=== PATIENT | female | born 1940 | race Caucasian/White ===

== ENCOUNTER 2022-02-23 19:02 | Emergency (ER) | payer OTHER ==
--- OUTSIDE RECORDS SUMMARY | 2022-02-23 19:44 | XMS REPORT | Continuity of Care Document ---
:1940 Author Organization [facility] t Address [address] [place] [address] Care Team Providers Name Role Phone BONNIE LANGFORD Primary Care Physician Unavailable ESTRELLITA CERVANTES Attending Clinician Unavailable ESTRELLITA CERVANTES Attending Clinician Unavailable 2, [facility] Attending Clinician Unavailable Payers Payer Name Policy Type Policy Number Effective Date Expiration Date Mal currie MEDICARE PART A [id number] 2004 \\T\\ B 00:00:00 Problems Condition Condition Condition Status Onset Resolution Last Treating Co mments Source Name Details Category Date Date Treatment Clinician Date Flu Flu Disease Active Univers vaccine vaccine 1-04 ity of need need 00:00: [place] 00 Medical Branch Recurrent Recurrent Disease Active Uni vers falls falls 1-04 ity of 00:00: [place] 00 Medical Branch Vitamin B Vitamin B Disease Active Uni vers 12 12 2-20 [place] Altered Altered Disease Active Univers mental mental 1-30 ity of status, status, 00:00: [place] unspecifie unspecifie 00 Me dical d altered d altered Bran ch mental mental status status type type Chronic Chronic Disease Active Univers nonintract nonintract 1-30 it y of able able 00:00: [place] headache, headache, 00 Medi lon unspecifie unspecifie Br anch d headache d headache type type Nutritiona Nutritiona Disease Active U nivers l l 1-30 ity of deficiency deficiency 00:[place] [facility] Dehydratio Dehydratio Disease Active U nivers n n 1-30 ity of 00:00: [place] 00 Medical Branch History of History of Disease Active U nivers TIA TIA 1-30 ity of (transient (transient 00:00: [facility] ischemic ischemic 00 Medica l attack) attack) Branch Chronic Chronic Disease Active Univers fatigue fatigue 1-30 ity of 00:00: [place] [facility] Encounter Encounter Disease Active Uni vers for for 1-30 ity of Medicare Medicare 00:00: [place] annual annual Medical wellness wellness Branch exam exam Syncope, Syncope, Disease Active Unive rs unspecifie unspecifie 1-30 it y of d syncope d syncope 00:00: [facility] s type type Medical Branch HTN HTN Disease Active 2014-07 Univers (hypertens (hypertens 2-10 it y of ion) ion) 00:00: [place] [facility] Hyperlipid Hyperlipid Disease Active 2014-07 U nivers emia emia 2-10 ity of 00:00: [place] [facility] Branch Allergies, Adverse Reactions, Alerts Allergy Allergy Status Severity Reaction(s) Onset Inactive Treating Comm ents Source Name Type Date Date Clinician NO KNOWN Drug Active Univers ALLERGIE Class ity of S [facility] Social History Social Habit Start Date Stop Date Quantity Comments Source Exposure to Not sure [facility] SARS-CoV-2 [place] [facility] (event) Andrew History of Cigarette Smoker Universi ty of tobacco use [facility] Alcohol intake 2021-07-08 2021-07-08 0 /d University of 00:00:00 00:00:00 [facility] Tobacco use and 2015-06-07 2015-06-07 Never used Universit y of exposure 00:00:00 00:00:00 [facility] Sex [birth year] Universit y of 00:00:00 00:00:00 [facility] Smoking Status Start Date Stop Date Source Never smoker [facility] Medications Ordered Filled Start Stop Current Ordering Indication Dosage Frequency Signature Comments Components Source Medication Medication Date Date Medication? Clinician (SIG) Name Name ergocalcife Yes [id number] 66061W Take 1 Univers rol, 1-05 capsule by ity of vitamin d2, 00:00: mouth [place] (VITAMIN 00 weekly. Medical D2) 1,250 Branch mcg (50,000 unit) capsule calcium 2021- No [id number] 500mg Take 1 Un edgardo carbonate 07-09-06 capsule by ity of 500 mg 00:00: 04:59 mouth 2 [place] calcium 00 :00 (two) Medical (1,250 mg) times Branch capsule daily with meals for 120 days. RAMIPRIL 10 Yes [id number] TAKE 1 Univers mg capsule 3-31 CAPSULE BY ity of 00:00: MOUTH [place] 00 EVERY DAY Medical Branch Immunizations Ordered Filled Immunization Date Status Comments [facility] e Immunization Name Name Influenza Virus 2021-07-08 Completed [facility] of Vaccine,quad 00:00:00 [place] Medica l Im,preserve Free Branch 65+ Procedures Procedure Date / Time Performing Clinician Source Performed VITAMIN B12, LEVEL 2021-07-08 16:17:00 Estrellita Cervantes [facility] FREE T4 2021-07-08 16:17:00 Estrellita Cervantes [facility] THYROID STIMULATING 2021-07-08 16:17:[address] [facility] HORMONE [facility] COMP. METABOLIC PANEL 2021-07-08 16:17:00 Estrellita Cervantes [facility] ([id number]) [facility] LIPID PANEL 2021-07-08 16:17:00 Estrellita Cervantes [facility] ([id number])(TOTAL Medical Branch CHOLESTEROL, TRIGLYCERIDES, HDL) CBC WITH DIFF 2021-07-08 16:17:00 Estrellita Cervantes [facility] GLYCOSYLATED HEMOGLOBIN 2021-07-08 16:17:00 Estrellita Cervantes [facility] (A1C) [facility] VITAMIN D, 25-OH 2021-07-08 16:17:00 Estrellita Cervantes [facility] FREE T3 2021-07-08 16:17:00 Estrellita Cervantes [facility] Encounters Start End Encounter Admission Attending Care Care Encounter Source Date/Time Date/Time Type Type Clinicians Facility Department ID 2021-08-05 2021-08-05 Outpatient R ESTRELLITA CERVANTES [facility] [id number] Univers 08:00:00 08:00:00 ESTRELLITA CERVANTES ity [facility] 2021-07-08 2021-07-08 Business Sales Consultant 2, [facility] [id number] [facility] 11:00:00 11:00:00 Visit Estrellita Cervantes OCILLA [id number] itleonel [facility] [id number] Bang BECKERSHANNAN [id number] Co dical [address] Results Test Description Test Time Test Comments Results Result Comments Source VITAMIN D, 25-OH 2021-07-08 23:55:05 Test Item Value Reference Range Interpretation Comme nts VIT D 25OH (test code = 58095-6) <13 25-80 L KIERAN (test code = KIERAN) Deficiency: <20 ng/mLInsufficiency: 20-24 ng/mLOptimal: 25-80 ng/mL Lab Interpretation (test code = 64624-5) Abnormal [facility] [id number] 23:19:09 Test Item Value Reference Range Interpretation Comments VIT B12 (test code = 265 pg/mL 240-930 4105475021) KIERAN (test code = KIERAN) Biotin has been reported to cause a positive bias, interpret results relative to patient's use of biotin. Lab Interpretation (test Normal code = 74992-5) [facility] [id number] 18:34:36 Test Item Value Reference Range Interpretation Comments TSH (test code = See_Comment [Automated message] [id number]) The system [employer] generated this result transmitted ref erence range: 0.45 - 4 .70 mIU/L. The refe rence range was not u sed to interpret this result as normal/abnor mal. Lab Interpretation (test Normal code = 56661-8) [facility] [id number] 18:22:43 Test Item Value Reference Range Interpretation Comments FREE T3 (test code = 8406108225) 2.51 pg/mL 2.77-5.27 L Lab Interpretation (test code = Abnormal 14372-2) [facility] [id number] 18:20:56 Test Item Value Reference Range Interpretation Comments FREE T4 (test code = See_Comment [Autom ated message] [id number]) The system [employer] generated this result transmitted ref erence range: 0.78 - 2 .20 ng/dL:. The ref erence range was not u sed to interpret this result as normal/abnor mal. Lab Interpretation (test Normal code = 97347-2) [facility] ([id number])(TOTAL CHOLESTEROL, TRIGLYCERIDES, HDL)2021-07-08 18:05:53 Test Item Value Reference Range Interpretation Comments CHOL (test code = 264 mg/dL 120-200 H 3489414125) HDL (test code = 63 mg/dL >50 0876101045) HDLC RATIO (test code = See_Comment [Au tomated message] [id number]) The system [employer] generated this result transmit susanne reference range : <=4.5. The refe rence range was not u sed to interpret th is result as normal/abnormal . TRIG (test code = 177 mg/dL 30-170 H 4741719048) LDL CHOL (test code = 166 mg/dL See_Comment H [Auto mated message] 05167-4) The system [employer] generated this result transmit susanne reference range : <=160. The refe rence range was not u sed to interpret th is result as normal/abnormal . VLDL (test code = 35 mg/dL 5-60 8278314350) Lab Interpretation (test Abnormal code = 17274-4) [facility] ([id number])2021-07-08 18:05:32 Test Item Value Reference Range Interpretation Comments NA (test code = 135 mmol/L 135-145 8488685993) K (test code = 4.9 mmol/L 3.5-5.0 5526076265) CL (test code = 99 mmol/L 98-108 6703269232) CO2 TOTAL (test code = 28 mmol/L 23-31 2516663516) AGAP (test code = 2-16 7558694317) BUN (test code = 17 mg/dL 7-23 6404971884) GLUCOSE (test code = 104 mg/dL 70-110 8443444981) CREATININE (test code = 1.37 mg/dL 0.50-1.04 H 0390885727) TOTAL BILI (test code = 0.6 mg/dL 0.1-1.6 9683616652) CALCIUM (test code = 9.1 mg/dL 8.6-10.6 6640025616) T PROTEIN (test code = 7.2 g/dL 6.3-8.2 5657101765) ALBUMIN (test code = 4.0 g/dL 3.5-5.0 0126585847) ALK PHOS (test code = 100 U/L 34-122 1603338263) ALTv (test code = 16 U/L 5-35 1742-6) AST(SGOT) (test code = 31 U/L 13-40 6362671100) eGFR (test code = mL/min/1.73m2 0425716084) KIERAN (test code = KIERAN) Association of Glomerular Filtration Rate (GFR) and Staging of Kidney Disease* + --+ --+ ------+| GFR (mL/min/1.73 m2) ?| With Kidney Damage ?| ?Without Kidney Damage+ --------+ --------+ +| ?>90 ?| ?Stage one ?| ? Normal ?+ ---+ ---+ -------+| ?60-89 ?| ?Stage two ?| ? Decreased GFR ? + --+ --+ ------+| ?30-59 ?| ?Stage three ?| ? Stage three ? + --+ --+ ------+| ?15-29 ?| ?Stage four ? | ? Stage four ?+ ---+ ---+ -------+| ?<15 (or dialysis) ? ?| ?Stage five ? | ? Stage five ?+ ---+ ---+ -------+ *Each stage assumes the associated GFR level has been in effect for at least three months. ?Stages 1 to 5, with or without kidney disease, indicate chronic kidney disease. Notes: Determination of stages one and two (with eGFR >59mL/min/1.73 m2) requires estimation of kidney damage for at least three months as defined by structural or functional abnormalities of the kidney, manifested by either:Pathological abnormalities or Markers of kidney damage (including abnormalities in the composition of the blood or urine or abnormalities in imaging tests). Lab Interpretation Abnormal (test code = 07174-2) [facility] (A1C)2021-07-08 17:38:17 Test Item Value Reference Range Interpretation Comments HGB A1C (test code = 5.1 % 4.0-5.7 4548-4) KIERAN (test code = KIERAN) Reference RangesNormal: <5.7%Prediabetes: 5.7 - 6.4%Diabetes: > 6.5% Lab Interpretation (test Normal code = 80390-4) [facility] WITH [id number] 17:08:41 Test Item Value Reference Range Interpretation Comments WBC (test code = See_Comment H [Automated 6690-2) message] The sy stem which generated this result transmitted reference range : 4.30 - 11.10 10*3/?L. The reference range was not used to interpret this result as normal/abnormal . RBC (test code = See_Comment [Automated 789-8) message] The sy stem which generated this result transmitted reference range : 3.93 - 5.25 10*6/?L. The reference range was not used to interpret this result as normal/abnormal . HGB (test code = 13.0 g/dL 11.6-15.0 718-7) HCT (test code = 40.2 % 35.7-45.2 4544-3) MCV (test code = 92.4 fL 80.6-95.5 787-2) MCH (test code = 29.9 pg 25.9-32.8 785-6) MCHC (test code = 32.3 g/dL 31.6-35.1 786-4) RDW-SD (test code = 45.9 fL 39.0-49.9 41883-1) RDW-CV (test code = 13.3 % 12.0-15.5 788-0) PLT (test code = See_Comment H [Automated 777-3) message] The sy stem which generated this result transmitted reference range : 166 - 358 10*3/ ?L. The reference r raúl was not used to interpret this result as normal/abnormal . MPV (test code = 10.0 fL 9.5-12.9 19799-6) NRBC/100 WBC (test See_Comment [Automat ed code = 7958731310) message] The system which generated this result transmitted reference range : 0.0 - 10.0 /100 WBCs. The refer ence range was not u sed to interpret th is result as normal/abnormal . NRBC x10^3 (test code <0.01 See_Comment [Auto mated = 4125298090) message] The s ystem which generated this result transmitted reference range : 10*3/?L. The reference range was not used to interpret this result as normal/abnormal . GRAN MAT (NEUT) % 79.7 % (test code = 770-8) IMM GRAN % (test code 0.50 % = 5575416822) LYMPH % (test code = 13.9 % 736-9) MONO % (test code = 4.9 % 5905-5) EOS % (test code = 0.3 % 713-8) BASO % (test code = 0.7 % 706-2) GRAN MAT x10^3(ANC) 9.50 10*3/uL 1.88-7.09 H (test code = 2612768254) IMM GRAN x10^3 (test 0.06 10*3/uL 0.00-0.06 code = 2768656726) LYMPH x10^3 (test code 1.66 10*3/uL 1.32-3.29 = 731-0) MONO x10^3 (test code 0.58 10*3/uL 0.33-0.92 = 742-7) EOS x10^3 (test code = 0.04 10*3/uL 0.03-0.39 711-2) BASO x10^3 (test code 0.08 10*3/uL 0.01-0.07 H = 704-7) Lab Interpretation Abnormal (test code = 73675-9) [facility]"
[2022-02-23 20:16] LABS: Absolute Lymphocytes (CBC) 2.6 K/uL (0.7-4.9); Hematocrit 35.6 % (36.0-45.0); Lymphocytes % 27.6 % (15.3-44.8); MCV 88.5 fL (80-100); MPV 7.6 fL (7.6-11.3); RBC Red Blood Cell Count 4.02 M/uL (3.86-4.86)
[2022-02-23 20:17] LABS: Urine Blood Trace-intact (Negative); Urine Glucose Negative (Negative); Urine Protein Negative (Negative); Urine Specific Gravity <=1.005 (1.005-1.030); Urine pH 5.5 (5.0-7.0)
[2022-02-23 20:19] LABS: Protime INR 0.95
[2022-02-23] MEDS ORDERED: NA CHLORIDE 0.9% 1,000 ML ONE (20:23)
[2022-02-23] MEDS ORDERED: CEFTRIAXONE 1000 MG/VIAL ONE (20:23)
[2022-02-23] MEDS ORDERED: NA CHLORIDE 0.9% 500 ML ONE (20:23)
[2022-02-23] MEDS ORDERED: HYDRALAZINE HCL 10 MG TABLET ONE (20:24)
[2022-02-23] MEDS ORDERED: AMLODIPINE 10 MG TAB ONE (20:24)
[2022-02-23] MEDS ORDERED: HYDRALAZINE HCL 20 MG/ML VIAL ONE (20:24)
[2022-02-23 20:29] LABS: SARS-CoV-2 Antigen Rapid Res Negative (Negative)
[2022-02-23 20:41] LABS: ALT/SGPT 12 U/L (12-78); AST/SGOT 21 U/L (15-37); Albumin 3.4 g/dL (3.4-5.0); Alkaline Phosphatase 73 U/L (45-117); BUN Blood Urea Nitrogen 15 mg/dL (7-18); Bicarbonate 30 mmol/L (21-32); Bilirubin Total 0.3 mg/dL (0.2-1.0); Glomerular Filtration Rate 39 ml/min (=/>90); Glucose Level 101 mg/dL (74-106); Lipase 196 U/L (73-393); Magnesium 2.1 mg/dL (1.8-2.4); NT PRO-BNP 602 pg/mL (<450); Potassium 3.3 mmol/L (3.5-5.1); Protein, Total 6.9 g/dL (6.4-8.2); Sodium Level 141 mmol/L (136-145); Troponin High Sensitivity 14.6 pg/mL (<58.9)
[2022-02-23 20:45] LABS: Bilirubin Direct < 0.1 mg/dL (0-0.2)
--- NOTE | 2022-02-23 21:09 | RAD REPORT ---
EXAM DESCRIPTION: Alisha Single View02/23/2022 8:21 pm CLINICAL HISTORY: cough COMPARISON: 2011 FINDINGS: The lungs appear clear of acute infiltrate. The heart is normal size IMPRESSION: No acute abnormalities displayed
--- NOTE | 2022-02-23 21:12 | RAD REPORT ---
EXAM DESCRIPTION: CT - Head Brain Wo Cont - 02/23/2022 9:05 pm CLINICAL HISTORY: Headache COMPARISON: 2013 TECHNIQUE: Computed axial tomography of the head was obtained. IV contrast was not requested. All CT scans are performed using dose optimization technique as appropriate and may include automated exposure control or mA/KV adjustment according to patient size. FINDINGS: An intracranial bleed is not seen . The ventricles are normal in caliber. No extra-axial fluid collection is noted. Cystic encephalomalacia right cerebrum unchanged. Fluid within the sinuses/ mastoids is not seen. IMPRESSION: No acute intracranial abnormality is seen. If patient's symptoms persist MRI of the bra in would be recommended.
--- NOTE | 2022-02-23 21:20 | RAD REPORT ---
EXAM DESCRIPTION: CT - Stone Protocol - 02/23/2022 9:08 pm CLINICAL HISTORY: Abdominal pain. Dysuria COMPARISON: 2013 TECHNIQUE: Computed axial tomography of the abdomen pelvis was obtained without oral or IV contrast. Lack of IV and oral contrast limits evaluation of solid organs, appendix, bowel, and vessels. Man l reformatted images were obtained and reviewed. All CT scans are performed using dose optimization technique as appropriate and may include automated exposure control or mA/KV adjustment according to patient size. FINDINGS: A renal calculus is not seen. An ureteral calculus is not noted. A bladder calculus is not present. Bilateral extrarenal pelves. The liver, spleen, pancreas and adrenals appear grossly normal Cholecystectomy There is no evidence of diverticulitis. Right posterior diaphragmatic hernia containing fat Calcified uterine fibroids. No adnexal mass IMPRESSION: Negative for a genitourinary calculus
[2022-02-23] MEDS ORDERED: POTASSIUM 25 MEQ EFFERV TAB ONE (22:12)
--- NOTE | 2022-02-23 22:21 | ER ---
Nurse's Notes [facility] Name: Ileana Goldman Age: 81 yrs Sex: Female : 1940 Arrival Date: 02/23/2022 Time: 19:15 Bed 28 Private MD: Diagnosis: Essential (primary) hypertension;Hypokalemia;Anemia, unspecified;UTI/ Urinary tract infection, site not specified Presentation: 02/23 19:23 Chief complaint: EMS states: daughter toned out to [facility] due to pt incontinence eh3 and loss of appetite. Coronavirus screen: Vaccine status: Patient reports being unvaccinated. Ebola Screen: No symptoms or risks identified at this time. Initial Sepsis Screen: Does the patient meet any 2 criteria? No. Patient's initial sepsis screen is negative. Does the patient have a suspected source of infection? No. Patient's initial sepsis screen is negative. Risk Assessment: Do you want to hurt yourself or someone else? Patient reports no desire to harm self or others. Onset of symptoms is unknown. 19:23 Method Of Arrival: EMS: [facility] 3 19:23 Acuity: OPAL 3 eh3 Triage Assessment: 19:26 General: Appears in no apparent distress. comfortable, slender, well groomed, Behavior eh3 is calm, cooperative, appropriate for age. Pain: Denies pain. Neuro: Level of Consciousness is awake, alert, obeys commands. Cardiovascular: Capillary refill < 3 seconds Patient's skin is warm and dry. Respiratory: Airway is patent Respiratory effort is even, unlabored. GI: Parent/caregiver reports the patient having loss of appetite. : Parent/caregiver report the patient having incontinence. Derm: No signs and/or symptoms reported regarding the dermatologic system. Musculoskeletal: No signs and/or symptoms reported regarding the musculoskeletal system. Historical: - Allergies: 19:26 No Known Allergies; eh3 - Home Meds: 19:26 None [Active]; eh3 - PMHx: 19:26 CVA; eh3 - PSHx: 19:26 None; eh3 - Immunization history:: Adult Immunizations up to date. - Social history:: Smoking status: Patient denies any tobacco usage or history of. Patient/guardian denies using alcohol. - Family history:: not pertinent. Screenin:33 Abuse screen: Denies threats or abuse. Denies injuries from another. Nutritional eh3 screening: No deficits noted. Tuberculosis screening: No symptoms or risk factors identified. Fall Risk None identified. Vital Signs: 20:33 BP 199 / 73; Pulse 71; Resp 15; Temp 97.9(O); Pulse Ox 96% on R/A; Weight 58.97 kg; eh3 Height 5 ft. 5 in. (165.10 cm); Pain 0/10; 21:30 BP 160 / 57; Pulse 74; Resp 18; Pulse Ox 95% on R/A; eh3 22:24 BP 174 / 83; Pulse 92; Resp 18; Pulse Ox 96% on R/A; eh3 20:33 Body Mass Index 21.63 (58.97 kg, 165.10 cm) eh3 ED Course: 19:15 Patient arrived in ED. ja2 19:23 Bertha Eddy, RN is Primary Nurse. eh3 19:26 Triage completed. eh3 19:26 Arm band placed on left wrist. eh3 19:32 Kirk Kwon MD is Attending Physician. mackenzie 20:18 Urine Culture Sent. ld1 20:19 Urine Culture Sent. ld1 20:23 XRAY Chest (1 view) In Process Unspecified. EDMS 20:32 Warm blanket given. Pillow given. Cleaned of incontinence. Linen changed. eh3 20:32 Inserted saline lock: 20 gauge in left antecubital area, using aseptic technique. Blood eh3 collected. 20:33 Patient has correct armband on for positive identification. Placed in gown. Bed in low eh3 position. Call light in reach. Side rails up X2. 21:07 CT Head Brain wo Cont In Process Unspecified. EDMS 21:10 CT Stone Protocol In Process Unspecified. EDMS 22:20 Fredi Dawkins DO is Referral Physician. mackenzie 22:26 No provider procedures requiring assistance completed. eh3 22:26 IV discontinued, intact, bleeding controlled, No redness/swelling at site. Pressure eh3 dressing applied. Administered Medications: 10:10 Drug: Potassium Effervescent Tablet 50 mEq Route: PO; eh3 22:28 Follow up: Response: No adverse reaction eh3 10:10 Drug: Cipro (ciprofloxacin) 500 mg Route: PO; eh3 22:28 Follow up: Response: No adverse reaction eh3 10:10 Drug: Lisinopril 20 mg Route: PO; eh3 22:27 Follow up: Response: No adverse reaction eh3 20:24 Drug: NS 0.9% 1000 ml Route: IV; Rate: 125 ml/hr; Site: left antecubital; ld1 22:29 Follow up: Response: No adverse reaction; IV Intake: 500ml eh3 22:32 Follow up: Response: No adverse reaction; IV Intake: 1000ml eh3 20:25 Drug: NS 0.9% 500 ml Route: IV; Rate: bolus; Site: left antecubital; ld1 22:32 Follow up: Response: No adverse reaction; IV Intake: 500ml eh3 20:33 Drug: Rocephin (cefTRIAXone) 1 grams Route: IV; Rate: per protocol; Site: left [facility] antecubital; 22:28 Follow up: Response: No adverse reaction eh3 20:33 Drug: Norvasc (amlodipine) 10 mg Route: PO; eh3 22:28 Follow up: Response: No adverse reaction eh3 20:33 Drug: hydrALAZINE 10 mg Route: PO; eh3 22:28 Follow up: Response: No adverse reaction eh3 20:33 Drug: hydrALAZINE 5 mg Route: IVP; Site: left antecubital; eh3 22:28 Follow up: Response: No adverse reaction eh3 Medication: 20:33 VIS not applicable for this client. eh3 Intake: 22:29 IV: 500ml; Total: 500ml. eh3 22:32 IV: 1000ml; Total: 1500ml. eh3 22:32 IV: 500ml; Total: 2000ml. eh3 Outcome: 22:21 Discharge ordered by MD. mann 22:26 Discharged to home ambulatory, with family. eh3 22:26 Condition: stable 22:26 Discharge instructions given to patient, family, Instructed on discharge instructions, follow up and referral plans. medication usage, Demonstrated understanding of instructions, follow-up care, medications, Prescriptions given X 3. 22:33 Patient left the ED. eh3 Signatures: Dispatcher [employer] EDKirk Loyola MD MD cha Dibbern, Lauren RN RN ld1 Lizette Richardson Erin RN RN eh3
--- NOTE | 2022-02-23 22:22 | EDPHYS ---
Physician Documentation [facility] Name: Ileana Goldman Age: 81 yrs Sex: Female : 1940 Arrival Date: 02/23/2022 Time: 19:15 Bed 28 Private MD: RODRIGUE Physician Kirk Kwon HPI: 02/23 20:13 This 81 yrs old Female presents to ER via EMS with complaints of Urinary mackenzie Incontinence. 20:13 The patient presents with urinary symptoms, dysuria, frequency. Onset: The mackenzie symptoms/episode began/occurred 3 day(s) ago. Modifying factors: The symptoms are alleviated by nothing, the symptoms are aggravated by nothing. Associated signs and symptoms: The patient has no apparent associated signs or symptoms. Severity of symptoms: At their worst the symptoms were mild, in the emergency department the symptoms are unchanged. frequency. The patient is not sexually active. Onset: The symptoms/episode began/occurred 2 day(s) ago. Severity of symptoms: At their worst the symptoms were mild in the emergency department the symptoms are unchanged. Historical: - Allergies: 19:26 No Known Allergies; eh3 - Home Meds: 19:26 None [Active]; eh3 - PMHx: 19:26 CVA; eh3 - PSHx: 19:26 None; eh3 - Immunization history:: Adult Immunizations up to date. - Social history:: Smoking status: Patient denies any tobacco usage or history of. Patient/guardian denies using alcohol. - Family history:: not pertinent. ROS: 20:13 Constitutional: Negative for fever, chills, and weight loss, Eyes: Negative for injury, mackenzie pain, redness, and discharge, ENT: Negative for injury, pain, and discharge, Neck: Negative for injury, pain, and swelling, Cardiovascular: Negative for chest pain, palpitations, and edema, Respiratory: Negative for shortness of breath, cough, wheezing, and pleuritic chest pain, Abdomen/GI: Negative for abdominal pain, nausea, vomiting, diarrhea, and constipation, Back: Negative for injury and pain, : Negative for injury, bleeding, discharge, and swelling, MS/Extremity: Negative for injury and deformity, Skin: Negative for injury, rash, and discoloration, Neuro: Negative for headache, weakness, numbness, tingling, and seizure, Psych: Negative for depression, anxiety, suicide ideation, homicidal ideation, and hallucinations, Allergy/Immunology: Negative for hives, rash, and allergies, Endocrine: Negative for neck swelling, polydipsia, polyuria, polyphagia, and marked weight changes, Hematologic/Lymphatic: Negative for swollen nodes, abnormal bleeding, and unusual bruising. Exam: 20:14 Constitutional: This is a well developed, well nourished patient who is awake, alert, mackenzie and in no acute distress. Head/Face: Normocephalic, atraumatic. Eyes: Pupils equal round and reactive to light, extra-ocular motions intact. Lids and lashes normal. Conjunctiva and sclera are non-icteric and not injected. Cornea within normal limits. Periorbital areas with no swelling, redness, or edema. ENT: Nares patent. No nasal discharge, no septal abnormalities noted. Tympanic membranes are normal and external auditory canals are clear. Oropharynx with no redness, swelling, or masses, exudates, or evidence of obstruction, uvula midline. Mucous membranes moist. Neck: Trachea midline, no thyromegaly or masses palpated, and no cervical lymphadenopathy. Supple, full range of motion without nuchal rigidity, or vertebral point tenderness. No Meningismus. Chest/axilla: Normal chest wall appearance and motion. Nontender with no deformity. No lesions are appreciated. Cardiovascular: Regular rate and rhythm with a normal S1 and S2. No gallops, murmurs, or rubs. Normal PMI, no JVD. No pulse deficits. Respiratory: Lungs have equal breath sounds bilaterally, clear to auscultation and percussion. No rales, rhonchi or wheezes noted. No increased work of breathing, no retractions or nasal flaring. Abdomen/GI: Soft, non-tender, with normal bowel sounds. No distension or tympany. No guarding or rebound. No evidence of tenderness throughout. Back: No spinal tenderness. No costovertebral tenderness. Full range of motion. Skin: Warm, dry with normal turgor. Normal color with no rashes, no lesions, and no evidence of cellulitis. MS/ Extremity: Pulses equal, no cyanosis. Neurovascular intact. Full, normal range of motion. Neuro: Awake and alert, GCS 15, oriented to person, place, time, and situation. Cranial nerves II-XII grossly intact. Motor strength 5/5 in all extremities. Sensory grossly intact. Cerebellar exam normal. Normal gait. Psych: Awake, alert, with orientation to person, place and time. Behavior, mood, and affect are within normal limits. 20:14 Musculoskeletal/extremity: DVT Exam: No signs of deep vein thrombosis. no pain, no swelling, no tenderness, negative Homans' sign noted on exam, no appreciated bluish discoloration, no erythema, no increased warmth. 20:24 ECG was reviewed by the Attending Physician. mackenzie Vital Signs: 20:33 BP 199 / 73; Pulse 71; Resp 15; Temp 97.9(O); Pulse Ox 96% on R/A; Weight 58.97 kg; 3 Height 5 ft. 5 in. (165.10 cm); Pain 0/10; 21:30 BP 160 / 57; Pulse 74; Resp 18; Pulse Ox 95% on R/A; eh3 22:24 BP 174 / 83; Pulse 92; Resp 18; Pulse Ox 96% on R/A; eh3 20:33 Body Mass Index 21.63 (58.97 kg, 165.10 cm) [facility] MDM: 19:32 Patient medically screened. mackenzie 20:14 Differential diagnosis: kidney stone, urinary tract infection. Data reviewed: vital mackenzie signs, nurses notes, lab test result(s), EKG, radiologic studies, CT scan, plain films. Data interpreted: monitor tech: rate is 85 beats/min, rhythm is regular, Pulse oximetry: on room air is 100 %. Test interpretation: by ED physician or midlevel provider: ECG, plain radiologic studies. Counseling: I had a detailed discussion with the patient and/or guardian regarding: the historical points, exam findings, and any diagnostic results supporting the discharge/admit diagnosis, lab results, radiology results. 02/23 19:37 Order name: Basic Metabolic Panel; Complete Time: 21:53 [facility] 02/23 19:37 Order name: CBC with Diff; Complete Time: :53 [facility] 02/23 19:37 Order name: LFT's; Complete Time: 21:53 [facility] 02/23 19:37 Order name: Magnesium; Complete Time: 21:53 [facility] 02/23 19:37 Order name: NT PRO-BNP; Complete Time: 21:53 [facility] 02/23 19:37 Order name: PT-INR; Complete Time: 21:53 [facility] 02/23 19:37 Order name: Troponin HS; Complete Time: 21:53 [facility] 02/23 19:37 Order name: XRAY Chest (1 view); Complete Time: 21:53 [facility] 02/23 19:37 Order name: Urine Culture; Complete Time: 21:53 [facility] 02/23 19:37 Order name: Lipase; Complete Time: 21:53 [facility] 02/23 19:37 Order name: CT Head Brain wo Cont; Complete Time: 21:53 [facility] 02/23 19:39 Order name: Urine Culture [facility] 02/23 20:17 Order name: Urine Dipstick-Ancillary; Complete Time: 21:53 [facility] 02/23 19:37 Order name: EKG; Complete Time: 19:37 [facility] 02/23 19:37 Order name: Cardiac monitoring; Complete Time: 19:52 [facility] 02/23 19:37 Order name: EKG - Nurse/Tech; Complete Time: 20:09 [facility] 02/23 19:37 Order name: IV Saline Lock; Complete Time: 20:32 [facility] 02/23 19:37 Order name: Labs collected and sent; Complete Time: 20:32 [facility] 02/23 19:37 Order name: O2 Per Protocol; Complete Time: 19:52 [facility] 02/23 19:37 Order name: CT Stone Protocol; Complete Time: :53 [facility] 02/23 19:37 Order name: O2 Sat Monitoring; Complete Time: 19:52 [facility] 02/23 19:37 Order name: Urine Dipstick-Ancillary (obtain specimen); Complete Time: 20:19 mackenzie EC:24 Rate is 66 beats/min. Rhythm is regular. QRS [place] is Normal. [place] interval is normal. QRS mackenzie interval is normal. QT interval is normal. No Q waves. T waves are Normal. No ST changes noted. Clinical impression: NSR w/ Non-specific ST/T Changes and No evidence of ischemia. Interpreted by me. Reviewed by me. Administered Medications: 10:10 Drug: Potassium Effervescent Tablet 50 mEq Route: PO; 3 22:28 Follow up: Response: No adverse reaction eh3 10:10 Drug: Cipro (ciprofloxacin) 500 mg Route: PO; eh3 22:28 Follow up: Response: No adverse reaction eh3 10:10 Drug: Lisinopril 20 mg Route: PO; eh3 22:27 Follow up: Response: No adverse reaction eh3 20:24 Drug: NS 0.9% 1000 ml Route: IV; Rate: 125 ml/hr; Site: left antecubital; ld1 22:29 Follow up: Response: No adverse reaction; IV Intake: 500ml eh3 22:32 Follow up: Response: No adverse reaction; IV Intake: 1000ml eh3 20:25 Drug: NS 0.9% 500 ml Route: IV; Rate: bolus; Site: left antecubital; ld1 22:32 Follow up: Response: No adverse reaction; IV Intake: 500ml eh3 20:33 Drug: Rocephin (cefTRIAXone) 1 grams Route: IV; Rate: per protocol; Site: left eh3 antecubital; 22:28 Follow up: Response: No adverse reaction eh3 20:33 Drug: Norvasc (amlodipine) 10 mg Route: PO; eh3 22:28 Follow up: Response: No adverse reaction eh3 20:33 Drug: hydrALAZINE 10 mg Route: PO; eh3 22:28 Follow up: Response: No adverse reaction eh3 20:33 Drug: hydrALAZINE 5 mg Route: IVP; Site: left antecubital; eh3 22:28 Follow up: Response: No adverse reaction eh3 Disposition Summary: 02/23/22 22:21 Discharge Ordered Location: Home mackenzie Problem: new mackenzie Symptoms: have improved mackenzie Condition: Stable mackenzie Diagnosis - Essential (primary) hypertension mackenzie - Hypokalemia mackenzie - Anemia, unspecified mackenzie - UTI/ Urinary tract infection, site not specified mackenzie Followup: mackenzie - With: Private Physician - When: 2 - 3 days - Reason: Recheck today's complaints, Continuance of care, Re-evaluation by your physician Followup: mackenzie - With: Fredi Dawkins DO - When: 2 - 3 days - Reason: Recheck today's complaints, Continuance of care, Re-evaluation by your physician Discharge Instructions: - Discharge Summary Sheet mackenzie - Anemia mackenzie - Potassium Content of Foods mackenzie - Dysuria mackenzie - Hypertension, Adult mackenzie - Urinary Tract Infection, Adult mackenzie - Urinary Tract Infection, Adult, [id number]-[id number] mackenzie - Hypertension, Adult, Cycm-jq-[id number] mackenzie - How to Take Your Blood Pressure, Uiei-ev-Iqrp mackenzie - Aspirin and Your Heart mackenzie - Hypokalemia mackenzie - Managing Your Hypertension mackenzie Forms: - Medication Reconciliation Form mackenzie - Thank You Letter mackenzie - Antibiotic Education mackenzie - Prescription Opioid Use [facility] Prescriptions: - Cipro 250 mg Oral Tablet - take 1 tablet by ORAL route every 12 hours; 14 tablet; Refills: 0, Product [facility] Selection Permitted - Norvasc 5 mg Oral Tablet - take 1 tablet by ORAL route once daily; 20 tablet; Refills: 0, Product [facility] Selection Permitted - Lisinopril 10 mg Oral Tablet - take 1 tablet by ORAL route once daily; 20 tablet; Refills: 0, Product [facility] Selection Permitted Signatures: Dispatcher [employer] Kirk Lovell MD MD cha Dibbern, Lauren, RN RN ld1 Bertha Eddy RN RN eh3
[2022-02-23 23:31] VITALS: TEMP 97.9
[2022-02-23 23:35] VITALS: BP 174/83; O2SAT 96
--- NOTE | 2022-02-24 13:50 | EKG ---
Test Date: 2022-02-23 Test Time: 20:08:06 Ethnology Teacher: PAUL MEASUREMENT RESULTS: Intervals: Rate: 66 HI: 158 QRSD: 84 QT: 376 QTc: 394 Justice: P: 52 HI: 158 QRS: -7 T: 103 INTERPRETIVE STATEMENTS: Sinus rhythm with premature atrial complexes Left ventricular hypertrophy with repolarization abnormality Abnormal ECG Compared to ECG 08/05/2013 17:17:08 Atrial premature complex(es) now present Electronically Signed On 02-24-22 13:48:36 CDT by Bridger Wang
== END 2022-02-23 22:33 | disposition home or self-care (01) ==
LOC: ER 19:02
DX: N39.0 Urinary tract infection, site not specified (principal); E87.6 Hypokalemia; I10 Essential (primary) hypertension; Z86.73 Personal history of transient ischemic attack (TIA), and cerebral infarction without residual deficits; Z20.822 Contact with and (suspected) exposure to COVID-19
CPT/HCPCS: 93005; 87088; 85025; 87086; 80048; 36415; 83735; 85610; 80076; 81003; 84484; 83690; 83880; 70450; 76377; 74176; 71045; 96375; 96374; 99284; 87811; J0360; J7040; J7030

== ENCOUNTER 2022-03-30 13:16 | Emergency (ER) | payer OTHER ==
[2012-02-09 15:33] VITALS: BP 143/48
--- OUTSIDE RECORDS SUMMARY | 2022-03-30 13:19 | XMS REPORT | Continuity of Care Document ---
:1940 Author Organization [facility] t Address [address] [place] [address] Care Team Providers Name Role Phone Jacob Madison MD Primary Care Physician Billy CHASE, Estrellita Attending Clinician ESTRELLITA CERVANTES Attending Clinician Unavailable Jacob Madison MD Attending Clinician Payers Payer Name Policy Type Policy Number Effective Date Expiration Date S ource Problems Condition Condition Condition Status Onset Resolution Last Treating Co mments Source Name Details Category Date Date Treatment Clinician Date Flu Flu Disease Active Univers vaccine vaccine 1-04 ity of need need 00:00: [place] 00 Medical Branch Recurrent Recurrent Disease Active Uni vers falls falls 1-04 ity of 00:00: [place] 00 Medical Branch Vitamin B Vitamin B [...] deficiency 00:00[place] Dehydratio Dehydratio Disease Active U nivers n n 1-30 ity of 00:00: [place] [facility] History of History of Disease Active U nivers TIA TIA 1-30 ity of (transient (transient [place] ischemic ischemic 00 Medica l attack) attack) Branch Chronic Chronic Disease Active Univers fatigue fatigue 1-30 ity of 00:: [place] [facility] Encounter Encounter Disease Active Uni vers for for 1-30 ity of Medicare Medicare 00:00: [place] annual annual Medical wellness wellness Branch exam exam Syncope, Syncope, Disease Active Unive rs unspecifie unspecifie 1-30 it y of d syncope d [place] HTN HTN Disease Active 2014-07 Univers (hypertens (hypertens 2-10 it y of ion) ion) 00:00: [place] [facility] Branch Hyperlipid Hyperlipid Disease Active 2014-07 U suze emia emia 2-10 ity of 00:00: [address] Allergies, Adverse Reactions, Alerts Allergy Allergy Status Severity Reaction(s) Onset Inactive Treating Comm ents Source Name Type Date Date Clinician NO KNOWN Drug Active Univers ALLERGIE Class ity of S [facility] Social History Social Habit Start Date Stop Date Quantity Comments Source History of Cigarette Smoker Universi ty of tobacco use [facility] Exposure to 2022-02-17 2022-02-27 Not sure [facility] SARS-CoV-2 00:00:00 13:45:00 [facility] (event) [place] Alcohol intake 2021-07-08 2021-07-08 0 /d [facility] 00:00:00 00:00:00 [facility] Tobacco use and 2015-06-07 2015-06-07 Smokeless tobacco Un iversity of exposure 00:00:00 00:00:00 non-user [facility] Sex Ass[birth year] At [birth year] Universit y of 00:00:00 00:00:00 [facility] Smoking Status Start Date Stop Date Source Never smoked tobacco [facility] Medications Ordered Filled Start Stop Current Ordering Indication Dosage Frequency Signature Comments Components Source Medication Medication Date Date Medication? Clinician (SIG) Name Name ondansetron Yes [id number] 4mg Take 1 Univers 4 mg 9-19 tablet by ity of disintegrat 00:00: mouth [place] ing tablet 00 every 8 Medica l (eight) Branch hours as needed for Nausea and Vomiting (N/V). May take 1-2 tablets. lisinopriL 2021-0 Yes [id number] 20mg Take 1 Univers 20 mg 8-29 tablet by ity of tablet 00:00: mouth in [place] 00 the Medical morning. Branch lisinopriL 2021-0 Yes [id number] 20mg Take 1 Univers 20 mg 8-29 tablet by ity of tablet 00:00: mouth in [place] 00 the Medical morning. Branch lisinopriL 2021-0 2021- No 10mg Take 10 mg Univers 10 mg 8-26 - by mouth ity of tablet 15:32: 00:00 in the [place] 25 :00 morning. Medical Branch amLODIPine 2021-0 Yes 5mg Take 5 mg Un edgardo 5 mg tablet 8-26 by mouth ity of 14:59: in the [place] [address] morning. Medical Branch ciprofloxac 2021-0 Yes 250mg Take 250 U nivers in HCl 250 8-26 mg by ity of mg tablet 14:59: mouth [place] 45 every 12 Medical (twelve) Branch hours. amLODIPine 2021-0 Yes 5mg Take 5 mg Un edgardo 5 mg tablet 8-26 by mouth ity of 14:59: in the [place] [address] morning. Medical Branch ciprofloxac 2021-0 Yes 250mg Take 250 U nivers in HCl 250 8-26 mg by ity of mg tablet 14:59: mouth [place] 45 every 12 Medical (twelve) Branch hours. amLODIPine 2021-0 Yes 5mg Take 5 mg Un edgardo 5 mg tablet 8-26 by mouth ity of 14:59: in the [place] 45 morning. Medical Branch furosemide 2021-0 Yes [id number] 40mg Take 1 Univers 40 mg 8-26 tablet by ity of tablet 00:00: mouth in [place] 00 the Medical morning. Branch potassium 2021-0 Yes [id number] 10meq Take 1 Univers chloride 10 8-26 tablet by ity of mEq CR 00:00: mouth in [place] tablet 00 the Medical morning. Branch lisinopriL 2021-0 Yes [id number] 20mg Take 1 Univers 20 mg 8-26 tablet by ity of tablet 00:00: mouth in [place] 00 the Medical morning. Branch furosemide 2021-0 Yes [id number] 40mg Take 1 Univers 40 mg 8-26 tablet by ity of tablet 00:00: mouth in [place] 00 the Medical morning. Branch potassium 2021-0 Yes [id number] 10meq Take 1 Univers chloride 10 8-26 tablet by ity of mEq CR 00:00: mouth in [place] tablet 00 the Medical morning. Branch furosemide 2021-0 Yes [id number] 40mg Take 1 Univers 40 mg 8-26 tablet by ity of tablet 00:00: mouth in [place] 00 the Medical morning. Branch potassium 2021-0 Yes [id number] 10meq Take 1 Univers chloride 10 8-26 tablet by ity of mEq CR 00:00: mouth in [place] tablet 00 the Medical morning. Branch lisinopriL 0 2021- No [id number] 20mg Take 1 Univers 20 mg 8-26 08-29 tablet by ity of tablet 00:00: 00:00 mouth in [place] 00 :00 the Medical morning. Branch ergocalcife Yes [id number] 94727X Take 1 Univers rol, 1-05 capsule by ity of vitamin d2, 00:00: mouth [place] (VITAMIN 00 weekly. Medical D2) 1,250 Branch mcg (50,000 unit) capsule ergocalcife 0 Yes [id number] 16503B Take 1 Univers rol, 1-05 capsule by ity of vitamin d2, 00:00: mouth [place] (VITAMIN 00 weekly. Medical D2) 1,250 Branch mcg (50,000 unit) capsule ergocalcife 0 Yes [id number] 14637H Take 1 Univers rol, 1-05 capsule by ity of vitamin d2, 00:00: mouth [place] (VITAMIN 00 weekly. Medical D2) 1,250 Branch mcg (50,000 unit) capsule levocetiriz 2021-0 Yes [id number] 5mg Take 1 Univers ine 5 mg 1-04 tablet by ity of tablet 00:00: mouth [place] 00 every Medical evening. Branch pyridoxine, 0 Yes [id number] 50mg Take 1 Univers vitamin B6, 1-04 tablet by ity of 50 mg 00:00: mouth [place] tablet 00 daily. Medical Branch donepeziL 5 2021-0 Yes [id number] 5mg Take 1 Univers mg tablet 1-04 tablet by ity o f 00:00: mouth at [place] 00 bedtime. Medical Branch atorvastati Yes [id number] TAKE 1 Univers n 10 mg 1-04 TABLET BY ity of tablet 00:00: MOUTH AT [place] 00 BEDTIME Medical Branch vitamin 2021-0 Yes [id number] 1000ug Take 1 U nivers B-12 1,000 1-04 tablet by ity of mcg tablet 00:00: mouth [place] 00 daily. Medical Branch levocetiriz Yes [id number] 5mg Take 1 Univers ine 5 mg 1-04 tablet by ity of tablet 00:00: mouth [place] 00 every Medical evening. Branch pyridoxine, Yes [id number] 50mg Take 1 Univers vitamin B6, 1-04 tablet by ity of 50 mg 00:00: mouth [place] tablet 00 daily. Medical Branch donepeziL 5 Yes [id number] 5mg Take 1 Univers mg tablet 1-04 tablet by ity o f 00:00: mouth at [place] 00 bedtime. Medical Branch atorvastati Yes [id number] TAKE 1 Univers n 10 mg 1-04 TABLET BY ity of tablet 00:00: MOUTH AT [place] 00 BEDTIME Medical Branch vitamin 2021-0 Yes [id number] 1000ug Take 1 U nivers B-12 1,000 1-04 tablet by ity of mcg tablet 00:00: mouth [place] 00 daily. Medical Branch levocetiriz Yes [id number] 5mg Take 1 Univers ine 5 mg 1-04 tablet by ity of tablet 00:00: mouth [place] 00 every Medical evening. Branch pyridoxine, Yes [id number] 50mg Take 1 Univers vitamin B6, 1-04 tablet by ity of 50 mg 00:00: mouth [place] tablet 00 daily. Medical Branch donepeziL 5 2021- Yes [id number] 5mg Take 1 Univers mg tablet 1-04 tablet by ity o f 00:00: mouth at [place] 00 bedtime. Medical Branch atorvastati Yes [id number] TAKE 1 Univers n 10 mg 1-04 TABLET BY ity of tablet 00:00: MOUTH AT [place] 00 BEDTIME Medical Branch vitamin Yes [id number] 1000ug Take 1 U nivers B-12 1,000 1-04 tablet by ity of mcg tablet 00:00: mouth [place] 00 daily. Medical Branch RAMIPRIL 10 2021- No [id number] TAKE 1 Univers mg capsule 10-02 CAPSULE BY it y of 00:00: 00:00 MOUTH [place] 00 :00 EVERY DAY Medical Branch Immunizations Ordered Filled Immunization Date Status Comments Sour e Immunization Name Name Influenza Virus 2021-07-08 Completed Universit y of Vaccine,quad 00:00:00 [place] Medica l Im,preserve Free Branch 65+ Influenza Virus 2021-07-08 Completed Universit y of Vaccine,quad 00:00:00 [place] Medica l Im,preserve Free Branch 65+ Influenza Virus 2021-07-08 Completed Universit y of Vaccine,quad 00:00:00 [place] Medica l Im,preserve Free Branch 65+ Vital Signs Vital Name Observation Time Observation Value Comments Source Systolic blood 2022-02-27 19:54:00 174 mm[Hg] Univer sity of pressure [facility] Diastolic blood 2022-02-27 19:54:00 84 mm[Hg] Unive rsity of pressure [facility] Heart rate 2022-02-27 19:54:00 63 /min [facility] Body temperature 2022-02-27 19:54:00 36.67 Ashley [facility] Respiratory rate 2022-02-27 19:54:00 18 /min [facility] Body height 2022-02-27 19:54:00 164.6 cm [facility] Body weight 2022-02-27 19:54:00 53.661 kg [facility] BMI 2022-02-27 19:54:00 19.81 kg/m2 [facility] Oxygen saturation in 2022-02-27 19:54:00 98 /min [facility] Arterial blood by [facility] Pulse oximetry Branch Procedures This patient has no known procedures. Encounters Start End Encounter Admission Attending Care Care Encounter Source Date/Time Date/Time Type Type Clinicians Facility Department ID 2022-03-26 2022-03-26 Telephone ANA Cervantes [id number] [facility] 00:00:00 00:00:00 Estrellita WILSON [id number] ity [facility] [id number] [id number] Sc dicjono WILKES [address] [facility] 2022-03-23 2022-03-23 Outpatient R BILLYESTRELLITA [facility] [id number] Univers 08:30:00 08:30:00 [facility]ANTES [id number] 2022-03-23 Outpatient R ESTRELLITA CERVANTES [facility] [id number] Univers 08:30:00 08:30:00 ESTRELLITA CERVANTES [facility] 2022-03-13 2022-03-13 Outpatient R ESTRELLITA CERVANTES [facility] [id number] Univers 16:30:00 16:30:00 ESTRELLITA CERVANTES [facility] 2022-03-02 2022-03-02 [facility] [id number] Univers 00:00:00 00:00:00 Jacob WILSON [id number] i ty [facility] [id number] [id number] [address] 2022-02-27 2022-02-27 [facility] [id number] Univers 14:30:00 15:44:13 Visit Estrellita WILSON [id number] ity [facility] [id number] [id number] Sc dical NAL 044 [facility] 2022-02-27 2022-02-27 Outpatient R ESTRELLITA CERVANTES [facility] [id number] Univers 14:30:00 15:44:13 ESTRELLITA CERVANTES [facility] Results This patient has no known results.
[2022-03-30] MEDS ORDERED: NA CHLORIDE 0.9% 1,000 ML ONE (14:15)
[2022-03-30] MEDS ORDERED: ONDANSETRON 4 MG/2 ML VIAL ONE (14:15)
[2022-03-30 14:43] LABS: Absolute Lymphocytes (CBC) 0.8 K/uL (0.7-4.9); Hematocrit 37.4 % (36.0-45.0); Lymphocytes % 9.4 % (15.3-44.8); MCV 87.8 fL (80-100); MPV 7.8 fL (7.6-11.3); RBC Red Blood Cell Count 4.26 M/uL (3.86-4.86)
[2022-03-30 15:01] LABS: Albumin 3.4 g/dL (3.4-5.0); Bilirubin Total 0.5 mg/dL (0.2-1.0); Potassium 3.5 mmol/L (3.5-5.1); Protein, Total 7.3 g/dL (6.4-8.2)
--- NOTE | 2022-03-30 15:34 | RAD REPORT ---
EXAM DESCRIPTION: CT - Abdomen Pelvis W Contrast - 03/30/2022 3:20 pm CLINICAL HISTORY: Vomiting COMPARISON: CT ABD PELVIS W CONTRAST dated 08/05/2013 TECHNIQUE: Biphasic, helical CT imaging of the abdomen and pelvis was performed following 100 ml non -ionic IV contrast. No oral contrast administered. All CT scans are performed using dose optimization technique as appropriate and may include automated exposure control or mA/KV adjustment according to patient size. FINDINGS: No suspicious findings in the lung bases. Liver and spleen show no suspicious findings. A few punctate 5 mm or less hepatic cysts are present. No portal vein abnormality. No pancreatic or peripancreatic abnormality. Biliary tree within normal l imits. Cholecystectomy clips are present. Prompt, symmetric renal function is seen. No pyelonephritis or focal renal parenchymal process seen. No perinephric stranding. There is symmetric mild hydronephrosis down to each UVJ. No obstructing or nonobstructing calculi. No mass suspected. Urinary bladder is unremarkable. The mild hydronephrosis w as not seen in 2014. This may be a function volume rather than obstructive pathology. No adrenal abno rmalities. Enlarged uterus again noted. In the fundal portion a large 6.3 centimeter mixed attenuatio n partially calcified mass is present. This is not clearly different from 2014. Ovaries are atrophic. No primary ovarian process seen. No dilated bowel loops or bowel wall thickening. Sigmoid diverticulosis is mild. No diverticulitis. A ppendicitis findings. No free air, free fluid or inflammatory stranding. No hernia, mass or bulky ly mphadenopathy. No suspicious bony findings. IMPRESSION: Mild sigmoid diverticulosis without diverticulitis. No appendicitis findings. No acute G I process identifiable. Mild, symmetric bilateral hydronephrosis without later a symmetric renal function. No obstructing or nonobstructing calculi mass. This is possibly volume related. No cystitis or pyelonephritis findings. Cholecystectomy clips are present. No abnormal biliary tree dilatation. Large partially calcified uterine mass stable back to 2013. Incidental uterine fibroid is the most li rajwinder etiology.
[2022-03-30 15:51] LABS: Urine Blood Negative (Negative); Urine Glucose Negative (Negative); Urine Protein Negative (Negative); Urine Specific Gravity 1.015 (1.005-1.030)
[2022-03-30 16:34] LABS: Urine RBC <5 /HPF (None Seen)
--- NOTE | 2022-03-30 17:25 | EDPHYS ---
Physician Documentation [facility] Name: Ileana Goldman Age: 81 yrs Sex: Female : 1940 Arrival Date: 03/30/2022 Time: 13:33 Bed 13 Private MD: ED Physician Johann Oscar HPI: 03/30 17:24 This 81 yrs old Female presents to ER via EMS with complaints of Nausea/Vomiting. ms3 17:24 Female with past medical history of cerebrovascular accident accident, hypertension ms3 presents with her [id number] for vomiting and not eating for 4 days. Patient tested positive for COVID on Wednesday. Patient denies pain, chest pain, shortness of breath. Patient denies alleviating or inciting factors.. Historical: - Allergies: 13:39 No Known Allergies; db - PMHx: 13:39 CVA; Hypertensive disorder; db - PSHx: 13:39 None; db - Immunization history:: Client reports having NOT received the Covid vaccine. - Social history:: Smoking status: Patient denies any tobacco usage or history of. Patient/guardian denies using alcohol, street drugs, IV drugs. ROS: 17:24 Constitutional: Negative for fever, and chills. Neck: Negative for injury, pain, and ms3 swelling, Cardiovascular: Negative for chest pain, and palpitations. Respiratory: Negative for shortness of breath, cough, wheezing, and pleuritic chest pain. 17:24 MS/Extremity: Negative for injury and deformity, Skin: Negative for injury, rash, and discoloration, Psych: Negative for depression, anxiety, suicide ideation, homicidal ideation, and hallucinations. 17:24 Abdomen/GI: Positive for diarrhea, Anorexia. 17:24 All other systems are negative. Exam: 17:24 Constitutional: This is a well developed, well nourished patient who is awake, alert, ms3 and in no acute distress. Head/Face: Normocephalic, atraumatic. Neck: Trachea midline, no cervical lymphadenopathy. Supple, full range of motion without nuchal rigidity, or vertebral point tenderness. No Meningismus. Chest/axilla: Normal chest wall appearance and motion. Nontender with no deformity. Cardiovascular: Regular rate and rhythm with a normal S1 and S2. No gallops, murmurs, or rubs. Normal PMI, no JVD. No pulse deficits. Respiratory: Lungs have equal breath sounds bilaterally, clear to auscultation and percussion. No rales, rhonchi or wheezes noted. No increased work of breathing, no retractions or nasal flaring. Abdomen/GI: Soft, non-tender, with normal bowel sounds. No distension or tympany. No guarding or rebound. No evidence of tenderness throughout. Back: No spinal tenderness. No costovertebral tenderness. Full range of motion. Skin: Warm, dry with normal turgor. Normal color with no rashes, no lesions, and no evidence of cellulitis. MS/ Extremity: Pulses equal, no cyanosis. Neurovascular intact. Full, normal range of motion. Neuro: Awake and alert, GCS 15, oriented to person, place, time, and situation. Cranial nerves II-XII grossly intact. Motor strength 5/5 in all extremities. Sensory grossly intact. Cerebellar exam normal. Normal gait. Vital Signs: 13:34 BP 192 / 72; Pulse 64; Resp 18; Temp 98.4; Pulse Ox 100% ; Weight 53.52 kg; Height 5 db ft. 4 in. (162.56 cm); 14:00 BP 172 / 63; Pulse 65; Resp 16; Pulse Ox 100% ; db 15:00 BP 151 / 68; Pulse 67; Resp 16; Pulse Ox 100% ; db 16:03 BP 151 / 68; Pulse 66; Resp 18; Pulse Ox 100% on R/A; ph 17:30 BP 141 / 62; Pulse 66; Resp 18; Temp 98.0; Pulse Ox 100% on R/A; ph 13:34 Body Mass Index 20.25 (53.52 kg, 162.56 cm) db MDM: 14:04 Patient medically screened. ms3 17:24 Differential diagnosis: Nonspecific abd pain, gastritis, viral gastroenteritis, COVID. ms3 Data reviewed: vital signs, nurses notes, lab test result(s), radiologic studies, and as a result, I will discharge patient. Counseling: I had a detailed discussion with the patient and/or guardian regarding: the historical points, exam findings, and any diagnostic results supporting the discharge/admit diagnosis, lab results, radiology results, to return to the emergency department if symptoms worsen or persist or if there are any questions or concerns that arise at home. ED course: Discussed labs and imaging with patient and her son. Patient to follow-up with her primary care physician as discussed. All questions were answered. Return precautions discussed include worsening symptoms, or any other concerns. On reevaluation patient is improved, alert, in no apparent distress, nontoxic-appearing.. 03/30 14:05 Order name: CBC with Diff; Complete Time: 16:18 ms3 03/30 14:05 Order name: CMP; Complete Time: 16:18 ms3 03/30 14:05 Order name: Lipase; Complete Time: 16:18 ms3 03/30 14:05 Order name: Urine Microscopic Only; Complete Time: 17:10 ms3 03/30 14:05 Order name: CT Abd/Pelvis - IV Contrast Only; Complete Time: 16:18 ms3 03/30 15:51 Order name: Urine Dipstick-Ancillary; Complete Time: 16:18 EDMS 03/30 14:05 Order name: IV Saline Lock; Complete Time: 14:31 ms3 03/30 14:05 Order name: Labs collected and sent; Complete Time: 14:31 ms3 03/30 14:05 Order name: Urine Dipstick-Ancillary (obtain specimen); Complete Time: 15:59 ms3 Administered Medications: 14:20 Drug: NS 0.9% 1000 ml Route: IV; Rate: 1 bolus; Site: right antecubital; db 15:59 Follow up: Response: No adverse reaction; IV Status: Completed infusion; IV Intake: ph 1000ml 14:20 Drug: Zofran (Ondansetron) 4 mg Route: IVP; Site: right antecubital; db 15:59 Follow up: Response: No adverse reaction ph Disposition Summary: 03/30/22 17:24 Discharge Ordered Location: Home ms3 Condition: Stable ms3 Diagnosis - Diarrhea, unspecified ms3 - SARS-associated coronavirus as the cause of diseases classified elsewhere ms3 - Essential (primary) hypertension ms3 Followup: ms3 - With: Private Physician - When: 2 - 3 days - Reason: Re-evaluation by your physician Discharge Instructions: - Discharge Summary Sheet ms3 - Diarrhea, Adult ms3 - Hypertension, Adult ms3 - COVID-19 ms3 - Things to Know about the COVID-19 Pandemic - [facility] ms3 - 10 Things You Can Do to Manage Your COVID-19 Symptoms at Home - [facility] ms3 Forms: - Medication Reconciliation Form ms3 - Thank You Letter ms3 - Antibiotic Education ms3 - Prescription Opioid Use ms3 Signatures: Dispatcher [employer] EDJohann Dejesus, DO [place] ms3 Faiza Powell, RN RN db Leydi Eddy RN
--- NOTE | 2022-03-30 17:25 | ER ---
Nurse's Notes [facility] Name: Ileana Goldman Age: 81 yrs Sex: Female : 1940 Arrival Date: 03/30/2022 Time: 13:33 Bed 13 Private MD: Diagnosis: Diarrhea, unspecified;SARS-associated coronavirus as the cause of diseases classified elsewhere;Essential (primary) hypertension Presentation: 03/30 13:34 Chief complaint: EMS states: nausea and vomiting since Wednesday. Positive home COVID db test Wednesday. Denies pain. Unable to keep anything down. Coronavirus screen: Vaccine status: Patient reports being unvaccinated. Client denies travel out of the [place] in the last 14 days. Client presents with at least one sign or symptom that may indicate coronavirus-19. Client reports previous positive COVID test result. Date of collection: March 28, 2022 home test. Ebola Screen: Patient negative for fever greater than or equal to 101.5 degrees Fahrenheit, and additional compatible Ebola Virus Disease symptoms Patient denies exposure to infectious person. Patient denies travel to an Ebola-affected area in the 21 days before illness onset. Initial Sepsis Screen: Does the patient meet any 2 criteria? No. Patient's initial sepsis screen is negative. Does the patient have a suspected source of infection? No. Patient's initial sepsis screen is negative. Risk Assessment: Do you want to hurt yourself or someone else? Patient reports no desire to harm self or others. Onset of symptoms was March 28, 2022. Activity prior to arrival: vomiting. 13:34 Method Of Arrival: EMS: [facility] db 13:34 Acuity: OPAL 3 db Triage Assessment: 13:39 General: Appears in no apparent distress. comfortable, Behavior is calm, cooperative, db quiet. Neuro: No deficits noted. Cardiovascular: No deficits noted. Respiratory: No deficits noted. GI: Reports nausea, vomiting. : No deficits noted. Derm: No deficits noted. Musculoskeletal: No deficits noted. Historical: - Allergies: 13:39 No Known Allergies; db - PMHx: 13:39 CVA; Hypertensive disorder; db - PSHx: 13:39 None; db - Immunization history:: Client reports having NOT received the Covid vaccine. - Social history:: Smoking status: Patient denies any tobacco usage or history of. Patient/guardian denies using alcohol, street drugs, IV drugs. Screenin:00 Abuse screen: Denies threats or abuse. Denies injuries from another. Nutritional db screening: No deficits noted. Tuberculosis screening: No symptoms or risk factors identified. Fall Risk None identified. No fall in past 12 months (0 pts). No secondary diagnosis (0 pts). IV access (20 points). Ambulatory Aid- None/Bed Rest/Nurse Assist (0 pts). Gait- Normal/Bed Rest/Wheelchair (0 pts) Mental Status- Oriented to own ability (0 pts). Total Murphy Fall Scale indicates No Risk (0-24 pts). Assessment: 14:31 Reassessment: Patient appears in no apparent distress at this time. No changes from db previously documented assessment. Patient and/or family updated on plan of care and expected duration. Pain level reassessed. Patient is alert, oriented x 3, equal unlabored respirations, skin warm/dry/pink. Patient denies pain at this time. Patient states symptoms have improved. General: Appears in no apparent distress. comfortable, Behavior is calm, cooperative, quiet. Pain: Denies pain. Neuro: No deficits noted. Cardiovascular: No deficits noted. Respiratory: No deficits noted. GI: Abdomen is flat, non-distended, no longer vomiting. : No deficits noted. EENT: No deficits noted. Derm: No deficits noted. Musculoskeletal: No deficits noted. 14:34 Reassessment: Patient covered in vomit after vomiting upon arrival. Changed out of db dirty clothes and into gown. Given warm blankets. 18:00 Reassessment: Patient appears in no apparent distress at this time. Patient and/or ph family updated on plan of care and expected duration. Pain level reassessed. Pt awake and alert, cleaned of urinary incontinence and placed in a dry brief, provided w/ paper scrubs to be d/c home in, d/c w/ son. Vital Signs: 13:34 BP 192 / 72; Pulse 64; Resp 18; Temp 98.4; Pulse Ox 100% ; Weight 53.52 kg; Height 5 db ft. 4 in. (162.56 cm); 14:00 BP 172 / 63; Pulse 65; Resp 16; Pulse Ox 100% ; db 15:00 BP 151 / 68; Pulse 67; Resp 16; Pulse Ox 100% ; db 16:03 BP 151 / 68; Pulse 66; Resp 18; Pulse Ox 100% on R/A; ph 17:30 BP 141 / 62; Pulse 66; Resp 18; Temp 98.0; Pulse Ox 100% on R/A; ph 13:34 Body Mass Index 20.25 (53.52 kg, 162.56 cm) db ED Course: 13:33 Patient arrived in ED. db 13:34 Johann Oscar DO is Attending Physician. ms3 13:39 Triage completed. db 13:41 Faiza Powell, RN is Primary Nurse. db 13:41 Arm band placed on left wrist. Patient placed in an exam room, Emesis basin given. db 14:00 Patient has correct armband on for positive identification. Fall risk band placed. db Placed in gown. Bed in low position. Side rails up X 1. 14:15 Inserted saline lock: 20 gauge in right antecubital area, using aseptic technique. db Blood collected. 15:22 CT Abd/Pelvis - IV Contrast Only In Process Unspecified. EDMS 15:59 Straight cath inserted, using sterile technique, 16 Fr. Specimen obtained. Returned ph clear yellow urine. Patient tolerated well. 18:11 No provider procedures requiring assistance completed. IV discontinued, intact, iw bleeding controlled, No redness/swelling at site. Pressure dressing applied. Administered Medications: 14:20 Drug: NS 0.9% 1000 ml Route: IV; Rate: 1 bolus; Site: right antecubital; db 15:59 Follow up: Response: No adverse reaction; IV Status: Completed infusion; IV Intake: ph 1000ml 14:20 Drug: Zofran (Ondansetron) 4 mg Route: IVP; Site: right antecubital; db 15:59 Follow up: Response: No adverse reaction ph Medication: 14:00 VIS not applicable for this client. db Intake: 15:59 IV: 1000ml; Total: 1000ml. ph Outcome: 17:24 Discharge ordered by . ms3 18:11 Discharged to home via wheelchair, with family. iw 18:11 Condition: good 18:11 Discharge instructions given to family, Instructed on discharge instructions, follow up and referral plans. Demonstrated understanding of instructions, follow-up care. 18:11 Patient left the ED. iw Signatures: Dispatcher [employer] EDAnayeli Purcell, RN RN iw Leydi Eddy RN RN ph Johann Oscar, DO [place] ms3 Faiza Powell, RN RN db Corrections: (The following items were deleted from the chart) 16:04 15:59 Straight cath inserted, using sterile technique, ph ph
== END 2022-03-30 18:11 | disposition home or self-care (01) ==
LOC: ER 13:16
DX: U07.1 COVID-19 (principal); I10 Essential (primary) hypertension; R11.10 Vomiting, unspecified; Z86.73 Personal history of transient ischemic attack (TIA), and cerebral infarction without residual deficits
CPT/HCPCS: 85025; 36415; 83690; 80053; 74177; Q9967; J7030; J2405; 51702; 81003; 81015; 96361; 96374; 99284

== ENCOUNTER 2022-12-03 08:41 | Emergency (ER) | payer OTHER ==
--- OUTSIDE RECORDS SUMMARY | 2022-12-03 08:45 | XMS REPORT | Continuity of Care Document ---
:[address] [facility] t Address [address] [place] [address] [place] [id number] Care Team Providers Name Role Phone Bonnie Madison MD Primary Care Physician Estrellita Cervantes NP Attending Clinician ESTRELLITA CERVANTES Attending Clinician Unavailable Bonnie Madison MD Attending Clinician 2, [facility] Attending Clinician Unavailable CASSIDY BOWIE Attending Clinician Unavailable BONNIE MADISON Attending Clinician Unavailable Toby Schumacher DO Attending Clinician ISAI ZIMMERMAN Attending Clinician Unavailable Isai Sparrow MD Attending Clinician Isai Zimmerman MD Attending Clinician Doctor Unassigned, [place] Attending Clinician Unavailable Pob, [facility] Main Attending Clinician Unavailable Payers Payer Name Policy Type Policy Number Effective Date Expiration Date S ource Problems Condition Condition Condition Status Onset Resolution Last Treating Co mments Source Name Details Category Date Date Treatment Clinician Date Flu Flu Disease Active Univers vaccine vaccine -04 ity of need need 00:00: [address] Recurrent Recurrent Disease Active Uni vers falls falls 1-04 ity of 00:00: [address] Vitamin B Vitamin B Disease Active Uni vers 12 12 2-20 [place] [address] [place] [address] Altered Altered Disease Active Univers mental mental 1-30 ity of status, status, 00:00: [place] unspecifie unspecifie 00 Me dical d altered d altered Bran ch mental mental status status type type Chronic Chronic Disease Active 2020- Univers nonintract nonintract 1-30 it y of able able 00:00: [place] headache, headache, 00 Medi lon unspecifie unspecifie Br anch d headache d headache type type Nutritiona Nutritiona Disease Active 2020- U nivers l l 1-30 [place] of deficiency deficiency [place] [facility] [place] Dehydratio Dehydratio Disease Active 2019- U nivers n n 1-30 ity of 00:00: [place] [facility] History of History of Disease Active 2019- U nivers TIA TIA 1-30 ity of (transient (transient [place] ischemic ischemic 00 Medica l attack) attack) Branch Chronic Chronic Disease Active 2019- Univers fatigue fatigue 1-30 ity of 00:00: [place] [facility] Encounter Encounter Disease Active Uni vers for for 1-30 ity of Medicare Medicare 00:00: [place] annual annual 00 Medical wellness wellness Branch exam exam Syncope, Syncope, Disease Active Unive rs unspecifie unspecifie 1-30 it y of d syncope d syncope [place] type type [place] HTN HTN Disease Active 2014-07 Univers (hypertens (hypertens 2-10 it y of ion) ion) 00:00: [place] [facility] Hyperlipid Hyperlipid Disease Active 2014-07 U nivers emia emia 2-10 ity of 00:00: [place] [facility] Allergies, Adverse Reactions, Alerts Allergy Allergy Status Severity Reaction(s) Onset Inactive Treating Comm ents Source Name Type Date Date Clinician NO KNOWN Drug Active Univers ALLERGIE Class ity of S [facility] Social History Social Habit Start Date Stop Date Quantity Comments Source History of Cigarette Smoker Universi ty of tobacco use [facility] Exposure to 2022-02-17 2022-02-27 Not sure [facility] SARS-CoV-2 00:00:00 13:45:00 [facility] (event) Branch Alcohol intake 2021-07-08 2021-07-08 0 /d University of 00:00:00 00:00:00 [facility] Tobacco use and 2015-06-07 2015-06-07 Smokeless tobacco Un iversity of exposure 00:00:00 00:00:00 non-user [facility] Sex Ass[birth year] Universit y of 00:00:00 00:00:00 [facility] Smoking Status Start Date Stop Date Source Never smoked tobacco [facility] Medications Ordered Filled Start Stop Current Ordering Indication Dosage Frequency Signature Comments Components Source Medication Medication Date Date Medication? Clinician (SIG) Name Name FUROSEMIDE Yes [id number] TAKE 1 Univers 40 mg 9-30 TABLET BY ity of tablet 00:00: MOUTH [place] 00 EVERY DAY Medical IN THE [place] MORNING FUROSEMIDE Yes [id number] TAKE 1 Univers 40 mg 9-30 TABLET BY ity of tablet 00:00: MOUTH [place] 00 EVERY DAY Medical IN THE [place] MORNING KLOR-CON 10 Yes [id number] TAKE 1 Univers 10 mEq CR 9-30 TABLET BY ity o f tablet 00:00: MOUTH [place] 00 EVERY DAY Medical IN THE [place] MORNING ciprofloxac 2021- No 250mg Take 250 Univers in HCl 250 9-19 09-19 mg by ity of mg tablet 08:55: 00:00 mouth [place] 56 :00 every 12 Medical (twelve) Branch hours. ondansetron Yes [id number] 4mg Take 1 Univers 4 mg 9-19 tablet by ity of disintegrat 00:00: mouth [place] ing tablet 00 every 8 Medica l (eight) Branch hours as needed for Nausea and Vomiting (N/V). May take 1-2 tablets. ondansetron Yes [id number] 4mg Take 1 Univers 4 mg 9-19 tablet by ity of disintegrat 00:00: mouth [place] ing tablet 00 every 8 Medica l (eight) Branch hours as needed for Nausea and Vomiting (N/V). May take 1-2 tablets. ondansetron Yes [id number] 4mg Take 1 Univers 4 mg 9-19 tablet by ity of disintegrat 00:00: mouth [place] ing tablet 00 every 8 Medica l (eight) Branch hours as needed for Nausea and Vomiting (N/V). May take 1-2 tablets. ondansetron Yes [id number] 4mg Take 1 Univers 4 mg 9-19 tablet by ity of disintegrat 00:00: mouth [place] ing tablet 00 every 8 Medica l (eight) Branch hours as needed for Nausea and Vomiting (N/V). May take 1-2 tablets. metroNIDAZO 2021-0 2021- No [id number] 500mg Take 1 Univers LE (FLAGYL) 9-19 - tablet by it y of 500 mg 00:00: 04:59 mouth [place] tablet 00 :00 every 12 Medical (twelve) Branch hours for 3 days. lisinopriL 2021-0 Yes [id number] 20mg Take 1 Univers 20 mg 8-29 tablet by ity of tablet 00:00: mouth in [place] 00 the Medical morning. Branch lisinopriL 2021-0 Yes [id number] 20mg Take 1 Univers 20 mg 8-29 tablet by ity of tablet 00:00: mouth in [place] 00 the Medical morning. Branch lisinopriL 2021-0 Yes [id number] 20mg Take 1 Univers 20 mg 8-29 tablet by ity of tablet 00:00: mouth in [place] 00 the Medical morning. Branch lisinopriL 2021-0 Yes [id number] 20mg Take 1 Univers 20 mg 8-29 tablet by ity of tablet 00:00: mouth in [place] 00 the Medical morning. Branch lisinopriL 2021-0 Yes [id number] 20mg Take 1 Univers 20 mg 8-29 tablet by ity of tablet 00:00: mouth in [place] 00 the Medical morning. Branch lisinopriL 2021-0 2021- No 10mg Take 10 mg Univers 10 mg 8-26 - by mouth ity of tablet 15:32: 00:00 in the [place] 25 :00 morning. Medical Branch amLODIPine 2021-0 Yes 5mg Take 5 mg Un edgardo 5 mg tablet 8-26 by mouth ity of 14:59: in the [place] 45 morning. Medical Branch ciprofloxac 2021-0 Yes 250mg Take 250 U nivers in HCl 250 8-26 mg by ity of mg tablet 14:59: mouth [place] 45 every 12 Medical (twelve) Branch hours. amLODIPine 2021-0 Yes 5mg Take 5 mg Un edgardo 5 mg tablet 8-26 by mouth ity of 14:59: in the [place] 45 morning. Medical Branch ciprofloxac 2021-0 Yes 250mg Take 250 U nivers in HCl 250 8-26 mg by ity of mg tablet 14:59: mouth [place] 45 every 12 Medical (twelve) Branch hours. amLODIPine 2021-0 Yes 5mg Take 5 mg Un edgardo 5 mg tablet 8-26 by mouth ity of 14:59: in the [place] 45 morning. Medical Branch amLODIPine 2021-0 Yes 5mg Take 5 mg Un edgardo 5 mg tablet 8-26 by mouth ity of 14:59: in the [place] 45 morning. Medical Branch amLODIPine 2021-0 Yes 5mg Take 5 mg Un edgardo 5 mg tablet 8-26 by mouth ity of 14:59: in the [place] 45 morning. Medical Branch amLODIPine 2021-0 Yes 5mg Take 5 mg Un edgardo 5 mg tablet 8-26 by mouth ity of 14:59: in the [place] 45 morning. Medical Branch furosemide 2021-0 Yes [id number] 40mg Take 1 Univers 40 mg 8-26 tablet by ity of tablet 00:00: mouth in [place] 00 the Medical morning. Branch potassium 2021-0 Yes [id number] 10meq Take 1 Univers chloride 10 8-26 tablet by ity of mEq CR 00:00: mouth in [place] tablet 00 the Medical morning. Branch lisinopriL 2021-0 Yes [id number] 20mg Take 1 Univers 20 mg 8-26 tablet by ity of tablet 00:00: mouth in [place] 00 the Medical morning. Branch furosemide 2021-0 Yes [id number] 40mg Take 1 Univers 40 mg 8-26 tablet by ity of tablet 00:00: mouth in [place] 00 the Medical morning. Branch potassium 2021-0 Yes [id number] 10meq Take 1 Univers chloride 10 8-26 tablet by ity of mEq CR 00:00: mouth in [place] tablet 00 the Medical morning. Branch furosemide 2021-0 Yes [id number] 40mg Take 1 Univers 40 mg 8-26 tablet by ity of tablet 00:00: mouth in [place] 00 the Medical morning. Branch potassium 2021-0 Yes [id number] 10meq Take 1 Univers chloride 10 8-26 tablet by ity of mEq CR 00:00: mouth in [place] tablet 00 the Medical morning. Branch potassium 2021-0 Yes [id number] 10meq Take 1 Univers chloride 10 8-26 tablet by ity of mEq CR 00:00: mouth in [place] tablet 00 the Medical morning. Branch furosemide 2021- No [id number] 40mg Take 1 Univers 40 mg -30 03-30 tablet by ity of tablet 00:00: 00:00 mouth in [place] 00 :00 the Medical morning. Branch potassium 2021-2021- No [id number] 10meq Take 1 Univers chloride 10 02-2730 tablet by it y of mEq CR 00:00: 00:00 mouth in [place] tablet 00 :00 the Medical morning. Branch furosemide 2021- No [id number] 40mg Take 1 Univers 40 mg -30 tablet by ity of tablet 00:00: 00:00 mouth in [place] 00 :00 the Medical morning. Branch potassium 2021-2021- No [id number] 10meq Take 1 Univers chloride 10 02-2730 tablet by it y of mEq CR 00:00: 00:00 mouth in [place] tablet 00 :00 the Medical morning. Branch lisinopriL 2021- No [id number] 20mg Take 1 Univers 20 mg 02-27-29 tablet by ity of tablet 00:00: 00:00 mouth in [place] 00 :00 the Medical morning. Branch ergocalcife 2-0 Yes [id number] 16340T Take 1 Univers rol, 1-05 capsule by ity of vitamin d2, 00:00: mouth [place] (VITAMIN 00 weekly. Medical D2) 1,250 Branch mcg (50,000 unit) capsule ergocalcife 2022-0 Yes [id number] 82504X Take 1 Univers rol, 1-05 capsule by ity of vitamin d2, 00:00: mouth [place] (VITAMIN 00 weekly. Medical D2) 1,250 Branch mcg (50,000 unit) capsule ergocalcife 2022-0 Yes [id number] 06470G Take 1 Univers rol, 1-05 capsule by ity of vitamin d2, 00:00: mouth [place] (VITAMIN 00 weekly. Medical D2) 1,250 Branch mcg (50,000 unit) capsule ergocalcife 2022-0 Yes [id number] 29699L Take 1 Univers rol, 1-05 capsule by ity of vitamin d2, 00:00: mouth [place] (VITAMIN 00 weekly. Medical D2) 1,250 Branch mcg (50,000 unit) capsule ergocalcife 0 Yes [id number] 04842W Take 1 Univers rol, 1-05 capsule by ity of vitamin d2, 00:00: mouth [place] (VITAMIN 00 weekly. Medical D2) 1,250 Branch mcg (50,000 unit) capsule ergocalcife 0 Yes [id number] 15036W Take 1 Univers rol, 1-05 capsule by ity of vitamin d2, 00:00: mouth [place] (VITAMIN 00 weekly. Medical D2) 1,250 Branch mcg (50,000 unit) capsule levocetiriz Yes [id number] 5mg Take 1 Univers ine 5 mg 1-04 tablet by ity of tablet 00:00: mouth [place] 00 every Medical evening. Branch pyridoxine, Yes [id number] 50mg Take 1 Univers vitamin B6, 1-04 tablet by ity of 50 mg 00:00: mouth [place] tablet 00 daily. Medical Branch donepeziL 5 Yes [id number] 5mg Take 1 Univers mg tablet 1-04 tablet by ity o f 00:00: mouth at [place] 00 bedtime. Medical Branch atorvastati Yes [id number] TAKE 1 Univers n 10 mg 1-04 TABLET BY ity of tablet 00:00: MOUTH AT [place] 00 BEDTIME Medical Branch vitamin 2021-0 Yes [id number] 1000ug Take 1 U nivers B-12 1,000 1-04 tablet by ity of mcg tablet 00:00: mouth [place] 00 daily. Medical Branch levocetiriz Yes [id number] 5mg Take 1 Univers ine 5 mg 1-04 tablet by ity of tablet 00:00: mouth [place] 00 every Medical evening. Branch pyridoxine, Yes [id number] 50mg Take 1 Univers vitamin B6, 1-04 tablet by ity of 50 mg 00:00: mouth [place] tablet 00 daily. Medical Branch donepeziL 5 0 Yes [id number] 5mg Take 1 Univers mg tablet 1-04 tablet by ity o f 00:00: mouth at [place] 00 bedtime. Medical Branch atorvastati Yes [id number] TAKE 1 Univers n 10 mg 1-04 TABLET BY ity of tablet 00:00: MOUTH AT [place] 00 BEDTIME Medical Branch vitamin 2021-0 Yes [id number] 1000ug Take 1 U nivers B-12 1,000 1-04 tablet by ity of mcg tablet 00:00: mouth [place] 00 daily. Medical Branch levocetiriz 0 Yes [id number] 5mg Take 1 Univers ine 5 mg 1-04 tablet by ity of tablet 00:00: mouth [place] 00 every Medical evening. Branch pyridoxine, Yes [id number] 50mg Take 1 Univers vitamin B6, 1-04 tablet by ity of 50 mg 00:00: mouth [place] tablet 00 daily. Medical Branch donepeziL 5 Yes [id number] 5mg Take 1 Univers mg tablet 1-04 tablet by ity o f 00:00: mouth at [place] 00 bedtime. Medical Branch atorvastati Yes [id number] TAKE 1 Univers n 10 mg 1-04 TABLET BY ity of tablet 00:00: MOUTH AT [place] 00 BEDTIME Medical Branch vitamin 0 Yes [id number] 1000ug Take 1 U nivers B-12 1,000 1-04 tablet by ity of mcg tablet 00:00: mouth [place] 00 daily. Medical Branch levocetiriz Yes [id number] 5mg Take 1 Univers ine 5 mg 1-04 tablet by ity of tablet 00:00: mouth [place] 00 every Medical evening. Branch pyridoxine, Yes [id number] 50mg Take 1 Univers vitamin B6, 1-04 tablet by ity of 50 mg 00:00: mouth [place] tablet 00 daily. Medical Branch donepeziL 5 0 Yes [id number] 5mg Take 1 Univers mg tablet 1-04 tablet by ity o f 00:00: mouth at [place] 00 bedtime. Medical Branch atorvastati 0 Yes [id number] TAKE 1 Univers n 10 mg 1-04 TABLET BY ity of tablet 00:00: MOUTH AT [place] 00 BEDTIME Medical Branch vitamin 2021-0 Yes [id number] 1000ug Take 1 U nivers B-12 1,000 1-04 tablet by ity of mcg tablet 00:00: mouth [place] 00 daily. Medical Branch levocetiriz Yes [id number] 5mg Take 1 Univers ine 5 mg 1-04 tablet by ity of tablet 00:00: mouth [place] 00 every Medical evening. Branch pyridoxine, 0 Yes [id number] 50mg Take 1 Univers vitamin B6, 1-04 tablet by ity of 50 mg 00:00: mouth [place] tablet 00 daily. Medical Branch donepeziL 5 2021- Yes [id number] 5mg Take 1 Univers mg tablet 1-04 tablet by ity o f 00:00: mouth at [place] 00 bedtime. Medical Branch atorvastati 0 Yes [id number] TAKE 1 Univers n 10 mg 1-04 TABLET BY ity of tablet 00:00: MOUTH AT [place] 00 BEDTIME Medical Branch vitamin 2021-0 Yes [id number] 1000ug Take 1 U nivers B-12 1,000 1-04 tablet by ity of mcg tablet 00:00: mouth [place] 00 daily. Medical Branch levocetiriz Yes [id number] 5mg Take 1 Univers ine 5 mg 1-04 tablet by ity of tablet 00:00: mouth [place] 00 every Medical evening. Branch pyridoxine, Yes [id number] 50mg Take 1 Univers vitamin B6, 1-04 tablet by ity of 50 mg 00:00: mouth [place] tablet 00 daily. Medical Branch donepeziL 5 Yes [id number] 5mg Take 1 Univers mg tablet 1-04 tablet by ity o f 00:00: mouth at [place] 00 bedtime. Medical Branch atorvastati Yes [id number] TAKE 1 Univers n 10 mg 1-04 TABLET BY ity of tablet 00:00: MOUTH AT [place] 00 BEDTIME Medical Branch vitamin 2021-0 Yes [id number] 1000ug Take 1 U nivers B-12 1,000 1-04 tablet by ity of mcg tablet 00:00: mouth [place] 00 daily. Medical Branch RAMIPRIL 10 0 2021- No [id number] TAKE 1 Univers mg capsule 10-02 CAPSULE BY it y of 00:00: 00:00 MOUTH [place] 00 :00 EVERY DAY Medical Branch Immunizations Ordered Filled Immunization Date Status Comments [facility] e Immunization Name Name Influenza Virus 2021-07-08 Completed Universit y of Vaccine,quad 00:00:00 [place] Medica l Im,preserve Free [place] 65+ Influenza Virus 2021-07-08 Completed Universit y of Vaccine,quad 00:00:00 [place] Medica l Im,preserve Free Branch 65+ Influenza [...] 19:54:00 174 mm[Hg] Univer sity of pressure [facility] Diastolic blood 2022-02-27 19:54:00 84 mm[Hg] [facility]ive [facility] Heart rate 2022-02-27 19:54:00 63 /min [facility] Body temperature 2022-02-27 19:54:00 36.67 [facility] Respiratory rate 2022-02-27 19:54:00 18 /min [facility] Body height 2022-02-27 19:54:00 164.6 cm [facility] Body weight 2022-02-27 19:54:00 53.661 kg [facility] BMI 2022-02-27 19:54:00 19.81 kg/m2 [facility] Oxygen saturation in 2022-02-27 19:54:00 98 /min [facility] blood by [facility] Pulse oximetry Branch Procedures This patient has no known procedures. Encounters Start End Encounter Admission Attending Care Care Encounter Source Date/Time Date/Time Type Type Clinicians Facility Department ID 2022-03-26 2022-03-26 Telephone ANA Cervantes 1.2.840.114 [id number] [facility] [place] 00:00:00 00:00:00 Estrellita WILSON [id number] [facility] [id number] Bang son PROFFREIDA [phone] Fl dical [address] BUILDING 2022-03-23 2022-03-23 Outpatient R ESTRELLITA CERVANTES [facility] [id number] Univers 08:30:00 13:15:33 ESTRELLITA CERVANTES itleonel [facility] 2022-03-23 2022-03-23 Telemedici Ricky [facility] 1.2.840.114 [id number] Univers 08:30:00 13:15:33 ne Visit Titusdipeshshannon WILSON [id number] ity [facility] [id number] [id number] [address] 2022-03-23 2022-03-23 Refill Ricky [facility] 1.2.840.114 [id number] Univers 00:00:00 00:00:00 Titusdipeshshannon STEVE [id number] ity [facility] [id number] [id number] [address] 2022-03-23 2022-03-23 [facility] 1.2.840.114 [id number] Univers 00:00:00 00:00:00 Titusdipeshshannon FLOWERSARCHANA [id number] ity [facility] [id number] [id number] [address] 2022-03-13 2022-03-13 Outpatient R TITUS CERVANTESMARIAN [facility] [id number] Univers 16:30:00 16:30:00 TITUS CERVANTESMARIAN itleonel [facility] 2022-03-13 2022-03-13 Outpatient R TITUS CERVANTESMARIAN [facility] [id number] Univers 16:30:00 16:30:00 TITUS CERVANTESMARIAN ity [facility] 2022-03-02 2022-03-02 [facility] 1.2.840.114 [id number] Univers 00:00:00 00:00:00 Bonnie WILSON [id number] i ty [facility] [id number] [phone] Fl dical NAL [address] [place] [address] 2022-02-27 2022-02-27 Office Ricky [facility] 1.2.840.114 [id number] Univers 14:30:00 15:44:13 Visit Estrellita WILSON [id number] ity [place] [id number] [place] [id number] [address] 2022-02-27 2022-02-27 Outpatient R ESTRELLITA CERVANTES [facility] [id number] Univers 14:30:00 15:44:13 [address]RELLITA CERVANTES ity [facility] 2022-02-27 2022-02-27 Outpatient R ESTRELLITA CERVANTES [facility] [id number] Univers 14:30:00 14:30:00 [address]RELLITA CERVANTES ity [facility] 2021-08-05 2021-08-05 Outpatient R ESTRELLITA CERVANTES [facility] [id number] Univers 08:00:00 08:00:00 [address]RELLITA CERVANTES ity [facility] 2021-07-08 2021-07-08 Gardening Instructor 2, [facility] 1.2.840.114 [id number] Univers 11:00:00 11:00:00 Visit Estrellita Cervantes 350.1.13.1 0 ity of [place] [id number] [id number] [address] 2021-07-08 2021-07-08 Gardening Instructor 2, [facility] 1.2.840.114 [id number] Univers 11:00:00 11:00:00 Visit Estrellita Cervantes 350.1.13.1 0 [place]y of [place] [id number] [id number] Fl dical [address] 2021-07-08 2021-07-08 Outpatient R TITUS CERVANTESDipeshShannon [facility] [id number] Univers 08:30:00 10:06:45 [facility] 2021-07-08 2021-07-08 Office [facility] 1.2.840.114 [id number] Univers 08:30:00 10:06:45 Visit Estrellita WILSON [id number] ity [facility] [id number] [id number] Fl dical NAL [address] [place] [address] 2021-07-08 2021-07-08 Outpatient R ESTRELLITA CERVANTES [facility] [id number] [facility] [place] 08:00:00 10:06:29 [facility] 2021-07-08 2021-07-08 Office [facility] 1.2.840.114 [id number] Univers 08:00:00 10:06:29 Visit Estrellita WILSON [id number] ity of [facility] [id number] [id number] Fl dical NAL [address] [place] [address] 2021-07-08 2021-07-08 Office [facility] 1.2.840.114 [id number] Univers 08:00:00 10:06:29 Visit Estrellita WILSON [id number] ity of [place] [id number] [place] [phone] Fl dical NAL [address] [place] [address] 2020-09-28 2020-09-28 [facility] 1.2.840.114 [id number] Univers 00:00:00 00:00:00 Bonnie [place] [id number] i ty [place] [id number] [id number] Fl dical nal [address] [place] [address] 2020-08-19 2020-08-19 Outpatient R AZEB [facility] [id number] Univers 14:00:00 14:00:00 CASSIDY curry [facility] 2020-08-16 2020-08-16 [id number] Univers 16:00:00 16:00:[address] [facility] 2020-07-27 2020-07-27 Patient Endy [facility] 1.2.840.114 [id number] Univers 00:00:00 00:00:00 Outreach Toby PRIMARY [id number] i ty of Jacoby [facility] [id number] [id number] [address] 2020-07-07 2020-07-07 [facility] 1.2.840.114 [id number] Univers 00:00:00 00:00:00 Bonnie [place] 350.1.13.10 i [place] [id number] [phone] Fl dicsd nal 044 [facility] 2020-02-23 2020-02-23 Outpatient R ELSIE [facility] [id number] Univers 13:15:00 13:15:[address] [facility] 2020-01-19 2020-01-19 [facility] [id number] Univers 13:00:00 13:00:[address] [facility] 2020-01-04 2020-01-04 RefIsai Cox [facility] 1.2.840.114 [id number] Univers 00:00:00 00:00:00 Brock [place] [id number] i [id number] [id number] [facility] nal 044 [facility] 2019-11-22 2019-11-22 Outpatient R ELSIE [facility] [id number] Univers 14:00:00 14:00:[address] [facility] 2019-11-22 2019-11-22 Telemedici Isai Zimmerman [facility] 1 .2.840.114 [id number] Univers 08:10:20 08:40:20 ne Visit Bonnie [place] [id number] [place] [id number] [id number] Me dical nal 044 [facility] 2019-08-29 2019-08-29 Refill [facility] 1.2.840.114 [id number] Univers 00:00:00 00:00:00 Bonnie [place] [id number] i [place] [id number] [phone] Fl dical nal 044 [facility] 2019-08-24 2019-08-24 Office [facility] 1.2.840.114 [id number] Univers 14:00:49 14:40:49 Visit Bonnie [place] [id number] i [place] [id number] [phone] Fl dical nal 044 [facility] 2019-08-18 2019-08-18 Telephone [facility] 1.2.840.114 [id number] Univers 00:00:00 00:00:00 Bonnie [place] [id number] i [place] [id number] [phone] Fl dical nal 044 [facility] 2019-08-11 2019-08-11 Patient Doctor [facility] 1.2.840.114 [id number] Univers 00:00:00 00:00:00 Secure Msg Unassigned, PRIMARY 350.1.13.10 ity of [place] [id number] [id number] Fl dical 044 [place] 2019-08-08 2019-08-08 Gardening Instructor Mao [facility] Main [facility] 1.2.8 [id number] Univers 12:16:42 12:31:42 Visit Bonnie [place] [id number] [place] of [place] [id number] [phone] Fl dical nal 353 [facility] 2019-08-04 2019-08-04 [facility] 1.2.840.114 [id number] Univers 00:00:00 00:00:00 Outreach Bonnie Wilson [id number] ity of [place] [id number] [place] Professio [phone] Fl dical nal 231 [facility] 2019-08-03 2019-08-03 Office JuantiffanieANA [id number] Univers 15:12:51 17:08:08 Visit Bonnie Wilson [id number] i ty of [place] [id number] [place] [phone] Fl dical nal 044 [facility] 2019-08-03 2019-08-03 Orders Doctor TAD [id number] Univers 00:00:00 00:00:00 Only Unassigned, SHILO [id number] ity of [place] [facility] [id number] Stalin as [phone] [facility] 009 Branch Results This patient has no known results.
--- NOTE | 2022-12-03 09:14 | RAD REPORT ---
EXAM DESCRIPTION: CT - Head C Spine Cap Wo Con - 12/03/2022 8:58 am CLINICAL HISTORY: Trauma, head and neck injury. Chest, abdomen and pelvis pain. fall x 2, back and pelvic pain COMPARISON: CT HEAD CSPINE MPR WO CONTRAST dated 08/05/2013; Abdomen Pelvis W Contrast dated 03/30/20 TECHNIQUE: CT head without contrast. CT cervical spine without contrast with coronal and sagittal reformatted images. CT chest, abdomen and pelvis without contrast with coronal and sagittal reformatted images of the spi ne. All CT scans are performed using dose optimization technique as appropriate and may include automated exposure control or mA/KV adjustment according to patient size. FINDINGS: CT HEAD WITHOUT CONTRAST: No intracranial hemorrhage, hydrocephalus or extra-axial fluid collection. No areas of brain edema o r midline shift. Remote right MCA territory infarct. Small remote left basal ganglia lacunar infarct. Chronic small vessel ischemic changes. Cerebral atrophy. The paranasal sinuses and mastoids are clear. The calvarium is intact. CT CERVICAL SPINE WITHOUT CONTRAST: No fracture or subluxation. The prevertebral soft tissues are normal in thickness.Mild multilevel ce rvical spondylosis with varying degrees of neural foraminal narrowing. This is predominantly at C4-5, C5-6, and C6-7. No high-grade central spinal stenosis. 1.9 cm intermediate attenuation left thyroid nodule which was present on the CT from 08/05/2013 demonstrate over 9 years of stability. Follow-up n ot required. CT CHEST, ABDOMEN, PELVIS WITHOUT CONTRAST: NOTE: Lack of contrast is a significant limitation in the assessment of trauma related findings. Spec ifically, solid organ, vascular and bowel evaluation is significantly limited. The lungs are clear.No pneumothorax or pericardial/pleural fluid. No evidence of intra-abdominal visceral injury, free fluid or free air is seen within the above detai led limitations. Cholecystectomy. Moderate rectal stool. Calcified uterine fibroids. No concerning pelvic findings. L1 compression fracture with slight bony retropulsion at approximately 20% loss of height anteriorly. IMPRESSION: 1. Acute versus subacute L1 compression fracture with approximately 20% loss of height a nteriorly and minimal bony retropulsion. 2. No other evidence of significant trauma is identified. 3. No acute intracranial abnormality. 4. No fracture or traumatic malalignment of the cervical spine.
[2022-12-03 09:21] LABS: Absolute Lymphocytes (CBC) 1.1 K/uL (0.7-4.9); Hematocrit 34.8 % (36.0-45.0); Lymphocytes % 11.8 % (15.3-44.8); MCV 90.7 fL (80-100); MPV 7.2 fL (7.6-11.3); RBC Red Blood Cell Count 3.83 M/uL (3.86-4.86)
[2022-12-03 09:25] LABS: Protime INR 0.9
[2022-12-03 09:34] LABS: Potassium 4.2 mEq/L (3.5-5.1)
[2022-12-03 11:46] LABS: Specific Gravity 1.012 (1.005-1.030); Urine Bacteria None Seen /HPF (<20); Urine Bilirubin NEGATIVE (Negative); Urine Blood Negative (Negative); Urine Clarity Clear (Clear); Urine Color Light-Yellow (Yellow); Urine Glucose NEGATIVE (Negative); Urine Mucus Slight /HPF (None Seen); Urine Protein TRACE (Negative); Urine Urobilinogen Normal (Normal)
[2022-12-03] MEDS ORDERED: NA CHLORIDE 0.9% 500 ML ONE (12:20)
--- NOTE | 2022-12-03 12:44 | EDPHYS ---
Physician Documentation [facility] Name: Ileana Goldman Age: 82 yrs Sex: Female : 1940 Arrival Date: 12/03/2022 Time: 08:41 Bed 3 Private MD: ED Physician Doc Perez HPI: 12/03 12:40 This 82 yrs old Female presents to ER via EMS with complaints of Back Pain. rn 12:40 The patient presents with pain that is acute. The symptoms are located in the low back. rn Onset: The symptoms/episode began/occurred 3 day(s) ago. The pain does not radiate. Associated signs and symptoms: Pertinent negatives: abdominal pain, chest pain, dysuria, fever, hematuria, incontinence, nausea, numbness, tingling, urinary retention. Modifying factors: The patient symptoms are alleviated by remaining still, the patient symptoms are aggravated by walking. Severity of symptoms: At their worst the symptoms were moderate, in the emergency department the symptoms are unchanged. The patient has not experienced similar symptoms in the past. Pt s/p fall and back injury 3 days ago, another fall today. Reports only back pain. . Historical: - Allergies: 08:45 No Known Allergies; bp - PMHx: 08:45 Hypertensive disorder; CVA; bp - Immunization history:: Adult Immunizations up to date. - Social history:: Smoking status: Patient denies any tobacco usage or history of. - Family history:: not pertinent. - Hospitalizations: : No recent hospitalization is reported. ROS: 12:40 Constitutional: Negative for fever, chills, and weight loss, Neck: Negative for injury, rn pain, and swelling, Cardiovascular: Negative for chest pain, palpitations, and edema, Respiratory: Negative for shortness of breath, cough, wheezing, and pleuritic chest pain, Abdomen/GI: Negative for abdominal pain, nausea, vomiting, diarrhea, and constipation, Back: + low back pain : Negative for injury, bleeding, discharge, and swelling, MS/Extremity: Negative for injury and deformity, Skin: Negative for injury, rash, and discoloration, Neuro: Negative for headache, weakness, numbness, tingling, and seizure. Exam: 12:40 Constitutional: This is a well developed, well nourished patient who is awake, alert, rn groans when transferred to bed from EMS stretcher. Head/Face: Normocephalic, atraumatic. Eyes: Periorbital areas with no swelling, redness, or edema. Neck: NO midline cervical tenderness Chest/axilla: Normal chest wall appearance and motion. Nontender with no deformity. No lesions are appreciated. Cardiovascular: Regular rate and rhythm. No pulse deficits. Respiratory: No increased work of breathing, no retractions or nasal flaring. Abdomen/GI: Soft, non-tender Back: + upper lumbar tenderness, no stepoff MS/ Extremity: Pulses equal, no cyanosis. Neurovascular intact. Full, normal range of motion. Equal circumference. Neuro: Awake and alert, GCS 15 Vital Signs: 08:44 BP 193 / 80; Pulse 76; Resp 18; Temp 98.9; Pulse Ox 98% ; bp 09:00 BP 189 / 80; Pulse 73; Resp 16; Pulse Ox 100% ; bp 10:00 BP 164 / 84; Pulse 77; Resp 18; Pulse Ox 99% ; ko1 11:00 BP 184 / 77; Pulse 70; Resp 18; Pulse Ox 95% ; ko1 12:00 BP 165 / 82; Pulse 80; Resp 18; Pulse Ox 97% ; ko1 MDM: 08:44 Patient medically screened. rn 12:40 Differential diagnosis: arthritis, Fracture sprain, vertebral fracture, weakness, rn dehydration, UTI. Data reviewed: vital signs, nurses notes, lab test result(s), radiologic studies, CT scan, and as a result, I will discharge patient. Counseling: I had a detailed discussion with the patient and/or guardian regarding: the historical points, exam findings, and any diagnostic results supporting the discharge/admit diagnosis, lab results, radiology results, the need for outpatient follow up, to return to the emergency department if symptoms worsen or persist or if there are any questions or concerns that arise at home. Special discussion: I discussed with the patient/guardian in detail that at this point there is no indication for admission to the hospital. It is understood, however, that if the symptoms persist or worsen the patient needs to return immediately for re-evaluation. Based on the history and exam findings, there is no indication for further emergent testing or inpatient evaluation. I discussed with the patient/guardian the need to see the back specialist for further evaluation of the symptoms. I discussed with the patient/guardian the need to see the primary care provider for further evaluation of the symptoms. 12/03 08:45 Order name: CBC with Diff; Complete Time: 11:12 rn 12/03 08:45 Order name: Basic Metabolic Panel; Complete Time: 11:12 rn 12/03 08:45 Order name: Protime (+inr); Complete Time: 11:12 rn 12/03 08:45 Order name: Ptt, Activated; Complete Time: 11:12 rn 12/03 08:45 Order name: Urinalysis w/ reflexes; Complete Time: 12:02 rn 12/03 08:45 Order name: CT Traumagram (Head C Spine CAP wo con); Complete Time: 09:15 rn 12/03 08:45 Order name: IV Start; Complete Time: 09:10 rn Administered Medications: 12:16 Drug: NS 0.9% IV 500 ml Route: IV; Rate: bolus; Site: right forearm; bp 13:10 Follow up: IV Status: Completed infusion; IV Intake: 500ml bp Disposition Summary: 12/03/22 12:44 Discharge Ordered Location: Home rn Problem: new rn Symptoms: have improved rn Condition: Stable rn Diagnosis - Wedge compression fracture of first lumbar vertebra rn Followup: rn - With: Private Physician - When: As needed - Reason: Recheck today's complaints, Re-evaluation by your physician Discharge Instructions: - Discharge Summary Sheet rn - Spinal Compression Fracture rn - Dehydration, Adult rn Forms: - Medication Reconciliation Form rn - Thank You Letter rn - 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
--- NOTE | 2022-12-03 12:44 | ER ---
Nurse's Notes [facility] Name: Ileana Goldman Age: 82 yrs Sex: Female : 1940 Arrival Date: 12/03/2022 Time: 08:41 Bed 3 Private MD: Diagnosis: Wedge compression fracture of first lumbar vertebra Presentation: 12/03 08:44 Chief complaint: EMS states: LUMBAR PAIN SINCE FALL 3 DAYS AGO. Coronavirus screen: At bp this time, the client does not indicate any symptoms associated with coronavirus-19. Ebola Screen: No symptoms or risks identified at this time. Initial Sepsis Screen: Does the patient meet any 2 criteria? No. Patient's initial sepsis screen is negative. Does the patient have a suspected source of infection? No. Patient's initial sepsis screen is negative. Risk Assessment: Do you want to hurt yourself or someone else? Patient reports no desire to harm self or others. Onset of symptoms is unknown. Care prior to arrival: Glucose check: 89. 08:44 Method Of Arrival: EMS: [facility] bp 08:44 Acuity: OPAL 3 bp Triage Assessment: 08:45 General: Appears in no apparent distress. uncomfortable, Behavior is appropriate for bp age. Pain: Complains of pain in back. EENT: No deficits noted. Neuro: No deficits noted. Cardiovascular: No deficits noted. Respiratory: No deficits noted. GI: No signs and/or symptoms were reported involving the gastrointestinal system. : No signs and/or symptoms were reported regarding the genitourinary system. Derm: No deficits noted. Musculoskeletal: Circulation, motion, and sensation intact. Historical: - Allergies: 08:45 No Known Allergies; bp - PMHx: 08:45 Hypertensive disorder; CVA; bp - Immunization history:: Adult Immunizations up to date. - Social history:: Smoking status: Patient denies any tobacco usage or history of. - Family history:: not pertinent. - Hospitalizations: : No recent hospitalization is reported. Screenin:29 [facility] ED Fall Risk Assessment (Adult) History of falling in the last 3 months, bp including since admission Yes- single mechanical fall (1 pt). Abuse screen: Denies threats or abuse. Denies injuries from another. Nutritional screening: No deficits noted. Tuberculosis screening: No symptoms or risk factors identified. Assessment: 08:46 General: SEE TRIAGE NOTE. bp 11:00 Reassessment: No changes from previously documented assessment. Patient is alert, bp oriented x 3, equal unlabored respirations, skin warm/dry/pink. 13:10 Reassessment: PT DC HOME WITH FAMILY. bp Vital Signs: 08:44 BP 193 / 80; Pulse 76; Resp 18; Temp 98.9; Pulse Ox 98% ; bp 09:00 BP 189 / 80; Pulse 73; Resp 16; Pulse Ox 100% ; bp 10:00 BP 164 / 84; Pulse 77; Resp 18; Pulse Ox 99% ; ko1 11:00 BP 184 / 77; Pulse 70; Resp 18; Pulse Ox 95% ; ko1 12:00 BP 165 / 82; Pulse 80; Resp 18; Pulse Ox 97% ; ko1 ED Course: 08:44 Patient arrived in ED. bp 08:44 Doc Perez MD is Attending Physician. rn 08:45 Triage completed. bp 08:45 Arm band placed on. bp 08:47 Jj Benton, RN is Primary Nurse. bp 09:00 CT Traumagram (Head C Spine CAP wo con) In Process Unspecified. EDMS 09:10 Protime (+inr) Sent. ko1 09:10 Ptt, Activated Sent. ko1 09:10 Basic Metabolic Panel Sent. ko1 09:10 CBC with Diff Sent. ko1 09:11 Inserted saline lock: 20 gauge in right antecubital area, using aseptic technique. ko1 Blood collected. 09:29 Patient has correct armband on for positive identification. Bed in low position. Call bp light in reach. Side rails up X2. 11:30 Urinalysis w/ reflexes Sent. ko1 13:10 No provider procedures requiring assistance completed. IV discontinued, intact, bp bleeding controlled, No redness/swelling at site. Pressure dressing applied. Administered Medications: 12:16 Drug: NS 0.9% IV 500 ml Route: IV; Rate: bolus; Site: right forearm; bp 13:10 Follow up: IV Status: Completed infusion; IV Intake: 500ml bp Medication: 08:46 VIS not applicable for this client. bp Intake: 13:10 IV: 500ml; Total: 500ml. bp Outcome: 12:44 Discharge ordered by . rn 13:10 Discharged to home via wheelchair. bp 13:10 Condition: stable 13:10 Discharge instructions given to patient, family, Instructed on discharge instructions, follow up and referral plans. medication usage, Demonstrated understanding of instructions, follow-up care, medications, Prescriptions given X 1. 13:11 Patient left the ED. bp Signatures: Dispatcher [employer] EDMS Doc Perez MD MD rn Peltier, Brian RN RN bp Lavonne Call RN RN ko1
[2022-12-03 13:34] VITALS: TEMP 98.9
[2022-12-03 13:42] VITALS: BP 165/82; O2SAT 97
== END 2022-12-03 13:11 | disposition home or self-care (01) ==
LOC: ER 08:41
DX: S32.010A Wedge compression fracture of first lumbar vertebra, initial encounter for closed fracture (principal); I10 Essential (primary) hypertension; Z86.73 Personal history of transient ischemic attack (TIA), and cerebral infarction without residual deficits
CPT/HCPCS: 85025; 81001; 80048; 36415; 85610; 85730; 70450; 71250; 72125; 96360; 99284; J7040

== ENCOUNTER 2023-12-18 01:28 | Emergency (ER) | payer OTHER ==
--- OUTSIDE RECORDS SUMMARY | 2023-12-18 01:32 | XMS REPORT | Continuity of Care Document ---
Author Name Unknown Address [address] [facility] [place] [address] [facility] thconnect Address [address] [facility] [address] [place] [address] Care Team Providers Care Tile Layer Helper Name Role Phone BONNIE MADISON Primary Care Physician BONNIE Queen Attending Clinician Unavailable Chloe Castillo MD Attending Clinician [phone] CHLOE CASTILLO Attending Clinician Bonnie Scales MD Attending Clinician [phone] , [facility] Attending Clinician Unavailable Ramila Csatillo MA Attending Clinician Unavaila ble GC_GCBZW_Kadiyala_S Attending Clinician Unavaila ble Doctor Unassigned, [place] Attending Clinician U Estrellita Syed NP Attending Clinician [phone] ESTRELLITA CERVANTES Attending Clinician UnavailCASSIDY Astudillo Attending Clinician Toby Schmidt DO Attending Clinician [phone] ISAI ZIMMERMAN Attending Clinician Isai Poe MD Attending Clinician [phone] Isai Zimmerman MD Attending Clinician + [phone] Po, [facility] Main Attending Clinician CHLOE Diaz Admitting Clinician Flora morgan [email or web address]_Kadiyala_S Admitting Clinician Unavaila mckay Payers Payer Name Policy Type Policy Number Effective Date Expirati on Date Source MEDICARE PART A \\T\\ B [id number] 2004 00:00:00 Problems Condition Name Condition Details Condition Category Status Onset Date Resolution Date Last Treatment Date Treating Clinician Comments Source At risk for falls At risk for falls Disease Active 11-09 00:00: 00 [facility] Unspecifie d abnormalit ies of gait and mobility Unspecifie d abnormalit ies of gait and mobility Disease Active 11-09 00:00: 00 [facility] Senile osteoporos is Senile osteoporos is Disease Active 11-09 00:00: 00 [facility] Vitamin D deficiency Vitamin D deficiency Disease Active 11-09 00:00: 00 [facility] Pedal edema Pedal edema Disease Active 11-09 00:00: 00 [facility] Compressio n fracture of L1 vertebra, initial encounter Compressio n fracture of L1 vertebra, initial encounter Disease Active 12-10 00:00: 00 [facility] Weight loss Weight loss Disease Active 12-10 00:00: 00 [facility] Memory changes Memory changes Disease Active 12-10 00:00: 00 [facility] Flu vaccine need Flu vaccine need Disease Active 1-04 00:00: 00 [facility] Recurrent falls Recurrent falls Disease Active 1-04 00:00: 00 [facility] Vitamin B 12 deficiency Vitamin B 12 deficiency Disease Active 2-20 00:00: 00 [facility] Altered mental status, unspecifie d altered mental status type Altered mental status, unspecifie d altered mental status type Disease Active 08-03 00:00: 00 [facility] Chronic nonintract able headache, unspecifie d headache type Chronic nonintract able headache, unspecifie d headache type Disease Active 08-03 00:00: 00 [facility] Nutritiona l deficiency Nutritiona l deficiency Disease Active 08-03 00:00: 00 [facility] Dehydratio n Dehydratio n Disease Active 08-03 00:00: 00 [facility] History of TIA (transient ischemic attack) History of TIA (transient ischemic attack) Disease Active 08-03 00:00: 00 [facility] Chronic fatigue Chronic fatigue Disease Active 08-03 00:00: 00 [facility] Encounter for Medicare annual wellness exam Encounter for Medicare annual wellness exam Disease Active 08-03 00:00: 00 [facility] Syncope, unspecifie d syncope type Syncope, unspecifie d syncope type Disease Active 08-03 00:00: 00 [facility] HTN (hypertens ion) HTN (hypertens ion) Disease Active 2014-07 00:00: 00 [facility] Essential hypertensi on Essential hypertensi on Disease Active 2014-07 00:00: 00 [facility] Hyperlipid emia Hyperlipid emia Disease Active 2014-07 00:00: 00 [facility] Allergies, Adverse Reactions, Alerts Allergy Name Allergy Type Status Severity Reaction(s) Onset Date Inactive Date Treating Clinician Comments Source NO KNOWN ALLERGIE S Drug Class Active [facility] Social History Social Habit Start Date Stop Date Quantity Comments Source History of tobacco use Cigarette Smoker [facility] Gender identity [facility] Sexual orientation U [facility] History of Social function 2023-11-10 00:00:00 2023-11-10 00:00:00 [facility] Alcoholic beverage intake 2023-11-10 00:00:00 2023-11-10 00:00:00 0 /d [facility] Tobacco use and exposure 2022-12-10 00:00:00 2022-12-10 00:00:00 Smokeless tobacco non-user [facility] Alcohol intake 2022-12-10 00:00:00 2022-12-10 00:00:00 0 /d [facility] Exposure to SARS-CoV-2 (event) 2022-02-17 00:00:00 2022-02-27 13:45:00 Not sure [facility] Sex assigned at 1940 00:00:00 1940 00:00:00 [facility] Smoking Status Start Date Stop Date Source Never smoked tobacco [facility] Medications Ordered Medication Name Filled Medication Name Start Date Stop Date Current Medication? Ordering Clinician Indication Dosage Frequency Signature (SIG) Comments Components Source lisinopriL 20 mg tablet 11-09 00:00: 00 Yes [id number] 20mg Take 1 tablet by mouth in the morning. [facility] amLODIPine 5 mg tablet 11-09 00:00: 00 Yes [id number] 5mg Take 1 tablet by mouth in the morning. [facility] donepeziL 5 mg tablet 11-09 00:00: 00 Yes [id number] 5mg Take 1 tablet by mouth at bedtime. [facility] atorvastati n 10 mg tablet 11-09 00:00: 00 Yes [id number] TAKE 1 TABLET BY MOUTH AT BEDTIME [facility] ergocalcife rol, vitamin d2, (VITAMIN D2) 1,250 mcg (50,000 unit) capsule 11-09 00:00: 00 Yes [id number] Take 1 capsule by mouth weekly. [facility] mirtazapine 15 mg tablet 11-09 00:00: 00 Yes [id number] 15mg Take 1 tablet by mouth at bedtime. [facility] calcium carbonate 500 mg calcium (1,250 mg) tablet 11-09 00:00: 00 Yes [id number] 500mg Take 1 tablet by mouth in the morning. [facility] pyridoxine, vitamin B6, 50 mg tablet 11-09 00:00: 00 Yes [id number] 50mg Take 1 tablet by mouth in the morning. [facility] vitamin B-12 1,000 mcg tablet 11-09 00:00: 00 Yes [id number] 1000ug Take 1 tablet by mouth in the morning. [facility] donepeziL 5 mg tablet 03-11 00:00: 00 11-09 00:00 :00 No [id number] 5mg Take 1 tablet by mouth at bedtime. [facility] mirtazapine 15 mg tablet 03-11 00:00: 00 11-09 00:00 :00 No [id number] 15mg Take 1 tablet by mouth at bedtime. [facility] mirtazapine 15 mg tablet 12-10 00:00: 00 03-11 00:00 :00 No [id number] 15mg Take 1 tablet by mouth at bedtime. [facility] donepeziL 5 mg tablet 12-10 00:00: 00 03-11 00:00 :00 No [id number] 5mg Take 1 tablet by mouth at bedtime. [facility] KLOR-CON 10 10 mEq CR tablet 04-03 00:00: 00 11-09 00:00 :00 No [id number] TAKE 1 TABLET BY MOUTH EVERY DAY IN THE MORNING [facility] FUROSEMIDE 40 mg tablet 04-03 00:00: 00 11-09 00:00 :00 No [id number] TAKE 1 TABLET BY MOUTH EVERY DAY IN THE MORNING [facility] ciprofloxac in HCl 250 mg tablet 03-23 08:55: 56 03-23 00:00 :00 No 250mg Take 250 mg by mouth every 12 (twelve) hours. [facility] ondansetron 4 mg disintegrat ing tablet 03-23 00:00: 00 12-10 00:00 :00 No [id number] 4mg Take 1 tablet by mouth every 8 (eight) hours as needed for Nausea and Vomiting (N/V). May take 1-2 tablets. [facility] metroNIDAZO LE (FLAGYL) 500 mg tablet 03-23 00:00: 00 03-27 04:59 :00 No [id number] 500mg Take 1 tablet by mouth every 12 (twelve) hours for 3 days. [facility] lisinopriL 20 mg tablet 8 00:00: 00 11-09 00:00 :00 No [id number] 20mg Take 1 tablet by mouth in the morning. [facility] lisinopriL 10 mg tablet 02-27 15:32: 25 02-27 00:00 :00 No 10mg Take 10 mg by mouth in the morning. [facility] ciprofloxac in HCl 250 mg tablet 02-27 14:59: 45 Yes 250mg Take 250 mg by mouth every 12 (twelve) hours. [facility] amLODIPine 5 mg tablet 02-27 14:59: 45 11-09 00:00 :00 No 5mg Take 1 tablet by mouth in the morning. [facility] lisinopriL 20 mg tablet 02-27 00:00: 00 Yes [id number] 20mg Take 1 tablet by mouth in the morning. [facility] furosemide 40 mg tablet 02-27 00:00: 00 04-03 00:00 :00 No [id number] 40mg Take 1 tablet by mouth in the morning. [facility] potassium chloride 10 mEq CR tablet 02-27 00:00: 00 04-03 00:00 :00 No [id number] 10meq Take 1 tablet by mouth in the morning. [facility] ergocalcife rol, vitamin d2, (VITAMIN D2) 1,250 mcg (50,000 unit) capsule 07-09 00:00: 00 11-09 00:00 :00 No [id number] 38314C Take 1 capsule by mouth weekly. [facility] levocetiriz ine 5 mg tablet 07-08 00:00: 00 11-09 00:00 :00 No [id number] 5mg Take 1 tablet by mouth every evening. [facility] pyridoxine, vitamin B6, 50 mg tablet 07-08 00:00: 00 11-09 00:00 :00 No [id number] 50mg Take 1 tablet by mouth daily. [facility] atorvastati n 10 mg tablet 07-08 00:00: 00 11-09 00:00 :00 No [id number] TAKE 1 TABLET BY MOUTH AT BEDTIME [facility] vitamin B-12 1,000 mcg tablet 07-08 00:00: 00 11-09 00:00 :00 No [id number] 1000ug Take 1 tablet by mouth daily. [facility] donepeziL 5 mg tablet 07-08 00:00: 00 12-10 00:00 :00 No [id number] 5mg Take 1 tablet by mouth at bedtime. [facility] RAMIPRIL 10 mg capsule 3- 00:00: 00 02-27 00:00 :00 No [id number] TAKE 1 CAPSULE BY MOUTH EVERY DAY [facility] Immunizations Ordered Immunization Name Filled Immunization Name Date Status Comments Source Influenza Virus Vaccine,quad Im,preserve Free 652021-07-08 00:00:00 Completed [facility] Influenza Virus Vaccine,quad Im,preserve Free 652021-07-08 00:00:00 Completed [facility] Influenza Virus Vaccine,quad Im,preserve Free 65+ 2021-07-08 00:00:00 Completed [facility] Influenza Virus Vaccine,quad Im,preserve Free 65+ 2021-07-08 00:00:00 Completed [facility] Influenza Virus Vaccine,quad Im,preserve Free 65+ 2021-07-08 00:00:00 Completed [facility] Influenza Virus Vaccine,quad Im,preserve Free 652021-07-08 00:00:00 Completed [facility] Influenza Virus Vaccine,quad Im,preserve Free 65+ 2021-07-08 00:00:00 Completed [facility] Influenza Virus Vaccine,quad Im,preserve Free 65+ 2021-07-08 00:00:00 Completed [facility] Influenza Virus Vaccine,quad Im,preserve Free 65+ 2021-07-08 00:00:00 Completed [facility] Influenza Virus Vaccine,quad Im,preserve Free 65+ (FLUAD) 2021-07-08 00:00:00 Completed [facility] Influenza Virus Vaccine,quad Im,preserve Free 65+ (FLUAD) Unknown Completed [facility] Influenza Virus Vaccine,quad Im,preserve Free 65+ (FLUAD) Unknown Completed [facility] Influenza Virus Vaccine,quad Im,preserve Free 65+ (FLUAD) Unknown Completed [facility] Influenza Virus Vaccine,quad Im,preserve Free 65+ (FLUAD) Unknown Completed [facility] Influenza Virus Vaccine,quad Im,preserve Free 65+ (FLUAD) Unknown Completed [facility] Influenza Virus Vaccine,quad Im,preserve Free 65+ (FLUAD) Unknown Completed [facility] Influenza Virus Vaccine,quad Im,preserve Free 65+ (FLUAD) Unknown Completed [facility] Influenza Virus Vaccine,quad Im,preserve Free 65+ (FLUAD) Unknown Completed [facility] Influenza Virus Vaccine,quad Im,preserve Free 65+ (FLUAD) Unknown Completed [facility] Influenza Virus Vaccine,quad Im,preserve Free 65+ (FLUAD) Unknown Completed [facility] Influenza Virus Vaccine,quad Im,preserve Free 65+ (FLUAD) Unknown Completed [facility] Influenza Virus Vaccine,quad Im,preserve Free 65+ (FLUAD) Unknown Completed [facility] Vital Signs Vital Name Observation Time Observation Value Comments S ource Systolic blood pressure 2023-11-10 19:10:00 179 mm[Hg] [facility] Diastolic blood pressure 2023-11-10 19:10:00 20 mm[Hg] [facility] Heart rate 2023-11-10 19:10:00 67 /min [facility] Body height 2023-11-10 19:10:00 165.1 cm [facility] Body weight 2023-11-10 19:10:00 46.267 kg [facility] BMI 2023-11-10 19:10:00 16.97 kg/m2 [facility] Oxygen saturation in Arterial blood by Pulse oximetry 2023-11-10 19:10:00 99 /min [facility] Systolic blood pressure 2023-11-10 18:34:00 179 mm[Hg] [facility] Diastolic blood pressure 2023-11-10 18:34:00 92 mm[Hg] [facility] Heart rate 2023-11-10 18:34:00 67 /min [facility] Body height 2023-11-10 18:34:00 165.1 cm [facility] Body weight 2023-11-10 18:34:00 46.267 kg [facility] BMI 2023-11-10 18:34:00 16.97 kg/m2 [facility] Oxygen saturation in Arterial blood by Pulse oximetry 2023-11-10 18:34:00 99 /min [facility] Systolic blood pressure 2022-12-10 18:04:00 131 mm[Hg] [facility] Diastolic blood pressure 2022-12-10 18:04:00 79 mm[Hg] [facility] Heart rate 2022-12-10 18:03:00 64 /min [facility] Body temperature 2022-12-10 18:03:00 36.39 Ashley [facility] Respiratory rate 2022-12-10 18:03:00 18 /min [facility] Body height 2022-12-10 18:03:00 164.6 cm [facility] Body weight 2022-12-10 18:03:00 48.444 kg [facility] BMI 2022-12-10 18:03:00 17.88 kg/m2 [facility] Oxygen saturation in Arterial blood by Pulse oximetry 2022-12-10 18:03:00 99 /min [facility] Systolic blood pressure 2022-02-27 19:54:00 174 mm[Hg] [facility] Diastolic blood pressure 2022-02-27 19:54:00 84 mm[Hg] [facility] Heart rate 2022-02-27 19:54:00 63 /min [facility] Body temperature 2022-02-27 19:54:00 36.67 Ashley [facility] Respiratory rate 2022-02-27 19:54:00 18 /min [facility] Body height 2022-02-27 19:54:00 164.6 cm [facility] Body weight 2022-02-27 19:54:00 53.661 kg [facility] BMI 2022-02-27 19:54:00 19.81 kg/m2 [facility] Oxygen saturation in Arterial blood by Pulse oximetry 2022-02-27 19:54:00 98 /min [facility] Procedures Procedure Date / Time Performed Performing Clinicia n Source CBC WITH DIFF 2023-11-10 20:21:00 Bonnie Madison [facility] PATIENT FINANCIAL POLICY 2022-12-10 17:40:23 Doctor Unassigned, [place] [facility] Encounters Start Date/Time End Date/Time Encounter Type Admission Type Attending Clinicians Care Facility Care Department Encounter ID Source 2024-05-12 14:00:00 2024-05-12 14:00:00 Outpatient R BONNIE MADISON [facility] [id number] [facility] 2023-11-11 12:17:00 2023-11-11 23:59:00 Hospital Encounter Chloe Castillo [facility] 1.2.840.114 350.1.13.10 4.2.7.2.686 [id number] [facility] 2023-11-11 00:00:00 2023-11-11 23:59:00 Outpatient CHLOE BLANCA [facility] ACO [id number] [facility] 2023-11-10 14:40:00 2023-11-10 15:53:24 Office Visit Bonnie Madison [facility] 1.2.840.114 350.1.13.10 4.2.7.2.686 [id number] [facility] 2023-11-10 14:00:00 2023-11-10 15:53:09 Office Visit Bonnie Madison [facility] 1.2.840.114 350.1.13.10 4.2.7.2.686 [id number] [facility] 2023-11-10 15:30:00 2023-11-10 15:36:21 Outpatient R BONNIE MADISON [facility] [id number] [facility] 2023-11-10 15:30:00 2023-11-10 15:36:21 President And Chief Operating Officer Visit 2, [facility] Gricelda Bonnie [facility] 1..840.114 350.1.13.10 4.2.7.2.686 [id number] [facility] 2023-11-09 00:00:00 2023-11-09 14:19:35 Patient Outreach Ramila Castillo [facility] 1..840.114 350.1.13.10 4.2.7.2.686 [id number] [facility] 2023-06-14 00:00:00 2023-06-14 00:00:00 Refill ChrisbrockBonnie [facility] 1..840.114 350.1.13.10 4.2.7.2.686 [id number] [facility] 2023-05-01 00:00:00 2023-05-01 00:00:00 Outpatient GC_GCBZW_Ka diyala_S PRIV PRIV [id number] [facility] 2023-04-30 00:00:00 2023-04-30 00:00:00 Outpatient GC_GCBZW_Ka diyala_S PRIV PRIV [id number] [facility] 2023-03-23 15:40:00 2023-03-23 15:40:00 Outpatient R RODRIGUEBRENDANBONNIE PRINCE [facility] [id number] [facility] 2023-03-11 00:00:00 2023-03-11 00:00:00 Refill RodriguebrendanBonnie prince [facility] 1..840.114 350.1.13.10 4.2.7.2.686 [id number] [facility] 2022-12-17 00:00:00 2022-12-17 00:00:00 Outpatient R BONNIE MADISON [facility] RAD [id number] [facility] 2022-12-10 16:00:00 2022-12-10 16:00:00 Office Visit Bonnie Madison [facility] 1.2.840.114 350.1.13.10 4.2.7.2.686 [id number] [facility] 2022-12-10 16:00:00 2022-12-10 14:26:24 Outpatient R BONNIE MADISON [facility] [id number] [facility] 2022-12-10 00:00:00 2022-12-10 00:00:00 Orders Only Doctor Unassigned, [place] [facility] 1..840.114 350.1.13.10 4.2.7.2.686 [id number] [facility] 2022-03-26 00:00:00 2022-03-26 00:00:00 Telephone Ricky Estrellita [facility] 1.2.840.114 350.1.13.10 4.2.7.2.686 [id number] [facility] 2022-03-23 08:30:00 2022-03-23 13:15:33 Outpatient R ESTRELLITA CERVANTES OGECHUKWU [facility] [id number] [facility] 2022-03-23 08:30:00 2022-03-23 13:15:33 Telemedici ne Visit Estrellita Cervantes [facility] 1.2.840.114 350.1.13.10 4.2.7.2.686 [id number] [facility] 2022-03-23 00:00:00 2022-03-23 00:00:00 Refill Estrellita Cervantes [facility] 1.2.840.114 350.1.13.10 4.2.7.2.686 [id number] [facility] 2022-03-23 00:00:00 2022-03-23 00:00:00 Refill Estrellita Cervantes [facility] 1.2840.114 350.1.13.10 4.2.7.2.686 [id number] [facility] 2022-03-13 16:30:00 2022-03-13 16:30:00 Outpatient R ESTRELLITA CERVANTES [facility] [id number] [facility] 2022-03-13 16:30:00 2022-03-13 16:30:00 Outpatient R ESTRELLITA CERVANTES [facility]WU [facility] [id number] [facility] 2022-03-02 00:00:00 2022-03-02 00:00:00 Refill Bonnie Madison [facility] 1.284.114 350.1.13.10 4.2.7.2.686 [id number] [facility] 2022-02-28 00:00:00 2022-02-28 00:00:00 Patient Secure Msg Doctor Unassigned, [place] [facility] 1.2840.114 350.1.13.10 4.2.7.2.686 [id number] [facility] 2022-02-27 14:30:00 2022-02-27 15:44:13 Office Visit Estrellita Cervantes [facility] 1.2.840.114 350.1.13.10 4.2.7.2.686 [id number] [facility] 2022-02-27 14:30:00 2022-02-27 15:44:13 Outpatient R ESTRELLITA CERVANTES [facility]WU [facility] [id number] [facility] 2022-02-27 14:30:00 2022-02-27 14:30:00 Outpatient R ESTRELLITA CERVANTES [facility] [id number] [facility] 2021-08-05 08:00:00 2021-08-05 08:00:00 Outpatient R ESTRELLITA CERVANTES [facility] [id number] [facility] 2021-07-08 11:00:00 2021-07-08 11:00:00 President And Chief Operating Officer Visit 2, [facility] Estrellita Cervantes [facility] 1.2.840.114 350.1.13.10 4.2.7.2.686 [id number] [facility] 2021-07-08 11:00:00 2021-07-08 11:00:00 President And Chief Operating Officer Visit 2, [facility] Estrellita Cervantes [facility] 1.2.840.114 350.1.13.10 4.2.7.2.686 [id number] [facility] 2021-07-08 08:30:00 2021-07-08 10:06:45 Outpatient R ESTRELLITA CERVANTES [facility] [id number] [facility] 2021-07-08 08:30:00 2021-07-08 10:06:45 Office Visit Estrellita Cervantes [facility] 1.2.840.114 350.1.13.10 4.2.7.2.686 [id number] [facility] 2021-07-08 08:00:00 2021-07-08 10:06:29 Outpatient R ESTRELLITA CERVANTES [facility] [id number] [facility] 2021-07-08 08:00:00 2021-07-08 10:06:29 Office Visit Estrellita Cervantes [facility] 1.2.840.114 350.1.13.10 4.2.7.2.686 [id number] [facility] 2021-07-08 08:00:00 2021-07-08 10:06:29 Office Visit Estrellita Cervantes [facility] 1.2.840.114 350.1.13.10 4.2.7.2.686 [id number] [facility] 2020-09-28 00:00:00 2020-09-28 00:00:00 Refill Bonnie Madison [facility] 1.2.840.114 350.1.13.10 4.2.7.2.686 [id number] [facility] 2020-08-19 14:00:00 2020-08-19 14:00:00 Outpatient R CASSIDY BOWIE [facility] [id number] [facility] 2020-08-16 16:00:00 2020-08-16 16:00:00 Outpatient R BONNIE MADISON [facility] [id number] [facility] 2020-07-27 00:00:00 2020-07-27 00:00:00 Patient Outreach Toby Schumacher [facility] 1.2.840.114 350.1.13.10 4.2.7.2.686 [id number] [facility] 2020-07-07 00:00:00 2020-07-07 00:00:00 Refill [place], [facility] 1.840.114 350.1.13.10 4.2.7.2.686 [id number] [facility] 2020-02-23 13:15:00 2020-02-23 13:15:00 Outpatient Juanita BOBYCINDAISAI [facility] [id number] [facility] 2020-01-19 13:00:00 2020-01-19 13:00:00 Outpatient R BONNIE MADISON [facility] [id number] [facility] 2020-01-04 00:00:00 2020-01-04 00:00:00 Refill AndrewsIsai [facility] Building 1.284.114 350.1.13.10 4.2.7.2.686 [id number] [facility] 2019-11-22 14:00:00 2019-11-22 14:00:00 Outpatient Juanita ZIMMERMANISAI [facility] [id number] [facility] 2019-11-22 08:10:20 2019-11-22 08:40:20 Telemedici ne Visit MaríaemilioIsai [facility] Building 1.284.114 350.1.13.10 4.2.7.2.686 [id number] [id number] [facility] 2019-08-29 00:00:00 2019-08-29 00:00:00 [facility] 1.284.114 350.1.13.10 4.2.7.2.686 [id number] [facility] 2019-08-24 14:00:49 2019-08-24 14:40:49 Office Visit Bonnie Madison [facility] Building 1.2840.114 350.1.13.10 4.2.7.2.686 [id number] 044 [id number] [facility] 2019-08-18 00:00:00 2019-08-18 00:00:00 Telephone Bonnie Madison [facility] 1.2.840.114 350.1.13.10 4.2.7.2.686 [id number] 044 [id number] [facility] 2019-08-11 00:00:00 2019-08-11 00:00:00 Patient Secure Msg Doctor Unassigned, [place] [facility] 1.2.840.114 350.1.13.10 4.2.7.2.686 [id number] 044 [id number] [facility] 2019-08-08 12:16:42 2019-08-08 12:31:42 President And Chief Operating Officer Visit Pob, Adc Lab Main Bonnie Madison [facility] 1.2.840.114 350.1.13.10 4.2.7.2.686 [id number] [facility] 2019-08-04 00:00:00 2019-08-04 00:00:00 Pre Visit Outreach Bonnie Madison [facility] 1.2.840.114 350.1.13.10 4.2.7.2.686 [id number] [facility] 2019-08-03 15:12:51 2019-08-03 17:08:08 Office Visit Bonnie Madison [facility] 1.2.840.114 350.1.13.10 4.2.7.2.686 [id number] [id number] [facility] 2019-08-03 00:00:00 2019-08-03 00:00:00 Orders Only Doctor Unassigned, [place] [facility] 1.2.840.114 350.1.13.10 4.2.7.2.686 [id number] [facility] Results Test Description Test Time Test Comments Results Result Co mments Source [facility] WITH [id number] 21:55:26* Test Item Value Reference Range Interpretation Comme nts WBC (test code = 6690-2) 10.05 4.30-11.10 RBC (test code = 789-8) 4.06 3.93-5.25 HGB (test code = 718-7) 12.6 g/dL 11.6-15.0 HCT (test code = 4544-3) 40.0 % 35.7-45.2 MCV (test code = 787-2) 98.5 fL 80.6-95.5 H MCH (test code = 785-6) 31.0 pg 25.9-32.8 MCHC (test code = 786-4) 31.5 g/dL 31.6-35.1 L RDW-SD (test code = 85501-1) 45.6 fL 39.0-49.9 RDW-CV (test code = 788-0) 12.7 % 12.0-15.5 PLT (test code = 777-3) 352 166-358 MPV (test code = 31567-9) 10.7 fL 9.5-12.9 NRBC/100 WBC (test code = 7040875015) 0.0 0.0-10.0 NRBC x10^3 (test code = 9355275465) See_Comment [Automated messa ge] The system which generated this result transmitted reference range: 10*3/?L. The reference range was not used to interpret this result as normal/abnormal. GRAN MAT (NEUT) % (test code = 770-8) 70.4 % IMM GRAN % (test code = 0256931308) 0.40 % LYMPH % (test code = 736-9) 22.6 % MONO % (test code = 5905-5) 4.8 % EOS % (test code = 713-8) 0.9 % BASO % (test code = 706-2) 0.9 % GRAN MAT x10^3(ANC) (test code = 1179056921) 7.08 10*3/uL 1.88-7.09 IMM GRAN x10^3 (test code = 6884603084) 0.04 10*3/uL 0.00-0.06 LYMPH x10^3 (test code = 731-0) 2.27 10*3/uL 1.32-3.29 MONO x10^3 (test code = 742-7) 0.48 10*3/uL 0.33-0.92 EOS x10^3 (test code = 711-2) 0.09 10*3/uL 0.03-0.39 BASO x10^3 (test code = 704-7) 0.09 10*3/uL 0.01-0.07 H Lab Interpretation (test code = 05863-7) Abnormal [facility] Notes Date/Time Note Provider Source 2023-11-10 15:30:00 4943-55-04Z23:30:00F ormatting of this note is different from the original.Images from the original note were not included.Patient unable to void, sent home with kit. Will bring back urine tomorrow morning.Venipuncture collection performed by clean technique on the left anticubitus. Total of 1 attempts were made. Slight pressure and a bandage/dressing were applied to the site(s). The patient experienced no complications. The following specimens were processed according to instructions and sent to [facility] laboratories per lab order on today:LT BLUESST 2REDLAV 2PPTDK GREEN (LiHep)DK GREEN (SodH)GRAYDK BLUE (K2)DK BLUE (S)ACDBlood CultureNIPT/NTD] 14361-4Abwqf QnvcWB9709-33-72B06:22:26Nurse NoteTXT1.2.840.818302.1.13.104.2.7.2.41174 9|[id number] for patient reiz41376-7Xccpv NoteLNNARRATIVEFormatted C-CDA narrative textUTMBUT - [address] Px[id number] STSHSIRXGJYOBULG6418-78-31T40:22:261.2.840 .495613.1.72.3.15|1.2.840.375093.1.13.104. 2.7.2.727879_[id number] [facility] 2023-11-10 15:30:00 6362-54-43U77:30:00F ormatting of this note is different from the original.Images from the original note were not included.Patient has been identified by and name and was provided with cup, antiseptic towelette, and clean catch instructions. 2 urine specimen(s) sent.Unpreserved 1Urine Culture 1Aptima tubeOther urine 57462-6Wuyzr PkdfBA1568-94-86G10:54:53Nurse NoteTXT1.2.840.162063.1.13.104.2.7.2.79352 9|[id number] for patient thme23564-9Xloee NoteLNNARRATIVEFormatted C-CDA narrative text[id number] TJJFMQHACXTZGLNX7731-54-86X85:54:531.2.840 .588237.1.72.3.15|1.2.840.370684.1.13.104. 2.7.2.727879_[id number] [facility] 2023-11-10 14:40:00 8612-69-90J92:40:00F ormatting of this note might be different from the original.Labs is relatively normal, continue with plan of care as discussed 27327-4Urefzzwc sihmOR2597-66-28V13:58:16Progress noteTXT1.2.840.336487.1.13.104.2.7.2.74923 9|[id number] for patient ujgu47546-4KkqfXXTNERDHNILVzqrdeomf C-CDA narrative SharewireMB[id number] SHSPIFIDPECTPCCD3228-09-91X29:58:161.2.840 .301097.1.72.3.15|1.2.840.103880.1.13.104. 2.7.2.727879_[id number] [facility] 2023-03-11 10:19:15 3421-42-17Y99:19:15F ormatting of this note might be different from the original.Last OV:12/10/[address] Aguilar Refill:12/[address] Aguilar Labs Pertaining to Med:N/AFuture Appt:03/23/[address] MadisonRefill request for mirtazapine and donepezil refilled per ambulatory refill guidelines. 21701-2Cyovgtjnm encounter CydmLU9296-35-63Z70:22:36Telephone encounter NoteTXT1.2.840.732384.1.13.104.2.7.2.52415 9|[id number] for patient sihy24855-8VwzsCVYVWZMLHZ[id number] GGNCHXQGGQIRVEYE1581-01-80I86:22:361.2.840 .308583.1.72.3.15|1.2.840.139614.1.13.104. 2.7.2.727879_[id number] [facility]"
[2023-12-18] MEDS ORDERED: HYDROCODONE/APAP 5/325 MG TAB ONE (01:45)
[2023-12-18] MEDS ORDERED: ONDANSETRON 4 MG/2 ML VIAL ONE (03:05)
--- NOTE | 2023-12-18 04:16 | EDPHYS ---
Physician Documentation [facility] Name: Ileana Goldman Age: 83 yrs Sex: Female : 1940 Arrival Date: 12/18/2023 Time: 01:28 Bed 19 Private MD: ED Physician Ian Wise HPI: 12/17 02:28 This 83 yrs old Female presents to ER via EMS with complaints of Hip Pain. rt 02:28 History limited due to patient with advanced measures. Patient presents to the ED with rt right hip pain. Patient reports that the patient fell about 2 days ago, but then was ambulatory. Family later stated the patient did have a fall, reports that she slipped when trying to change herself. No other concerns for injury other than the right hip. Denies other acute complaints, symptoms are moderate in severity, no other aggravating alleviating factors. Historical: - Allergies: 01:38 No Known Allergies; cp4 - PMHx: 01:38 CVA; Hypertensive disorder; Alzheimer's disease; cp4 - Immunization history:: Adult Immunizations up to date. - Infectious Disease History:: Denies. CDIFF, C. Auris, ESBL, MRSA (w/in 1 year), VRE (w/in 1 year), TB, . - Social history:: Smoking status: Patient denies any tobacco usage or history of. - Family history:: not pertinent. ROS: 02:28 MS/extremity: Positive for pain, Negative for deformity, rt 02:28 Unable to obtain ROS due to baseline dementia, Exam: 02:28 Constitutional: This is a well developed, well nourished patient who is awake, alert, rt and in no acute distress. Head/Face: Normocephalic, atraumatic. Chest/axilla: Normal chest wall appearance and motion. Nontender with no deformity. No lesions are appreciated. Cardiovascular: Regular rate and rhythm with a normal S1 and S2. No gallops, murmurs, or rubs. Normal PMI, no JVD. No pulse deficits. Respiratory: Lungs have equal breath sounds bilaterally, clear to auscultation and percussion. No rales, rhonchi or wheezes noted. No increased work of breathing, no retractions or nasal flaring. Abdomen/GI: Soft, non-tender, with normal bowel sounds. No distension or tympany. No guarding or rebound. No evidence of tenderness throughout. Skin: Warm, dry with normal turgor. Normal color with no rashes, no lesions, and no evidence of cellulitis. 02:28 Musculoskeletal/extremity: Tenderness to the right hip, no deformity noted, pulses, motor, sensation intact. Vital Signs: 01:37 BP 204 / 101; Pulse 84; Resp 18; Temp 97.9; Pulse Ox 97% ; Pain 8/10; cp4 01:42 BP 196 / 85; Pulse 88; Resp 16; Pulse Ox 98% on R/A; kd3 02:59 BP 197 / 83; Pulse 77; Resp 19; Pulse Ox 99% on R/A; kd3 04:00 BP 197 / 83; Pulse 68; Resp 18; Pulse Ox 99% ; cp4 05:00 BP 142 / 65; Pulse 78; Resp 18; Pulse Ox 94% ; cp4 01:37 Pain Scale: Adult cp4 MDM: 01:41 Patient medically screened. rt 04:21 Differential diagnosis: hip fracture, intertrochanteric fracture. Data reviewed: vital rt signs, nurses notes, radiologic studies. Consideration of Admission/Observation Escalation of care including admission/observation considered. Patient requires transfer due to lack of orthopedic services available at this time, family request [facility] I considered the following discharge prescriptions or medication management in the emergency department Medications were administered in the Emergency Department. See MAR. Independent interpretation of the following test(s) in the Emergency Department X-Ray: My interpretation is Hip fracture seen on interpretation of x-ray images. Care significantly affected by the following chronic conditions: Hypertension. Counseling: I had a detailed discussion with the patient and/or guardian regarding the historical points, exam findings, and any diagnostic results supporting the discharge/admit diagnosis, radiology results, the need to transfer to another facility. Response to treatment: the patient's symptoms have mildly improved after treatment. 12/17 01:44 Order name: Hip Right 2 View XRAY rt Administered Medications: 01:49 Drug: [place] PO 5 mg-325 mg 1 tabs PO once Route: PO; kd3 04:19 Follow up: Response: No adverse reaction; Pain is decreased cp4 03:20 Drug: Ondansetron IVP 4 mg IVP once; over 2 minutes Route: IVP; Site: right antecubital;kd3 04:19 Follow up: Response: No adverse reaction cp4 04:52 Drug: hydrALAZINE IVP 10 mg IVP once Route: IVP; Site: right antecubital; cp4 05:41 Follow up: Response: No adverse reaction cp4 Disposition Summary: 12/18/23 04:15 Transfer Ordered Notes: Transfer Location: [facility] rt Reason: Specialty rt Condition: Stable rt Problem: new rt Symptoms: are unchanged rt Accepting Physician: (12/18/23 05:41) cp4 Diagnosis - Right femoral neck fracture rt Forms: - Medication Reconciliation Form rt - SBAR form rt Signatures: Dispatcher [employer] EDEstella King RN RN kd3 Ian Wise MD MD rt Parul Ennis cp4 Corrections: (The following items were deleted from the chart) 01:45 01:45 Hip Right 2 View+RAD.RAD.BRZ ordered. EDMS EDMS 05:41 04:15 rt cp4
--- NOTE | 2023-12-18 04:16 | ER ---
Nurse's Notes [facility] Name: Ileana Goldman Age: 83 yrs Sex: Female : 1940 Arrival Date: 12/18/2023 Time: 01:28 Bed 19 Private MD: Diagnosis: Right femoral neck fracture Presentation: 12/17 01:37 Chief complaint: EMS states: right hip pain from a fall two days ago. Has been cp4 ambulatory until pain got worse tonight. Coronavirus screen: Client denies travel out of the [place] in the last 14 days. At this time, the client does not indicate any symptoms associated with coronavirus-19. Ebola Screen: Patient negative for fever greater than or equal to 101.5 degrees Fahrenheit, and additional compatible Ebola Virus Disease symptoms Patient denies exposure to infectious person. Patient denies travel to an Ebola-affected area in the 21 days before illness onset. No symptoms or risks identified at this time. Initial Sepsis Screen: Does the patient meet any 2 criteria? No. Patient's initial sepsis screen is negative. Does the patient have a suspected source of infection? No. Patient's initial sepsis screen is negative. Risk Assessment: Do you want to hurt yourself or someone else? Patient reports no desire to harm self or others. Onset of symptoms was December 15, 2023. 01:37 Method Of Arrival: EMS: [facility] cp4 01:37 Acuity: OPAL 3 cp4 Triage Assessment: 01:38 General: Appears uncomfortable, Behavior is agitated, anxious. Pain: Complains of pain cp4 in right hip. Musculoskeletal: Reports pain in right hip. Historical: - Allergies: 01:38 No Known Allergies; cp4 - PMHx: 01:38 CVA; Hypertensive disorder; Alzheimer's disease; cp4 - Immunization history:: Adult Immunizations up to date. - Infectious Disease History:: Denies. CDIFF, C. Auris, ESBL, MRSA (w/in 1 year), VRE (w/in 1 year), TB, . - Social history:: Smoking status: Patient denies any tobacco usage or history of. - Family history:: not pertinent. Screenin:[facility] ED Fall Risk Assessment (Adult) History of falling in the last 3 months, cp4 including since admission Yes- single mechanical fall (1 pt) Confusion or Disorientation No (0 pts) Intoxicated or Sedated No (0 pts) Impaired Gait No (0 pts) Mobility Assist Device Used No (0 pt) Altered Elimination No (0 pt) Score/Fall Risk Level 0 - 2 = Low Risk Oriented to surroundings, Maintained a safe environment, Assessed \T\ reinforced patient's understanding of fall precautions, Hourly rounding (assess needs \T\ fall precautionary measures) done. Abuse screen: Denies threats or abuse. Nutritional screening: No deficits noted. Tuberculosis screening: No symptoms or risk factors identified. Assessment: 01:43 Reassessment: No changes from previously documented assessment. cp4 01:49 General: Pt pointing to the right hip and reporting pain. Pt medicated with [place]. On kd3 continuous monitoring. . Pain: Complains of pain in right hip. Respiratory: Airway is patent Trachea midline Respiratory effort is even, unlabored, Respiratory pattern is regular, symmetrical. 02:02 General: Pt's daughter arrived and states that the patient had fallen this morning kd3 around 12:30 AM and thinks she may have been trying to change herself. Provider notified. . 03:00 Reassessment: Patient and/or family updated on plan of care and expected duration. Pain kd3 level reassessed. Patient is alert, oriented x 3, equal unlabored respirations, skin warm/dry/pink. 03:21 General: Pt had sudden nausea. IV access obtained in the right A/C, Nausea medications kd3 administered. Provider at the bedside to discuss plan of care with the patient and her daughter. . Vital Signs: 01:37 BP 204 / 101; Pulse 84; Resp 18; Temp 97.9; Pulse Ox 97% ; Pain 8/10; cp4 01:42 BP 196 / 85; Pulse 88; Resp 16; Pulse Ox 98% on R/A; kd3 02:59 BP 197 / 83; Pulse 77; Resp 19; Pulse Ox 99% on R/A; kd3 04:00 BP 197 / 83; Pulse 68; Resp 18; Pulse Ox 99% ; cp4 05:00 BP 142 / 65; Pulse 78; Resp 18; Pulse Ox 94% ; cp4 01:37 Pain Scale: Adult cp4 ED Course: 01:29 Patient arrived in ED. jj6 01:36 Ian Wise MD is Attending Physician. rt 01:36 Parul Ennis is Primary Nurse. cp4 01:38 Triage completed. cp4 01:38 Arm band placed on right wrist. Patient placed in an exam room, on a stretcher. cp4 01:43 Bed in low position. Call light in reach. Side rails up X2. Provided Education on: hip cp4 pain. 01:43 No provider procedures requiring assistance completed. cp4 02:08 Hip Right 2 View XRAY In Process Unspecified. EDMS 03:17 Inserted saline lock: 22 gauge in right antecubital area, using aseptic technique. kd3 04:09 initiated transfer with Rigo Kincaid\ [facility]. Pt was accepted to [facility] as [facility] a ER pt. admin approval given by rigo corrales, \T\ 0422. Accepting Zuleyma Billingsley \Cathy\0422. Number for nurse to nurse report is [phone]. 05:40 Patient transferred, IV remains in place. cp4 Administered Medications: 01:49 Drug: [place] PO 5 mg-325 mg 1 tabs PO once Route: PO; kd3 04:19 Follow up: Response: No adverse reaction; Pain is decreased cp4 03:20 Drug: Ondansetron IVP 4 mg IVP once; over 2 minutes Route: IVP; Site: right antecubital;kd3 04:19 Follow up: Response: No adverse reaction cp4 04:52 Drug: hydrALAZINE IVP 10 mg IVP once Route: IVP; Site: right antecubital; cp4 05:41 Follow up: Response: No adverse reaction cp4 Medication: 01:43 VIS not applicable for this client. cp4 Outcome: 04:15 ER care complete, transfer ordered by . rt 05:40 Transferred by ground EMS to [facility], Transfer form cp4 completed. X-rays sent w/ patient. 05:40 Condition: stable 05:40 Instructed on the need for transfer, 05:41 Patient left the ED. cp4 Signatures: Dispatcher [employer] EDOlga Guerrero [email or web address] Estella Lopez, RN RN kd3 Ian Wise MD MD rt Parul Ennis cp4 [facility] Corrections: (The following items were deleted from the chart) 02:11 01:43 [facility] ED Fall Risk Assessment (Adult) History of falling in the last 3 months, kd3 including since admission Yes- single mechanical fall (1 pt) Confusion or Disorientation No (0 pts) Intoxicated or Sedated No (0 pts) Impaired Gait No (0 pts) Mobility Assist Device Used No (0 pt) Altered Elimination No (0 pt) Score/Fall Risk Level 0 - 2 = Low Risk Oriented to surroundings, Maintained a safe environment, Assessed \T\ reinforced patient's understanding of fall precautions, Hourly rounding (assess needs \T\ fall precautionary measures) done, cp4
[2023-12-18] MEDS ORDERED: HYDRALAZINE HCL 20 MG/ML VIAL ONE (04:49)
[2023-12-18 05:56] VITALS: TEMP 97.9
[2023-12-18 06:15] VITALS: BP 142/65; O2SAT 94
--- NOTE | 2023-12-18 19:32 | RAD REPORT ---
EXAM DESCRIPTION: RAD - Hip Right 2 View - 12/18/2023 2:06 am CLINICAL HISTORY: PAIN COMPARISON: None. FINDINGS: 2 views of the right hip. Acute mildly displaced subcapital fracture of the right fe moral neck. Osteopenia. Right hip joint space narrowing. IMPRESSION: Acute mildly displaced subcapital fracture of the right femoral neck. Electronically signed by: Lyle Staton DO 12/18/2023 04:04 AM CDT RP 4ZDM Due to temporary technical issues with the PACS/Fluency reporting system, reports are being signed by the in house radiologists without review as a courtesy to insure prompt reporting. The interpreting radiologist is fully responsible for the content of the report.
== END 2023-12-18 05:41 | disposition short-term general hospital (02) ==
LOC: ER 01:28
DX: S72.011A Unspecified intracapsular fracture of right femur, initial encounter for closed fracture (principal)
CPT/HCPCS: 73502; 96375; 96374; 99285; J0360; J2405

== ENCOUNTER 2024-11-06 12:46 | Emergency (ER) | payer OTHER ==
--- OUTSIDE RECORDS SUMMARY | 2024-11-06 12:52 | XMS REPORT | Continuity of Care Document ---
Author Name Unknown Address [address] [facility] [address]. [address] [place] [address] [facility] Address [address] [facility] [address]. [address] [place] [address] Care Team Providers [place] [employer] Name Role Phone Bonnie Langford MD Primary Care Physician + [phone] BONNIE LANGFORD Attending Clinician Unavailable Anayeli Puga Attending Clinician [phone] Elli Christianson MA Attending Clinician [phone] Bonnie Langford MD Attending Clinician [phone] DIGGSKYLE MARCUS A Attending Clinician Unavailable DIGGSKYLE A Attending Clinician Unavailable Doctor Unassigned, [place] Attending Clinician U Coco Villatoro Attending Clinician [phone] Heike Barnett RN Attending Clinician [phone] ÁNGEL HERRERA Attending Clinician Alex Fournier MD, Vianney Morgan Attending Clinician [phone] Ángel Herrera MD Attending Clinician + [phone] Sathya Simpson MD Attending Clinician [phone] Cruz STEELE, Mal Briceno Attending Clinician [phone] Chloe Dial MD Attending Clinician [phone] CHLOE DIAL Attending Clinician Unavailyessenia Langford MD, Bonnie Attending Clinician [phone], [facility] Attending Clinician Unavailable Ramila Castillo MA Attending Clinician Unavaila ble [email or web address]_S Attending Clinician Unavaila mckay Cervantes NP, Estrellita Attending Clinician [phone] ESTRELLITA CERVANTES Attending Clinician UnavailCASSIDY Astudillo Attending Clinician Unavailyessenia Schumacher DO Toby Dozier Attending Clinician [phone] ISAI ZIMMERMAN Attending Clinician Isai Poe MD Attending Clinician [phone] Isai Zimmerman MD Attending Clinician + [phone] Pob, [facility] Main Attending Clinician UnavailKYLE Davis Admitting Clinician Kyle Guzman MD Admitting Clinician [phone] CHLOE DIAL Admitting Clinician Unavailabl e [email or web address]_S Admitting Clinician Unavaila mckay Payers Payer Name Policy Type Policy Number Effective Date Expirati on Date Source MEDICARE PART A \\T\\ B [id number] 2004 00:00:00 Problems Condition Name Condition Details Condition Category Status Onset Date Resolution Date Last Treatment Date Treating Clinician Comments Source Hypocalcem ia Hypocalcem ia Disease Active 2023-07 00:00: 00 [facility] 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 Disease Active 12-19 00:00: 00 [facility] Closed fracture dislocatio n of right hip joint with routine healing, subsequent encounter Closed fracture dislocatio n of right hip joint with routine healing, subsequent encounter Disease Active 12-17 00:00: 00 [facility] Closed fracture of right hip, initial encounter Closed fracture of right hip, initial encounter Disease Active 12-17 00:00: 00 [facility] At risk for falls At risk for falls Disease Active 11-09 00:00: 00 [facility] Unspecifie d abnormalit ies of gait and mobility Unspecifie d abnormalit ies of gait and mobility Disease Active 2024-0 5-08 00:00: 00 [facility] Senile osteoporos is Senile osteoporos is Disease Active 0 5-08 00:00: 00 [facility] Vitamin D deficiency Vitamin D deficiency Disease Active 0 08 00:00: 00 [facility] Pedal edema Pedal edema Disease Active 0 -08 00:00: 00 [facility] Weight loss Weight loss Disease Active 0 08 00:00: 00 [facility] Compressio n fracture of L1 vertebra, initial encounter Compressio n fracture of L1 vertebra, initial encounter Disease Active 0 12-10 00:00: 00 [facility] Weight loss Weight loss Disease Active 12-10 00:00: 00 [facility] Memory changes Memory changes Disease Active 12-10 00:00: 00 [facility] Need for Tdap vaccinatio n Need for Tdap vaccinatio n Disease Active 1- 00:00: 00 [facility] Flu vaccine need Flu vaccine need Disease Active 1-04 00:00: 00 [facility] Recurrent falls Recurrent falls Disease Active 1-04 00:00: 00 [facility] Vitamin B 12 deficiency Vitamin B 12 deficiency Disease Active 0 2-20 00:00: 00 [facility] Altered mental status, unspecifie d altered mental status type Altered mental status, unspecifie d altered mental status type Disease Active 30 00:00: 00 [facility] Chronic nonintract able headache, unspecifie d headache type Chronic nonintract able headache, unspecifie d headache type Disease Active 0 -30 00:00: 00 [facility] Nutritiona l deficiency Nutritiona l deficiency Disease Active -30 00:00: 00 [facility] Dehydratio n Dehydratio n Disease Active 30 00:00: 00 [facility] History of TIA (transient ischemic attack) History of TIA (transient ischemic attack) Disease Active 08-03 00:00: 00 [facility] Chronic fatigue Chronic fatigue Disease Active 08-03 00:00: 00 [facility] Encounter for Medicare annual wellness exam Encounter for Medicare annual wellness exam Disease Active 08-03 00:00: 00 [facility] Syncope, unspecifie d syncope type Syncope, unspecifie d syncope type Disease Active 08-03 00:00: 00 [facility] HTN (hypertens ion) HTN (hypertens ion) Disease Active 2014-07 00:00: 00 [facility] Dyslipidem ia Dyslipidem ia Disease Active 2014-07 00:00: 00 [facility] Essential hypertensi on Essential hypertensi on Disease Active 2014-07 00:00: 00 [facility] Hyperlipid emia Hyperlipid emia Disease Active 2014-07 00:00: 00 [facility] Urinary tract infection with hematuria, site unspecifie d Urinary tract infection with hematuria, site unspecifie d Disease Resolve d 08-24 00:00: 00 2021-07-08 00:00:00 2021-07-08 12:06:43 [facility] Allergies, Adverse Reactions, Alerts Allergy Name Allergy Type Status Severity Reaction(s) Onset Date Inactive Date Treating Clinician Comments Source NO KNOWN ALLERGIE S Drug Class Active [facility] Social History Social Habit Start Date Stop Date Quantity Comments Source ASSERTION Not [facility] History of tobacco use Cigarette Smoker [facility] Gender identity [facility] Alcoholic beverage intake 2024-05-12 00:00:00 2024-05-12 00:00:00 0 /d [facility] History of Social function 2023-11-10 00:00:00 2023-11-10 00:00:00 [facility] Tobacco use and exposure 2022-12-10 00:00:00 2022-12-10 00:00:00 Smokeless tobacco non-user [facility] Alcohol intake 2022-12-10 00:00:00 2022-12-10 00:00:00 0 /d [facility] Exposure to SARS-CoV-2 (event) 2022-02-17 00:00:00 2022-02-27 13:45:00 Not sure [facility] Sex assigned at 1940 00:00:00 1940 00:00:00 [facility] Smoking Status Start Date Stop Date Source Never smoked tobacco [facility] Medications Ordered Medication Name Filled Medication Name Start Date Stop Date Current Medication? Ordering Clinician Indication Dosage Frequency Signature (SIG) Comments Components Source vitamin B-12 1,000 mcg tablet 2023-07 00:00: 00 Yes [id number] 1000ug Take 1 tablet by mouth in the morning. [facility] pyridoxine, vitamin B6, 50 mg tablet 2023-07 00:00: 00 Yes [id number] 50mg Take 1 tablet by mouth in the morning. [facility] mirtazapine 15 mg tablet 2023-07 00:00: 00 Yes [id number] 15mg Take 1 tablet by mouth at bedtime. [facility] lisinopriL 20 mg tablet 2023-07 00:00: 00 Yes [id number] 20mg Take 1 tablet by mouth in the morning. [facility] donepeziL 5 mg tablet 2023-07 00:00: 00 Yes [id number] 5mg Take 1 tablet by mouth at bedtime. [facility] amLODIPine 5 mg tablet 2023-07 00:00: 00 Yes [id number] 5mg Take 1 tablet by mouth in the morning. [facility] calcium carbonate 500 mg calcium (1,250 mg) tablet 2023-07 00:00: 00 Yes [id number] 500mg Take 1 tablet by mouth in the morning. [facility] enoxaparin 30 mg/0.3 mL injection 12-23 00:00: 00 01-17 04:59 :00 No [id number] 30mg inject 0.3 mL under the skin every 24 (twenty-fo ur) hours for 24 days. [facility] lisinopriL (PRINIVIL,Z ESTRIL) tablet 20 mg 12-22 14:00: 00 Yes 20mg 20 mg, Oral, DAILY, First dose on Wed12/23/23 at 0900, Until Discontinu ed, [facility] 2 gram/50 mL (4 %) infusion 2 g 12-22 13:15: 00 12-22 14:11 :00 No 2g 2 g, IV Piggyback, Administer over 60 Minutes, ONCE, 1 dose, On Wed12/23/23 at 0815, Routine [facility] bisacodyL (DULCOLAX) suppository 10 mg 12-22 12:20: 26 Yes 10mg 10 mg, Rectal, QHSPRN, Starting on Wed12/23/23 at 0720, Until Discontinu ed, Routine, Constipati on [facility] NaCl 0.9% (NS) bolus infusion 500 mL 12-21 22:30: 00 12-21 22:58 :00 No 500mL at 999 mL/hr, 500 mL, IV Piggyback, ONCE, 1 dose, On Wed12/22/23 at 1730, STAT [facility] polyethylen e glycol 3350 powder 17 g 12-21 13:00: 00 Yes 17g 17 g, Oral, BID, First dose (after last modificati on) on Wed12/22/23 at 0800, Until Discontinu ed, Routine [facility] sennosides (SENOKOT) tablet 8.6 mg 12-20 16:15: 00 Yes 8.6mg 8.6 mg, Oral, BID, First dose on Wed12/21/23 at 1115, Until Discontinu ed, Routine [facility] polyethylen e glycol 3350 powder 17 g 12-20 16:15: 00 12-21 11:30 :21 No 17g 17 g, Oral, DAILY, First dose on Wed12/21/23 at 1115, Until Discontinu ed, Routine [facility] enoxaparin (LOVENOX) injection 30 mg 12-19 13:00: 00 Yes 30mg 30 mg, Subcutaneo us, Q24H, First dose (after last modificati on) on Wed12/20/23 at 0800, Until Discontinu ed, Routine [facility] ceFAZolin (ANCEF) 2,000 mg in NaCl 0.9% (NS) 100 mL VIAL-MATE 12-19 09:00: 00 12-19 08:36 :00 No 2000mg 2,000 mg, IV Piggyback, Q8H ABX, 1 dose, First dose (after last modificati on) on Wed12/20/23 at 0400, Administer over 30 Minutes, 100 mL, Reason for Anti-Infec tive: Surgical Prophylaxi s, Surgical Prophylaxi s: Orthopaedi c, Duration of therapy: within 24 hours of surgery [facility] albumin (ALBUTEIN 5 %) 5 % injection 12.5 g 12-19 07:00: 00 12-19 08:08 :00 No 12.5g 12.5 g, IV Infusion, ONCE, 1 dose, On Wed12/20/23 at 0200, 250 mL, Indication : POST-OPERA TIVE VOLUME RESUSCITAT ION-CARDIA C SURGERY, Comments: May only be used if 3L or more of crystalloi d has been administer ed within a given 24 hour period without an adequate hemodynami c response. [facility] magnesium sulfate in water 4 gram/50 mL (8 %) IV Piggyback 4 g 12-18 20:00: 00 12-18 21:55 :00 No 4g 4 g, IV Piggyback, at 25 mL/hr Administer over 120 Minutes, ONCE, 1 dose, On Wed12/19/23 at 1500, Routine [facility] acetaminoph en (TYLENOL) tablet 500 mg 12-18 17:00: 00 Yes 500mg 500 mg, Oral, Q6H, First dose on Wed12/19/23 at 1200, Until Discontinu ed, Routine [facility] ondansetron (ZOFRAN (PF)) injection 4 mg 12-18 16:03: 10 Yes 4mg 4 mg, Slow IV Push, Q6HPRN, Nausea and Vomiting (N/V), Starting on 12/19/23 at 1103, Doses of ondansetro n 16 mg and above need to be administer ed via IV piggyback. For Dose >=24mg ECG monitoring is advisable. [facility] BUPivacaine liposome (PF) (EXPAREL (PF)) 1.3 % (13.3 mg/mL) injection 12-18 15:43: 00 12-18 16:06 :15 No PRN, Starting on 12/19/23 at 1043, Until 12/19/23 at 1106, Routine, Intra-op [facility] lidocaine 1% (PF) (XYLOCAINE) injection 12-18 15:41: 00 12-18 16:06 :15 No PRN, Starting on 12/19/23 at 1041, Until 12/19/23 at 1106, Routine, Intra-op [facility] sugammadex (BRIDION) injection 12-18 15:35: 00 12-18 15:57 :39 No Intravenou s, ONCE INTRA PROCEDURE, Starting on 12/19/23 at 1035, Until 12/19/23 at 1057, Routine, Intra-op [facility] ondansetron (ZOFRAN (PF)) injection 12-18 14:57: 00 12-18 15:57 :39 No Slow IV Push, ONCE INTRA PROCEDURE, Starting on 12/19/23 at 0957, Until 12/19/23 at 1057, Routine, Intra-op [facility] acetaminoph en (OFIRMEV) IV piggyback 12-18 14:32: 00 12-18 15:57 :39 No IV Infusion, Administer over 15 Minutes, ONCE INTRA PROCEDURE, Starting on 12/19/23 at 0932, Until 12/19/23 at 1057, Routine, Intra-op [facility] dexamethaso ne (DECADRON PHOSPHATE) injection 12-18 14:02: 00 12-18 15:57 :39 No IV Push, ONCE INTRA PROCEDURE, Starting on 12/19/23 at 0902, Until 12/19/23 at 1057, Routine, Intra-op [facility] dexmedeTOMI Dine (PRECEDEX) injection 12-18 13:54: 00 12-18 15:57 :39 No Intravenou s, ONCE INTRA PROCEDURE, Starting on 12/19/23 at 0854, Until 12/19/23 at 1057, Routine, Intra-op [facility] HYDROmorphO ne (DILAUDID) injection 12-18 13:41: 00 12-18 15:57 :39 No Intravenou s, ONCE INTRA PROCEDURE, Starting on 12/19/23 at 0841, Until 12/19/23 at 1057, Routine, Intra-op [facility] ePHEDrine 25 mg/5 mL (5 mg/mL) syringe 12-18 13:21: 00 12-18 15:57 :39 No Intravenou s, ONCE INTRA PROCEDURE, Starting on 12/19/23 at 0821, Until 12/19/23 at 1057, Routine, Intra-op [facility] tranexamic acid (CYKLOKAPRO N) 1,000 mg in NaCl 0.9% (NS) 100 mL piggyback 12-18 13:12: 00 12-18 15:57 :39 No IV Piggyback, CONTINUOUS PRN, Starting on 12/19/23 at 0812, Until 12/19/23 at 1057, Administer over 60 Minutes, 100 mL, Intra-op [facility] ceFAZolin (ANCEF) injection 12-18 13:06: 00 12-18 15:57 :39 No Slow IV Push, ONCE INTRA PROCEDURE, Starting on 12/19/23 at 0806, Until 12/19/23 at 1057, MATILDE, Intra-op [facility] FENTanyl PF (SUBLIMAZE (PF)) injection 12-18 12:57: 00 12-18 15:57 :39 No Intravenou s, ONCE INTRA PROCEDURE, Starting on 12/19/23 at 0757, Until 12/19/23 at 1057, Routine, Intra-op [facility] electrolyte -A (PLASMALYTE -A) IV infusion 12-18 12:55: 00 12-18 15:57 :39 No IV Infusion, CONTINUOUS PRN, Starting on 12/19/23 at 0755, Until 12/19/23 at 1057, Routine, Intra-op [facility] phenylephri ne (VAZCULEP) injection 12-18 12:52: 00 12-18 15:57 :39 No Slow IV Push, ONCE INTRA PROCEDURE, Starting on 12/19/23 at 0752, Until 12/19/23 at 1057, Routine, Intra-op [facility] rocuronium (ZEMURON) injection 12-18 12:44: 00 12-18 15:57 :39 No IV Push, ONCE INTRA PROCEDURE, Starting on 12/19/23 at 0744, Until 12/19/23 at 1057, Routine, Intra-op [facility] lidocaine 1% (XYLOCAINE) 100 mg/10 mL (1 %) injection 12-18 12:44: 00 12-18 15:57 :39 No Intravenou s, ONCE INTRA PROCEDURE, Starting on 12/19/23 at 0744, Until Wed12/19/23 at 1057, Routine, [facility] propofoL [facility] 12-18 12:44: 00 12-18 15:57 :39 No Intravenou s, ONCE INTRA PROCEDURE, Starting on 12/19/23 at 0744, Until 12/19/23 at 1057, Routine, Intra-op [facility] lactated ringers IV infusion 12-18 12:40: 00 12-18 15:57 :39 No IV Infusion, CONTINUOUS PRN, Starting on 12/19/23 at 0740, Until 12/19/23 at 1057, Routine, Intra-op [facility] melatonin (MELATIN) tablet 3 mg 12-18 02:00: 00 Yes 3mg 3 mg, Oral, QHS, First dose on 12/18/23 at 2100, Until Discontinu ed, Routine [facility] mirtazapine (REMERON) tablet 15 mg 12-18 02:00: 00 Yes 15mg 15 mg, Oral, QHS, First dose on 12/18/23 at 2100, Until Discontinu ed, Routine [facility] atorvastati n (LIPITOR) tablet 10 mg 12-18 02:00: 00 Yes 10mg 10 mg, Oral, QHS, First dose on 12/18/23 at 2100, Until Discontinu ed, Routine [facility] donepeziL (ARICEPT) tablet 5 mg 12-18 02:00: 00 Yes 5mg 5 mg, Oral, QHS, First dose on 12/18/23 at 2100, Until Discontinu ed, Routine [facility] lactated ringers IV infusion 1,000 mL 12-17 23:45: 00 12-19 22:44 :53 No 1000mL at 80 mL/hr, 1,000 mL, IV Infusion, CONTINUOUS , Starting on 12/18/23 at 1845, Until 12/20/23 at 1744, Routine [facility] FENTanyl PF (SUBLIMAZE (PF)) injection 25 mcg 12-17 18:59: 55 12-19 22:44 :53 No 25ug 25 mcg, Slow IV Push, Q2HPRN, Starting on 12/18/23 at 1359, Until 12/20/23 at 1744, Routine, Pain (scale 4-6) [facility] FENTanyl PF (SUBLIMAZE (PF)) injection 25 mcg 12-17 16:39: 11 12-17 19:00 :59 No 25ug 25 mcg, Slow IV Push, Q2HPRN, Starting on 12/18/23 at 1139, Until 12/18/23 at 1400, Routine, Pain (scale 4-6) [facility] hydralAZINE (APRESOLINE ) injection 10 mg 12-17 16:34: 46 12-18 16:11 :00 No 10mg 10 mg, Slow IV Push, PRN, 2 doses, Starting on 12/18/23 at 1134, Until 12/19/23 at 1111, Routine, Goal SBP <140 [facility] amLODIPine (NORVASC) tablet 5 mg 12-17 14:00: 00 Yes 5mg 5 mg, Oral, DAILY, First dose on 12/18/23 at 0900, Until Discontinu ed, Routine [facility] traMADoL (ULTRAM) tablet 50 mg 12-17 13:06: 38 Yes 50mg 50 mg, Oral, Q4HPRN, Starting on 12/18/23 at 0806, Until Discontinu ed, Routine, Pain (scale 7-10) [facility] atorvastati n 10 mg tablet 11-09 00:00: 00 Yes [id number] TAKE 1 TABLET BY MOUTH AT BEDTIME [facility] ergocalcife rol, vitamin d2, (VITAMIN D2) 1,250 mcg (50,000 unit) capsule 11-09 00:00: 00 Yes [id number] Take 1 capsule by mouth weekly. [facility] lisinopriL 20 mg tablet 11-09 00:00: 00 05-12 00:00 :00 No [id number] 20mg Take 1 tablet by mouth in the morning. [facility] amLODIPine 5 mg tablet 11-09 00:00: 00 05-12 00:00 :00 No [id number] 5mg Take 1 tablet by mouth in the morning. [facility] donepeziL 5 mg tablet 11-09 00:00: 00 05-12 00:00 :00 No [id number] 5mg Take 1 tablet by mouth at bedtime. [facility] mirtazapine 15 mg tablet 11-09 00:00: 00 05-12 00:00 :00 No [id number] 15mg Take 1 tablet by mouth at bedtime. [facility] calcium carbonate 500 mg calcium (1,250 mg) tablet 11-09 00:00: 00 05-12 00:00 :00 No [id number] 500mg Take 1 tablet by mouth in the morning. [facility] pyridoxine, vitamin B6, 50 mg tablet 11-09 00:00: 00 05-12 00:00 :00 No [id number] 50mg Take 1 tablet by mouth in the morning. [facility] vitamin B-12 1,000 mcg tablet 11-09 00:00: 00 05-12 00:00 :00 No [id number] 1000ug Take 1 tablet by mouth in the morning. [facility] donepeziL 5 mg tablet 03-11 00:00: 00 11-09 00:00 :00 No [id number] 5mg Take 1 tablet by mouth at bedtime. [facility] mirtazapine 15 mg tablet 03-11 00:00: 00 11-09 00:00 :00 No [id number] 15mg Take 1 tablet by mouth at bedtime. [facility] mirtazapine 15 mg tablet 12-10 00:00: 00 03-11 00:00 :00 No [id number] 15mg Take 1 tablet by mouth at bedtime. [facility] donepeziL 5 mg tablet 12-10 00:00: 00 03-11 00:00 :00 No [id number] 5mg Take 1 tablet by mouth at bedtime. [facility] KLOR-CON 10 10 mEq CR tablet 04-03 00:00: 00 11-09 00:00 :00 No [id number] TAKE 1 TABLET BY MOUTH EVERY DAY IN THE MORNING [facility] FUROSEMIDE 40 mg tablet 04-03 00:00: 00 11-09 00:00 :00 No [id number] TAKE 1 TABLET BY MOUTH EVERY DAY IN THE MORNING [facility] ciprofloxac in HCl 250 mg tablet 03-23 08:55: 56 03-23 00:00 :00 No 250mg Take 250 mg by mouth every 12 (twelve) hours. [facility] ondansetron 4 mg disintegrat ing tablet 03-23 00:00: 00 12-10 00:00 :00 No [id number] 4mg Take 1 tablet by mouth every 8 (eight) hours as needed for Nausea and Vomiting (N/V). May take 1-2 tablets. [facility] metroNIDAZO LE (FLAGYL) 500 mg tablet 03-23 00:00: 00 03-27 04:59 :00 No [id number] 500mg Take 1 tablet by mouth every 12 (twelve) hours for 3 days. [facility] lisinopriL 20 mg tablet 03-02 00:00: 00 11-09 00:00 :00 No [id number] 20mg Take 1 tablet by mouth in the morning. [facility] lisinopriL 10 mg tablet 02-27 15:32: 25 02-27 00:00 :00 No 10mg Take 10 mg by mouth in the morning. [facility] ciprofloxac in HCl 250 mg tablet 02-27 14:59: 45 Yes 250mg Take 250 mg by mouth every 12 (twelve) hours. [facility] amLODIPine 5 mg tablet 02-27 14:59: 45 11-09 00:00 :00 No 5mg Take 1 tablet by mouth in the morning. [facility] lisinopriL 20 mg tablet 02-27 00:00: 00 Yes [id number] 20mg Take 1 tablet by mouth in the morning. [facility] furosemide 40 mg tablet 02-27 00:00: 00 04-03 00:00 :00 No [id number] 40mg Take 1 tablet by mouth in the morning. [facility] potassium chloride 10 mEq CR tablet 02-27 00:00: 00 04-03 00:00 :00 No [id number] 10meq Take 1 tablet by mouth in the morning. [facility] ergocalcife rol, vitamin d2, (VITAMIN D2) 1,250 mcg (50,000 unit) capsule 07-09 00:00: 00 11-09 00:00 :00 No [id number] 19485X Take 1 capsule by mouth weekly. [facility] levocetiriz ine 5 mg tablet 07-08 00:00: 00 11-09 00:00 :00 No [id number] 5mg Take 1 tablet by mouth every evening. [facility] pyridoxine, vitamin B6, 50 mg tablet 07-08 00:00: 00 11-09 00:00 :00 No [id number] 50mg Take 1 tablet by mouth daily. [facility] atorvastati n 10 mg tablet 07-08 00:00: 00 11-09 00:00 :00 No [id number] TAKE 1 TABLET BY MOUTH AT BEDTIME [facility] vitamin B-12 1,000 mcg tablet 07-08 00:00: 00 11-09 00:00 :00 No [id number] 1000ug Take 1 tablet by mouth daily. [facility] donepeziL 5 mg tablet 07-08 00:00: 00 12-10 00:00 :00 No [id number] 5mg Take 1 tablet by mouth at bedtime. [facility] RAMIPRIL 10 mg capsule 3-31 00:00: 00 02-27 00:00 :00 No [id number] TAKE 1 CAPSULE BY MOUTH EVERY DAY [facility] Immunizations Ordered Immunization Name Filled Immunization Name Date Status Comments Source Influenza, adjuvanted, trivalent, PF (FLUAD) 2024-05-12 00:00:00 Completed [facility] TDAP 2024-05-12 00:00:00 Completed Influenza Virus Vaccine,quad Im,preserve Free 65+ (FLUAD) 2021-07-08 00:00:00 Completed [facility] Influenza Virus Vaccine,quad Im,preserve Free 65+ 2021-07-08 00:00:00 Completed [facility] Influenza Virus Vaccine,quad Im,preserve Free 65+ 2021-07-08 00:00:00 Completed [facility] Influenza Virus Vaccine,quad Im,preserve Free 65+ 2021-07-08 00:00:00 Completed [facility] Influenza Virus Vaccine,quad Im,preserve Free 65+ 2021-07-08 00:00:00 Completed [facility] Influenza Virus Vaccine,quad Im,preserve Free 65+ 2021-07-08 00:00:00 Completed [facility] Influenza Virus Vaccine,quad Im,preserve Free 65+ 2021-07-08 00:00:00 Completed [facility] Influenza Virus Vaccine,quad Im,preserve Free 65+ 2021-07-08 00:00:00 Completed [facility] Influenza Virus Vaccine,quad Im,preserve Free 65+ 2021-07-08 00:00:00 Completed [facility] Influenza Virus Vaccine,quad Im,preserve Free 65+ (FLUAD) 2021-07-08 00:00:00 Completed [facility] Influenza Virus Vaccine,quad Im,preserve Free 65+ (FLUAD) Unknown Completed [facility] Influenza Virus Vaccine,quad Im,preserve Free 65+ (FLUAD) Unknown Completed [facility] Influenza Virus Vaccine,quad Im,preserve Free 65+ (FLUAD) Unknown Completed [facility] Influenza Virus Vaccine,quad Im,preserve Free 65+ (FLUAD) Unknown Completed [facility] Influenza Virus Vaccine,quad Im,preserve Free 65+ (FLUAD) Unknown Completed [facility] Influenza Virus Vaccine,quad Im,preserve Free 65+ (FLUAD) Unknown Completed [facility] Influenza Virus Vaccine,quad Im,preserve Free 65+ (FLUAD) Unknown Completed [facility] Influenza Virus Vaccine,quad Im,preserve Free 65+ (FLUAD) Unknown Completed [facility] Influenza Virus Vaccine,quad Im,preserve Free 65+ (FLUAD) Unknown Completed [facility] Influenza Virus Vaccine,quad Im,preserve Free 65+ (FLUAD) Unknown Completed [facility] Influenza Virus Vaccine,quad Im,preserve Free 65+ (FLUAD) Unknown Completed [facility] Influenza Virus Vaccine,quad Im,preserve Free 65+ (FLUAD) Unknown Completed [facility] Influenza Virus Vaccine,quad Im,preserve Free 65+ (FLUAD) Unknown Completed [facility] Influenza Virus Vaccine,quad Im,preserve Free 65+ (FLUAD) Unknown Completed [facility] Influenza Virus Vaccine,quad Im,preserve Free 65+ (FLUAD) Unknown Completed [facility] Influenza Virus Vaccine,quad Im,preserve Free 65+ (FLUAD) Unknown Completed [facility] Vital Signs Vital Name Observation Time Observation Value Comments S ource Systolic blood pressure 2024-05-12 19:45:00 145 mm[Hg] [facility] Diastolic blood pressure 2024-05-12 19:45:00 78 mm[Hg] [facility] Heart rate 2024-05-12 19:45:00 122 /min [facility] Body temperature 2024-05-12 19:45:00 36.5 Ashley [facility] Respiratory rate 2024-05-12 19:45:00 18 /min [facility] Body height 2024-05-12 19:45:00 162.6 cm [facility] Body weight 2024-05-12 19:45:00 44.316 kg [facility] BMI 2024-05-12 19:45:00 16.77 kg/m2 [facility] Oxygen saturation in Arterial blood by Pulse oximetry 2024-05-12 19:45:00 98 /min [facility] Systolic blood pressure 2023-12-23 20:06:00 153 mm[Hg] [facility] Diastolic blood pressure 2023-12-23 20:06:00 69 mm[Hg] [facility] Heart rate 2023-12-23 20:06:00 79 /min [facility] Body temperature 2023-12-23 20:06:00 36.56 Ashley [facility] Respiratory rate 2023-12-23 20:06:00 18 /min [facility] Oxygen saturation in Arterial blood by Pulse oximetry 2023-12-23 20:06:00 97 /min [facility] Body height 2023-12-19 19:00:00 165.1 cm [facility] Body weight 2023-12-18 11:38:00 46.267 kg [facility] BMI 2023-12-18 11:38:00 16.97 kg/m2 [facility] Respiratory rate 2023-12-19 12:41:00 20 /min [facility] Systolic blood pressure 2023-12-19 11:00:00 152 mm[Hg] [facility] Diastolic blood pressure 2023-12-19 11:00:00 60 mm[Hg] [facility] Heart rate 2023-12-19 11:00:00 77 /min [facility] Respiratory rate 2023-12-19 11:00:00 18 /min [facility] Oxygen saturation in Arterial blood by Pulse oximetry 2023-12-19 11:00:00 98 /min [facility] Body temperature 2023-12-19 09:00:00 36.78 Ashley [facility] Body weight 2023-12-18 11:38:00 46.267 kg [facility] BMI 2023-12-18 11:38:00 16.97 kg/m2 [facility] Systolic blood pressure 2023-11-10 19:10:00 179 mm[Hg] [facility] Diastolic blood pressure 2023-11-10 19:10:00 20 mm[Hg] [facility] Heart rate 2023-11-10 19:10:00 67 /min [facility] Body height 2023-11-10 19:10:00 165.1 cm [facility] Body weight 2023-11-10 19:10:00 46.267 kg [facility] BMI 2023-11-10 19:10:00 16.97 kg/m2 [facility] Oxygen saturation in Arterial blood by Pulse oximetry 2023-11-10 19:10:00 99 /min [facility] Systolic blood pressure 2023-11-10 18:34:00 179 mm[Hg] [facility] Diastolic blood pressure 2023-11-10 18:34:00 92 mm[Hg] [facility] Heart rate 2023-11-10 18:34:00 67 /min [facility] Body height 2023-11-10 18:34:00 165.1 cm [facility] Body weight 2023-11-10 18:34:00 46.267 kg [facility] BMI 2023-11-10 18:34:00 16.97 kg/m2 [facility] Oxygen saturation in Arterial blood by Pulse oximetry 2023-11-10 18:34:00 99 /min [facility] Systolic blood pressure 2022-12-10 18:04:00 131 mm[Hg] [facility] Diastolic blood pressure 2022-12-10 18:04:00 79 mm[Hg] [facility] Heart rate 2022-12-10 18:03:00 64 /min [facility] Body temperature 2022-12-10 18:03:00 36.39 Ashley [facility] Respiratory rate 2022-12-10 18:03:00 18 /min [facility] Body height 2022-12-10 18:03:00 164.6 cm [facility] Body weight 2022-12-10 18:03:00 48.444 kg [facility] BMI 2022-12-10 18:03:00 17.88 kg/m2 [facility] Oxygen saturation in Arterial blood by Pulse oximetry 2022-12-10 18:03:00 99 /min [facility] Systolic blood pressure 2022-02-27 19:54:00 174 mm[Hg] [facility] Diastolic blood pressure 2022-02-27 19:54:00 84 mm[Hg] [facility] Heart rate 2022-02-27 19:54:00 63 /min [facility] Body temperature 2022-02-27 19:54:00 36.67 Ashley [facility] Respiratory rate 2022-02-27 19:54:00 18 /min [facility] Body height 2022-02-27 19:54:00 164.6 cm [facility] Body weight 2022-02-27 19:54:00 53.661 kg [facility] BMI 2022-02-27 19:54:00 19.81 kg/m2 [facility] Oxygen saturation in Arterial blood by Pulse oximetry 2022-02-27 19:54:00 98 /min [facility] Procedures Procedure Date / Time Performed Performing Clinician Source TDAP VACCINE, >11 YRS, IM 2024-05-12 20:12:29 Bonnie Kumar [facility] FLU VACC(),65+YR,0.5 ML,IM,ADJUVANTED,TIV(FLUAD ) 2024-05-12 19:47:58 Bonnie Langford [facility] MAGNESIUM 2023-12-23 10:12:00 Elia, Isabelle [facility] BASIC METABOLIC PANEL (NA, K, CL, CO2, GLUCOSE, BUN, CREATININE, CA) 2023-12-23 10:12:00 Elia, Isabelle [facility] CBC WITH DIFF 2023-12-23 10:12:00 Elia, [facility] XR CHEST 1 VW 2023-12-22 22:38:00 Lizette Feliciano [facility] URINALYSIS 2023-12-22 18:05:00 Elia, Isabelle [facility] MAGNESIUM 2023-12-22 09:30:00 Elia, [facility] BASIC METABOLIC PANEL (NA, K, CL, CO2, GLUCOSE, BUN, CREATININE, CA) 2023-12-22 09:30:00 Elia, Isabelle [facility] CBC WITH DIFF 2023-12-22 09:30:00 Elia, [facility] CBC WITHOUT DIFF 2023-12-21 11:19:00 Kelly Huntley [facility] MAGNESIUM 2023-12-21 09:26:00 Kelly Huntley [facility] BASIC METABOLIC PANEL (NA, K, CL, CO2, GLUCOSE, BUN, CREATININE, CA) 2023-12-21 09:26:00 Kelly Huntley [facility] PHOSPHORUS 2023-12-20 08:13:00 [facility]23-12-20 08:13:00 [facility] BASIC MET[facility]OLIC PANEL (NA, K, CL, CO2, GLUCOSE, BUN, CREATININE, CA) 2023-12-20 08:13:00 Fortich, Gavi [facility] CBC WITHOUT DIFF 2023-12-20 08:13:00 Fortich, Aysha guerrero [facility] PHOSPHORUS 2023-12-20 08:13:00 [facility] 2023-12-20 08:13:00 Fortich, Ayanna [facility] BASIC METABOLIC PANEL (NA, K, CL, CO2, GLUCOSE, BUN, CREATININE, CA) 2023-12-20 08:13:00 Fortich, [facility] CBC WITHOUT DIFF 2023-12-20 08:13:00 Fortich, Aysha [facility] XR HIPS 2 VW RIGHT 2023-12-19 21:00:00 Leonarda Espinoza [facility] PHOSPHORUS 2023-12-19 15:55:00 Fortich, Ayanna [facility] MAGNESIUM 2023-12-19 15:55:00 Fortich, [facility] BASIC METABOLIC PANEL (NA, K, CL, CO2, GLUCOSE, BUN, CREATININE, CA) 2023-12-19 15:55:00 Fortich, [facility] CBC WITHOUT DIFF 2023-12-19 15:55:00 [facility] 2023-12-19 15:55:00 Fortich, Ayanna [facility] MAGNESIUM 2023-12-19 15:55:00 Fortich, [facility] BASIC METABOLIC PANEL (NA, K, CL, CO2, GLUCOSE, BUN, CREATININE, CA) 2023-12-19 15:55:00 Fortich, [facility] CBC WITHOUT DIFF 2023-12-19 15:55:00 Aysha Ahmadi Chloe [facility] ABG+COOX+NA+K+GLU+CA2+ 2023-12-19 14:41:00 Jen Diggs [facility] ARTERIAL LINE 2023-12-19 13:08:00 Christopher Wong [facility] INTUBATION 2023-12-19 12:48:00 Christopher Wong [facility] CBC WITH DIFF 2023-12-19 12:27:00 Quincy Neves [facility] CBC WITH DIFF 2023-12-19 12:27:00 Quincy Neves [facility] [id number] [place] HEMIARTHROPLASTY HIP PARTIAL 2023-12-19 12:26:00 Kyle Diggs [facility] [id number] - [place] HEMIARTHROPLASTY HIP PARTIAL 2023-12-19 12:26:00 Kyle Diggs [facility] PHOSPHORUS 2023-12-19 08:25:00 Carrie Huntley [facility] MAGNESIUM 2023-12-19 08:25:00 Carrie Huntley [facility] BASIC METABOLIC PANEL (NA, K, CL, CO2, GLUCOSE, BUN, CREATININE, CA) 2023-12-19 08:25:00 [facility] PROTHROMBIN TIME / INR 2023-12-19 08:25:00 Manuelito Nam [facility] ACTIVATED PARTIAL THRMPLAS NAVEEN 2023-12-19 08:25:00 Marvin Nam [facility] PHOSPHORUS 2023-12-19 08:25:00 Carrie Huntley [facility] MAGNESIUM 2023-12-19 08:25:00 Carrie Huntley [facility] BASIC METABOLIC PANEL (NA, K, CL, CO2, GLUCOSE, BUN, CREATININE, CA) 2023-12-19 08:25:00 Marvin Nam [facility] PROTHROMBIN TIME / INR 2023-12-19 08:25:00 Manuelito Nam [facility] ACTIVATED PARTIAL THRMPLAS NAVEEN 2023-12-19 08:25:00 Marvin Nam [facility] ABORH CONFIRMATION (LAB ONLY) 2023-12-19 03:09:00 Kyle Diggs [facility] ABORH CONFIRMATION (LAB ONLY) 2023-12-19 03:09:00 Kyle Diggs [facility] BASIC METABOLIC PANEL (NA, K, CL, CO2, GLUCOSE, BUN, CREATININE, CA) 2023-12-19 02:53:00 Quincy Neves [facility] CBC WITH DIFF 2023-12-19 02:53:00 [facility] / INR 2023-12-19 02:53:00 Remington Neves [facility] ACTIVATED PARTIAL THRMPLAS NAVEEN 2023-12-19 02:53:00 Quincy Neves [facility] HB ABO GROUPING 2023-12-19 02:53:00 Quincy Neves [facility] BASIC METABOLIC PANEL (NA, K, CL, CO2, GLUCOSE, BUN, CREATININE, CA) 2023-12-19 02:53:00 Quincy Neves [facility] CBC WITH DIFF 2023-12-19 02:53:00 Quincy Neves [facility] PROTHROMBIN TIME / INR 2023-12-19 02:53:00 Remington Neves [facility] ACTIVATED PARTIAL THRMPLAS NAVEEN 2023-12-19 02:53:00 Quincy Neves [facility] HB ABO GROUPING 2023-12-19 02:53:00 Quincy Neves [facility] HB ECG ROUTINE & RHYTHM STRIP 2023-12-18 14:35:12 Marvin Nam [facility] XR FEMUR 2 VW RIGHT 2023-12-18 12:53:00 Flor Nam [facility] XR HIPS 2 VW RIGHT 2023-12-18 12:53:00 Jorge Alberto Nam [facility] XR FEMUR 2 VW RIGHT 2023-12-18 12:53:00 Flor Nam [facility] XR HIPS 2 VW RIGHT 2023-12-18 12:53:00 Jorge Alberto Nam [facility] CBC WITH DIFF 2023-11-10 20:21:00 Bonnie Langford [facility] PATIENT FINANCIAL POLICY 2022-12-10 17:40:23 Doctor Unassigned, [place] [facility] Encounters Start Date/Time End Date/Time Encounter Type Admission Type Attending [facility] Care Facility Care Department Encounter ID Source 2024-11-02 14:00:00 2024-11-02 14:00:00 Outpatient BONNIE COVARRUBIAS [facility] [id number] [facility] 2024-11-01 00:00:00 2024-11-01 10:16:09 Pre Visit Outreach Anayeli Puga Irene [address] 1.2.840.114 350.1.13.10 4.2.7.2.686 [id number] [facility] 2024-10-27 00:00:00 2024-10-27 12:47:11 Pre Visit Outreach Anayeli Puga Irene C [address] 1.2840.114 350.1.13.10 4.2.7.2.686 [id number] [facility] 2024-10-26 00:00:00 2024-10-26 14:03:44 Pre Visit Outreach Elli Christianson Sandra [address] 1.2.840.114 350.1.13.10 4.2.7.2.686 [id number] [facility] 2024-05-12 14:00:00 2024-05-12 14:42:00 Office Visit [facility] 1.2.840.114 350.1.13.10 4.2.7.2.686 [id number] [facility] 2024-05-12 14:00:00 2024-05-12 14:42:00 Outpatient BONNIE COVARRUBIAS [facility] [id number] [facility] 2023-12-29 00:00:00 2024-01-29 18:17:41 Patient Secure Msg Doctor Unassigned, [place] [facility] 1.20.114 350.1.13.10 4.2.7.2.686 [id number] [facility] 2024-01-19 00:00:00 2024-01-19 14:53:36 Patient Outreach Coco Ward 1.2840.114 350.1.13.10 4.2.7.2.686 [id number] [facility] 2024-01-04 00:00:00 2024-01-04 15:43:11 Patient Outreach AnibalHeike Mark [facility] 1.2840.114 350.1.13.10 4.2.7.2.686 [id number] [facility] 2024-01-04 14:00:00 2024-01-04 14:00:00 Outpatient KYLE RIVERA MARK [facility] [id number] [facility] 2023-12-30 00:00:00 2023-12-30 16:25:53 Patient Outreach Heike Barnett Mark [facility] 1.2840.114 350.1.13.10 4.2.7.2.686 [id number] [facility] 2023-12-29 00:00:00 2023-12-29 09:30:07 Patient Outreach Heike Barnett EMILI [facility] 1.2840.114 350.1.13.10 4.2.7.2.686 [id number] [facility] 2023-12-18 06:41:00 2023-12-23 16:40:00 Inpatient X ÁNGEL [facility] [id number] [facility] 2023-12-18 06:41:00 2023-12-23 16:40:00 Hospital Encounter Vianney Fournier Mark A Mouton, Charles Peter [facility] 1.2.840.114 350.1.13.10 4.2.7.2.686 [id number] [facility] 2023-12-19 07:40:00 2023-12-19 10:57:00 Anesthesia Event Sathya Simpson Adam J [facility] 1.2.840.114 350.1.13.10 4.2.7.2.686 [id number] [facility] 2023-12-19 07:20:00 2023-12-19 10:52:00 Surgery Kyle Diggs [facility] 1.2.840.114 350.1.13.10 4.2.7.2.686 [id number] [facility] 2023-11-15 00:00:00 2023-12-18 18:21:22 Patient Secure Msg Doctor Unassigned, [place] [facility] 1.2840.114 350.1.13.10 4.2.7.2.686 [id number] [facility] 2023-11-11 12:17:00 2023-11-11 23:59:00 Hospital Encounter Chloe Dial BUILDING 1.2840.114 350.1.13.10 4.2.7.2.686 [id number] [facility] 2023-11-11 00:00:00 2023-11-11 23:59:00 Outpatient R CHLOE DIAL [facility] [id number] [facility] 2023-11-10 14:40:00 2023-11-10 15:53:24 Office Visit Bonnie Langford [facility]ILD[facility] 1.2840.114 350.1.13.10 4.2.7.2.686 [id number] [facility] 2023-11-10 14:00:00 2023-11-10 15:53:09 Office Visit Anastasiya Bonnie [facility] 1.2.840.114 350.1.13.10 4.2.7.2.686 [id number] [facility] 2023-11-10 15:30:00 2023-11-10 15:36:21 Outpatient R BONNIE LANGFORD [facility] [id number] [facility] 2023-11-10 15:30:00 2023-11-10 15:36:21 Health Coach Visit 2, Adc Lab Bonnie Langford [facility] 1.2.840.114 350.1.13.10 4.2.7.2.686 [id number] [facility] 2023-11-09 00:00:00 2023-11-09 14:19:35 Patient Outreach Ramila Castillo [facility] 1.2.840.114 350.1.13.10 4.2.7.2.686 [id number] [facility] 2023-06-14 00:00:00 2023-06-14 00:00:00 Refill Anastasiya Bonnie [facility] 1.2.840.114 350.1.13.10 4.2.7.2.686 [id number] [facility] 2023-05-01 00:00:00 2023-05-01 00:00:00 Outpatient GC_GCBZW_Ka diyala_S PRIV PRIV [id number] [facility] 2023-04-30 00:00:00 2023-04-30 00:00:00 Outpatient GC_GCBZW_Ka diyala_S PRIV PRIV [id number] [facility] 2023-03-23 15:40:00 2023-03-23 15:40:00 Outpatient R RODRIGUESHELLEY BONNIE [facility] [id number] [facility] 2023-03-11 00:00:00 2023-03-11 00:00:00 Refill Anastasiya Bonnie [facility] 1.2.840.114 350.1.13.10 4.2.7.2.686 [id number] [facility] 2022-12-17 00:00:00 2022-12-17 00:00:00 Outpatient R BONNIE LANGFORD [facility] [id number] [facility] 2022-12-10 16:00:00 2022-12-10 16:00:00 Office Visit Anastasiya Bonnie [facility] 1..840.114 350.1.13.10 4.2.7.2.686 [id number] [facility] 2022-12-10 16:00:00 2022-12-10 14:26:24 Outpatient R ANASTASIYA BONNIE [facility] [id number] [facility] 2022-12-10 00:00:00 2022-12-10 00:00:00 Orders Only Doctor Unassigned, [place] [facility] 1..840.114 350.1.13.10 4.2.7.2.686 [id number] [facility] 2022-03-26 00:00:00 2022-03-26 00:00:00 Telephone Estrellita Cervantes [facility] 1..840.114 350.1.13.10 4.2.7.2.686 [id number] [facility] 2022-03-23 08:30:00 2022-03-23 13:15:33 Outpatient R ESTRELLITA CERVANTES OGECHUKWU [facility] [id number] [facility] 2022-03-23 08:30:00 2022-03-23 13:15:33 Telemedici ne Visit Estrellita Cervantes [facility] 1.2.840.114 350.1.13.10 4.2.7.2.686 [id number] [facility] 2022-03-23 00:00:00 2022-03-23 00:00:00 Refill Estrellita Cervantes [facility] BUILD[facility] 1.2.840.114 350.1.13.10 4.2.7.2.686 [id number] [facility] 2022-03-23 00:00:00 2022-03-23 00:00:00 Refill Estrellita Cervantes [facility] BUILD[facility] 1.2.840.114 350.1.13.10 4.2.7.2.686 [id number] [facility] 2022-03-13 16:30:00 2022-03-13 16:30:00 Outpatient R TITUS CERVANTESTarikDavie SOLISMARYLOU [facility] [id number] [facility] 2022-03-13 16:30:00 2022-03-13 16:30:00 Outpatient R BILLY TITUSTarikDavie SOLISMARYLOU ESTRELLITA [facility] [id number] [facility] 2022-03-02 00:00:00 2022-03-02 00:00:00 Refill Bonnie Langford [facility] BUILDING 1.2.840.114 350.1.13.10 4.2.7.2.686 [id number] [facility] 2022-02-28 00:00:00 2022-02-28 00:00:00 Patient Secure Msg Doctor Unassigned, [place] [facility] 1.2.840.114 350.1.13.10 4.2.7.2.686 [id number] [facility] 2022-02-27 14:30:00 2022-02-27 15:44:13 Office Visit Estrellita Cervantes [facility] BUILDING 1.2.840.114 350.1.13.10 4.2.7.2.686 [id number] [facility] 2022-02-27 14:30:00 2022-02-27 15:44:13 Outpatient R BILLY, TITUSTarikDavie SULLIVANBILLY, ESTRELLITA [facility] [id number] [facility] 2022-02-27 14:30:00 2022-02-27 14:30:00 Outpatient R BILLY TITUSMARIAN BILLY, ESTRELLITA [facility] [id number] [facility] 2021-08-05 08:00:00 2021-08-05 08:00:00 Outpatient R BILLY TITUSMARIAN BILLY, ESTRELLITA [facility] [id number] [facility] 2021-07-08 11:00:00 2021-07-08 11:00:00 Health Coach Visit 2, Adc Lab Estrellita Cervantes [facility] BUILDING 1.2.840.114 350.1.13.10 4.2.7.2.686 [id number] [facility] 2021-07-08 11:00:00 2021-07-08 11:00:00 Health Coach Visit 2, Adc Lab Estrellita Cervantes [facility] BUILD[facility] 1.2.840.114 350.1.13.10 4.2.7.2.686 [id number] [facility] 2021-07-08 08:30:00 2021-07-08 10:06:45 Outpatient R ESTRELLITA CERVANTES OGECHUKWU [facility] [id number] [facility] 2021-07-08 08:30:00 2021-07-08 10:06:45 Office Visit Estrellita Cervantes [facility] 1.2.840.114 350.1.13.10 4.2.7.2.686 [id number] [facility] 2021-07-08 08:00:00 2021-07-08 10:06:29 Outpatient R ESTRELLITA CERVANTES OGECHUKWU [facility] [id number] [facility] 2021-07-08 08:00:00 2021-07-08 10:06:29 Office Visit Estrellita Cervantes [facility] BUILD[facility] 1.2.840.114 350.1.13.10 4.2.7.2.686 [id number] [facility] 2021-07-08 08:00:00 2021-07-08 10:06:29 Office Visit Estrellita Cervantes [facility] 1.2.840.114 350.1.13.10 4.2.7.2.686 [id number] [facility] 2020-09-28 00:00:00 2020-09-28 00:00:00 [facility] 1.2.840.114 350.1.13.10 4.2.7.2.686 [id number] [facility] 2020-08-19 14:00:00 2020-08-19 14:00:00 Outpatient R CASSIDY BOWIE [facility] [id number] [facility] 2020-08-16 16:00:00 2020-08-16 16:00:00 Outpatient BONNIE COVARRUBIAS [facility] [id number] [facility] 2020-07-27 00:00:00 2020-07-27 00:00:00 Patient Outreach Toby Schumacher [facility] 1.2.840.114 350.1.13.10 4.2.7.2.686 [id number] [facility] 2020-07-07 00:00:00 2020-07-07 00:00:00 RefBonnie Chaudhari [facility] [id number] [id number] [facility] 2020-02-23 13:15:00 2020-02-23 13:15:00 Outpatient ISAI OLGUIN [facility] [id number] [facility] 2020-01-19 13:00:00 2020-01-19 13:00:00 Outpatient BONNIE COVARRUBIAS [facility] [id number] [facility] 2020-01-04 00:00:00 2020-01-04 00:00:00 [facility] [id number] [facility] 2019-11-22 14:00:00 2019-11-22 14:00:00 Outpatient ISAI OLGUIN [facility] [id number] [facility] 2019-11-22 08:10:20 2019-11-22 08:40:20 Telemedici ne Isai Batista [facility] [id number] [facility] 2019-08-29 00:00:00 2019-08-29 00:00:00 Refill Bonnie Langford [facility] [place] [facility] 1.2.840.114 350.1.13.10 4.2.7.2.686 [id number] [facility] 2019-08-24 14:00:49 2019-08-24 14:40:49 Office [facility] 1.2.840.114 350.1.13.10 4.2.7.2.686 [id number] [facility] 2019-08-18 00:00:00 2019-08-18 00:00:00 Telephone [facility] 1.2.840.114 350.1.13.10 4.2.7.2.686 [id number] [id number] [facility] 2019-08-11 00:00:00 2019-08-11 00:00:00 Patient Secure Msg Doctor Unassigned, [place] [facility] 1.2.840.114 350.1.13.10 4.2.7.2.686 [id number] [facility] 2019-08-08 12:16:42 2019-08-08 12:31:42 Health Coach Visit Pob, Adc Lab Main [facility] 1.2.840.114 350.1.13.10 4.2.7.2.686 [id number] [facility] 2019-08-04 00:00:00 2019-08-04 00:00:00 Pre Visit Outreach [facility] 1.2.840.114 350.1.13.10 4.2.7.2.686 [id number] [facility] 2019-08-03 15:12:51 2019-08-03 17:08:08 Office Visit Bonnie Langford [facility] 1..840.114 350.1.13.10 4.2.7.2.686 [id number] [facility] 2019-08-03 00:00:00 2019-08-03 00:00:00 Orders Only Doctor Unassigned, [place] [facility] 1..840.114 350.1.13.10 4.2.7.2.686 [id number] [facility] Results Test Description Test Time Test Comments Results Resul t Comments Source XR HIPS 2 VW RIGHT 2023-12-05 0 17:40:19 EXAM: XR HIPS 2 VW RIGHT HISTORY: pacu xray post op hemiarthroplasty COMPARISON: 12/18/2023 FINDINGS: Changes of right hip hemiarthroplasty are seen with anatomic alignment.Postsurgica l soft tissue swelling, gas, lissett and drain are noted. Coarsepelvic calcifications are unchanged. 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 [facility] XR CHEST 1 VW 2023-12-05 0 12:46:08 EXAM: XR CHEST 1 VW COMPARISON: None HISTORY:83 years old, Female ?with PRICE . [facility] (NA, K, CL, CO2, GLUCOSE, BUN, CREATININE, CA)2023-12-20 09:01:17* Test Item Value Reference Range Interpretation Comme nts NA (test code = 6628389724) 135 mmol/L 135-145 K (test code = 1483237310) 3.9 mmol/L 3.5-5.0 CL (test code = 9667515524) 105 mmol/L 98-108 CO2 TOTAL (test code = 5290703414) 26 mmol/L 23-31 AGAP (test code = 8991406899) 4 2-16 BUN (test code = 5976549782) 26 mg/dL 7-23 H GLUCOSE (test code = 6104417055) 88 mg/dL 70-110 CREATININE (test code = 2160-0) 1.12 mg/dL 0.50-1.04 H CALCIUM (test code = 3967557952) 8.2 mg/dL 8.6-10.6 L eGFR (test code = 30182-4) 48.6 mL/min/1.73m2 CKD-EPI eGFR (2020). Assuming creatinine has been stable day-to-day for at least three months, the eGFR indicates Category G3a (45 - 59 mL/min/1.73 m2) Lab Interpretation (test code = 73840-5) [facility]normal [facility]2024-06-17 09:01:17* Test Item Value Reference Range Interpretation Comme nts MAGNESIUM (test code = 7791054871) 2.8 mg/dL 1.7-2.4 H Lab Interpretation (test cod e = 19142-8) Abnormal [facility]2024-06-17 09:01:17* Test Item Value Reference Range Interpretation Comme nts PHOSPHORUS (test code = 8565402990) 3.6 mg/dL 2.5-5.0 Lab Interpretation (test cod e = 13228-1) [facility] (NA, K, CL, CO2, GLUCOSE, BUN, CREATININE, CA)2023-12-20 09:01:17* Test Item Value Reference Range Interpretation Comme nts NA (test code = 2295576600) 135 mmol/L 135-145 K (test code = 9128027096) 3.9 mmol/L 3.5-5.0 CL (test code = 7597669835) 105 mmol/L 98-108 CO2 TOTAL (test code = 3479980258) 26 mmol/L 23-31 AGAP (test code = 8069620290) 4 2-16 BUN (test code = 4566464023) 26 mg/dL 7-23 H GLUCOSE (test code = 1900248224) 88 mg/dL 70-110 CREATININE (test code = 2160-0) 1.12 mg/dL 0.50-1.04 H CALCIUM (test code = 6472355878) 8.2 mg/dL 8.6-10.6 L eGFR (test code = 97471-8) 48.6 mL/min/1.73m2 CKD-EPI eGFR (2020). Assuming creatinine has been stable day-to-day for at least three months, the eGFR indicates Category G3a (45 - 59 mL/min/1.73 m2) Lab Interpretation (test code = 27232-4) Abnormal [facility]2024-06-17 09:01:17* Test Item Value Reference Range Interpretation Comme nts MAGNESIUM (test code = 3754684056) 2.8 mg/dL 1.7-2.4 H Lab Interpretation (test cod e = 05133-1) Abnormal [facility]2024-06-17 09:01:17* Test Item Value Reference Range Interpretation Comme nts PHOSPHORUS (test code = 0706159834) 3.6 mg/dL 2.5-5.0 Lab Interpretation (test cod e = 94692-7) Normal [facility] HospitalCbc without [id number] 08:40:18* Test Item Value Reference Range Interpretation Comme nts WBC (test code = 6690-2) 13.65 4.30-11.10 H RBC (test code = 789-8) 2.41 3.93-5.25 L HGB (test code = 718-7) 7.6 g/dL 11.6-15.0 L HCT (test code = 4544-3) 22.4 % 35.7-45.2 L MCH (test code = 785-6) 31.5 pg 25.9-32.8 MCV (test code = 787-2) 92.9 fL 80.6-95.5 MCHC (test code = 786-4) 33.9 g/dL 31.6-35.1 PLT (test code = 777-3) 278 166-358 MPV (test code = 66797-9) 10.0 fL 9.5-12.9 RDW-CV (test code = 788-0) 13.7 % 12.0-15.5 RDW-SD (test code = 99305-6) 46.4 fL 39.0-49.9 NRBC x10^3 (test code = 1094934467) See_Comment [Automated messa ge] The system which generated this result transmitted reference range: 10*3/?L. The reference range was not used to interpret this result as normal/abnormal. NRBC/100 WBC (test code = 2910561100) 0.0 0.0-10.0 IPF % (test code = 7648635069) Lab Interpretation (test code = 98425-3) Abnormal [facility] without [id number] 08:40:18* Test Item Value Reference Range Interpretation Comme nts WBC (test code = 6690-2) 13.65 4.30-11.10 H RBC (test code = 789-8) 2.41 3.93-5.25 L HGB (test code = 718-7) 7.6 g/dL 11.6-15.0 L HCT (test code = 4544-3) 22.4 % 35.7-45.2 L MCH (test code = 785-6) 31.5 pg 25.9-32.8 MCV (test code = 787-2) 92.9 fL 80.6-95.5 MCHC (test code = 786-4) 33.9 g/dL 31.6-35.1 PLT (test code = 777-3) 278 166-358 MPV (test code = 77187-3) 10.0 fL 9.5-12.9 RDW-CV (test code = 788-0) 13.7 % 12.0-15.5 RDW-SD (test code = 59825-7) 46.4 fL 39.0-49.9 NRBC x10^3 (test code = 2381466398) See_Comment [Automated messa ge] The system which generated this result transmitted reference range: 10*3/?L. The reference range was not used to interpret this result as normal/abnormal. NRBC/100 WBC (test code = 9666203774) 0.0 0.0-10.0 IPF % (test code = 6655433155) Lab Interpretation (test code = 76369-9) Abnormal [facility]2024-06-16 16:20:59* Test Item Value Reference Range Interpretation Comme nts PHOSPHORUS (test code = 4222719173) 4.0 mg/dL 2.5-5.0 Lab Interpretation (test cod e = 10630-6) Normal [facility]2024-06-16 16:20:59* Test Item Value Reference Range Interpretation Comme nts MAGNESIUM (test code = 7807493174) 1.9 mg/dL 1.7-2.4 Lab Interpretation (test cod e = 81080-5) Normal [facility] Metabolic Panel (NA, K, CL, CO2, GLUCOSE, BUN, CREATININE, CA)2023-12-19 16:20:59* Test Item Value Reference Range Interpretation Comme nts NA (test code = 2996965429) 135 mmol/L 135-145 K (test code = 6779608441) 4.0 mmol/L 3.5-5.0 CL (test code = 9555142356) 107 mmol/L 98-108 CO2 TOTAL (test code = 3498231453) 25 mmol/L 23-31 AGAP (test code = 5201539233) 3 2-16 BUN (test code = 5965743170) 25 mg/dL 7-23 H GLUCOSE (test code = 3728354795) 109 mg/dL 70-110 CREATININE (test code = 2160-0) 1.23 mg/dL 0.50-1.04 H CALCIUM (test code = 1661473804) 8.0 mg/dL 8.6-10.6 L eGFR (test code = 09502-9) 43.4 mL/min/1.73m2 CKD-EPI eGFR (2020). Assuming creatinine has been stable day-to-day for at least three months, the eGFR indicates Category G3b (30 - 44 mL/min/1.73 m2) Lab Interpretation (test code = 12366-8) Abnormal [facility]2024-06-16 16:20:59* Test Item Value Reference Range Interpretation Comme nts PHOSPHORUS (test code = 8045783575) 4.0 mg/dL 2.5-5.0 Lab Interpretation (test cod e = 83548-4) Normal [facility]2024-06-16 16:20:59* Test Item Value Reference Range Interpretation Comme nts MAGNESIUM (test code = 1853777323) 1.9 mg/dL 1.7-2.4 Lab Interpretation (test cod e = 04740-9) Normal [facility] Metabolic Panel (NA, K, CL, CO2, GLUCOSE, BUN, CREATININE, CA)2023-12-19 16:20:59* Test Item Value Reference Range Interpretation Comme nts NA (test code = 4237758959) 135 mmol/L 135-145 K (test code = 3905797176) 4.0 mmol/L 3.5-5.0 CL (test code = 1108530826) 107 mmol/L 98-108 CO2 TOTAL (test code = 8913498577) 25 mmol/L 23-31 AGAP (test code = 0934165986) 3 2-16 BUN (test code = 1020072394) 25 mg/dL 7-23 H GLUCOSE (test code = 5259438665) 109 mg/dL 70-110 CREATININE (test code = 2160-0) 1.23 mg/dL 0.50-1.04 H CALCIUM (test code = 7570458285) 8.0 mg/dL 8.6-10.6 L eGFR (test code = 82923-8) 43.4 mL/min/1.73m2 CKD-EPI eGFR (2020). Assuming creatinine has been stable day-to-day for at least three months, the eGFR indicates Category G3b (30 - 44 mL/min/1.73 m2) Lab Interpretation (test code = 95518-0) Abnormal [facility] Hospital[facility]b without [id number] 16:03:54* Test Item Value Reference Range Interpretation Comme nts WBC (test code = 6690-2) 15.97 4.30-11.10 H RBC (test code = 789-8) 2.92 3.93-5.25 L HGB (test code = 718-7) 9.2 g/dL 11.6-15.0 L HCT (test code = 4544-3) 26.9 % 35.7-45.2 L MCH (test code = 785-6) 31.5 pg 25.9-32.8 MCV (test code = 787-2) 92.1 fL 80.6-95.5 MCHC (test code = 786-4) 34.2 g/dL 31.6-35.1 PLT (test code = 777-3) 335 166-358 MPV (test code = 00957-6) 9.4 fL 9.5-12.9 L RDW-CV (test code = 788-0) 13.5 % 12.0-15.5 RDW-SD (test code = 33138-7) 46.4 fL 39.0-49.9 NRBC x10^3 (test code = 8039992413) See_Comment [Automated [employer] ge] The system which generated this result transmitted reference range: 10*3/?L. The reference range was not used to interpret this result as normal/abnormal. NRBC/100 WBC (test code = 4021032622) 0.0 0.0-10.0 IPF % (test code = 3402679569) Lab Interpretation (test code = 81036-6) Abnormal [facility] without [id number] 16:03:54* Test Item Value Reference Range Interpretation Comme nts WBC (test code = 6690-2) 15.97 4.30-11.10 H RBC (test code = 789-8) 2.92 3.93-5.25 L HGB (test code = 718-7) 9.2 g/dL 11.6-15.0 L HCT (test code = 4544-3) 26.9 % 35.7-45.2 L MCH (test code = 785-6) 31.5 pg 25.9-32.8 MCV (test code = 787-2) 92.1 fL 80.6-95.5 MCHC (test code = 786-4) 34.2 g/dL 31.6-35.1 PLT (test code = 777-3) 335 166-358 MPV (test code = 79170-5) 9.4 fL 9.5-12.9 L RDW-CV (test code = 788-0) 13.5 % 12.0-15.5 RDW-SD (test code = 27387-5) 46.4 fL 39.0-49.9 NRBC x10^3 (test code = 2769981307) See_Comment [Automated [employer] ge] The system which generated this result transmitted reference range: 10*3/?L. The reference range was not used to interpret this result as normal/abnormal. NRBC/100 WBC (test code = 9999718995) 0.0 0.0-10.0 IPF % (test code = 4141899706) Lab Interpretation (test code = 90475-0) Abnormal [facility] HospitalArterial [id number] 13:08:00Christopher Wong MD ? ? 12/19/2023 ?8:09 AM Arterial Line Date/Time: 12/19/2023 8:08 AM Performed by: Christopher Wong MDArteriaissac Line Placement: ?Ultrasound- Guided: ultrasound guided ? ?Patient Location: ?OR ?Indication: continuous blood pressure monitoring and blood sampling needed ?Staff: ?Supervising Anesthesiologist: ?Hugh Tovar MD ?Resident: ?Christopher Wong, [facility]cedure [facility]ail: ?Catheter Size: ?20 gauge ?Catheter Length: ?1 and 3/4 inch ?Catheter Type: ?Arrow ?Seldinger Technique?: No ? ?Laterality: ?Right ?Site: ?Radial artery ?Line Secured: ?Tape, Tegaderm and biopatch ?Preparation: ?Chloroprep, sterile gloves, guidewire removed intact, biopatch applied and drap eEvents: ?Events: ?Patient tolerated procedure well with no complications and all wires accounted forComments: ? (+) Local infiltration with Lidocaine, STF, smooth and atraumatic. [facility] Hospital[facility]ubation2024-06-16 12:48:00Christopher Wong MD ? ? 12/19/2023 ?8:09 AMIntubationDate/Time: 12/19/2023 7:48 AMUrgency: elective Airway not difficult General Information and Staff Patient location during procedure: ORPerformed: resident/[facility]PER[facility] Performed by: Christopher Wong, MDAuthorized by: Hugh Tovar MD ? Indications and Patient ConditionIndications for airway management: anesthesiaSpontaneous ventilation: presentSedation level: deepPreoxygenated: yesPatient position: sniffingMILS maintained throughoutMask difficulty assessment: 1 - vent by mask Final Airway DetailsFinal airway type: endotracheal airway Successful airway: ETTCuffed: yes Successful intubation technique: direct laryngoscopyFacilitating devices/methods: intubating styletEndotracheal tube insertion site: oralBlade: MacintoshBlade size: #3ETT size (mm): 7.0Cormack-Lehane Classification: grade I - full view of glottisPlacement verified by:chest auscultation and capnometry Measured from: lipsETT to lips (cm): 21Number of attempts at approach: 1Ventilation between attempts: noneNumber of other approaches attempted: 0 Additional CommentsSmooth, atraumatic, dentition and lips unchanged from pre-op.[facility] with [id number] 12:42:06* Test Item Value Reference Range Interpretation Comme nts WBC (test code = 6690-2) 12.20 4.30-11.10 H RBC (test code = 789-8) 3.13 3.93-5.25 L HGB (test code = 718-7) 9.8 g/dL 11.6-15.0 L HCT (test code = 4544-3) 28.7 % 35.7-45.2 L MCV (test code = 787-2) 91.7 fL 80.6-95.5 MCH (test code = 785-6) 31.3 pg 25.9-32.8 MCHC (test code = 786-4) 34.1 g/dL 31.6-35.1 RDW-SD (test code = 35874-5) 45.6 fL 39.0-49.9 RDW-CV (test code = 788-0) 13.6 % 12.0-15.5 PLT (test code = 777-3) 333 166-358 MPV (test code = 52457-2) 9.8 fL 9.5-12.9 NRBC/100 WBC (test code = 4429143512) 0.0 0.0-10.0 NRBC x10^3 (test code = 8415253611) See_Comment [Automated messa ge] The system which generated this result transmitted reference range: 10*3/?L. The reference range was not used to interpret this result as normal/abnormal. GRAN MAT (NEUT) % (test code = 770-8) 77.4 % IMM GRAN % (test code = 7064217028) 0.40 % LYMPH % (test code = 736-9) 13.4 % MONO % (test code = 5905-5) 8.2 % EOS % (test code = 713-8) 0.1 % BASO % (test code = 706-2) 0.5 % GRAN MAT x10^3(ANC) (test code = 4702748841) 9.45 10*3/uL 1.88-7.09 H IMM GRAN x10^3 (test code = 8205173743) 0.05 10*3/uL 0.00-0.06 LYMPH x10^3 (test code = 731-0) 1.63 10*3/uL 1.32-3.29 MONO x10^3 (test code = 742-7) 1.00 10*3/uL 0.33-0.92 H EOS x10^3 (test code = 711-2) 0.03-0.39 L BASO x10^3 (test code = 704-7) 0.06 10*3/uL 0.01-0.07 Lab Interpretation (test code = 07353-9) Abnormal [facility] with [id number] 12:42:06* Test Item Value Reference Range Interpretation Comme nts WBC (test code = 6690-2) 12.20 4.30-11.10 H RBC (test code = 789-8) 3.13 3.93-5.25 L HGB (test code = 718-7) 9.8 g/dL 11.6-15.0 L HCT (test code = 4544-3) 28.7 % 35.7-45.2 L MCV (test code = 787-2) 91.7 fL 80.6-95.5 MCH (test code = 785-6) 31.3 pg 25.9-32.8 MCHC (test code = 786-4) 34.1 g/dL 31.6-35.1 RDW-SD (test code = 55180-1) 45.6 fL 39.0-49.9 RDW-CV (test code = 788-0) 13.6 % 12.0-15.5 PLT (test code = 777-3) 333 166-358 MPV (test code = 34959-3) 9.8 fL 9.5-12.9 NRBC/100 WBC (test code = 4467363955) 0.0 0.0-10.0 NRBC x10^3 (test code = 9686138120) See_Comment [Automated messa ge] The system which generated this result transmitted reference range: 10*3/?L. The reference range was not used to interpret this result as normal/abnormal. GRAN MAT (NEUT) % (test code = 770-8) 77.4 % IMM GRAN % (test code = 8555592645) 0.40 % LYMPH % (test code = 736-9) 13.4 % MONO % (test code = 5905-5) 8.2 % EOS % (test code = 713-8) 0.1 % BASO % (test code = 706-2) 0.5 % GRAN MAT x10^3(ANC) (test code = 1523599964) 9.45 10*3/uL 1.88-7.09 H IMM GRAN x10^3 (test code = 0485055397) 0.05 10*3/uL 0.00-0.06 LYMPH x10^3 (test code = 731-0) 1.63 10*3/uL 1.32-3.29 MONO x10^3 (test code = 742-7) 1.00 10*3/uL 0.33-0.92 H EOS x10^3 (test code = 711-2) 0.03-0.39 L BASO x10^3 (test code = 704-7) 0.06 10*3/uL 0.01-0.07 Lab Interpretation (test code = 08699-9) Abnormal [facility] HospitalProthrombin Time / [id number] 03:22:20* Test Item Value Reference Range Interpretation Comme nts PROTIME PATIENT (test code = 5964-2) 9.9 10.1-12.6 L INR (test code = 6301-6) 0.9 Normal INR <1.1; Warfarin Therapeutic range 2.0 to 3.0 or 2.5 to 3.5, depending upon the indications. Lab Interpretation (test code = 03451-3) Abnormal [facility] HospitalProthrombin Time / [id number] 03:22:20* Test Item Value Reference Range Interpretation Comme nts PROTIME PATIENT (test code = 5964-2) 9.9 10.1-12.6 L INR (test code = 6301-6) 0.9 Normal INR <1.1; Warfarin Therapeutic range 2.0 to 3.0 or 2.5 to 3.5, depending upon the indications. Lab Interpretation (test code = 82036-1) Abnormal [facility] HospitalActivated Partial Thrmplas [id number] 03:21:35* Test Item Value Reference Range Interpretation Comme nts APTT Patient (test code = 3173-2) Lab Interpretation (test cod e = 09683-6) Normal [facility] HospitalActivated Partial Thrmplas [id number] 03:21:35* Test Item Value Reference Range Interpretation Comme nts APTT Patient (test code = 3173-2) Lab Interpretation (test cod e = 39069-2) Normal [facility] HospitalABORH Confirmation (Lab Only)2023-12-19 03:13:00* Test Item Value Reference Range Interpretation Comme nts ABO & RH (test code = 20) O Positive [facility] HospitalABORH Confirmation (Lab Only)2023-12-19 03:13:00* Test Item Value Reference Range Interpretation Comme nts ABO & RH (test code = 20) O Positive [facility] HospitalXR HIPS 2 VW [id number] 13:38:27EXAM: XR HIPS 2 VW RIGHT, XR FEMUR 2 VW RIGHT HISTORY: 83 years-old Female with Fracture COMPARISON: None. FINDINGS: Radiographs of the right hip and femur demonstrate a displaced andangulated subcapital or transcervical fracture of the right femoral neckwith varus angulation. Alignment is maintained across the bilateral hipswhich exhibit mild degenerative changes. Degenerative changes are seen inthe spine.Opacities over the pelvis could suggest calcified fibroids.[facility] HospitalXR FEMUR 2 VW [id number] 13:38:27EXAM: XR HIPS 2 VW RIGHT, XR FEMUR 2 VW RIGHT HISTORY: 83 years-old Female with Fracture COMPARISON: None. FINDINGS: Radiographs of the right hip and femur demonstrate a displaced andangulated subcapital or transcervical fracture of the right femoral neckwith varus angulation. Alignment is maintained across the bilateral hipswhich exhibit mild degenerative changes. Degenerative changes are seen inthe spine.Opacities over the pelvis could suggest calcified fibroids.[facility] HospitalXR HIPS 2 VW [id number] 13:38:27EXAM: XR HIPS 2 VW RIGHT, XR FEMUR 2 VW RIGHT HISTORY: 83 years-old Female with Fracture COMPARISON: None. FINDINGS: Radiographs of the right hip and femur demonstrate a displaced andangulated subcapital or transcervical fracture of the right femoral neckwith varus angulation. Alignment is maintained across the bilateral hipswhich exhibit mild degenerative changes. Degenerative changes are seen inthe spine.Opacities over the pelvis could suggest calcified fibroids.[facility] HospitalXR FEMUR 2 VW [id number] 13:38:27EXAM: XR HIPS 2 VW RIGHT, XR FEMUR 2 VW RIGHT HISTORY: 83 years-old Female with Fracture COMPARISON: None. FINDINGS: Radiographs of the right hip and femur demonstrate a displaced andangulated subcapital or transcervical fracture of the right femoral neckwith varus angulation. Alignment is maintained across the bilateral hipswhich exhibit mild degenerative changes. Degenerative changes are seen inthe spine.Opacities over the pelvis could suggest calcified fibroids.[facility] HospitalCB WITH [id number] 21:55:26* Test Item Value Reference Range Interpretation [...] g/dL 31.6-35.1 L RDW-SD (test code = 08747-4) 45.6 fL 39.0-49.9 RDW-CV (test code = 788-0) 12.7 % 12.0-15.5 PLT (test code = 777-3) 352 166-358 MPV (test code = 79327-5) 10.7 fL 9.5-12.9 NRBC/100 WBC (test code = 6101327492) 0.0 0.0-10.0 NRBC x10^3 (test code = 0486402461) See_Comment [Automated messa ge] The system which generated this result transmitted reference range: 10*3/?L. The reference range was not used to interpret this result as normal/abnormal. GRAN MAT (NEUT) % (test code = 770-8) 70.4 % IMM GRAN % (test code = 0526795120) 0.40 % LYMPH % (test code = 736-9) 22.6 % MONO % (test code = 5905-5) 4.8 % EOS % (test code = 713-8) 0.9 % BASO % (test code = 706-2) 0.9 % GRAN MAT x10^3(ANC) (test code = 5534240407) 7.08 10*3/uL 1.88-7.09 IMM GRAN x10^3 (test code = 0483364974) 0.04 10*3/uL 0.00-0.06 LYMPH x10^3 (test code = 731-0) 2.27 10*3/uL 1.32-3.29 MONO x10^3 (test code = 742-7) 0.48 10*3/uL 0.33-0.92 EOS x10^3 (test code = 711-2) 0.09 10*3/uL 0.03-0.39 BASO x10^3 (test code = 704-7) 0.09 10*3/uL 0.01-0.07 H Lab Interpretation (test code = 39910-3) Abnormal [facility] WITH [id number] 21:55:26* Test Item Value Reference Range Interpretation [...] g/dL 31.6-35.1 L RDW-SD (test code = 21142-0) 45.6 fL 39.0-49.9 RDW-CV (test code = 788-0) 12.7 % 12.0-15.5 PLT (test code = 777-3) 352 166-358 MPV (test code = 94990-9) 10.7 fL 9.5-12.9 NRBC/100 WBC (test code = 7518957945) 0.0 0.0-10.0 NRBC x10^3 (test code = 2682331314) See_Comment [Automated messa ge] The system which generated this result transmitted reference range: 10*3/?L. The reference range was not used to interpret this result as normal/abnormal. GRAN MAT (NEUT) % (test code = 770-8) 70.4 % IMM GRAN % (test code = 1213277148) 0.40 % LYMPH % (test code = 736-9) 22.6 % MONO % (test code = 5905-5) 4.8 % EOS % (test code = 713-8) 0.9 % BASO % (test code = 706-2) 0.9 % GRAN MAT x10^3(ANC) (test code = 5149427613) 7.08 10*3/uL 1.88-7.09 IMM GRAN x10^3 (test code = 2623902601) 0.04 10*3/uL 0.00-0.06 LYMPH x10^3 (test code = 731-0) 2.27 10*3/uL 1.32-3.29 MONO x10^3 (test code = 742-7) 0.48 10*3/uL 0.33-0.92 EOS x10^3 (test code = 711-2) 0.09 10*3/uL 0.03-0.39 BASO x10^3 (test code = 704-7) 0.09 10*3/uL 0.01-0.07 H Lab Interpretation (test code = 01395-8) Abnormal [facility] Consult Notes Date/Time Note Provider Source 2023-12-23 13:39:04 Associated Order(s): CONSULT [facility] TECHNICIAN-ADULT CARE MANAGEMENT PROGRESS NOTE Please see SFA entered on 12/20/2023 ANTON Prince, ACM-RN [employer] [facility]-Care Management [email or web address] Office: [phone] Elaine Gambino RN [facility] 2023-12-21 14:13:12 Associated Order(s): CONSULT ADULT PHYSICAL THERAPY Duplicate consult. Please see PT eval dated 12/20/23 Thanks Mirza Lay PT, DPT [facility] Physical Therapy Rehabilitation Services [facility] 2023-12-20 14:04:42 Associated Order(s): CONSULT ADULT PHYSICAL THERAPY Duplicate consult. Please see PT eval 12/20/23 for details. Thanks Mirza Lay PT, DPT [facility] Physical Therapy [facility] 2023-12-20 10:05:00 Associated Order(s): CONSULT ADULT PHYSICAL THERAPY Patient agreeable to working with physical therapy. Patient met supine. Patient seen in collaboration with Occupational Therapy due to complexity of her case. Seen with JUSTINE Plascencia, OTRama. Patient will be billed for PT portion only. Recommend nursing staff utilize mechanical lift to safely assist patient with mobility out of the bed or chair. PHYSICAL THERAPY EVALUATION Consult received, chart reviewed and evaluation complete this date. Patient is referred to PT for evaluation and treatment. Patient is a 83 year old female who presents to hospital for Closed fracture of right hip, initial encounter [S72.001A] . Right hip fracture s/p surgery 12/18 Cognitive impairment Hypertension Discharge Recommendations: Therapy Needs and Potential: Patient would benefit from continued physical therapy services to address: decline in bed mobility decline in transfers decline in gait and/or balance decline in stair/step negotiation decreased strength decreased endurance decreased coordination decreased motor planning Patient demonstrates fair potential to improve and meet therapy goals with further physical therapy services. Patient may benefit from Post Acute Physical Therapy in SNF . Daughter endorses via phone that she wants to take her home with Home health services. Challenges to Home Transition: increased risk of falls decreased caregiver availability decreased safety awareness environmental barriers Equipment recommendations: mechanical lift Current Functional Status and/or Treatment: AM-PAC 6 Clicks (Raw Score 0=Dependent, 24=Independent; Low function Raw Score 0= Dependent, 32=Independent): Raw Score - Basic Mobility (Low Function): 13 T-Scale Score - Basic Mobility (Low Function): 20.14 Bed Mobility: Rolling: Total Assistance x 1-2 person Supine to sit Total Assistance 1-3 person Sitting Balance : Poor Sit to supine Total Assist x 1-3 person Tolerated sitting on edge of bed > 3 min , patient requires x 3 person to prevent from sliding off the bed. PRE: 158/77 (100) SPO2 96% RA HR 94 bpm POST: 137/64 (77) SPO2 97% RA HR 91 bpm Cued on proper use of bed rails. Dizziness No Transfers: unable to tolerate due to weakness , poor sitting balance , poor cognition and safety awareness. Dizziness No Ambulation: patient unable to tolerate due to weakness , poor sitting balance, poor cognition and safety awareness Dizziness No Therapeutic exercise: patient educated in Adaptive equipment , Deep breathing, Energy conservation, Fall prevention, General strengthening, Relaxation/breathing techniques, Safety awareness, WB restrictions, Movement restrictions, and Hip precautions., instructed patient in the following: ankle pumps, hip abduction/adduction, long arc quads, and patient/caregiver instructed to perform HEP 1-2 times per day, 10 repetitions. 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 Call button provided. Communicated with RICKY Cunha PLAN OF CARE: While in the hospital, PT will follow patient at least 5 times per week,once or twice a day, per patient's tolerance and needs. See below for complete details. Admit Date: 12/18/2023 Hospital Diagnosis:Closed fracture of right hip, initial encounter [S72.001A] Closed fracture of right hip, initial encounter [S72.001A] . Right hip fracture s/p surgery 12/18 Cognitive impairment Hypertension PT Diagnosis: Difficulty walking, Weakness, Malaise/fatigue, Pain, and Abnormality of gait and balance Weight Bearing Precaution: WBAT Right LE (+) Knee immobilizer General Precautions: PPE used:Gloves, General, Fall,Fuller catheter, IV x3, Telemetry Bracing/Cast present or required:N/A PMH: Past Medical History: Diagnosis Date Cataract Hyperlipidemia Hyperlipidemia 06/13/2015 Hypertension TIA (transient ischemic attack) PSH: Past Surgical History: Procedure Laterality Date APPENDECTOMY HIP HEMIARTHROPLASTY Right 12/19/2023 Surgeon: Kyle Diggs MD; Location: [facility] LOCATION LAPAROSCOPIC TUBAL LIGATION PHACOEMULSIFICATION OF CATARACT WITH INTRAOCULAR LENS IMPLANT Right 10/23/2015 Surgeon: Ángel Bennett MD; Location: [facility] PHACOEMULSIFICATION OF CATARACT WITH INTRAOCULAR LENS IMPLANT Left 01/22/2016 Surgeon: Ángel Bennett MD; Location: [facility] OR Location REMOVAL OF OVARY/TUBE(S) Prior Living Situation: in a mobile home and with their daughter and son in law, 3 steps/ Stairs with left side rail Able to negotiate: Yes DME: Single Point Cane, Rolling Walker Prior level of Mobility: community ambulation, house hold ambulation, ambulates with rolling Walker. Suspected ischemic or hemorraghic stroke:No Subjective: C/O pain on Right LE when moving Patient/Family Goals: Daughter's goal is to take her home Patient/Family verbalizes understanding of condition: Yes PAIN: C/O Pain on Right LE upon movement , winces , unable to verbalize grade or number due to cognitive issues COMMUNICATION Primary Language: Maldivian Able to Verbalize needs: Yes Vision:glasses Hearing:good; no issues reported ORIENTATION/COGNITION: Oriented to: person Awake: Yes Alert: Yes Dizzy: Yes Follows Commands: Yes 1-Step Yes Multi-Step No Inconsistent: Yes NEUROLOGICAL Light Touch: within functional limits bilateral LE Heel to inman: NT Tone: WNL BALANCE: Sitting: Static: Poor Dynamic: Poor Standing: Static: NT Dynamic: NT RANGE OF MOTION: within functional limits bilateral LE STRENGTH: 1+/5 (T+) Right LE , Left LE 2/5 ENDURANCE: Fair, Room air SKIN INTEGRITY: not intact, please see nurses notes for details. PROBLEM LIST: Decline in bed mobility, Decline in gait, Decline in transfers, Difficulty with stairs, Decreased strength, Decreased endurance, Decreased balance, Weight bearing restrictions, Safety awareness deficits, Pain, Decreased Coordination, and Decreased Motor Planning ASSESSMENT: Patient is a 83 year old female seen secondary to the above listed diagnosis. Patient would benefit from continued PT to address the above listed deficits to maximize independence and safety with functional mobility. Rehabilitation Potential: fair Goals: The following goals are to maximize independence and safety with functional mobility to eventually return to prior living situation and prior functional status. Upon discharge, patient and/or family will demonstrate the followin. Rolling: Independent Supine-sit: Independent Sit to supine: Independent Sitting balance Excellent 2. sit-stand: Independent Stand to sit: Independent using rolling Walker. Stand pivot transfer: Independent 3. Independent with ambulation, Feet: 300 using RW. Treatment Plan: Gait training, Therapeutic exercise, Transfer training, Balance training, Bed mobility training, Equipment needs assessment, Safety education, patient/caregiver education, Wheelchair mobility training, Pain management, and Neuromuscular Re-Education PATIENT EDUCATION: Patient provided with preferred teaching of verbal information and demonstration on role of PT, plan of care, DC planning. Shows readiness to learn. Verbal instruction and Demonstration teaching provided. Individual has difficulty with reading and needs reinforcement of teaching, not receptive to teaching, and Indicates understanding of teaching provided. Total Time Tx Codes in Minutes: 23 min Total Treatment Time in Minutes: 30 min Mirza Lay PT, DPT [facility] Physical Therapy Rehabilitation Services A physical therapy evaluation of high complexity was completed based on meeting at the criteria below: A history of present problem with at least 3 or more personal factors (includes environmental factors) and/or comorbidities that impact the plan of care An examination of body systems using standardized tests and measures addressing a total of at least 4 or more elements from any of the following: body structures and functions, activity limitations, and/or participation limitations A clinical presentation with unstable and unpredictable characteristics [facility] 2023-12-20 10:05:00 Associated Order(s): CONSULT ADULT OCCUPATIONAL THERAPY OT GENERAL EVALUATION Consult received via [employer], EMR reviewed and evaluation completed 12/20/23. Patient referred to occupational therapy for evaluation and treatment secondary to R femoral neck fx and s/p R hip hemiarthroplasty. Patient agreeable to participate in occupational therapy. Pt seen in conjunction with Kaila Lay PT due to pt's medical complexity and anticipated limited activity tolerance. Refer to PT for further mobility details. OT billing for OT portion only. Vital signs pre session as follows: HR 94, BP 158/77, MAP 100, SpO2 96%. Discharge Recommendations: Therapy Needs and Potential:- Patient would benefit from continued skilled occupational therapy services to address: Decline in basic activities of daily living, Decline in instrumental activities of daily living, Decline in cognition, Decreased strength, Decreased range of motion, Decreased endurance, and Caregiver training - Patient demonstrates good potential to improve and meet therapy goals with further skilled occupational therapy services. - Patient appears motivated to improve their B/IADLs and return to their previous level of function. - Patient demonstrates ability to tolerate at least 30-60 minutes of active participation in occupational therapy. - Patient able to follow commands: 1-step Yes, Multi-step No, Inconsistencies Yes Challenges to Home Transition:- Requires physical assistance for BADLS - Requires physical assistance for IADLS - Decreased safety awareness/judgement - Increased risk of falls - Environmental barriers- 3 steps to enter home Equipment Recommendations:Bedside commode, Hospital bed, and Mechanical lift; will continue to update as pt progresses PLAN OF CARE: At least 3x/week Precautions: Weight bearing status: WBAT R LE General: Fall, Posterior hip precautions, fuller, ICU lines Bracing: RLE Knee immobilizer Current Occupational Performance and/or Treatment: AM-PAC 6 Clicks (Raw Score 0=Dependent, 24=Independent; Low function Raw Score 0= Dependent, 32=Independent): Raw Score - Daily Activity (Low Function): 17 T-Scale Score - Daily Activity (Low Function): 28.95 Grooming: Maximum Assistance, 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 in bed with verbal cues; maximum verbal cues and demonstratio to clean face from therapist, however pt continues to hold washcloth and does not bring to face; therapist cleans face for pt LB Dressing: Total Assistance, pt with decreased BLE active movement observed in bed mobility at this time secondary to pain, unable to position for LB dressing Toilet Transfer: NT, pt unable to tolerate standing at this time, requires max-total assist x2 to sit EOB Toileting Hygiene: Total Assistance, fuller Functional Mobility: Supine<>EOB with total assist x2 Increased pain with pt grimacing/screaming with repositioning Verbal cues throughout for strategy Sits EOB ~2-3 minutes with max-total assist x2 Verbal/tactile cues for body mechanics and use of removable bed handle to stabilize Repositions higher in bed with total assist x2 Patient/caregiver educated on: ADL training (cues throughout session, see above), Role of OT (extended time spent discussing with pt's daughter role of therapy/potential post-acute discharge locations, at this time daughter planning on pt returning home), Safety awareness (pt's daughter alerted that pt requiring total assist for care at this time), and WB restrictions and Hip precautions (initiated, pt limited by confusion and shows no evidence of follow through at this time) Patient left semireclining in bed with call seay in reach. Nursing present and Bed alarm engaged, nursing staff notified. Vital signs as follows: BP 137/64, MAP 77, SpO2 97%, HR 91. Please, see full evaluation below for more detail. OT EVALUATION: 83 year old female Admit date: 12/18/2023 Date of onset: 3 days prior to admit Admit Diagnosis: Closed fracture of right hip, initial encounter [S72.001A] OT Diagnosis: Impaired BADL independence, Impaired IADL independence, Weakness, Activity intolerance, Decreased endurance, Impaired self-care mobility, Reduced joint ROM, and Impaired cognition PMH: Past Medical History: Diagnosis Date Cataract Hyperlipidemia Hyperlipidemia 06/13/2015 Hypertension TIA (transient ischemic attack) PSH: Past Surgical History: Procedure Laterality Date APPENDECTOMY HIP HEMIARTHROPLASTY Right 12/19/2023 Surgeon: Kyle Diggs MD; Location: [facility] LOCATION LAPAROSCOPIC TUBAL LIGATION PHACOEMULSIFICATION OF CATARACT WITH INTRAOCULAR LENS IMPLANT Right 10/23/2015 Surgeon: Ángel Bennett MD; Location: [facility] OR Location PHACOEMULSIFICATION OF CATARACT WITH INTRAOCULAR LENS IMPLANT Left 01/22/2016 Surgeon: Ángel Bennett MD; Location: [facility] OR Location REMOVAL OF OVARY/TUBE(S) PAIN: Pt unable to rate pain at this time, however increased pain observed during movement. OCCUPATIONAL ROLES/HOME ENVIRONMENT: Pt unreliable historian, collected following information from pt's daughter (David) via telephone. Home environment: Lives with daughter and son in law, 25/01 supervision/assistance is available (daughter reports she also has camera installed in home), and Mobile Home/Trailer with 3 steps to enter. Bathroom access: Yes Bathroom setup: Combo Occupation(s): Retired Function prior to admission: Household ambulation (usually without assistive device) and mostly Independent with BADLs (daughter supervises shower transfer) Suspected ischemic or hemorraghic stroke patient: No Equipment prior to admission: Rolling Walker, Shower chair , Straight Cane PERFORMANCE SKILLS/FACTORS: UE Muscle Tone: bilateral WNL UE ROM: unable to formally assess, through functional use bilateral AROM WFL except B active shoulder motion not observed beyond ~40 degrees UE Strength: BUE at least 3/5 except B deltoids at least 2-/5 Hand dominance: unknown Dexterity/Coordination: bilateral grossly Intact Endurance - Sitting: Poor Standing: Poor Sitting Balance - Static: Poor Dynamic: Poor Standing: Balance - Static NT Dynamic: NT Dizziness: No Skin Integrity: dressings intact Sensation: Unable to assess Oral Motor: WFL Communication: Able to verbalize needs Yes Other: requires continual cueing to answer questions Vision: WFL Yes Other: N/A Hearing: good; no issues reported COGNITION: Orientation: person Follows Commands: 1-step Yes Multi-step No Inconsistencies Yes Safety Awareness/Judgment: Poor, Lacks insight to deficits, and Requires frequent cueing PROBLEM LIST: Decreased independence with ADL, Impaired postural control, Decreased functional ROM, Decreased strength/endurance for functional activity, Impaired safety awareness, and Impaired Cognition REHAB POTENTIAL/PROGNOSIS: fair PATIENT/FAMILY GOALS: per daughter, for pt to come home following discharge TREATMENT/INTERVENTION PLAN: Functional motor treatment, Patient/Caregiver Education, Equipment recommendations, Daily living activities, Therapeutic exercises, and Cognitive retraining GOAL(S): By discharge, patient will increase independence in daily living skills as follows: 1 Patient will perform 3 in 1 BSC transfer with minimal assistance. 2 Patient will perform UB dressing with supervision. 3 Patient will perform LB dressing with moderate assistance while maintaining posterior hip precautions. 4 Patient will complete grooming tasks with supervision while sitting EOB. 5 Patient will complete toileting hygiene, including clothing management, with minimal assistance. 6 Patient will increase endurance for functional activity as evidenced by ability to sustain 10 minutes of active participation while sitting EOB. 7 Caregiver will verbalize/demonstrate understanding/proficiency in the following home programs: Adaptive equipment , 8 Fall prevention, and 9 Hip precautions PATIENT-FAMILY TEACHING Patient and Family member (via phone) provided with preferred teaching of verbal information on ADL training (cues throughout session, see above), Role of OT (extended time spent discussing with pt's daughter role of therapy/potential post-acute discharge locations, at this time daughter planning on pt returning home), Safety awareness (pt's daughter alerted that pt requiring total assist for care at this time), and WB restrictions and Hip precautions (initiated, pt limited by confusion and shows no evidence of follow through at this time). Barriers to learning include cognitive limitations. Verbal instruction teaching provided. Individual verbalizes understanding of teaching provided. Pura Arias, OTR, OTD Total Timed Treatment Codes: 24 Min Total Treatment Time: 32 Min Patient Complexity Level High - An occupational therapy evaluation of high complexity was completed using the above tests and measures. The following information was obtained: An occupational profile and medical and therapy history, including review of medical and/or therapy records and extensive additional review of physical, cognitive, or psychosocial history related to current functional performance, Various standardized and non-standardized assessments were used to identify at least 5 or more performance deficits related to physical, cognitive, or psychosocial skills that result in activity limitations and/or participation restrictions, and Clinical decision-making is of high analytic complexity, which includes an analysis of the patient profile, analysis of data from comprehensive assessment(s), and consideration of multiple treatment options. Patient present with comorbidities that affect occupational performance. Significant modification of tasks or assistance (e.g., physical or verbal) with assessment(s) is necessary to enable patient to complete evaluation component. [facility] 2023-12-19 10:33:00 Associated Order(s): CONSULT ADULT OCCUPATIONAL THERAPY 12/20/2023 OCCUPATIONAL THERAPY NOTE: Duplicate consult. Pura Arias OTR, OTD TE [facility] 2023-12-18 16:06:17 SICU ADMIT NOTE Date of Service: 12/18/2023 Time: 4:06 PM Admitting Service: ortho Pre-operative/Admission Diagnosis: R femoral neck frx Operative Procedure: pending R hip hemiarthroplasty Monitoring/Support: airway monitoring, inotropic support, ventilatory support, arrhythmia monitoring, hemodynamic monitoring, renal monitoring, sepsis/hematologic management, and neuro monitoring HPI Denny Goldman is a 83 year old /White pmh htn, hld, cognitive impairment, TIA who presents w R femoral neck fracture. Alert and oriented x1 w/ extensive R hip pain. Fell 3 days ago and was able to walk initially until pain and functionality worsened to a point of being unable to ambulate. Prior to injury pt was independent w/ ADLs and walked without assistance frequently. Admitted to SICU per hip protocol. Pending OR for R hip bertrand. History Past Medical History: Diagnosis Date Cataract Hyperlipidemia Hyperlipidemia 06/13/2015 Hypertension TIA (transient ischemic attack) Past Surgical History: Procedure Laterality Date APPENDECTOMY LAPAROSCOPIC TUBAL LIGATION PHACOEMULSIFICATION OF CATARACT WITH INTRAOCULAR LENS IMPLANT Right 10/23/2015 Surgeon: Ángel Bennett MD; Location: [facility] OR [facility] PHACOEMULSIFICATION OF CATARACT WITH INTRAOCULAR LENS IMPLANT Left 01/22/2016 Surgeon: Ángel Bennett MD; Location: [facility] OR [facility] REMOVAL OF OVARY/TUBE(S) Social History Socioeconomic History Marital status: Tobacco Use Smoking status: Never Smokeless tobacco: Never Substance and Sexual Activity Alcohol use: No Alcohol/week: 0.0 standard drinks of alcohol Drug use: No Other Topics Concern Blood Transfusions No Social History Narrative She lives alone. She's retired. She's been walking lately to get exercise. Social Determinants of Health Financial Resource Strain: Low Risk (11/10/2023) Overall Financial Resource Strain (CARDIA) Difficulty of Paying Living Expenses: Not hard at all Food Insecurity: No Food Insecurity (11/10/2023) Hunger Vital Sign Worried About Running Out of Food in the Last Year: Never true Ran Out of Food in the Last Year: Never true Transportation Needs: No Transportation Needs (11/10/2023) PRAPARE - Transportation Lack of Transportation (Medical): No Lack of Transportation (Non-Medical): No Physical Activity: Sufficiently Active (11/10/2023) Exercise Vital Sign Days of Exercise per Week: 7 days Minutes of Exercise per Session: 30 min Stress: No Stress Concern Present (11/10/2023) [employer] [place] [employer] - Occupational Stress Questionnaire Feeling of Stress : Not at all Social Connections: Socially Isolated (11/10/2023) Social Connection and Isolation Panel [NHANES] Frequency of Communication with Friends and Family: Once a week Frequency of Social Gatherings with Friends and Family: Three times a week Attends Temple Services: Never Active Member of Clubs or Organizations: No Attends Club or Organization Meetings: Never Marital Status: Intimate Partner Violence: Not At Risk (11/10/2023) Humiliation, Afraid, Rape, and Kick questionnaire Fear of Current or Ex-Partner: No Emotionally Abused: No Physically Abused: No Sexually Abused: No Housing Stability: Low Risk (11/10/2023) Housing Stability Vital Sign Unable to Pay for Housing in the Last Year: No Number of Places Lived in the Last Year: 1 Unstable Housing in the Last Year: No Medications Current Medications: Current Facility-Administered Medications Medication Dose Route Frequency Last Rate Last Admin amLODIPine (NORVASC) tablet 5 mg 5 mg Oral DAILY atorvastatin (LIPITOR) tablet 10 mg 10 mg Oral QHS donepeziL (ARICEPT) tablet 5 mg 5 mg Oral QHS FENTanyl PF (SUBLIMAZE (PF)) injection 25 mcg 25 mcg Slow IV Push Q2HPRN hydralAZINE (APRESOLINE) injection 10 mg 10 mg Slow IV Push PRN 10 mg at 12/18/23 1434 melatonin (MELATIN) tablet 3 mg 3 mg Oral QHS methocarbamoL (ROBAXIN) injection 500 mg 500 mg Slow IV Push Q8HPRN mirtazapine (REMERON) tablet 15 mg 15 mg Oral QHS ondansetron (ZOFRAN-ODT) disintegrating tablet 4 mg 4 mg Oral Q6HPRN traMADoL (ULTRAM) tablet 50 mg 50 mg Oral Q4HPRN Pre-op/Pre-admission Medications No current facility-administered medications on file prior to encounter. Current Outpatient Medications on File Prior to Encounter Medication Sig Dispense Refill amLODIPine 5 mg tablet Take 1 tablet by mouth in the morning. 90 tablet 1 atorvastatin 10 mg tablet TAKE 1 TABLET BY MOUTH AT BEDTIME 90 tablet 3 calcium carbonate 500 mg calcium (1,250 mg) tablet Take 1 tablet by mouth in the morning. 90 tablet 3 donepeziL 5 mg tablet Take 1 tablet by mouth at bedtime. 90 tablet 1 ergocalciferol, vitamin d2, (VITAMIN D2) 1,250 mcg (50,000 unit) capsule Take 1 capsule by mouth weekly. 12 capsule 3 lisinopriL 20 mg tablet Take 1 tablet by mouth in the morning. 90 tablet 1 mirtazapine 15 mg tablet Take 1 tablet by mouth at bedtime. 90 tablet 1 pyridoxine, vitamin B6, 50 mg tablet Take 1 tablet by mouth in the morning. 30 tablet 3 vitamin B-12 1,000 mcg tablet Take 1 tablet by mouth in the morning. 90 tablet 2 Allergies No Known Allergies Physical Exam Temp: [36.3 ?C (97.3 ?F)] Pulse: [59-63] Resp: [18] BP: (130)/(80) Arterial Line BP: (57-335)/(-32-297) MAP (mmHg): [97] General: alert and oriented x 1; no apparent distress Lungs: clear to auscultation bilaterally Cardio: S1, S2 normal; no murmurs, rubs or gallops, regular rate and rhythm Abdomen: soft; non-tender; non-distended; normoactive bowel sounds Extremities: no clubbing, cyanosis, or edema, pulses palpable in BLE Neuro: cranial nerves II through XII grossly intact; sensation grossly intact; muscle strength 5 out of 5 in all four extremities, strength intact, sensation intact Pain: pain controlled with fentanyl, methocarbamol Sedation: not sedated. Airway: patent Labs: Hemogram No results for input(s): "WBC", "HGB", "HCT", "PLT" in the last 72 hours. Chemistry No results for input(s): "NA", "K", "CL", "TCO2", "BUN", "CREAT", "GLU", "PHOS", "MG", "CA", "CAIONIZ" in the last 72 hours. Arterial Blood Gas No results for input(s): "ACPH", "ACPCO2", "ACPO2", "ACHCO3", "ACNA", "ACK", "ACCAIONZ", "ACBE" in the last 72 hours. Coagulation Profile No results for input(s): "PTPAT", "PTINR", "APTTMNNM", "APTTPAT" in the last 72 hours. Urinalysis No results for input(s): "UPROTEIN", "UGLUCOSE", "UKETONES", "UBILI", "UBLOOD", "UUROBILIN", "ULEUKEST", "UNITRITE", "USPGRAV" in the last 72 hours. LFTs No results for input(s): "AST", "ALT", "ALKPHOS", "TALIA", "LIPASE", "BILIT", "BILICONJ", "BILIUNCON" in the last 72 hours. ABG FIO2: No results found for: "ACPH" No results found for: "ACPCO2" No results found for: "ACPO2" No results found for: "ACO2HB" No results found for: "ACNA" No results found for: "ACK" No results found for: "ACCAIONZ" Assessment & Plan Denny Goldman is a 83 year old /White female pmh htn, hld, cognitive impairment, TIA who presents w R femoral neck fracture, admitted to SICU per hip protocol. Pending OR for R hip bertrand. Airway: - apache airway Neurology: - pain controlled with fentanyl 25mcg q2hprn, methocarbamol 500mg q8hprn. - PO tramadol 50mg q4hprn - donepezil 5mg qhs - monitor for neuro deficits Cardiovascular: - amlodipine 5mg qd - atorvastatin 10mg qhs - palpable pulses in BLE Pulmonary: O2 per protocol Gastrointestinal: - diet regular Renal/Electrolytes: - replete lytes prn Endocrinology: - no acute issues Infectious Disease: - afebrile - no acute issues Hematology: - no acute issues Dispo: SICU per hip frx protocol. Pending OR for R hip bertrand Associated attestation - Chon Keating MD - 12/19/2023 10:31 AM CDT Agree with plan, discussed with resident. [facility] 2023-12-18 11:58:57 Associated Order(s): CONSULT GERIATRIC MEDICINE GERIATRIC MEDICINE CONSULTATION NOTE Consultation requested by: ED Requesting Physician: Marvin Nam MD Reason for Consultation: Hip fracture Date of Service: 12/18/2023 Chief complaint: Fall History of Present Illness We were asked to see this patient to give my opinion regarding Denny Goldman, 83 year old, female who has a PMHx of hypertension, hyperlipidemia, cognitive impairment, TIA who presents with a fall. She was found to have R hip fracture. Geriatrics was consulted for the same. On examination, she is in extensive pain at R hip. She is alert and oriented but does not remember how she fell. She denies dizziness. She denies any other complaints except R hip pain. PAST MEDICAL HISTORY Past Medical History: Diagnosis Date Cataract Hyperlipidemia Hyperlipidemia 06/13/2015 Hypertension TIA (transient ischemic attack) Past Surgical History: Procedure Laterality Date APPENDECTOMY LAPAROSCOPIC TUBAL LIGATION PHACOEMULSIFICATION OF CATARACT WITH INTRAOCULAR LENS IMPLANT Right 10/23/2015 Surgeon: Ángel Bennett MD; Location: [facility] OR [facility] PHACOEMULSIFICATION OF CATARACT WITH INTRAOCULAR LENS IMPLANT Left 01/22/2016 Surgeon: Ángel Bennett MD; Location: [facility] OR [facility] REMOVAL OF OVARY/TUBE(S) Family History Problem Relation Age of Onset Cancer Father , 70's Hypertension Father No Significant Medical Problems Mother , 97 Cancer Brother 70's Allergies: Patient has no known allergies. MEDICATIONS Hospital Medications: Current Facility-Administered Medications Medication Dose Route Frequency Last Rate Last Admin amLODIPine (NORVASC) tablet 5 mg 5 mg Oral DAILY atorvastatin (LIPITOR) tablet 10 mg 10 mg Oral QHS donepeziL (ARICEPT) tablet 5 mg 5 mg Oral QHS FENTanyl PF (SUBLIMAZE (PF)) injection 25 mcg 25 mcg Slow IV Push Q2HPRN hydralAZINE (APRESOLINE) injection 10 mg 10 mg Slow IV Push PRN melatonin (MELATIN) tablet 3 mg 3 mg Oral QHS mirtazapine (REMERON) tablet 15 mg 15 mg Oral QHS ondansetron (ZOFRAN-ODT) disintegrating tablet 4 mg 4 mg Oral Q6HPRN traMADoL (ULTRAM) tablet 50 mg 50 mg Oral Q4HPRN Current Outpatient Medications Medication Sig Dispense Refill amLODIPine 5 mg tablet Take 1 tablet by mouth in the morning. 90 tablet 1 atorvastatin 10 mg tablet TAKE 1 TABLET BY MOUTH AT BEDTIME 90 tablet 3 calcium carbonate 500 mg calcium (1,250 mg) tablet Take 1 tablet by mouth in the morning. 90 tablet 3 donepeziL 5 mg tablet Take 1 tablet by mouth at bedtime. 90 tablet 1 ergocalciferol, vitamin d2, (VITAMIN D2) 1,250 mcg (50,000 unit) capsule Take 1 capsule by mouth weekly. 12 capsule 3 lisinopriL 20 mg tablet Take 1 tablet by mouth in the morning. 90 tablet 1 mirtazapine 15 mg tablet Take 1 tablet by mouth at bedtime. 90 tablet 1 pyridoxine, vitamin B6, 50 mg tablet Take 1 tablet by mouth in the morning. 30 tablet 3 vitamin B-12 1,000 mcg tablet Take 1 tablet by mouth in the morning. 90 tablet 2 SOCIAL HISTORY Social History Tobacco Use Smoking Status Never Smokeless Tobacco Never Social History Substance and Sexual Activity Alcohol Use No Alcohol/week: 0.0 standard drinks of alcohol Social History Substance and Sexual Activity Drug Use No REVIEW OF SYSTEMS Review of Systems Denies any symptoms except pain, however limited due to cognitive impairment PHYSICAL EXAMINATION BP (!) 165/74 | Pulse 70 | Temp 37 ?C (98.6 ?F) (Oral) | Resp 19 | Wt 46.3 kg (102 lb) | SpO2 99% | BMI 16.97 kg/m? Physical Exam Appearance: Alert, in no acute distress Extremities/Musculoskeletal: R leg externally rotated Neurologic: Non- focal Psychiatric: Mood appropriate LABORATORY Recent Labs 11/10/23 1521 WBC 10.05 HGB 12.6 HCT 40.0 MCV 98.5* PLT 352 Recent Labs 11/10/23 1521 NA 137 K 4.9 CA 9.6 CL 100 BUN 16 CREAT 1.35* GLU 104 TCO2 29 Recent Labs 11/10/23 1521 ALB 3.7 TPRO 6.9 BILIT 0.5 ALT 19 AST 30 ALKPHOS 110 There are no current results on file for these tests and/or test for 1 year. IMAGING Hospital Encounter on 12/18/23 XR HIPS 2 VW RIGHT Narrative EXAM: XR HIPS 2 VW RIGHT, XR FEMUR 2 VW RIGHT HISTORY: 83 years-old Female with Fracture COMPARISON: None. FINDINGS: Radiographs of the right hip and femur demonstrate a displaced and angulated subcapital or transcervical fracture of the right femoral neck with varus angulation. Alignment is maintained across the bilateral hips which exhibit mild degenerative changes. Degenerative changes are seen in the spine. Opacities over the pelvis could suggest calcified fibroids. Impression Right femoral neck fracture. Preliminary Report Dictated by Resident: Shahrzad Mccormick MD., have reviewed this study and agree with the above report. XR FEMUR 2 VW RIGHT Narrative EXAM: XR HIPS 2 VW RIGHT, XR FEMUR 2 VW RIGHT HISTORY: 83 years-old Female with Fracture COMPARISON: None. FINDINGS: Radiographs of the right hip and femur demonstrate a displaced and angulated subcapital or transcervical fracture of the right femoral neck with varus angulation. Alignment is maintained across the bilateral hips which exhibit mild degenerative changes. Degenerative changes are seen in the spine. Opacities over the pelvis could suggest calcified fibroids. Impression Right femoral neck fracture. Preliminary Report Dictated by Resident: Shahrzad Mccormick MD., have reviewed this study and agree with the above report. ASSESSMENT and PLAN #Right hip fracture #Cognitive impairment #Hypertension - Close monitoring of mentation since she will be high risk for post-operative delirium. - Basic lab work including BMP, CBC, TSH, PT/INR - Agree with continuing her aricept. Patient seen, examined and discussed with Dr. Herrera, Faculty. GWYN Palacios PGY-4 Geriatric Medicine Fellow 12/18/2023 Associated attestation - Ángel Herrera MD - 12/18/2023 5:41 PM CDT After discussion with Dr. Gold, I examined this patient with Dr. Gold. I agree with resident's note as written. IM-GERIATRIC MEDICINE [facility] - Health History and Physical Notes Date/Time Note Provider Source 2023-12-18 12:05:13 ORTHOPAEDIC SURGERY HISTORY & PHYSICAL 12/18/2023 HISTORY OF PRESENT ILLNESS Denny Goldman is a 83 year old female w/ pmhx of HTN and alzheimer who presents as a transfer from OSH with R hip pain. Patient was AOx2 on arrival and further history was obtained from the daughter on the phone. Patient's daughter reports that patient fell 3 days ago, but was able to ambulate afterwards without much difficulty and minimal pain. However, she continued to experience functional decline over the next two days with worsening pain and inability to ambulate. She was seen at an OSH where radiographs showed a R hip fracture requiring transfer for further management. Of note, patient is a community ambulator without assistance and is fairly independent as it pertains to ADLs Lives in [address] [place] [address] PAST HISTORIES Past Medical History: Diagnosis Date Cataract Hyperlipidemia Hyperlipidemia 06/13/2015 Hypertension TIA (transient ischemic attack) Past Surgical History: Procedure Laterality Date APPENDECTOMY LAPAROSCOPIC TUBAL LIGATION PHACOEMULSIFICATION OF CATARACT WITH INTRAOCULAR LENS IMPLANT Right 10/23/2015 Surgeon: Ángel Bennett MD; Location: [facility] OR [facility] PHACOEMULSIFICATION OF CATARACT WITH INTRAOCULAR LENS IMPLANT Left 01/22/2016 Surgeon: Ángel Bennett MD; Location: [facility] OR Location REMOVAL OF OVARY/TUBE(S) Family History Problem Relation Age of Onset Cancer Father , 70's Hypertension Father No Significant Medical Problems Mother , 97 Cancer Brother 70's MEDICATIONS Current Facility-Administered Medications Medication Dose Route Frequency Last Rate Last Admin amLODIPine (NORVASC) tablet 5 mg 5 mg Oral DAILY atorvastatin (LIPITOR) tablet 10 mg 10 mg Oral QHS donepeziL (ARICEPT) tablet 5 mg 5 mg Oral QHS FENTanyl PF (SUBLIMAZE (PF)) injection 25 mcg 25 mcg Slow IV Push Q2HPRN hydralAZINE (APRESOLINE) injection 10 mg 10 mg Slow IV Push PRN melatonin (MELATIN) tablet 3 mg 3 mg Oral QHS mirtazapine (REMERON) tablet 15 mg 15 mg Oral QHS ondansetron (ZOFRAN-ODT) disintegrating tablet 4 mg 4 mg Oral Q6HPRN traMADoL (ULTRAM) tablet 50 mg 50 mg Oral Q4HPRN Current Outpatient Medications Medication Sig Dispense Refill amLODIPine 5 mg tablet Take 1 tablet by mouth in the morning. 90 tablet 1 atorvastatin 10 mg tablet TAKE 1 TABLET BY MOUTH AT BEDTIME 90 tablet 3 calcium carbonate 500 mg calcium (1,250 mg) tablet Take 1 tablet by mouth in the morning. 90 tablet 3 donepeziL 5 mg tablet Take 1 tablet by mouth at bedtime. 90 tablet 1 ergocalciferol, vitamin d2, (VITAMIN D2) 1,250 mcg (50,000 unit) capsule Take 1 capsule by mouth weekly. 12 capsule 3 lisinopriL 20 mg tablet Take 1 tablet by mouth in the morning. 90 tablet 1 mirtazapine 15 mg tablet Take 1 tablet by mouth at bedtime. 90 tablet 1 pyridoxine, vitamin B6, 50 mg tablet Take 1 tablet by mouth in the morning. 30 tablet 3 vitamin B-12 1,000 mcg tablet Take 1 tablet by mouth in the morning. 90 tablet 2 ALLERGIES No Known Allergies SOCIAL Social History Occupational History Not on file Tobacco Use Smoking status: Never Smokeless tobacco: Never Substance and Sexual Activity Alcohol use: No Alcohol/week: 0.0 standard drinks of alcohol Drug use: No Sexual activity: Not on file REVIEW OF SYSTEMS See HPI for pertinent PHYSICAL EXAMINATION CONSTITUTIONAL: BP (!) 165/74 | Pulse 70 | Temp 37 ?C (98.6 ?F) (Oral) | Resp 19 | Wt 46.3 kg (102 lb) | SpO2 99% | BMI 16.97 kg/m? Constitutional: NAD Right lower extremity - No wounds; shortened and externally rotated - Generalized TTP of the hip - TA/GS/EHL/FHL intact - Sensation grossly intact to light touch - Palpable dorsalis pedis pulse Left lower extremity - No wounds - TA/GS/EHL/FHL intact - Sensation grossly intact to light touch - Palpable dorsalis pedis pulse IMAGING XR HIPS 2 VW RIGHT Result Date: 12/18/2023 Right femoral neck fracture. Preliminary Report Dictated by Resident: Vaibhav Shelton I, Shahrzad Adamson MD., have reviewed this study and agree with the above report. XR FEMUR 2 VW RIGHT Result Date: 12/18/2023 Right femoral neck fracture. Preliminary Report Dictated by Resident: Vaibhav Shelton I, Shahrzad Adamson MD., have reviewed this study and agree with the above report. Radiographs personally reviewed and interpreted by myself and faculty. ASSESSMENT Denny Goldman is a 83 year old female who ambulates at baseline without difficulty with hx of HTN and Alzheimer presenting with a displaced R FNF after a fall from standing. Patient's RLE is neurovascularly intact. PLAN/RECOMMENDATIONS - Admit to SICU per hip fx protocol - Pain control with multimodal - NWB RLE - Disposition: pending OR for R hip bertrand - Will obtain further imaging if pain persists despite therapy - Advised to contact us with questions/concerns - All findings and diagnoses were discussed at time of visit. Are in agreement with the treatment plan at this time. - Independently reviewed current and previous imaging for comparison, if applicable, as well as relevant lab results. I discussed my findings and provided education on the condition present. All questions answered to satisfaction. Marvin Nam MD Orthopedic Surgery Pre-op Checklist : NPO done pMN Consent done (obtained over phone with daughter David). All treatment options were discussed with the daughter including the risks and benefits of surgery as well as the likelihood of the patient achieving the desired goals. PARQ held. All questions answered. Risks include but are not limited to bleeding,infection, damage to nerve, muscle, artery, tendon, pain, stiffness, scarring, functional or cosmetic deformity, malunion, nonuion, need for further surgery, need for hardware removal, post traumatic arthritis, dvt, pulmonary emboli, and . No guarantees were expressed or implied other than due diligence.... Post done Sign surgical site yes Labs done (CBC, BMP, PT/INR, PTT, CXR, EKG, lactate, UA type and screen, prepare units) Xrays/Imaging intraop fluoroscopy; done Consult adult critical care done Notify Rep tbd After discussion with Dr. Nam, I personally examined the patient, and personally performed a history and physical examination. Furthermore, I personally discussed the subsequent workup/treatment recommendations with the patient. Finally, I agree with resident's note as written. No guarantees were expressed or implied other than due diligence. [facility] Procedure Notes Date/Time Note Provider Source 2023-12-19 08:09:16 Associated Order(s): Intubation Intubation Date/Time: 12/19/2023 7:48 AM Urgency: elective Airway not difficult General Information and Staff Patient location during procedure: OR Performed: resident/[facility] Performed by: Christopher Wong MD Authorized by: Hugh Tovar MD Indications and Patient Condition Indications for airway management: anesthesia Spontaneous ventilation: present Sedation level: deep Preoxygenated: yes Patient position: sniffing MILS maintained throughout Mask difficulty assessment: 1 - vent by mask Final Airway Details Final airway type: endotracheal airway Successful airway: ETT Cuffed: yes Successful intubation technique: direct laryngoscopy Facilitating devices/methods: intubating stylet Endotracheal tube insertion site: oral Blade: Valente Blade size: #3 ETT size (mm): 7.0 Cormack-Lehane Classification: grade I - full view of glottis Placement verified by: chest auscultation and capnometry Measured from: lips ETT to lips (cm): 21 Number of attempts at approach: 1 Ventilation between attempts: none Number of other approaches attempted: 0 Additional Comments Smooth, atraumatic, dentition and lips unchanged from pre-op. [facility] AN-ANESTHESIOLOGY [facility] 2023-12-19 08:08:56 Associated Order(s): Arterial Line Arterial Line Date/Time: 12/19/2023 8:08 AM Performed by: Christopher Wong MD Arterial Line Placement: Ultrasound-Guided: ultrasound guided Patient Location: OR Indication: continuous blood pressure monitoring and blood sampling needed Staff: Supervising Anesthesiologist: Hugh Tovar MD Resident: Christopher Wong MD Procedure Detail: Catheter Size: 20 gauge Catheter Length: 1 and 3/4 inch Catheter Type: Arrow Seldinger Technique?: No Laterality: Right Site: Radial artery Line Secured: Tape, Tegaderm and biopatch Preparation: Chloroprep, sterile gloves, guidewire removed intact, biopatch applied and drape Events: Events: Patient tolerated procedure well with no complications and all wires accounted for Comments: (+) Local infiltration with Lidocaine, STF, smooth and atraumatic. [facility] Bringrs Notes Date/Time Note Provider Source 2024-10-26 13:59:55 [facility] to complete HRA telephonically with patient prior to scheduled Medicare annual wellness visit on 11/02/24 at 1 pm. At the time of call there was no answer and [facility] left [facility]ic[facility] for call back. [facility] will also send message via [employer] to patient. Elli Christianson MA [facility] [place] 2023-12-22 22:11:03 Problem: Discharge Planning Goal: Adequate for discharge Outcome: Progressing as expected Problem: Falls, Risk of Goal: Absence of falls Outcome: Adequate for discharge Problem: Fluid Volume - Imbalanced Goal: Absence of signs and symptoms of imbalanced fluid volume Outcome: Not progressing as expected Problem: Infection, Risk of or Actual Goal: Absence of infection Outcome: Progressing as expected Problem: Mental Status - Impaired, Risk of Goal: Mental status restored to baseline Outcome: Not progressing as expected Goal: Absence of physical injury Outcome: Progressing as expected Problem: Respiratory Function - Impaired Goal: Able to cough effectively Outcome: Progressing as expected Goal: Adequate oxygenation Outcome: Progressing as expected Goal: Adequate work of breathing Outcome: Progressing as expected Goal: Patent airway Outcome: Progressing as expected Talisha Guthrie RN [facility] 2023-12-22 19:22:38 Problem: Discharge Planning Goal: Adequate for discharge Outcome: Progressing as expected Goal: Effective communication Outcome: Progressing as expected Problem: Falls, Risk of Goal: Absence of falls Outcome: Progressing as expected Problem: Infection, Risk of or Actual Goal: Absence of infection Outcome: Progressing as expected Problem: Mental Status - Impaired, Risk of Goal: Mental status restored to baseline Outcome: Progressing as expected Goal: Absence of physical injury Outcome: Progressing as expected Problem: Respiratory Function - Impaired Goal: Able to cough effectively Outcome: Progressing as expected Goal: Adequate oxygenation Outcome: Progressing as expected Goal: Adequate work of breathing Outcome: Progressing as expected Goal: Patent airway Outcome: Progressing as expected Problem: Fluid Volume - Imbalanced Goal: Absence of signs and symptoms of imbalanced fluid volume Outcome: Not progressing as expected [facility] 2023-12-22 16:30:53 O2 Saturation at REST on Room Air = 98% EXERTION TEST O2 Saturation at Rest on Room Air = 98% O2 Saturation being Exerted on Room Air = 83% Once pt sat back down after one min. O2 sat went back up to 98%. O@ sat was noticed during orthovitals check. Ramila Lema RN [facility] 2023-12-22 15:45:48 Summary: Ortho vitals Orthostatic vitals completed. Supine: BP 144/70 MAP 95 P 86 O2 97% Sitting: BP 128/73 MAP 91 P 88 O2 97% Standing: BP 93/47 MAP 62 P 100 O2 88% [facility] 2023-12-21 19:59:47 Patient is resting. Nirmala Crane RN [facility] 2023-12-20 23:17:54 PATIENT WAS TRANSFERRED FROM SICU VIA BED ASSISTED BY SICU RNS, REPORT RECEIVED FROM ESTELA FLOWER RN. NOTED SCABS ON RIGHT ELBOW, RIGHT KNEE IMMOBILIZER IN PLACE. PATIENT IS NOT ALERT AND ORIENTED, CONFUSED. [facility] 2023-12-20 09:24:53 Problem: Discharge Planning Goal: Adequate for discharge Outcome: Progressing as expected Goal: Effective communication Outcome: Progressing as expected Problem: Falls, Risk of Goal: Absence of falls Outcome: Progressing as expected Problem: Fluid Volume - Imbalanced Goal: Absence of signs and symptoms of imbalanced fluid volume Outcome: Progressing as expected Problem: Infection, Risk of or Actual Goal: Absence of infection Outcome: Progressing as expected Problem: Mental Status - Impaired, Risk of Goal: Mental status restored to baseline Outcome: Progressing as expected Goal: Absence of physical injury Outcome: Progressing as expected Guerline Maxwell RN [facility] 2023-12-19 21:28:03 Problem: Discharge Planning Goal: Adequate for discharge Outcome: Progressing as expected Goal: Effective communication Outcome: Progressing as expected Problem: Falls, Risk of Goal: Absence of falls Outcome: Progressing as expected Problem: Fluid Volume - Imbalanced Goal: Absence of signs and symptoms of imbalanced fluid volume Outcome: Progressing as expected Problem: Infection, Risk of or Actual Goal: Absence of infection Outcome: Progressing as expected Problem: Mental Status - Impaired, Risk of Goal: Absence of physical injury Outcome: Progressing as expected Problem: Respiratory Function - Impaired Goal: Able to cough effectively Outcome: Progressing as expected Goal: Adequate oxygenation Outcome: Progressing as expected Goal: Adequate work of breathing Outcome: Progressing as expected Goal: Patent airway Outcome: Progressing as expected Estela Flower RN [facility] 2023-12-19 13:38:01 Problem: Discharge Planning Goal: Adequate for discharge Outcome: Progressing as expected Goal: Effective communication Outcome: Progressing as expected Problem: Falls, Risk of Goal: Absence of falls Outcome: Progressing as expected Problem: Fluid Volume - Imbalanced Goal: Absence of signs and symptoms of imbalanced fluid volume Outcome: Progressing as expected Problem: Infection, Risk of or Actual Goal: Absence of infection Outcome: Progressing as expected Problem: Mental Status - Impaired, Risk of Goal: Mental status restored to baseline Outcome: Progressing as expected Goal: Absence of physical injury Outcome: Progressing as expected [facility] 2023-12-19 12:23:43 Patient: Denny Goldman Procedure Summary Date: 12/19/23 Room / Location: [address] LOCATION Anesthesia Start: 739 Anesthesia Stop: 1056 Procedure: HIP HEMIARTHROPLASTY (Right: Leg) Diagnosis: Closed fracture of right hip, initial encounter (Closed fracture of right hip, initial encounter [S72.001A]) Surgeons: Kyle Diggs MD Responsible Provider: Mal Arroyo MD Anesthesia Type: General ASA Status: 3 Anesthesia Type: General Last vitals BP Temp Pulse Resp SpO2 BP (!) 152/60 | Pulse 77 | Temp 36.8 ?C (98.2 ?F) (Tympanic) | Resp 18 | Wt 46.3 kg (102 lb) | SpO2 98% | BMI 16.97 kg/m? There were no known notable events for this encounter. Anesthesia Post Evaluation Patient location during evaluation: ICU Patient participation: complete - patient participated Level of consciousness: awake and alert Pain management: satisfactory to patient Airway patency: patent Cardiovascular status: acceptable and blood pressure returned to baseline Respiratory status: acceptable Hydration status: acceptable AN-ANESTHESIOLOGY ANESTHESIOLOGIST [facility] 2023-12-19 08:40:00 OPERATIVE NOTE Procedure: right hip hemiarthroplasty [ CPT 33192 ] Date of procedure: 12/19/2023 Faculty Surgeon(s): MD Caterina. Please note that I was scrubbed for the critical portion of the case and was immediately available for the remainder of the case. Resident Surgeon(s): Pura Espinoza Obinwa Pre-operative Diagnosis: Right femoral neck fracture Post-operative Diagnosis: same Anesthesia: general - GETA Drains: none NVM: neurovascularly unchanged Complications: none Estimated Blood Loss: 200 mL Findings: Right femoral neck fracture without signficant degenerative changes in the acetabulum Specimens: None Implants: Implant Name Type Inv. Item Serial No. Manager Machine Lot No. LRB No. Used Action STEM FMRL 155MM 13 HIGH OFFSET TAP PRIM DISTAL BULLET TIP #[id number] - SNA Joint Prosthesis STEM FMRL 155MM 13 HIGH OFFSET TAP PRIM DISTAL BULLET TIP #[id number] [employer] [id number] Right 1 Implanted UNIPOLAR HEAD [employer] 44MM #[id number] - SNA Joint Prosthesis UNIPOLAR HEAD [employer] 44MM #[id number] [employer] [id number] Right 1 Implanted [employer] UNIPOLAR 12/14 TAPER/ 0 #[id number] - SNA Joint Prosthesis [employer] UNIPOLAR 12/14 TAPER/ 0 #[id number] [employer] [id number] Right 1 Implanted Indications: Denny Goldman is a 83 year old female who sustained a displaced right femoral neck fracture after a ground level fall. Patient was admitted to internal medicine team. Discussed surgical risks including, but not limited to, pain, bleeding, infection, damage to adjacent structures including nerves, blood vessels, soft tissue, and bone; need for further procedures; failure to relieve pain; worsening of pain; hardware failure; loosening and/or wear; change in limb length and/or alignment; fracture; dislocation; decreased strength, sensation and/or ROM; adverse reaction to implants and/or medicines; DVT/PE; LA; stroke; GI bleed; organ failure; and any other unforeseen circumstances. All questions and concerns answered. Written consent obtained. Narrative The patient was identified in the pre-operative holding area, and the correct surgical site was identified with verbal verification by the patient and marked. The patient was then taken to the operating room and placed supine on the operating table. A time-out was performed between anesthesia and orthopedic faculty. Prophylactic intravenous antibiotics were given. Patient was placed under general anesthesia. A fuller was placed by RN. The patient was than placed in the right lateral decubitus position using the sandbag positioner. All pressure points were well padded, and an axillary roll was placed. The right lower extremity was then prepped and draped in the standard sterile fashion. A standard posterior approach to the hip was utilized. The incision was made at the proximal aspect of the femur extending proximally along the posterior third of the greater trochanter curving posteriorly towards the posterior iliac spine. The incision was carried down to the fascia az, which was incised at its most distal aspect and extended proximally to the level of the greater trochanter. This was then curved posteriorly in line with the fibers of the gluteus shaneka, which was then split with blunt finger dissection. The sciatic nerve was identified and palpated and was protected throughout the entire procedure. Electrocautery was used to incise the bursa and expose the piriformis and short external rotators. The gluteus medius was identified and retracted. The piriformis and external rotators were released from the posterolateral aspect of the femur sharply. A T-shaped capsulotomy was performed to expose the acetabulum and the femoral head and neck. The femoral head was then dislocated and retractors were placed around the neck. The femoral neck was cut at 1 cm proximal to the lesser trochanter using an oscillating saw. The head was passed to the back table for measurement and measured 44 mm. The acetabulum was inspected, and there were no osteophytes or full thickness cartilage wear. Attention was then turned back to the femur. Using a box cutting chisel, the box cut was made, then the canal finder, and last a lateralizing reamer on power. Reaming performed until appropriate chatter attained at size 13. Femoral broaching was then performed until the broach was noted to be stable to rotational stress. The final broach size was 13. The trial head and neck were then placed, and the hip was reduced. The leg length was found to be appropriate and the hip was noted to have excellent stability at flexion/adduction/internal rotation of 90/30/50 using a size 13 femoral stem, 44 mm unipolar head and high offset neck. The hip was dislocated. Calcar planar utilized. The trial components were removed and the femur was well irrigated. A size 13 femoral component was then placed with a high offset neck and 44 mm bipolar femoral head. The hip was then reduced. Again, the leg length was fount to be appropriate and the hip was noted to have excellent stability at flexion/adduction/internal rotation of 90/30/50. There was minimal lateral and longitudinal shuck. The leg was placed on a bump with slight abduction through the remainder of closure. Iodine irrigation soak was performed. The wound was then thoroughly irrigated. The capsule was reattached through bone tunnels with fiberwire and arthrotomy repaired with #1 vicryl. The external rotators were then repaired onto the femur via the same bone tunnels and fiberwire. The sciatic nerve was once again palpated and noted to be supple without tension. The fascial layer was closed with interrupted #0 vicryl then running Quill, deep adipose tissue closed loose with #0 vicryl. Local anesthetic agent was injected. The subcutaneous tissue was then approximated with 2-0 vicryl. The skin was closed with lissett. A sterile dressing was applied to the hip. The patient was then extubated and taken to PACU awake and in stable condition POST OP: ICU hip fracture protocol Geriatrics consult; transfer to keyur floor when stable Multimodal pain control 28 days pharmacologic DVT ppx Ancef 24h WBAT with posterior hip precautions PTOT daily while inpatient Albert Espinoza M.D. 10:37 AM 12/19/2023 PGY-4, [facility] Department of Orthopaedic Surgery and Rehabilitation [facility] - Health 2023-12-18 19:17:05 Name/ MRN / Age / Gender: Denny Goldman, [id number] 83 year old female BMI: Estimated body mass index is 16.97 kg/m? as calculated from the following: Height as of 11/10/23: 1.651 m (5' 5"). Weight as of this encounter: 46.3 kg (102 lb). Allergies: Patient has no known allergies. Last Vitals: BP Readings from Last 1 Encounters: 12/18/23 127/65 Pulse Readings from Last 1 Encounters: 12/18/23 96 SpO2 Readings from Last 1 Encounters: 12/18/23 97% Date of Surgery: 12/19/2023 Surgeon: Kyle Diggs MD Procedure: HIP HEMIARTHROPLASTY (Right: Leg) OR Location: [facility] LOCATION Anesthesia Preop Eval (physical exam) Anesthesia Preop: Chart Review and [id number] [facility] Communication: 83F with PMH of HTN, HLD, cognitive impairment, TIA who presents w R femoral neck fx T&S to be collected. 2u pRBC ordered. Anesthesia History Anesthesia History Negative per Chart Review Previous Anesthetics/Airways Cardiovascular Comments: BP Readings from Last 4 Encounters: 12/18/23 : 127/65 11/10/23 : (!) 179/20 11/10/23 : (!) 179/92 12/10/22 : 131/79 (+) Hypertension (+) Dyslipidemia Pulmonary Pulmonary ROS Negative per Chart Review Comments: Tobacco Use: Low Risk (12/18/2023) Patient History Smoking Tobacco Use: Never Smokeless Tobacco Use: Never Passive Exposure: Not on file Neuro/Musculoskeletal (+) TIA GI/Hepatic Negative GI/Hepatic ROS Hematology Negative Hematology ROS Comments: HGB (g/dL) Date Value 11/10/2023 12.6 11/10/23 1521 PLT 352 Renal Negative Renal ROS Comments: K Date Value Ref Range Status 11/10/2023 4.9 3.5 - 5.0 mmol* Final CREATININE (mg/dL) Date Value 11/10/2023 1.35 (H) Skin Negative Skin ROS (+) Current IV access and 20g Endo/Other Negative Endo/Other ROS Comments: No results found for: "[id number]" Other SCORE CALLER SCORE CALLER N/A Pediatric Pediatric N/A N/A Preoperative Medication Instructions Continue taking all prescribed medications except: HAILEE inhibitors, ARBs, diuretics, all oral diabetes medications Anticoagulant Therapy: Defer to surgeons Insulin: Take 1/2 dose the night prior to surgery. Hold on DOS. Phentermine: Alert [facility] anesthesiologist SGLT2 Inhibitors: "gliflozins" to be held for 3 days prior to elective surgeries GLP1 Agonosit: stop 7 days prior to surgery MAC Cases: Continue taking HAILEE inhibitors and ARBs ASA Classification ASA: 3 Labs: Chemistry 11/10/2023 CBC 11/10/2023 137 100 16 104 10.05 12.6 352 4.9 29 1.35 (H) 40.0 eGFR: 38.8 Date: 11/10/2023 ANC: 7.08 Date: 11/10/2023 LFTs 11/10/2023 Coags AST: 30 AP: 110 Prot: 6.9 Ca: 9.6 PT: - Date: - ALT: 19 T Lloyd: 0.5 Alb: 3.7 PTT: - Date: - PO4: - Date: - INR: - Date: - Cardiac Endocrine & other pBNP: - Date: - A1C: 5.1 Date: 11/10/2023 Trop I: - Date: - POCT A1C: - Date: - CK: - Date: - TSH: 2.27 Date: 11/10/2023 CKMB: - Date: - FT4: 1.01 Date: 11/10/2023 LDL: 102 Date: 11/10/2023 Lact: - Date: - Procal: - Date: - Respiratory -|-|-|-|- D-dimer: - ABG Date: - Date: - Miscellaneous Type and Screen: - Antibody: - Date: - POCT : - Date: - Current Medications: No outpatient medications have been marked as taking for the 12/18/23 encounter (Hospital Encounter). Previous Surgeries: Past Surgical History: Procedure Laterality Date APPENDECTOMY LAPAROSCOPIC TUBAL LIGATION PHACOEMULSIFICATION OF CATARACT WITH INTRAOCULAR LENS IMPLANT Right 10/23/2015 Surgeon: Ángel Bennett MD; Location: [facility] OR [facility] PHACOEMULSIFICATION OF CATARACT WITH INTRAOCULAR LENS IMPLANT Left 01/22/2016 Surgeon: Ángel Bennett MD; Location: [facility] REMOVAL OF OVARY/TUBE(S) Anesthesia Physical Exam General no apparent distress and alert and oriented x 3 Neuro/Psych nonfocal Dental Abdominal (+) scaphoid abdomen Airway Mallampati score:II TM distance:> 5 cm Neck ROM: full Mouth opening:normal Extremity Pulmonary bilateral clear to auscultation Other Cardiovascular Rhythm:regular Rate: normal Anesthesia Plan ASA Status: 3 Plan discussed during pre-op evaluation: General Anesthetic plan on DOS: General Plan to include: IV induction and ETT Anesthesia plan discussed with: patient or sales representative jewelry Post-Operative Analgesia: routine analgesia & antiemetics Recovery Plan: PACU Additional comments: AN-ANESTHESIOLOGY ANESTHESIOLOGIST [facility] 2023-12-18 17:45:28 Problem: Discharge Planning Goal: Adequate for discharge Outcome: Progressing as expected Goal: Effective communication Outcome: Progressing as expected Problem: Falls, Risk of Goal: Absence of falls Outcome: Progressing as expected Problem: Fluid Volume - Imbalanced Goal: Absence of signs and symptoms of imbalanced fluid volume Outcome: Progressing as expected Problem: Infection, Risk of or Actual Goal: Absence of infection Outcome: Progressing as expected Problem: Mental Status - Impaired, Risk of Goal: Mental status restored to baseline Outcome: Progressing as expected Goal: Absence of physical injury Outcome: Progressing as expected [facility] 2023-12-18 12:35:49 Report called to RICKY Cnuha on 1235 @ this time. SHOT GRINDER OPERATOR to place transportation request via [employer] system. Updated patient / family on progress of transfer. Awaiting transportation. Jackson Pino RN [facility] 2023-12-18 11:32:03 Asked MD for order for IV pain and BP medication. Anitra Quesada RN [facility] 2023-12-18 11:20:42 Ortho at bedside. MD Tayo updated family on patient status. T [facility] 2023-12-18 08:17:30 Patient cleaned, placed on purewick, linens changed, provided warm blankets for comfort. Patient now Aaox3. Patient appropriately states her name, , aware she's at the hospital and that she had a fall, unable to answer the year states "I dont know." Patient endorses right hip pain. T [facility] 2023-12-18 07:25:00 Patient to radiology. T [facility] 2023-12-18 07:03:49 Ortho at bedside. T [facility] 2023-12-18 07:00:00 Received report from RICKY Campos. Patient laying in bed, Aaox2, Hx of dementia, patient complaining of pain, RR e/u on RA. T [facility] 2023-12-18 06:40:49 Denny Goldman is a 83 year old female here today bib EMS as a REFERRAL for Ortho s/p mechanical fall. Pt has a right hip fracture. Pt arrived on stretcher with 22g PIV to R AC. Pt fell while at home 2 days ago. Then today she fell off couch. -LOC. Pt is A&Ox2. PMH: Alzheimer's. Pt to room for evaluation. Ortho resident paged and advised of pt's arrival to ED. Hallie Duvall RN [facility] 2023-12-18 06:36:00 [facility] Emergency Department Note Patient Name: Denny Goldman Date of : 1940 83 year old female Treatment Room: 120/120 Primary Care Physician: Bonnie Langford Patient Escorted by: Self [9] Mode of Arrival: EMS - Other [35] ([facility]) EMS Treatment Prior to ED Arrival: MECHANIST treatment: None Travel and Exposure Screening: Symptoms Does patient have any of these symptoms?: (not recorded) Exposure Screening Has patient had contact with someone with a communicable disease in the last month?: (not recorded) Diseases exposed to:: (not recorded) Is Patient ?: (not recorded) Exposure Date: (not recorded) Chief Complaint: Chief Complaint Patient presents with REFERRAL History of Present Illness: Pt here for fall Transferred from [place], pt fell two days ago, pt seen and treated in the OSH, they found her to have hip fx Pt has right hip pain She was ambulatory prior to fall No family here, pt arrived complaining of being cold and having hip pain, poor insight into reason for transfer Only paperwork was nursing documentation, I could not find any disk (Ortho may have it as they were accepting service) Past Medical History/Immunizations: Past Medical History: Diagnosis Date Cataract Hyperlipidemia Hyperlipidemia 06/13/2015 Hypertension TIA (transient ischemic attack) Tetanus received in last 5 years: Unknown Childhood immunizations: Up-to-date Allergies: No Known Allergies Past Social History: Tobacco Use Never smoked or used smokeless tobacco. Alcohol Use No. Drug Use No. Past Surgical History: Past Surgical History: Procedure Laterality Date APPENDECTOMY LAPAROSCOPIC TUBAL LIGATION PHACOEMULSIFICATION OF CATARACT WITH INTRAOCULAR LENS IMPLANT Right 10/23/2015 Surgeon: Ángel Bennett MD; Location: [facility] OR [facility] PHACOEMULSIFICATION OF CATARACT WITH INTRAOCULAR LENS IMPLANT Left 01/22/2016 Surgeon: Ángel Bennett MD; Location: [facility] OR [facility] REMOVAL OF OVARY/TUBE(S) Review of Systems: Review of Systems Unable to perform ROS: Dementia All other systems reviewed and are negative. Physical Exam: ED Triage Vitals [12/18/23 0638] Weight 46.3 kg (102 lb) Actual or estimated Height BP (!) 155/89 Pulse 74 Resp 18 Temp 37 ?C (98.6 ?F) Temp source Oral SpO2 97 % Measured on Room air Physical Exam Vitals and nursing note reviewed. Constitutional: Comments: Thin frail HENT: Head: Normocephalic. Right Ear: External ear normal. Left Ear: External ear normal. Nose: Nose normal. Mouth/Throat: Mouth: Mucous membranes are moist. Eyes: Extraocular Movements: Extraocular movements intact. Pupils: Pupils are equal, round, and reactive to light. Cardiovascular: Rate and Rhythm: Normal rate. Pulmonary: Effort: Pulmonary effort is normal. Abdominal: General: Abdomen is flat. Palpations: Abdomen is soft. Musculoskeletal: General: Tenderness and deformity present. Cervical back: Normal range of motion. Comments: Right leg shorter, right hip tender to palpation Skin: General: Skin is warm. Capillary Refill: Capillary refill takes less than 2 seconds. Neurological: General: No focal deficit present. Mental Status: She is alert. Motor: No weakness. Comments: No focal weakness, oriented to person, place and month Radiology: No orders to display Lab Results: Lab Results - No data to display EKG: If EKG completed, see Procedure Note. Orders and Treatments: Orders Placed This Encounter Procedures XR HIPS 2 VW RIGHT XR PELVIS <3 VW XR FEMUR 2 VW RIGHT No orders of the defined types were placed in this encounter. First Provider Eval: ED Events Date/Time Event User Comments 12/18/23 0706 Medical Screening Begins VIANNEY FOURNIER MD -- 12/18/23 0706 First Provider Evaluation VIANNEY FOURNIER MD -- ED COURSE Diagnosis/Impression as of 12/18/23 0849 Hip fx, right, closed, initial encounter Procedures: Procedures MDM: Medical Decision Making Pt here for fall Transferred from [place], pt fell two days ago, pt seen and treated in the OSH, they found her to have hip fx Pt has right hip pain She was ambulatory prior to fall No family here, pt arrived complaining of being cold and having hip pain, poor insight into reason for transfer Only paperwork was nursing documentation, I could not find any disk (Ortho may have it as they were accepting service) Ddx fracture dislocation intertrochanteric vs pubic ramus Ortho is at bedside This pt was transferred for higher level ofcare Risk Decision regarding hospitalization. Risk Details: Ortho was at bedside for their transfer, pt has hip fx, was admitted to ortho ICU for treatment Flowsheet Documentation: Scoring Tools: No data recorded Disposition/Condition: ED Disposition None Discharge Medications: Patient's Medications START taking these medications No medications on file CONTINUE taking these medications which have NOT CHANGED AMLODIPINE 5 MG TABLET Take 1 tablet by mouth in the morning. ATORVASTATIN 10 MG TABLET TAKE 1 TABLET BY MOUTH AT BEDTIME CALCIUM CARBONATE 500 MG CALCIUM (1,250 MG) TABLET Take 1 tablet by mouth in the morning. DONEPEZIL 5 MG TABLET Take 1 tablet by mouth at bedtime. ERGOCALCIFEROL, VITAMIN D2, (VITAMIN D2) 1,250 MCG (50,000 UNIT) CAPSULE Take 1 capsule by mouth weekly. LISINOPRIL 20 MG TABLET Take 1 tablet by mouth in the morning. MIRTAZAPINE 15 MG TABLET Take 1 tablet by mouth at bedtime. PYRIDOXINE, VITAMIN B6, 50 MG TABLET Take 1 tablet by mouth in the morning. VITAMIN B-12 1,000 MCG TABLET Take 1 tablet by mouth in the morning. START taking Modified Medications as Prescribed No medications on file STOP taking these medications No medications on file Follow-up: Electronically signed by: Vianney Fournier MD 12/18/23848 T [facility] 2023-11-10 15:30:00 Images from the original note were not included. Patient unable to void, sent home with kit. Will bring back urine tomorrow morning. Venipuncture collection performed by clean technique on the left anticubitus. Total of 1 attempts were made. Slight pressure and a bandage/dressing were applied to the site(s). The patient experienced no complications. The following specimens were processed according to instructions and sent to [facility] laboratories per lab order on today: LT BLUE SST 2 RED LAV 2 PPT DK GREEN (LiHep) DK GREEN (SodH) AMATO DK BLUE (K2) DK BLUE (S) ACD Blood Culture NIPT/NTD ] [facility] 2023-11-10 15:30:00 Images from the original note were not included. Patient has been identified by and name and was provided with cup, antiseptic towelette, and clean catch instructions. 2 urine specimen(s) sent. Unpreserved 1 Urine Culture 1 Aptima tube Other urine [facility] 2023-11-10 14:40:00 Labs is relatively normal, continue with plan of care as discussed [facility] 2023-03-11 10:19:15 Last OV:12/10/[address] Langford Last Refill:12/[address] Langford Last Labs Pertaining to Med:N/A Future Appt:03/23/[address] Langford Refill request for mirtazapine and donepezil refilled per ambulatory refill guidelines. T [facility]
[2024-11-06 13:22] LABS: Absolute Basophils 0.1 K/uL (0-0.5); Absolute Lymphocytes (CBC) 1.1 K/uL (0.7-4.9); Absolute Monocytes 0.6 K/uL (0.1-1.3); Basophils % 0.7 % (0-1.3); Eosinophils % 0.1 % (0-4.4); Hematocrit 35.5 % (36.0-45.0); Hemoglobin 12.1 g/dL (12.0-15.0); MCH 30.4 pg (27.0-35.0); MCV 89.4 fL (80-100); MPV 7.9 fL (7.6-11.3); Monocytes % 7.2 % (3.3-12.3); Nucleated Red Blood Cells % 0.1 % (0-0); Platelets 401 thou/uL (152-406); RBC Red Blood Cell Count 3.97 M/uL (3.86-4.86); Red Cell Distribution Width 14.4 % (12.1-15.2)
[2024-11-06 13:25] LABS: PT Prothrombin Time 10.1 SECONDS (10-13.0); PTT, Activated Partial Thromb 25.9 SECONDS (27.2-37.4); Protime INR 0.88
[2024-11-06 13:34] LABS: Anion Gap 9.1 mEq/L (5.0-15.0); Potassium 3.1 mEq/L (3.5-5.1); Troponin High Sensitivity 19.8 pg/mL (<58.9)
--- NOTE | 2024-11-06 13:57 | RAD REPORT ---
EXAM: CT brain without contrast HISTORY: Aphasia . COMPARISON: 2021 TECHNIQUE: Multiple contiguous axial images were obtained and a CT of the brain without contrast. Sagittal and coronal reformats were performed. Automated exposure control, adjustment of the mA and/or kV according to patient size, and/or itera tive reconstruction. Unless otherwise specified, incidental findings do not require dedicated imaging follow-u FINDINGS: An intracranial bleed is not seen Moderate to large area of cystic encephalomalacia right cerebrum unchanged. Ventricles are normal caliber No extra-axial fluid collection noted No fluid within the visualized sinuses or mastoids noted. IMPRESSION: No acute intracranial abnormality noted. Exam was discussed with Priyank in the Emergency Room 1:05 PM November 06, 2024 If the patient's symptoms persist MRI of the brain would be recommended.
--- NOTE | 2024-11-06 14:11 | RAD REPORT ---
EXAMINATION: Neck Angio CLINICAL INDICATION: Aphasia TECHNIQUE: Axial CT images were obtained from the aortic arch to the skull base after intravenous adm inistration of 100 cc Isovue-370 utilizing angiographic protocol. Multiplanar reformats, as well as 3D post-processing (maximum intensity projection images, volume rendered images and/or shaded surface rendered images) were generated and reviewed. One or more of the following dose reduction techniques were used: Automated exposure control, adjustment of the mA and/or kV according to patient size, and/or iterative reconstruction. Unless otherwise specified, incidental findings do not require dedicated imaging follow-up. COMPARISON: No prior exam. FINDINGS: The visualized aortic arch and great vessels do not demonstrate a significant abnormality Evaluation of the right carotid bulb/proximal internal carotid arteries is suboptimal secondary to ar tifact. Calcified plaque right carotid bulb. Calcified plaque left carotid bulb/proximal left internal carotid artery appears mild. Mild plaque remainder of the carotid arteries.. Vertebral arteries unremarkable Methods for NASCET criteria: Calcified plaque probably results in Mild stenosis, 0% to 49%; Moderate stenosis 50% to 69%; Severe stenosis, 70% to 99% IMPRESSION: Suboptimal evaluation of the right carotid bulb/proximal right internal carotid artery. Calcified beau que results in either a moderate or severe stenosis.
--- NOTE | 2024-11-06 14:11 | RAD REPORT ---
EXAMINATION: CTA HEAD CLINICAL INDICATION: Aphasia TECHNIQUE: Axial CT images were obtained through the head after 100 cc Isovue-370 intravenous contras t utilizing angiographic protocol with 3D post-processing (maximum intensity projection images, volume rendered images and/or shaded surface rendered images). One or more of the following dose red uction techniques were used: Automated exposure control, adjustment of the mA and/or kV according to patient size, and/or iterative reconstruction. Unless otherwise specified, incidental findings do not require dedicated imaging follow-up. 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 No significant stenosis involving remainder of the distal internal carotid, anterior cerebral, middle cerebral, posterior cerebral and basilar arteries. An aneurysm not noted. No large vessel occlusion IMPRESSION: No acute vascular abnormality displayed
--- NOTE | 2024-11-06 14:27 | RAD REPORT ---
Procedure: Chest Single View HISTORY: Cough COMPARISON: 2021 FINDINGS: The lungs appear clear of acute infiltrate. No significant pleural effusion noted. The heart is normal size. IMPRESSION: No acute abnormality is displayed.
[2024-11-06 17:02] LABS: Specific Gravity > 1.030 (1.005-1.030); Urine Bacteria <20 /HPF (<20); Urine Bilirubin NEGATIVE (Negative); Urine Blood 1+ (Negative); Urine Clarity Extremely Turbid (Clear); Urine Color Light-Yellow (Yellow); Urine Glucose NEGATIVE (Negative); Urine Ketones NEGATIVE (Negative); Urine Micro Reflex YN NO BILL MICROSCOPIC; Urine Mucus Slight /HPF (None Seen); Urine Nitrite NEGATIVE (Negative); Urine Protein TRACE (Negative); Urine RBC 21-50 /HPF (None Seen); Urine Urobilinogen Normal (Normal); Urine WBC Clump Rare /HPF (None Seen); Urine Yeast (Budding) Trace /HPF (None Seen)
--- NOTE | 2024-11-06 17:35 | ER ---
Nurse's Notes [facility] Name: Ileana Goldman Age: 84 yrs Sex: Female : 1940 Arrival Date: 11/06/2024 Time: 12:46 Bed 3 Private MD: Diagnosis: Confusional arousals Presentation: 11/06 12:50 Chief complaint: Granddaughter reports last known normal last night at 2100. jl7 12:50 Coronavirus screen: At this time, the client does not indicate any symptoms associated jl7 with coronavirus-19. Ebola Screen: No symptoms or risks identified at this time. An acute neurological deficit is present. The charge nurse has been notified. The patient has been moved to a treatment area. Pre-hospital glucose is not applicable to this patient. Initial Sepsis Screen: Does the patient meet any 2 criteria? No. Patient's initial sepsis screen is negative. Does the patient have a suspected source of infection? No. Patient's initial sepsis screen is negative. Risk Assessment: Do you want to hurt yourself or someone else? Patient reports no desire to harm self or others. Onset of symptoms is unknown. 12:50 Method Of Arrival: Wheelchair jl7 12:50 Acuity: OPAL 2 jl7 Triage Assessment: 12:50 The onset of the patients symptoms was November 05, 2024 at 21:00. General: Appears in no jl7 apparent distress. uncomfortable, Behavior is cooperative, anxious. Pain: Denies pain. Neuro: Level of Consciousness is awake, alert, obeys commands, confused, Oriented to person, Reports weakness. Stroke Activation: Symptom onset > 6 hours Physician: ED Attending; Name: Dante; Notified At: ; Arrived At: Physician: Mid-Level Provider; Name: ; Notified At: ; Arrived At: Physician: [not used]; Name: ; Notified At: ; Arrived At: Physician: [not used]; Name: ; Notified At: ; Arrived At: Physician: [not used]; Name: ; Notified At: ; Arrived At: Historical: - Allergies: 13:30 No Known Allergies; jl7 Screenin:30 VAN Screening: Arm Drift: Patient shows no arm weakness. Visual Disturbance: No visual es3 disturbance noted. Aphasia: Expressive aphasia noted. Provider notified of +VAN scoring. Neglect: No neglect noted. 13:35 [place] Swallow Protocol Exclusion Criteria: Exclusion Criteria Result: Proceed Brief es3 Cognitive Screen What is your name? Normal, Where are you right now? Abnormal What year is it? Normal. Oral Mechanism Examination Facial Symmetry: Normal, Motion: Normal, Lip Closure: Normal, Oral Mechanism Result: Normal. 3 oz Water Swallow Challenge: Pt able to drink all water without stopping, coughing, choking or throat clearing: Yes Result: PASS MD Notified: Eliecer Howell MD. Assessment: 13:30 VAN Scoring: Arm Drift: Patients demonstrates NO arm weakness. Patient is VAN Negative. bp Visual Disturbance: No visual disturbance noted. Aphasia: No aphasia noted. Neglect: No neglect noted. TNKase (Tenecteplase) Screening: Contraindications: Rapidly improving condition or minor deficit:. 15:00 Reassessment: Patient appears in no apparent distress at this time. Patient is alert, bp oriented x 3, equal unlabored respirations, skin warm/dry/pink. 17:30 Reassessment: Patient appears in no apparent distress at this time. Patient and/or hb family updated on plan of care and expected duration. Pain level reassessed. Vital Signs: 12:50 BP 177 / 77; Pulse 73; Resp 14; Pulse Ox 100% ; jl7 14:50 BP 164 / 74; Pulse 71; Resp 16; Pulse Ox 99% ; bp 17:15 BP 156 / 76; Pulse 72; Resp 15; Pulse Ox 99% on R/A; hb NIH Stroke Scale Scores: 13:30 NIHSS Score: 2 es3 13:30 NIHSS Score: 1 bp 13:31 NIHSS Score: 1 jj9 15:00 NIHSS Score: 1 bp ED Course: 12:50 Patient arrived in ED. im 12:50 Arm band placed on right wrist. jl7 12:53 Eliecer Howell MD is Attending Physician. jj9 13:05 Jj Benton, RICKY is Primary Nurse. bp 13:08 Initial lab(s) drawn, by ED staff, sent to lab. Inserted saline lock: 22 gauge in left bp antecubital area, using aseptic technique. Blood collected. Flushed with 10 mL NS. 13:26 Ct Stroke Brain Wo Cont In Process Unspecified. EDMS 13:30 CT Neck Angio In Process Unspecified. EDMS 13:30 Triage completed. jl7 13:31 CT Head Angio In Process Unspecified. EDMS 13:38 Stroke CXR 1 View In Process Unspecified. EDMS 15:01 Patient has correct armband on for positive identification. bp 16:56 Straight cath inserted, using sterile technique, 14 Fr. Specimen obtained. Returned hb clear yellow urine. Patient tolerated well. 16:58 UA W/ Microscopic Sent. hb 17:51 No provider procedures requiring assistance completed. IV discontinued, intact, hb bleeding controlled, No redness/swelling at site. Pressure dressing applied. Administered Medications: No medications were administered Point of Care Testing: Blood Glucose: 13:07 Blood Glucose: 113 mg/dL; bp Ranges: Outcome: 17:35 Discharge ordered by jj9 17:51 Discharged to home via wheelchair, hb 17:51 Condition: stable 17:51 Discharge instructions given to patient, salesperson wigs, Instructed on discharge instructions, follow up and referral plans. Demonstrated understanding of instructions, follow-up care, 17:52 Patient left the ED. hb NIH Stroke Scale - NIH Stroke Score Date: 11/06/2024 Time: 13:30 Total Score = 2 10. Dysarthria (speech clarity - read or repeat words) - 0(Normal) 11. Extinction and Inattention (visual/tactile/auditory/spatial/personal) - 0(No abnormality) 1a. Level of Consciousness (LOC) - 0(Alert) 1b. Level of Consciousness (LOC) (Month \T\ Age) - 1(One) 1c. LOC Commands (Open \T\ Closes Eyes/Analytics Analyst) - 0(Both) 2. Best Gaze (Lateral Gaze Paresis) - 0(Normal) 3. Visual Field Loss - 0(No visual loss) 4. Facial Palsy - 0(Normal) 5a. Left Arm: Motor (10-second hold) - 0(No drift) 5b. Right Arm: Motor (10-second hold) - 0(No drift) 6a. Left Leg: Motor (5-second hold - always test supine) - 0(No drift) 6b. Right Leg: Motor (5-second hold - always test supine) - 0(No drift) 7. Limb Ataxia (finger/nose \T\ heel/inman - test with eyes open) - 0(Absent) 8. Sensory Loss (pinprick arms/legs/face) - 0(Normal) 9. Best Language: Aphasia (description/naming/reading) - 1(Mild to moderate aphasia) Initials: es3 NIH Stroke Scale - NIH Stroke Score Date: 11/06/2024 Time: 13:30 Total Score = 1 10. Dysarthria (speech clarity - read or repeat words) - 0(Normal) 11. Extinction and Inattention (visual/tactile/auditory/spatial/personal) - 0(No abnormality) 1a. Level of Consciousness (LOC) - 0(Alert) 1b. Level of Consciousness (LOC) (Month \T\ Age) - 1(One) 1c. LOC Commands (Open \T\ Closes Eyes/Analytics Analyst) - 0(Both) 2. Best Gaze (Lateral Gaze Paresis) - 0(Normal) 3. Visual Field Loss - 0(No visual loss) 4. Facial Palsy - 0(Normal) 5a. Left Arm: Motor (10-second hold) - 0(No drift) 5b. Right Arm: Motor (10-second hold) - 0(No drift) 6a. Left Leg: Motor (5-second hold - always test supine) - 0(No drift) 6b. Right Leg: Motor (5-second hold - always test supine) - 0(No drift) 7. Limb Ataxia (finger/nose \T\ heel/inman - test with eyes open) - 0(Absent) 8. Sensory Loss (pinprick arms/legs/face) - 0(Normal) 9. Best Language: Aphasia (description/naming/reading) - 0(No aphasia) Initials: bp NIH Stroke Scale - NIH Stroke Score Date: 11/06/2024 Time: 13:31 Total Score = 1 10. Dysarthria (speech clarity - read or repeat words) - 0(Normal) 11. Extinction and Inattention (visual/tactile/auditory/spatial/personal) - 0(No abnormality) 1a. Level of Consciousness (LOC) - 0(Alert) 1b. Level of Consciousness (LOC) (Month \T\ Age) 1c. LOC Commands (Open \T\ Closes Eyes/Analytics Analyst) - 1(One) 2. Best Gaze (Lateral Gaze Paresis) - 0(Normal) 3. Visual Field Loss - 0(No visual loss) 4. Facial Palsy - 0(Normal) 5a. Left Arm: Motor (10-second hold) - 0(No drift) 5b. Right Arm: Motor (10-second hold) - 0(No drift) 6a. Left Leg: Motor (5-second hold - always test supine) - 0(No drift) 6b. Right Leg: Motor (5-second hold - always test supine) - 0(No drift) 7. Limb Ataxia (finger/nose \T\ heel/inman - test with eyes open) - 0(Absent) 8. Sensory Loss (pinprick arms/legs/face) - 0(Normal) 9. Best Language: Aphasia (description/naming/reading) - 0(No aphasia) Initials: [email or web address] NIH Stroke Scale - NIH Stroke Score Date: 11/06/2024 Time: 15:00 Total Score = 1 10. Dysarthria (speech clarity - read or repeat words) - 0(Normal) 11. Extinction and Inattention (visual/tactile/auditory/spatial/personal) - 0(No abnormality) 1a. Level of Consciousness (LOC) - 0(Alert) 1b. Level of Consciousness (LOC) (Month \T\ Age) - 1(One) 1c. LOC Commands (Open \T\ Closes Eyes/Analytics Analyst) - 0(Both) 2. Best Gaze (Lateral Gaze Paresis) - 0(Normal) 3. Visual Field Loss - 0(No visual loss) 4. Facial Palsy - 0(Normal) 5a. Left Arm: Motor (10-second hold) - 0(No drift) 5b. Right Arm: Motor (10-second hold) - 0(No drift) 6a. Left Leg: Motor (5-second hold - always test supine) - 0(No drift) 6b. Right Leg: Motor (5-second hold - always test supine) - 0(No drift) 7. Limb Ataxia (finger/nose \T\ heel/inman - test with eyes open) - 0(Absent) 8. Sensory Loss (pinprick arms/legs/face) - 0(Normal) 9. Best Language: Aphasia (description/naming/reading) - 0(No aphasia) Initials: bp Signatures: Dispatcher [employer] EDMaite Dotson RN RN hb Leal, Jahala, RN RN jl7 Jj Benton RN RN bp Mendoza, Itzel im Stanley, Emily, RN RN es3 Eliecer Howell MD MD jj9 Corrections: (The following items were deleted from the chart) 13:06 13:05 PMHx: CVA; jj9 jj9 13:06 13:05 PMHx: Hypertensive disorder; jj9 jj9 13:06 13:05 PMHx: Alzheimer's disease; jj9 jj9 13:31 13:30 Allergies: No Known Allergies; jl7 jl7 14:59 14:50 BP 129 / 112; Pulse 71bpm; Resp 16bpm; Pulse Ox 99%; bp bp
--- NOTE | 2024-11-06 17:35 | EDPHYS ---
Physician Documentation [facility] Name: Ileana Goldman Age: 84 yrs Sex: Female : 1940 Arrival Date: 11/06/2024 Time: 12:46 Bed 3 Private MD: ED Physician Eliecer Howell HPI: 11/06 18:30 This 84 yrs old Female presents to ER via Wheelchair with complaints of S/S of Possible jj9 Stroke. 13:05 The patient's problem is reported as altered mental status, disoriented to confused. jj9 13:06 84-year-old female comes to the emergency department by family members for evaluation jj9 of altered mental status. According to the daughter the patient has history of Alzheimer's dementia, hypertension and a minor stroke in the past. She was last normal last night at 9 PM when she usually goes to sleep. According to the daughter the patient has been restless all night she checked on her at 1 AM and she was awake she checked on her again at 4 AM and the patient was awake and sitting on a couch she got UP multiple times to the bathroom and this morning around 8 AM appear wobbly on her gait and more confused on her speech to the point that the daughter couldn't understand very much, like speaking a different language. She was able to have breakfast and she was found later outside in the grass. She was brought back in and was assisted by daughter and granddaughter and brought to the emergency department for evaluation.. Historical: - Allergies: 13:30 No Known Allergies; jl7 ROS: 13:10 Unable to obtain ROS due to altered mental status, baseline dementia, jj9 18:31 All other systems are negative, jj9 Exam: 13:28 Constitutional: This is a well developed, well nourished patient who is awake, alert, jj9 and in no acute distress. Head/Face: Normocephalic, atraumatic. Eyes: Pupils equal round and reactive to light, extra-ocular motions intact. Lids and lashes normal. Conjunctiva and sclera are non-icteric and not injected. Cornea within normal limits. Periorbital areas with no swelling, redness, or edema. ENT: Nares patent. No nasal discharge, no septal abnormalities noted. Tympanic membranes are normal and external auditory canals are clear. Oropharynx with no redness, swelling, or masses, exudates, or evidence of obstruction, uvula midline. Mucous membranes moist. Neck: Trachea midline, no thyromegaly or masses palpated, and no cervical lymphadenopathy. Supple, full range of motion without nuchal rigidity, or vertebral point tenderness. No Meningismus. Chest/axilla: Normal chest wall appearance and motion. Nontender with no deformity. No lesions are appreciated. Cardiovascular: Regular rate and rhythm with a normal S1 and S2. No gallops, murmurs, or rubs. Normal PMI, no JVD. No pulse deficits. Respiratory: Lungs have equal breath sounds bilaterally, clear to auscultation and percussion. No rales, rhonchi or wheezes noted. No increased work of breathing, no retractions or nasal flaring. Abdomen/GI: Soft, non-tender, with normal bowel sounds. No distension or tympany. No guarding or rebound. No evidence of tenderness throughout. Back: No spinal tenderness. No costovertebral tenderness. Full range of motion. Skin: Warm, dry with normal turgor. Normal color with no rashes, no lesions, and no evidence of cellulitis. MS/ Extremity: Pulses equal, no cyanosis. Neurovascular intact. Full, normal range of motion. Neuro: Awake and alert, oriented to person. Cranial nerves II-XII grossly intact. Motor strength 5/5 in all extremities. Sensory grossly intact. Psych: Awake, alert, Behavior, mood, and affect are within normal limits. 18:31 Radiologist reports: no acute findings. Vital Signs: 12:50 BP 177 / 77; Pulse 73; Resp 14; Pulse Ox 100% ; jl7 14:50 BP 164 / 74; Pulse 71; Resp 16; Pulse Ox 99% ; bp 17:15 BP 156 / 76; Pulse 72; Resp 15; Pulse Ox 99% on R/A; hb NIH Stroke Scale Scores: 13:30 NIHSS Score: 2 es3 13:30 NIHSS Score: 1 bp 13:31 NIHSS Score: 1 jj9 15:00 NIHSS Score: 1 bp MDM: 12:53 Medical Screening Exam initiated 18:31 Data reviewed: vital signs, nurses notes, lab test result(s), radiologic studies, CT scan. 18:33 TNKase (Tenecteplase) Screening: Not Applicable. jj9 18:34 Consideration of Admission/Observation. Historians other than the Patient: jj9 Daughter/Son: Daughter . ED course: The patient remained hemodynamically stable awake and alert responding to questions. Baseline dementia but no obvious focal findings on exam other than disorientation. Daughter at bedside now, she explains the patient appears at her baseline and she has these episodic confusional states. Workup as discussed above no acute findings on CT scan and CT angiography of the head and neck. Rest of the workup is unremarkable. Daughter would like to take the patient home she does not want any further workup we have discussed the possibility of subtle strokes that will require MRI or even further testing, we also discussed further treatments including neurological evaluation. The daughter reports that the patient seems at baseline and she will prefer to take the patient home and follow-up with her PCP. Advised to continue home medications, follow with PCP and return to the if worsening of symptoms or any other problems.. 11/06 13:11 Order name: Basic Metabolic Panel; Complete Time: 14:38 [facility] 11/06 14:39 Interpretation: Abnormal: K3.1, GFR 44, creat 1.20. 11/06 13:11 Order name: CBC with Diff; Complete Time: 14:38 11/06 14:39 Interpretation: Within normal limits. 11/06 13:11 Order name: High Sensitivity Troponin; Complete Time: 14:38 11/06 14:40 Interpretation: Within normal limits. 11/06 13:11 Order name: Protime (+inr); Complete Time: 14:38 11/06 14:40 Interpretation: Within normal limits. j11/06 13:11 Order name: Ptt, Activated; Complete Time: 14:38 11/06 14:39 Interpretation: Within normal limits. 11/06 13:17 Order name: Glucose, Ancillary Testing; Complete Time: 14:38 EDMS 11/06 14:40 Interpretation: Within normal limits. 11/06 14:50 Order name: UA W/ Microscopic; Complete Time: 17:29 11/06 13:11 Order name: Stroke CXR 1 View; Complete Time: 14:38 11/06 14:40 Interpretation: No acute disease. 11/06 13:17 Order name: CT Head Angio; Complete Time: 14:38 11/06 14:40 Interpretation: No acute disease. 11/06 13:17 Order name: CT Neck Angio; Complete Time: 14:38 11/06 14:40 Interpretation: No acute disease. 11/06 13:18 Order name: Ct Stroke Brain Wo Cont; Complete Time: 14:38 [facility] 11/06 14:41 Interpretation: No acute disease. 11/06 13:11 Order name: EKG; Complete Time: 13:12 11/06 13:11 Order name: Accucheck; Complete Time: 13:17 11/06 13:11 Order name: Cardiac monitoring; Complete Time: 13:17 11/06 13:11 Order name: EKG - Nurse/Tech; Complete Time: 13:17 11/06 13:11 Order name: IV Saline Lock; Complete Time: 13:17 11/06 13:11 Order name: Labs collected and sent; Complete Time: 13:11/06 13:11 Order name: NPO; Complete Time: 13:17 11/06 13:11 Order name: O2 Per Protocol; Complete Time: 13:17 11/06 13:11 Order name: O2 Sat Monitoring; Complete Time: 13:17 11/06 13:11 Order name: Stroke Swallow Screen; Complete Time: 13:17 Administered Medications: No medications were administered Point of Care Testing: Blood Glucose: 13:07 Blood Glucose: 113 mg/dL; bp Ranges: Critical Glucose Levels:Adult <50 mg/dl or >400 mg/dl <40 mg/dl or >180 mg/dl Disposition: 18:37 Co-signature as Attending Physician, Eliecer Howell MD. 9 Disposition Summary: 11/06/24 17:35 Discharge Ordered Notes: Location: Home jj9 Problem: an ongoing problem jj9 Condition: Stable jj9 Diagnosis - Confusional arousals jj9 Followup: jj9 - With: Private Physician - When: Upon discharge from the Emergency Department - Reason: Discharge Instructions: - Discharge Summary Sheet j9 - Confusion jj9 Forms: - Medication Reconciliation Form jj9 - Antibiotic Education jj9 - Prescription Opioid Use jj9 - Patient Portal Instructions jj9 - Leadership Thank You Letter jj9 NIH Stroke Scale - NIH Stroke Score Date: 11/06/2024 Time: 13:30 Total Score = 2 10. Dysarthria (speech clarity - read or repeat words) - 0(Normal) 11. Extinction and Inattention (visual/tactile/auditory/spatial/personal) - 0(No abnormality) 1a. Level of Consciousness (LOC) - 0(Alert) 1b. Level of Consciousness (LOC) (Month \T\ Age) - 1(One) 1c. LOC Commands (Open \T\ Closes Eyes/Emergency Response Coordinator) - 0(Both) 2. Best Gaze (Lateral Gaze Paresis) - 0(Normal) 3. Visual Field Loss - 0(No visual loss) 4. Facial Palsy - 0(Normal) 5a. Left Arm: Motor (10-second hold) - 0(No drift) 5b. Right Arm: Motor (10-second hold) - 0(No drift) 6a. Left Leg: Motor (5-second hold - always test supine) - 0(No drift) 6b. Right Leg: Motor (5-second hold - always test supine) - 0(No drift) 7. Limb Ataxia (finger/nose \T\ heel/inman - test with eyes open) - 0(Absent) 8. Sensory Loss (pinprick arms/legs/face) - 0(Normal) 9. Best Language: Aphasia (description/naming/reading) - 1(Mild to moderate aphasia) Initials: es3 NIH Stroke Scale - NIH Stroke Score Date: 11/06/2024 Time: 13:30 Total Score = 1 10. Dysarthria (speech clarity - read or repeat words) - 0(Normal) 11. Extinction and Inattention (visual/tactile/auditory/spatial/personal) - 0(No abnormality) 1a. Level of Consciousness (LOC) - 0(Alert) 1b. Level of Consciousness (LOC) (Month \T\ Age) - 1(One) 1c. LOC Commands (Open \T\ Closes Eyes/Emergency Response Coordinator) - 0(Both) 2. Best Gaze (Lateral Gaze Paresis) - 0(Normal) 3. Visual Field Loss - 0(No visual loss) 4. Facial Palsy - 0(Normal) 5a. Left Arm: Motor (10-second hold) - 0(No drift) 5b. Right Arm: Motor (10-second hold) - 0(No drift) 6a. Left Leg: Motor (5-second hold - always test supine) - 0(No drift) 6b. Right Leg: Motor (5-second hold - always test supine) - 0(No drift) 7. Limb Ataxia (finger/nose \T\ heel/inman - test with eyes open) - 0(Absent) 8. Sensory Loss (pinprick arms/legs/face) - 0(Normal) 9. Best Language: Aphasia (description/naming/reading) - 0(No aphasia) Initials: bp NIH Stroke Scale - NIH Stroke Score Date: 11/06/2024 Time: 13:31 Total Score = 1 10. Dysarthria (speech clarity - read or repeat words) - 0(Normal) 11. Extinction and Inattention (visual/tactile/auditory/spatial/personal) - 0(No abnormality) 1a. Level of Consciousness (LOC) - 0(Alert) 1b. Level of Consciousness (LOC) (Month \T\ Age) 1c. LOC Commands (Open \T\ Closes Eyes/Emergency Response Coordinator) - 1(One) 2. Best Gaze (Lateral Gaze Paresis) - 0(Normal) 3. Visual Field Loss - 0(No visual loss) 4. Facial Palsy - 0(Normal) 5a. Left Arm: Motor (10-second hold) - 0(No drift) 5b. Right Arm: Motor (10-second hold) - 0(No drift) 6a. Left Leg: Motor (5-second hold - always test supine) - 0(No drift) 6b. Right Leg: Motor (5-second hold - always test supine) - 0(No drift) 7. Limb Ataxia (finger/nose \T\ heel/inman - test with eyes open) - 0(Absent) 8. Sensory Loss (pinprick arms/legs/face) - 0(Normal) 9. Best Language: Aphasia (description/naming/reading) - 0(No aphasia) Initials: jj9 NIH Stroke Scale - NIH Stroke Score Date: 11/06/2024 Time: 15:00 Total Score = 1 10. Dysarthria (speech clarity - read or repeat words) - 0(Normal) 11. Extinction and Inattention (visual/tactile/auditory/spatial/personal) - 0(No abnormality) 1a. Level of Consciousness (LOC) - 0(Alert) 1b. Level of Consciousness (LOC) (Month \T\ Age) - 1(One) 1c. LOC Commands (Open \T\ Closes Eyes/Emergency Response Coordinator) - 0(Both) 2. Best Gaze (Lateral Gaze Paresis) - 0(Normal) 3. Visual Field Loss - 0(No visual loss) 4. Facial Palsy - 0(Normal) 5a. Left Arm: Motor (10-second hold) - 0(No drift) 5b. Right Arm: Motor (10-second hold) - 0(No drift) 6a. Left Leg: Motor (5-second hold - always test supine) - 0(No drift) 6b. Right Leg: Motor (5-second hold - always test supine) - 0(No drift) 7. Limb Ataxia (finger/nose \T\ heel/inman - test with eyes open) - 0(Absent) 8. Sensory Loss (pinprick arms/legs/face) - 0(Normal) 9. Best Language: Aphasia (description/naming/reading) - 0(No aphasia) Initials: bp Signatures: Dispatcher [employer] EDMS Naman Hui RN RN jl7 Eliecer Howell MD MD jj9 Corrections: (The following items were deleted from the chart) 13:06 13:05 PMHx: CVA; jj9 jj9 13:06 13:05 PMHx: Hypertensive disorder; jj9 jj9 13:06 13:05 PMHx: Alzheimer's disease; jj9 jj9 13:12 13:11 BASIC METABOLIC PANEL+C.LAB.BRZ ordered. EDMS EDMS 13:12 13:12 CBC+H.LAB.BRZ ordered. EDMS EDMS 13:12 13:12 Troponin High Sensitivity+C.LAB.BRZ ordered. EDMS EDMS 13:12 13:12 PROTIME (+INR)+COAG.LAB.BRZ ordered. EDMS EDMS 13:12 13:12 PTT, ACTIVATED+COAG.LAB.BRZ ordered. EDMS EDMS 13:18 13:18 Neck Angio+CT.RAD.BRZ ordered. EDMS EDMS 13:18 13:18 CT-STROKE BRAIN W/O CONTRAST+CT.RAD.BRZ ordered. EDMS EDMS 13: 13:18 Head angio ordered. EDMS EDMS 13: 13:18 Neck Angio ordered. EDMS EDMS : 13:10 Unable to obtain ROS due to altered mental status, jj9 jj9 13:31 13:30 Allergies: No Known Allergies; jl7 jl7 18:33 18:31 Constitutional: Negative for body aches, poor PO intake, jj9 jj9 18:33 18:31 Eyes: Negative for acute changes, jj9 jj9 18:33 18:31 ENT: Negative for injury or acute deformity, jj9 jj9
[2024-11-06 23:31] VITALS: BP 156/76; O2SAT 99
== END 2024-11-06 17:52 | disposition home or self-care (01) ==
LOC: ER 12:46
DX: G47.51 Confusional arousals (principal)
CPT/HCPCS: 93005; 85025; 81001; 80048; 36415; 85610; 82565; 82947; 85730; 84484; 70496; 70498; 70450; 71045; 51702; 99285; Q9967

== ENCOUNTER 2024-11-08 11:46 | Inpatient (IN) | payer OTHER ==
--- OUTSIDE RECORDS SUMMARY | 2024-11-08 11:52 | XMS REPORT | Continuity of Care Document ---
Author Name Unknown Address [address] [facility] [address] [place] [address] [facility] Address [address] [facility] [address] [place] [address] Care Team Providers Care Pad Extraction Tender Name Role Phone BONNIE LANGFORD Primary Care Physician Unavaila BONNIE Lara Attending Clinician Unavailable Anayeli Puga Attending Clinician [phone] Elli Christianson MA Attending Clinician [phone] Bonnie Langford MD Attending Clinician [phone] DIGGSKYLE MARCUS Attending Clinician Unavailable KYLE DIGGS Attending Clinician Unavailable Doctor Unassigned, [place] Attending Clinician U Coco Villatoro Attending Clinician [phone] Heike Barnett RN Attending Clinician [phone] ÁNGEL HERRERA Attending Clinician Alex Fournier MD, Vianney Morgan Attending Clinician [phone] Ángel Herrera MD Attending Clinician + [phone] Sathya Simpson MD Attending Clinician [phone] Cruz STEELE, Mal Briceno Attending Clinician [phone] Chloe Dial MD Attending Clinician [phone]- [phone] CHLOE DIAL Attending Clinician Unavailyessenia Langford MD, Bonnie Attending Clinician [phone], [facility] Attending Clinician Unavailable Ramila Castillo MA Attending Clinician Unavaila mckay [email or web address]_S Attending Clinician Unavaila mckay Cervantes NP, Estrellita Attending Clinician [phone] ESTRELLITA CERVANTES Attending Clinician UnavailCASSIDY Astudillo Attending Clinician Unavailyessenia Schumacher DO Toby Dozier Attending Clinician [phone] ISAI ZIMMERMAN Attending Clinician Isai Poe MD Attending Clinician [phone] Isai Zimmerman MD Attending Clinician + [phone] Pob, [facility] Main Attending Clinician KYLE Padilla Admitting Clinician Kyle Guzman MD Admitting Clinician [phone] [facility] Admitting Clinician Unavailyessenia morgan [email or web address]_S Admitting Clinician Unavailtc bashir Payers Payer Name Policy Type Policy Number Effective Date Expirati on Date Source MEDICARE PART A \\T\\ B [id number] 2004 00:00:00 Problems Condition Name Condition Details Condition Category Status Onset Date Resolution Date Last Treatment Date Treating Clinician Comments Source Hypocalcem ia Hypocalcem ia Disease Active 2023-07 00:00: 00 [facility] 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 Disease Active 17 00:00: 00 [facility] Closed fracture dislocatio n of right hip joint with routine healing, subsequent encounter Closed fracture dislocatio n of right hip joint with routine healing, subsequent encounter Disease Active 12-17 00:00: 00 [facility] Closed fracture of right hip, initial encounter Closed fracture of right hip, initial encounter Disease Active 12-17 00:00: 00 [facility] At risk for falls At risk for falls Disease Active 11-09 00:00: 00 [facility] Unspecifie d abnormalit ies of gait and mobility Unspecifie d abnormalit ies of gait and mobility Disease Active 11-09 00:00: 00 [facility] Senile osteoporos is Senile osteoporos is Disease Active -08 00:00: 00 [facility] Vitamin D deficiency Vitamin D deficiency Disease Active 11-09 00:00: 00 [facility] Pedal edema Pedal edema Disease Active - 00:00: 00 [facility] Weight loss Weight loss Disease Active 12-10 00:00: 00 [facility] Compressio n fracture of L1 vertebra, initial encounter Compressio n fracture of L1 vertebra, initial encounter Disease Active 12-10 00:00: 00 [facility] Weight loss Weight loss Disease Active 0 12-10 00:00: 00 [facility] Memory changes Memory changes Disease Active 12-10 00:00: 00 [facility] Need for Tdap vaccinatio n Need for Tdap vaccinatio n Disease Active 1- 00:00: 00 [facility] Flu vaccine need Flu vaccine need Disease Active 1-04 00:00: 00 [facility] Recurrent falls Recurrent falls Disease Active 1-04 00:00: 00 [facility] Vitamin B 12 deficiency Vitamin B 12 deficiency Disease Active 2-20 00:00: 00 [facility] Altered mental status, unspecifie d altered mental status type Altered mental status, unspecifie d altered mental status type Disease Active 08-03 00:00: 00 [facility] Chronic nonintract able headache, unspecifie d headache type Chronic nonintract able headache, unspecifie d headache type Disease Active 30 00:00: 00 [facility] Nutritiona l deficiency Nutritiona l deficiency Disease Active 30 00:00: 00 [facility] Dehydratio n Dehydratio n Disease Active 30 00:00: 00 [facility] History of TIA (transient ischemic attack) History of TIA (transient ischemic attack) Disease Active 08-03 00:00: 00 [facility] Chronic fatigue Chronic fatigue Disease Active 08-03 00:00: 00 [facility] Encounter for Medicare annual wellness exam Encounter for Medicare annual wellness exam Disease Active 08-03 00:00: 00 [facility] Syncope, unspecifie d syncope type Syncope, unspecifie d syncope type Disease Active 08-03 00:00: 00 [facility] HTN (hypertens ion) HTN (hypertens ion) Disease Active 2014-07 00:00: 00 [facility] Dyslipidem ia Dyslipidem ia Disease Active 2014-07 00:00: 00 [facility] Essential hypertensi on Essential hypertensi on Disease Active 2014-07 00:00: 00 [facility] Hyperlipid emia Hyperlipid emia Disease Active 2014-07 00:00: 00 [facility] Urinary tract infection with hematuria, site unspecifie d Urinary tract infection with hematuria, site unspecifie d Disease Resolve d 08-24 00:00: 00 2021-07-08 00:00:00 2021-07-08 12:06:43 [facility] Allergies, Adverse Reactions, Alerts Allergy Name Allergy Type Status Severity Reaction(s) Onset Date Inactive Date Treating Clinician Comments Source NO KNOWN ALLERGIE S Drug Class Active [facility] Social History Social Habit Start Date Stop Date Quantity Comments Source ASSERTION Not [facility] History of tobacco use Cigarette Smoker [facility] Gender identity [facility] Alcoholic beverage intake 2024-05-12 00:00:00 2024-05-12 00:00:00 0 /d [facility] History of Social function 2023-11-10 00:00:00 2023-11-10 00:00:00 [facility] Tobacco use and exposure 2022-12-10 00:00:00 2022-12-10 00:00:00 Smokeless tobacco non-user [facility] Alcohol intake 2022-12-10 00:00:00 2022-12-10 00:00:00 0 /d [facility] Exposure to SARS-CoV-2 (event) 2022-02-17 00:00:00 2022-02-27 13:45:00 Not sure [facility] Sex assigned at 1940 00:00:00 1940 00:00:00 [facility] Smoking Status Start Date Stop Date Source Never smoked tobacco [facility] Medications Ordered Medication Name Filled Medication Name Start Date Stop Date Current Medication? Ordering Clinician Indication Dosage Frequency Signature (SIG) Comments Components Source vitamin B-12 1,000 mcg tablet 2023-07 00:00: 00 Yes [id number] 1000ug Take 1 tablet by mouth in the morning. [facility] pyridoxine, vitamin B6, 50 mg tablet 2023-07 00:00: 00 Yes [id number] 50mg Take 1 tablet by mouth in the morning. [facility] mirtazapine 15 mg tablet 2023-07 00:00: 00 Yes [id number] 15mg Take 1 tablet by mouth at bedtime. [facility] lisinopriL 20 mg tablet 2023-07 00:00: 00 Yes [id number] 20mg Take 1 tablet by mouth in the morning. [facility] donepeziL 5 mg tablet 2023-07 00:00: 00 Yes [id number] 5mg Take 1 tablet by mouth at bedtime. [facility] amLODIPine 5 mg tablet 2023-07 00:00: 00 Yes [id number] 5mg Take 1 tablet by mouth in the morning. [facility] calcium carbonate 500 mg calcium (1,250 mg) tablet 2023-07 00:00: 00 Yes [id number] 500mg Take 1 tablet by mouth in the morning. [facility] enoxaparin 30 mg/0.3 mL injection 12-23 00:00: 00 01-17 04:59 :00 No [id number] 30mg inject 0.3 mL under the skin every 24 (twenty-fo ur) hours for 24 days. [facility] lisinopriL (PRINIVIL,Z ESTRIL) tablet 20 mg 12-22 14:00: 00 Yes 20mg 20 mg, Oral, DAILY, First dose on Wed12/23/23 at 0900, Until Discontinu ed, Routine [facility] magnesium sulfate in water 2 gram/50 mL (4 %) infusion 2 g 12-22 13:15: 00 12-22 14:11 :00 No 2g 2 g, IV Piggyback, Administer over 60 Minutes, ONCE, 1 dose, On Wed12/23/23 at 0815, Routine [facility] bisacodyL (DULCOLAX) suppository 10 mg 12-22 12:20: 26 Yes 10mg 10 mg, Rectal, QHSPRN, Starting on Wed12/23/23 at 0720, Until Discontinu ed, Routine, Constipati on [facility] NaCl 0.9% (NS) bolus infusion 500 mL 12-21 22:30: 00 12-21 22:58 :00 No 500mL at 999 mL/hr, 500 mL, IV Piggyback, ONCE, 1 dose, On Wed12/22/23 at 1730, STAT [facility] polyethylen e glycol 3350 powder 17 g 12-21 13:00: 00 Yes 17g 17 g, Oral, BID, First dose (after last modificati on) on Wed12/22/23 at 0800, Until Discontinu ed, Routine [facility] sennosides (SENOKOT) tablet 8.6 mg 12-20 16:15: 00 Yes 8.6mg 8.6 mg, Oral, BID, First dose on Wed12/21/23 at 1115, Until Discontinu ed, Routine [facility] polyethylen e glycol 3350 powder 17 g 12-20 16:15: 00 12-21 11:30 :21 No 17g 17 g, Oral, DAILY, First dose on Wed12/21/23 at 1115, Until Discontinu ed, Routine [facility] enoxaparin (LOVENOX) injection 30 mg 12-19 13:00: 00 Yes 30mg 30 mg, Subcutaneo us, Q24H, First dose (after last modificati on) on Wed12/20/23 at 0800, Until Discontinu ed, Routine [facility] ceFAZolin (ANCEF) 2,000 mg in NaCl [...] of therapy: within 24 hours of surgery [facility] albumin (ALBUTEIN 5 %) 5 % [...] period without an adequate hemodynami c response. [facility] magnesium sulfate in water 4 gram/50 mL (8 %) IV Piggyback 4 g 12-18 20:00: 00 12-18 21:55 :00 No 4g 4 g, IV Piggyback, at 25 mL/hr Administer over 120 Minutes, ONCE, 1 dose, On Wed12/19/23 at 1500, Routine [facility] acetaminoph en (TYLENOL) tablet 500 mg 12-18 17:00: 00 Yes 500mg 500 mg, Oral, Q6H, First dose on Wed12/19/23 at 1200, Until Discontinu ed, Routine [facility] ondansetron (ZOFRAN (PF)) injection 4 mg 12-18 16:03: 10 Yes 4mg 4 mg, Slow IV Push, Q6HPRN, Nausea and Vomiting (N/V), Starting on 12/19/23 at 1103, Doses of ondansetro n 16 mg and above need to be administer ed via IV piggyback. For Dose >=24mg ECG monitoring is advisable. [facility] BUPivacaine liposome (PF) (EXPAREL (PF)) 1.3 % (13.3 mg/mL) injection 12-18 15:43: 00 12-18 16:06 :15 No PRN, Starting on 12/19/23 at 1043, Until 12/19/23 at 1106, Routine, Intra-op [facility] lidocaine 1% (PF) (XYLOCAINE) injection 12-18 15:41: 00 12-18 16:06 :15 No PRN, Starting on 12/19/23 at 1041, Until 12/19/23 at 1106, Routine, [facility] sugammadex (BRIDION) injection 12-18 15:35: 00 12-18 15:57 :39 No Intravenou s, ONCE INTRA PROCEDURE, Starting on 12/19/23 at 1035, Until 12/19/23 at 1057, Routine, Intra-op [facility] ondansetron (ZOFRAN (PF)) injection 12-18 14:57: 00 12-18 15:57 :39 No Slow IV Push, ONCE INTRA PROCEDURE, Starting on 12/19/23 at 0957, Until 12/19/23 at 1057, Routine, Intra-op [facility] acetaminoph en (OFIRMEV) IV piggyback 12-18 14:32: 00 12-18 15:57 :39 No IV Infusion, Administer over 15 Minutes, ONCE INTRA PROCEDURE, Starting on 12/19/23 at 0932, Until 12/19/23 at 1057, Routine, Intra-op [facility] dexamethaso ne (DECADRON PHOSPHATE) injection 12-18 14:02: 00 12-18 15:57 :39 No IV Push, ONCE INTRA PROCEDURE, Starting on 12/19/23 at 0902, Until 12/19/23 at 1057, Routine, Intra-op [facility] dexmedeTOMI Dine (PRECEDEX) injection 12-18 13:54: 00 12-18 15:57 :39 No Intravenou s, ONCE INTRA PROCEDURE, Starting on 12/19/23 at 0854, Until 12/19/23 at 1057, Routine, Intra-op [facility] HYDROmorphO ne (DILAUDID) injection 12-18 13:41: 00 12-18 15:57 :39 No Intravenou s, ONCE INTRA PROCEDURE, Starting on 12/19/23 at 0841, Until 12/19/23 at 1057, Routine, Intra-op [facility] ePHEDrine 25 mg/5 mL (5 mg/mL) syringe 12-18 13:21: 00 12-18 15:57 :39 No Intravenou s, ONCE INTRA PROCEDURE, Starting on 12/19/23 at 0821, Until 12/19/23 at 1057, Routine, Intra-op [facility] tranexamic acid (CYKLOKAPRO N) 1,000 mg in NaCl 0.9% (NS) 100 mL piggyback 12-18 13:12: 00 12-18 15:57 :39 No IV Piggyback, CONTINUOUS PRN, Starting on 12/19/23 at 0812, Until 12/19/23 at 1057, Administer over 60 Minutes, 100 mL, Intra-op [facility] ceFAZolin (ANCEF) injection 12-18 13:06: 00 12-18 15:57 :39 No Slow IV Push, ONCE INTRA PROCEDURE, Starting on 12/19/23 at 0806, Until 12/19/23 at 1057, MATILDE, [facility] FENTanyl [facility] (SUBLIMAZE (PF)) injection 12-18 12:57: 00 12-18 15:57 :39 No Intravenou s, ONCE INTRA PROCEDURE, Starting on 12/19/23 at 0757, Until 12/19/23 at 1057, Routine, Intra-op [facility] electrolyte -A (PLASMALYTE -A) IV infusion 12-18 12:55: 00 12-18 15:57 :39 No IV Infusion, CONTINUOUS PRN, Starting on 12/19/23 at 0755, Until 12/19/23 at 1057, Routine, Intra-op [facility] phenylephri ne (VAZCULEP) injection 12-18 12:52: 00 12-18 15:57 :39 No Slow IV Push, ONCE INTRA PROCEDURE, Starting on 12/19/23 at 0752, Until 12/19/23 at 1057, Routine, Intra-op [facility] rocuronium (ZEMURON) injection 12-18 12:44: 00 12-18 15:57 :39 No IV Push, ONCE INTRA PROCEDURE, Starting on 12/19/23 at 0744, Until 12/19/23 at 1057, Routine, Intra-op [facility] lidocaine 1% (XYLOCAINE) 100 mg/10 mL (1 %) injection 12-18 12:44: 00 12-18 15:57 :39 No Intravenou s, ONCE INTRA PROCEDURE, Starting on 12/19/23 at 0744, Until 12/19/23 at 1057, Routine, Intra-op [facility] propofoL IV infusion 12-18 12:44: 00 12-18 15:57 :39 No Intravenou s, ONCE INTRA PROCEDURE, Starting on 12/19/23 at 0744, Until 12/19/23 at 1057, Routine, Intra-op [facility] lactated ringers IV infusion 12-18 12:40: 00 12-18 15:57 :39 No IV Infusion, CONTINUOUS PRN, Starting on 12/19/23 at 0740, Until 12/19/23 at 1057, Routine, Intra-op [facility] melatonin (MELATIN) tablet 3 mg 12-18 02:00: 00 Yes 3mg 3 mg, Oral, QHS, First dose on 12/18/23 at 2100, Until Discontinu ed, Routine [facility] mirtazapine (REMERON) tablet 15 mg 12-18 02:00: 00 Yes 15mg 15 mg, Oral, QHS, First dose on 12/18/23 at 2100, Until Discontinu ed, Routine [facility] atorvastati n (LIPITOR) tablet 10 mg 12-18 02:00: 00 Yes 10mg 10 mg, Oral, QHS, First dose on 12/18/23 at 2100, Until Discontinu ed, Routine [facility] donepeziL (ARICEPT) tablet 5 mg 12-18 02:00: 00 Yes 5mg 5 mg, Oral, QHS, First dose on 12/18/23 at 2100, Until Discontinu ed, Routine [facility] lactated ringers IV infusion 1,000 mL 12-17 23:45: 00 12-19 22:44 :53 No 1000mL at 80 mL/hr, 1,000 mL, IV Infusion, CONTINUOUS , Starting on 12/18/23 at 1845, Until 12/20/23 at 1744, Routine [facility] FENTanyl PF (SUBLIMAZE (PF)) injection 25 mcg 12-17 18:59: 55 12-19 22:44 :53 No 25ug 25 mcg, Slow IV Push, Q2HPRN, Starting on 12/18/23 at 1359, Until 12/20/23 at 1744, Routine, Pain (scale 4-6) [facility] FENTanyl PF (SUBLIMAZE (PF)) injection 25 mcg 12-17 16:39: 11 12-17 19:00 :59 No 25ug 25 mcg, Slow IV Push, Q2HPRN, Starting on 12/18/23 at 1139, Until 12/18/23 at 1400, Routine, Pain (scale 4-6) [facility] hydralAZINE (APRESOLINE ) injection 10 mg 12-17 16:34: 46 12-18 16:11 :00 No 10mg 10 mg, Slow IV Push, PRN, 2 doses, Starting on 12/18/23 at 1134, Until 12/19/23 at 1111, Routine, Goal SBP <140 [facility] amLODIPine (NORVASC) tablet 5 mg 12-17 14:00: 00 Yes 5mg 5 mg, Oral, DAILY, First dose on 12/18/23 at 0900, Until Discontinu ed, Routine [facility] traMADoL (ULTRAM) tablet 50 mg 12-17 13:06: 38 Yes 50mg 50 mg, Oral, Q4HPRN, Starting on 12/18/23 at 0806, Until Discontinu ed, Routine, Pain (scale 7-10) [facility] atorvastati n 10 mg tablet 11-09 00:00: 00 Yes [id number] TAKE 1 TABLET BY MOUTH AT BEDTIME [facility] ergocalcife rol, vitamin d2, (VITAMIN D2) 1,250 mcg (50,000 unit) capsule 11-09 00:00: 00 Yes [id number] Take 1 capsule by mouth weekly. [facility] lisinopriL 20 mg tablet 11-09 00:00: 00 05-12 00:00 :00 No [id number] 20mg Take 1 tablet by mouth in the morning. [facility] amLODIPine 5 mg tablet 11-09 00:00: 00 05-12 00:00 :00 No [id number] 5mg Take 1 tablet by mouth in the morning. [facility] donepeziL 5 mg tablet 11-09 00:00: 00 05-12 00:00 :00 No [id number] 5mg Take 1 tablet by mouth at bedtime. [facility] mirtazapine 15 mg tablet 11-09 00:00: 00 05-12 00:00 :00 No [id number] 15mg Take 1 tablet by mouth at bedtime. [facility] calcium carbonate 500 mg calcium (1,250 mg) tablet 11-09 00:00: 00 05-12 00:00 :00 No [id number] 500mg Take 1 tablet by mouth in the morning. [facility] pyridoxine, vitamin B6, 50 mg tablet 11-09 00:00: 00 05-12 00:00 :00 No [id number] 50mg Take 1 tablet by mouth in the morning. [facility] vitamin B-12 1,000 mcg tablet 11-09 00:00: 00 05-12 00:00 :00 No [id number] 1000ug Take 1 tablet by mouth in the morning. [facility] donepeziL 5 mg tablet 03-11 00:00: 00 11-09 00:00 :00 No [id number] 5mg Take 1 tablet by mouth at bedtime. [facility] mirtazapine 15 mg tablet 03-11 00:00: 00 11-09 00:00 :00 No [id number] 15mg Take 1 tablet by mouth at bedtime. [facility] mirtazapine 15 mg tablet 12-10 00:00: 00 03-11 00:00 :00 No [id number] 15mg Take 1 tablet by mouth at bedtime. [facility] donepeziL 5 mg tablet 12-10 00:00: 00 03-11 00:00 :00 No [id number] 5mg Take 1 tablet by mouth at bedtime. [facility] KLOR-CON 10 10 mEq CR tablet 04-03 00:00: 00 11-09 00:00 :00 No [id number] TAKE 1 TABLET BY MOUTH EVERY DAY IN THE MORNING [facility] FUROSEMIDE 40 mg tablet 04-03 00:00: 00 11-09 00:00 :00 No [id number] TAKE 1 TABLET BY MOUTH EVERY DAY IN THE MORNING [facility] ciprofloxac in HCl 250 mg tablet 03-23 08:55: 56 03-23 00:00 :00 No 250mg Take 250 mg by mouth every 12 (twelve) hours. [facility] ondansetron 4 mg disintegrat ing tablet 03-23 00:00: 00 12-10 00:00 :00 No [id number] 4mg Take 1 tablet by mouth every 8 (eight) hours as needed for Nausea and Vomiting (N/V). May take 1-2 tablets. [facility] metroNIDAZO LE (FLAGYL) 500 mg tablet 03-23 00:00: 00 03-27 04:59 :00 No [id number] 500mg Take 1 tablet by mouth every 12 (twelve) hours for 3 days. [facility] lisinopriL 20 mg tablet 03-02 00:00: 00 11-09 00:00 :00 No [id number] 20mg Take 1 tablet by mouth in the morning. [facility] lisinopriL 10 mg tablet 02-27 15:32: 25 02-27 00:00 :00 No 10mg Take 10 mg by mouth in the morning. [facility] ciprofloxac in HCl 250 mg tablet 02-27 14:59: 45 Yes 250mg Take 250 mg by mouth every 12 (twelve) hours. [facility] amLODIPine 5 mg tablet 02-27 14:59: 45 11-09 00:00 :00 No 5mg Take 1 tablet by mouth in the morning. [facility] lisinopriL 20 mg tablet 02-27 00:00: 00 Yes [id number] 20mg Take 1 tablet by mouth in the morning. [facility] furosemide 40 mg tablet 02-27 00:00: 00 04-03 00:00 :00 No [id number] 40mg Take 1 tablet by mouth in the morning. [facility] potassium chloride 10 mEq CR tablet 02-27 00:00: 00 04-03 00:00 :00 No [id number] 10meq Take 1 tablet by mouth in the morning. [facility] ergocalcife rol, vitamin d2, (VITAMIN D2) 1,250 mcg (50,000 unit) capsule 07-09 00:00: 00 11-09 00:00 :00 No [id number] Take 1 capsule by mouth weekly. [facility] levocetiriz ine 5 mg tablet 07-08 00:00: 00 11-09 00:00 :00 No [id number] 5mg Take 1 tablet by mouth every evening. [facility] pyridoxine, vitamin B6, 50 mg tablet 07-08 00:00: 00 11-09 00:00 :00 No [id number] 50mg Take 1 tablet by mouth daily. [facility] atorvastati n 10 mg tablet 07-08 00:00: 00 11-09 00:00 :00 No [id number] TAKE 1 TABLET BY MOUTH AT BEDTIME [facility] vitamin B-12 1,000 mcg tablet 07-08 00:00: 00 11-09 00:00 :00 No [id number] 1000ug Take 1 tablet by mouth daily. [facility] donepeziL 5 mg tablet 07-08 00:00: 00 12-10 00:00 :00 No [id number] 5mg Take 1 tablet by mouth at bedtime. [facility] RAMIPRIL 10 mg capsule 10-02 00:00: 00 02-27 00:00 :00 No [id number] TAKE 1 CAPSULE BY MOUTH EVERY DAY [facility] Immunizations Ordered Immunization Name Filled Immunization Name Date Status Comments Source Influenza, adjuvanted, trivalent, PF (FLUAD) 2024-05-12 00:00:00 Completed [facility] TDAP 2024-05-12 00:00:00 Completed Influenza Virus Vaccine,quad Im,preserve Free 65+ (FLUAD) 2021-07-08 00:00:00 Completed [facility] Influenza Virus Vaccine,quad Im,preserve Free 65+ 2021-07-08 00:00:00 Completed [facility] Influenza Virus Vaccine,quad Im,preserve Free 65+ 2021-07-08 00:00:00 Completed [facility] Influenza Virus Vaccine,quad Im,preserve Free 65+ 2021-07-08 00:00:00 Completed [facility] Influenza Virus Vaccine,quad Im,preserve Free 65+ 2021-07-08 00:00:00 Completed [facility] Influenza Virus Vaccine,quad Im,preserve Free 65+ 2021-07-08 00:00:00 Completed [facility] Influenza Virus Vaccine,quad Im,preserve Free 65+ 2021-07-08 00:00:00 Completed [facility] Influenza Virus Vaccine,quad Im,preserve Free 65+ 2021-07-08 00:00:00 Completed [facility] Influenza Virus Vaccine,quad Im,preserve Free 65+ 2021-07-08 00:00:00 Completed [facility] Influenza Virus Vaccine,quad Im,preserve Free 65+ (FLUAD) 2021-07-08 00:00:00 Completed [facility] Influenza Virus Vaccine,quad Im,preserve Free 65+ (FLUAD) Unknown Completed [facility] Influenza Virus Vaccine,quad Im,preserve Free 65+ (FLUAD) Unknown Completed [facility] Influenza Virus Vaccine,quad Im,preserve Free 65+ (FLUAD) Unknown Completed [facility] Influenza Virus Vaccine,quad Im,preserve Free 65+ (FLUAD) Unknown Completed [facility] Influenza Virus Vaccine,quad Im,preserve Free 65+ (FLUAD) Unknown Completed [facility] Influenza Virus Vaccine,quad Im,preserve Free 65+ (FLUAD) Unknown Completed [facility] Influenza Virus Vaccine,quad Im,preserve Free 65+ (FLUAD) Unknown Completed [facility] Influenza Virus Vaccine,quad Im,preserve Free 65+ (FLUAD) Unknown Completed [facility] Influenza Virus Vaccine,quad Im,preserve Free 65+ (FLUAD) Unknown Completed [facility] Influenza Virus Vaccine,quad Im,preserve Free 65+ (FLUAD) Unknown Completed [facility] Influenza Virus Vaccine,quad Im,preserve Free 65+ (FLUAD) Unknown Completed [facility] Influenza Virus Vaccine,quad Im,preserve Free 65+ (FLUAD) Unknown Completed [facility] Influenza Virus Vaccine,quad Im,preserve Free 65+ (FLUAD) Unknown Completed [facility] Influenza Virus Vaccine,quad Im,preserve Free 65+ (FLUAD) Unknown Completed [facility] Influenza Virus Vaccine,quad Im,preserve Free 65+ (FLUAD) Unknown Completed [facility] Influenza Virus Vaccine,quad Im,preserve Free 65+ (FLUAD) Unknown Completed [facility] Vital Signs Vital Name Observation Time Observation Value Comments S ource Systolic blood pressure 2024-05-12 19:45:00 145 mm[Hg] [facility] Diastolic blood pressure 2024-05-12 19:45:00 78 mm[Hg] [facility] Heart rate 2024-05-12 19:45:00 122 /min [facility] Body temperature 2024-05-12 19:45:00 36.5 Ashley [facility] Respiratory rate 2024-05-12 19:45:00 18 /min [facility] Body height 2024-05-12 19:45:00 162.6 cm [facility] Body weight 2024-05-12 19:45:00 44.316 kg [facility] BMI 2024-05-12 19:45:00 16.77 kg/m2 [facility] Oxygen saturation in Arterial blood by Pulse oximetry 2024-05-12 19:45:00 98 /min [facility] Systolic blood pressure 2023-12-23 20:06:00 153 mm[Hg] [facility] Diastolic blood pressure 2023-12-23 20:06:00 69 mm[Hg] [facility] Heart rate 2023-12-23 20:06:00 79 /min [facility] Body temperature 2023-12-23 20:06:00 36.56 Ashley [facility] Respiratory rate 2023-12-23 20:06:00 18 /min [facility] Oxygen saturation in Arterial blood by Pulse oximetry 2023-12-23 20:06:00 97 /min [facility] Body height 2023-12-19 19:00:00 165.1 cm [facility] Body weight 2023-12-18 11:38:00 46.267 kg [facility] BMI 2023-12-18 11:38:00 16.97 kg/m2 [facility] Respiratory rate 2023-12-19 12:41:00 20 /min [facility] Systolic blood pressure 2023-12-19 11:00:00 152 mm[Hg] [facility] Diastolic blood pressure 2023-12-19 11:00:00 60 mm[Hg] [facility] Heart rate 2023-12-19 11:00:00 77 /min [facility] Respiratory rate 2023-12-19 11:00:00 18 /min [facility] Oxygen saturation in Arterial blood by Pulse oximetry 2023-12-19 11:00:00 98 /min [facility] Body temperature 2023-12-19 09:00:00 36.78 Ashley [facility] Body weight 2023-12-18 11:38:00 46.267 kg [facility] BMI 2023-12-18 11:38:00 16.97 kg/m2 [facility] Systolic blood pressure 2023-11-10 19:10:00 179 mm[Hg] [facility] Diastolic blood pressure 2023-11-10 19:10:00 20 mm[Hg] [facility] Heart rate 2023-11-10 19:10:00 67 /min [facility] Body height 2023-11-10 19:10:00 165.1 cm [facility] Body weight 2023-11-10 19:10:00 46.267 kg [facility] BMI 2023-11-10 19:10:00 16.97 kg/m2 [facility] Oxygen saturation in Arterial blood by Pulse oximetry 2023-11-10 19:10:00 99 /min [facility] Systolic blood pressure 2023-11-10 18:34:00 179 mm[Hg] [facility] Diastolic blood pressure 2023-11-10 18:34:00 92 mm[Hg] [facility] Heart rate 2023-11-10 18:34:00 67 /min [facility] Body height 2023-11-10 18:34:00 165.1 cm [facility] Body weight 2023-11-10 18:34:00 46.267 kg [facility] BMI 2023-11-10 18:34:00 16.97 kg/m2 [facility] Oxygen saturation in Arterial blood by Pulse oximetry 2023-11-10 18:34:00 99 /min [facility] Systolic blood pressure 2022-12-10 18:04:00 131 mm[Hg] [facility] Diastolic blood pressure 2022-12-10 18:04:00 79 mm[Hg] [facility] Heart rate 2022-12-10 18:03:00 64 /min [facility] Body temperature 2022-12-10 18:03:00 36.39 Ashley [facility] Respiratory rate 2022-12-10 18:03:00 18 /min [facility] Body height 2022-12-10 18:03:00 164.6 cm [facility] Body weight 2022-12-10 18:03:00 48.444 kg [facility] BMI 2022-12-10 18:03:00 17.88 kg/m2 [facility] Oxygen saturation in Arterial blood by Pulse oximetry 2022-12-10 18:03:00 99 /min [facility] Systolic blood pressure 2022-02-27 19:54:00 174 mm[Hg] [facility] Diastolic blood pressure 2022-02-27 19:54:00 84 mm[Hg] [facility] Heart rate 2022-02-27 19:54:00 63 /min [facility] Body temperature 2022-02-27 19:54:00 36.67 Ashley [facility] Respiratory rate 2022-02-27 19:54:00 18 /min [facility] Body height 2022-02-27 19:54:00 164.6 cm [facility] Body weight 2022-02-27 19:54:00 53.661 kg [facility] BMI 2022-02-27 19:54:00 19.81 kg/m2 [facility] Oxygen saturation in Arterial blood by Pulse oximetry 2022-02-27 19:54:00 98 /min [facility] Procedures Procedure Date / Time Performed Performing Clinician Source TDAP VACCINE, >11 YRS, IM 2024-05-12 20:12:29 Bonnie Kumar [facility] FLU VACC(),65+YR,0.5 ML,IM,ADJUVANTED,TIV(FLUAD ) 2024-05-12 19:47:58 Bonnie Langford [facility] MAGNESIUM 2023-12-23 10:12:00 [facility] (NA, K, CL, CO2, GLUCOSE, BUN, CREATININE, CA) 2023-12-23 10:12:00 [facility] 2023-12-23 10:12:00 Elia, [facility] XR CHEST 1 VW 2023-12-22 22:38:00 Lizette Feliciano [facility] URINALYSIS 2023-12-22 18:05:00 Elia, [facility] MAGNESIUM 2023-12-22 09:30:00 Elia, [facility] BASIC METABOLIC PANEL (NA, K, CL, CO2, GLUCOSE, BUN, CREATININE, CA) 2023-12-22 09:30:00 [facility] 2023-12-22 09:30:00 Elia, [facility] CBC WITHOUT DIFF 2023-12-21 11:19:00 Kelly Huntley [facility] MAGNESIUM 2023-12-21 09:26:00 Kelly Huntley [facility] BASIC METABOLIC PANEL (NA, K, CL, CO2, GLUCOSE, BUN, CREATININE, CA) 2023-12-21 09:26:00 Kelly Huntley [facility] PHOSPHORUS 2023-12-20 08:13:00 Fort[facility] 2023-12-20 08:13:00 Fortich[facility] BASIC METABOLIC PANEL (NA, K, CL, CO2, GLUCOSE, BUN, CREATININE, CA) 2023-12-20 08:13:00 Fortich, Gavi [facility] CBC WITHOUT DIFF 2023-12-20 08:13:00 [facility] 2023-12-20 08:13:00 Fortich, [facility] MAG[facility]UM 2023-12-20 08:13:00 Fortich, Ayanna [facility] BASIC METABOLIC PANEL (NA, K, CL, CO2, GLUCOSE, BUN, CREATININE, CA) 2023-12-20 08:13:00 Fortich, [facility] CBC WITHOUT DIFF 2023-12-20 08:13:00 Fortich, [place] [facility] XR HIPS 2 VW RIGHT 2023-12-19 21:00:00 Leonarda Espinoza [facility] PHOSPHORUS 2023-12-19 15:55:00 Fortich[facility] 2023-12-19 15:55:00 Fortich, Ayanna [facility] BASIC METABOLIC PANEL (NA, K, CL, CO2, GLUCOSE, BUN, CREATININE, CA) 2023-12-19 15:55:00 [facility] WITHOUT [facility]FF 2023-12-19 15:55:00 Fortich, Aysha guerrero [facility] PHOSPHORUS 2023-12-19 15:55:00 Fortich, Ayanna [facility] MAGNESIUM 2023-12-19 15:55:00 Fortich, Ayanna [facility] BASIC METABOLIC PANEL (NA, K, CL, CO2, GLUCOSE, BUN, CREATININE, CA) 2023-12-19 15:55:00 Fortich, [facility] CBC WITHOUT DIFF 2023-12-19 15:55:00 Fortich, [place] [facility] ABG+COOX+NA+K+GLU+CA2+ 2023-12-19 14:41:00 Jen Diggs [facility] ARTERIAL LINE 2023-12-19 13:08:00 Christopher Wong [facility] INTUBATION 2023-12-19 12:48:00 Christopher Wong [facility] CBC WITH DIFF 2023-12-19 12:27:00 Quincy Neves [facility] CBC WITH DIFF 2023-12-19 12:27:00 Quincy Neves [facility] [id number] - [place] HEMIARTHROPLASTY HIP PARTIAL 2023-12-19 12:26:00 Kyle Diggs [facility] [id number] - [place] HEMIARTHROPLASTY HIP PARTIAL 2023-12-19 12:26:00 Kyle Diggs [facility] PHOSPHORUS 2023-12-19 08:25:00 Carrie Huntley [facility] MAGNESIUM 2023-12-19 08:25:00 Carrie Huntley Lazaro [facility] BASIC METABOLIC PANEL (NA, K, CL, CO2, GLUCOSE, BUN, CREATININE, CA) 2023-12-19 08:25:00 [facility] 2023-12-19 08:25:00 [facility] THRMPLAS NAVEEN 2023-12-19 08:25:00 Marvin Nam [facility] PHOSPHORUS 2023-12-19 08:25:00 Carrie Huntley [facility] MAGNESIUM 2023-12-19 08:25:00 Carrie Huntley [facility] BASIC METABOLIC PANEL (NA, K, CL, CO2, GLUCOSE, BUN, CREATININE, CA) 2023-12-19 08:25:00 [facility] PROTHROMBIN TIME / INR 2023-12-19 08:25:00 Manuelito Nam [facility] ACTIVATED PARTIAL THRMPLAS NAVEEN 2023-12-19 08:25:00 [facility] ABORH CONFIRMATION (LAB ONLY) 2023-12-19 03:09:00 Kyle Diggs [facility] ABORH CONFIRMATION (LAB ONLY) 2023-12-19 03:09:00 Kyle Diggs [facility] BASIC METABOLIC PANEL (NA, K, CL, CO2, GLUCOSE, BUN, CREATININE, CA) 2023-12-19 02:53:00 Quincy Neves [facility] CBC WITH DIFF 2023-12-19 02:53[facility]00 [facility] 2023-12-19 02:53:00 Remington Neves [facility] ACTIVATED PARTIAL THRMPLAS NAVEEN 2023-12-19 02:53:00 Quincy Neves [facility] HB ABO GROUPING 2023-12-19 02:53:00 Quincy Neves [facility] BASIC METABOLIC PANEL (NA, K, CL, CO2, GLUCOSE, BUN, CREATININE, CA) 2023-12-19 02:53:00 Quincy Neves [facility] CBC WITH DIFF 2023-12-19 02:53:00 Quincy Neves [facility] PROTHROMBIN TIME / INR 2023-12-19 02:53:00 Remington Neves [facility] ACTIVATED PARTIAL THRMPLAS NAVEEN 2023-12-19 02:53:00 Quincy Neves [facility] HB ABO GROUPING 2023-12-19 02:53:00 Quincy Neves [facility] HB ECG ROUTINE & RHYTHM STRIP 2023-12-18 14:35:12 Marvin Nam [facility] XR FEMUR 2 VW RIGHT 2023-12-18 12:53:00 Flor Nam [facility] XR HIPS 2 VW RIGHT 2023-12-18 12:53:00 Jorge Alberto Nam [facility] XR FEMUR 2 VW RIGHT 2023-12-18 12:53:00 Flor Nam [facility] XR HIPS 2 VW RIGHT 2023-12-18 12:53:00 Jorge Alberto Nam [facility] CBC WITH DIFF 2023-11-10 20:21:00 Bonnie Langford [facility] PATIENT FINANCIAL POLICY 2022-12-10 17:40:23 Doctor Unassigned, [place] [facility] Encounters Start Date/Time End Date/Time Encounter Type Admission Type Attending [facility] Care Facility Care Department Encounter ID Source 2024-11-02 13:00:00 2024-11-02 13:00:00 Outpatient BONNIE COVARRUBIAS [facility] [id number] [facility] 2024-11-01 00:00:00 2024-11-01 10:16:09 Pre Visit Outreach Anayeli Puga Irene [facility] [address] 1.2.840.114 350.1.13.10 4.2.7.2.686 [id number] [facility] 2024-10-27 00:00:00 2024-10-27 12:47:11 Pre Visit Outreach Anayeli Puga Irene C [address] 1.2.840.114 350.1.13.10 4.2.7.2.686 [id number] [facility] 2024-10-26 00:00:00 2024-10-26 14:03:44 Pre Visit Outreach Elli hCristianson Sandra [address] 1.2.840.114 350.1.13.10 4.2.7.2.686 [id number] [facility] 2024-05-12 14:00:00 2024-05-12 14:42:00 Office Visit Bonnie Langford [facility] 1.2.840.114 350.1.13.10 4.2.7.2.686 [id number] [facility] 2024-05-12 14:00:00 2024-05-12 14:42:00 Outpatient BONNIE COVARRUBIAS [facility] [id number] [facility] 2023-12-29 00:00:00 2024-01-29 18:17:41 Patient Secure Msg Doctor Unassigned, [place] [facility] 1.2.840.114 350.1.13.10 4.2.7.2.686 [id number] [facility] 2024-01-19 00:00:00 2024-01-19 14:53:36 Patient Outreach Coco Ward Mark EMILI FOURNIER 1.2.840.114 350.1.13.10 4.2.7.2.686 [id number] [facility] 2024-01-04 00:00:00 2024-01-04 15:43:11 Patient Outreach Heike Barnett [facility] 1.2.840.114 350.1.13.10 4.2.7.2.686 [id number] [facility] 2024-01-04 14:00:00 2024-01-04 14:00:00 Outpatient KYLE RIVERA MARK [facility] [id number] [facility] 2023-12-30 00:00:00 2023-12-30 16:25:53 Patient Outreach Heike Barnett [facility] 1.2.840.114 350.1.13.10 4.2.7.2.686 [id number] [facility] 2023-12-29 00:00:00 2023-12-29 09:30:07 Patient Outreach Heike Barnett [facility] 1.2.840.114 350.1.13.10 4.2.7.2.686 [id number] [facility] 2023-12-18 06:41:00 2023-12-23 16:40:00 Inpatient X [facility] [id number] [facility] 2023-12-18 06:41:00 2023-12-23 16:40:00 Hospital Encounter Vianney Fournier Mark A Mouton, Charles Peter [facility] 1.2.840.114 350.1.13.10 4.2.7.2.686 [id number] [facility] 2023-12-19 07:40:00 2023-12-19 10:57:00 Anesthesia Event Sathya Simpson Adam J [facility] 1.2.840.114 350.1.13.10 4.2.7.2.686 [id number] [facility] 2023-12-19 07:20:00 2023-12-19 10:52:00 Surgery Diggs, Kyle Cleveland [facility] 1.2.840.114 350.1.13.10 4.2.7.2.686 [id number] [facility] 2023-11-15 00:00:00 2023-12-18 18:21:22 Patient Secure Msg Doctor Unassigned, [place] [facility] 1.2840.114 350.1.13.10 4.2.7.2.686 [id number] [facility] 2023-11-11 12:17:00 2023-11-11 23:59:00 Hospital Encounter Chloe Dial BUILDING 1.2840.114 350.1.13.10 4.2.7.2.686 [id number] [facility] 2023-11-11 00:00:00 2023-11-11 23:59:00 Outpatient R CHLOE DIAL [facility] [id number] [facility] 2023-11-10 14:40:00 2023-11-10 15:53:24 Office Visit Bonnie Langford [facility] BUILD[facility] 1.2840.114 350.1.13.10 4.2.7.2.686 [id number] [facility] 2023-11-10 14:00:00 2023-11-10 15:53:09 Office Visit Bonnie Langford [facility] 1.2.840.114 350.1.13.10 4.2.7.2.686 [id number] [facility] 2023-11-10 15:30:00 2023-11-10 15:36:21 Outpatient R BONNIE LANGFORD [facility] [id number] [facility] 2023-11-10 15:30:00 2023-11-10 15:36:21 Correspondence Specialist Visit 2, Adc Lab Bonnie Langford [facility] BUILDING 1.2.840.114 350.1.13.10 4.2.7.2.686 [id number] [facility] 2023-11-09 00:00:00 2023-11-09 14:19:35 Patient Outreach Ramila Castillo [facility] 1.2.840.114 350.1.13.10 4.2.7.2.686 [id number] [facility] 2023-06-14 00:00:00 2023-06-14 00:00:00 Refill Bonnie Langford [facility] 1.2.840.114 350.1.13.10 4.2.7.2.686 [id number] [facility] 2023-05-01 00:00:00 2023-05-01 00:00:00 Outpatient GC_GCBZW_Ka diyala_S PRIV PRIV [id number] [facility] 2023-04-30 00:00:00 2023-04-30 00:00:00 Outpatient GC_GCBZW_Ka diyala_S PRIV PRIV [id number] [facility] 2023-03-23 15:40:00 2023-03-23 15:40:00 Outpatient R EDEMEKONG, PETER [facility] [id number] [facility] 2023-03-11 00:00:00 2023-03-11 00:00:00 [facility] BU[facility] 1.2.840.114 350.1.13.10 4.2.7.2.686 [id number] [facility] 2022-12-17 00:00:00 2022-12-17 00:00:00 Outpatient R BONNIE LANGFORD [facility] [id number] [facility] 2022-12-10 16:00:00 2022-12-10 16:00:00 Office Visit Bonnei Langford [facility] BUILD[facility] 1.2.840.114 350.1.13.10 4.2.7.2.686 [id number] [facility] 2022-12-10 16:00:00 2022-12-10 14:26:24 Outpatient R BONNIE LANGFORD [facility] [id number] [facility] 2022-12-10 00:00:00 2022-12-10 00:00:00 Orders Only Doctor Unassigned, [place] [facility] 1..840.114 350.1.13.10 4.2.7.2.686 [id number] [facility] 2022-03-26 00:00:00 2022-03-26 00:00:00 Telephone Estrellita Cervantes [facility] BUILD[facility] 1..840.114 350.1.13.10 4.2.7.2.686 [id number] [facility] 2022-03-23 08:30:00 2022-03-23 13:15:33 Outpatient R ESTRELLITA CERVANTES OGECHUKWU [facility] [id number] [facility] 2022-03-23 08:30:00 2022-03-23 13:15:33 Telemedici ne Visit Estrellita [facility]ervantes [facility] BU[facility] 1..840.114 350.1.13.10 4.2.7.2.686 [id number] [facility] 2022-03-23 00:00:00 2022-03-23 00:00:00 Refill Estrellita Cervantes [facility] BUILDING 1..840.114 350.1.13.10 4.2.7.2.686 [id number] [facility] 2022-03-23 00:00:00 2022-03-23 00:00:00 Refill Estrellita Cervantes [facility] BUILD[facility] 1..840.114 350.1.13.10 4.2.7.2.686 [id number] [facility] 2022-03-13 16:30:00 2022-03-13 16:30:00 Outpatient R ESTRELLITA CERVANTES OGECHUKWU [facility] [id number] [facility] 2022-03-13 16:30:00 2022-03-13 16:30:00 Outpatient R ESTRELLITA CERVANTES OGECHUKWU [facility] [id number] [facility] 2022-03-02 00:00:00 2022-03-02 00:00:00 Refill Bonnie Langford [facility] BUILD[facility] 1..840.114 350.1.13.10 4.2.7.2.686 [id number] [facility] 2022-02-28 00:00:00 2022-02-28 00:00:00 Patient Secure Msg Doctor Unassigned, [place] [facility] 1.2.840.114 350.1.13.10 4.2.7.2.686 [id number] [facility] 2022-02-27 14:30:00 2022-02-27 15:44:13 Office Visit Estrellita Cervantes [facility] 1.2.840.114 350.1.13.10 4.2.7.2.686 [id number] [facility] 2022-02-27 14:30:00 2022-02-27 15:44:13 Outpatient R BILLY TITUSTarikDavie BILLY, ESTRELLITA [facility] [id number] [facility] 2022-02-27 14:30:00 2022-02-27 14:30:00 Outpatient R BILLY TITUSMARIAN CERVANTES, ESTRELLITA [facility] [id number] [facility] 2021-08-05 08:00:00 2021-08-05 08:00:00 Outpatient R BILLYTITUS HICKMANTarikDavie SULLIVANBILLY, ESTRELLITA [facility] [id number] [facility] 2021-07-08 11:00:00 2021-07-08 11:00:00 Correspondence Specialist Visit 2, Adc Lab Estrellita Cervantes [facility] NAL BUILDING 1.2.840.114 350.1.13.10 4.2.7.2.686 [id number] [facility] 2021-07-08 11:00:00 2021-07-08 11:00:00 Correspondence Specialist Visit 2, Adc Lab Estrellita Cervantes [facility] 1.2.840.114 350.1.13.10 4.2.7.2.686 [id number] [facility] 2021-07-08 08:30:00 2021-07-08 10:06:45 Outpatient R ESTRELLITA CERVANTES OGECHUKWU [facility] [id number] [facility] 2021-07-08 08:30:00 2021-07-08 10:06:45 Office Visit Estrellita Cervantes [facility] BUILD[facility] 1.2.840.114 350.1.13.10 4.2.7.2.686 [id number] [facility] 2021-07-08 08:00:00 2021-07-08 10:06:29 Outpatient R ESTRELLITA CERVANTES OGECHUKWU [facility] [id number] [facility] 2021-07-08 08:00:00 2021-07-08 10:06:29 Office Visit Estrellita Cervantes [facility] 1.2.840.114 350.1.13.10 4.2.7.2.686 [id number] [facility] 2021-07-08 08:00:00 2021-07-08 10:06:29 Office Visit Estrellita Cervantes [facility] 1.2.840.114 350.1.13.10 4.2.7.2.686 [id number] [facility] 2020-09-28 00:00:00 2020-09-28 00:00:00 Bonnie Garcia [facility] 1.2.840.114 350.1.13.10 4.2.7.2.686 [id number] [facility] 2020-08-19 14:00:00 2020-08-19 14:00:00 Outpatient CASSIDY HERNÁNDEZ [facility] [id number] [facility] 2020-08-16 16:00:00 2020-08-16 16:00:00 Outpatient BONNIE COVARRUBIAS [facility] [id number] [facility] 2020-07-27 00:00:00 2020-07-27 00:00:00 Patient Outreach Toby Schum[facility] 1.2.840.114 350.1.13.10 4.2.7.2.686 [id number] [facility] 2020-07-07 00:00:00 2020-07-07 00:00:00 [facility]ill [facility] Building 1..840.114 350.1.13.10 4.2.7.2.686 [id number] [facility] 2020-02-23 13:15:00 2020-02-23 13:15:00 Outpatient ISAI OLGUIN [facility] [id number] [facility] 2020-01-19 13:00:00 2020-01-19 13:00:00 Outpatient BONNIE COVARRUBIAS [facility] [id number] [facility] 2020-01-04 00:00:00 2020-01-04 00:00:00 [facility] 1..840.114 350.1.13.10 4.2.7.2.686 [id number] [facility] 2019-11-22 14:00:00 2019-11-22 14:00:00 Outpatient ISAI OLGUIN [facility] [id number] [facility] 2019-11-22 08:10:20 2019-11-22 08:40:20 Telemedici ne [facility] Building 1.2.840.114 350.1.13.10 4.2.7.2.686 [id number] [facility] 2019-08-29 00:00:00 2019-08-29 00:00:00 [facility] 1.2.840.114 350.1.13.10 4.2.7.2.686 [id number] [facility] 2019-08-24 14:00:49 2019-08-24 14:40:49 Office Visit [facility] Lang[facility] [place] [facility] 1.2.840.114 350.1.13.10 4.2.7.2.686 [id number] [facility] 2019-08-18 00:00:00 2019-08-18 00:00:00 Telephone Bonnie Langford [facility] [id number] 350.1.13.10 4.2.7.2.686 [id number] [facility] 2019-08-11 00:00:00 2019-08-11 00:00:00 Patient Secure Msg Doctor Unassigned, [place] [facility] 1.2.840.114 350.1.13.10 4.2.7.2.686 [id number] [facility] 2019-08-08 12:16:42 2019-08-08 12:31:42 Correspondence Specialist Visit Pob, Adc Lab Main Bonnie Langford [facility] 1.2.840.114 350.1.13.10 4.2.7.2.686 [id number] [facility] 2019-08-04 00:00:00 2019-08-04 00:00:00 Pre Visit Outreach Bon[facility] Lang[facility] [place] [facility] 1.2.840.114 350.1.13.10 4.2.7.2.686 [id number] [facility] 2019-08-03 15:12:51 2019-08-03 17:08:08 Office Visit Bonnie Langford [facility] Building 1.840.114 350.1.13.10 4.2.7.2.686 [id number] [facility] 2019-08-03 00:00:00 2019-08-03 00:00:00 Orders Only Doctor Unassigned, [place] [facility] 1.840.114 350.1.13.10 4.2.7.2.686 [id number] [facility] Results Test Description Test Time Test [...] Osteoarthritic changes are present atthe left hip. [facility] XR CHEST 1 VW 2023-12-05 0 12:46:08 EXAM: XR CHEST 1 VW COMPARISON: None HISTORY:83 years old, Female ?with PRICE . [facility] (NA, K, CL, CO2, GLUCOSE, BUN, CREATININE, CA)2023-12-20 09:01:17* Test Item Value Reference Range Interpretation Comme nts NA (test code = 2772414768) 135 mmol/L 135-145 K (test code = 4629195111) 3.9 mmol/L 3.5-5.0 CL (test code = 6488170726) 105 mmol/L 98-108 CO2 TOTAL (test code = 9619861544) 26 mmol/L 23-31 AGAP (test code = 0894117472) 4 2-16 BUN (test code = 2188081288) 26 mg/dL 7-23 H GLUCOSE (test code = 7510480567) 88 mg/dL 70-110 CREATININE (test code = 2160-0) 1.12 mg/dL 0.50-1.04 H CALCIUM (test code = 3106342810) 8.2 mg/dL 8.6-10.6 L eGFR (test code = 65707-3) 48.6 mL/min/1.73m2 CKD-EPI eGFR (2020). Assuming creatinine has been stable day-to-day for at least three months, the eGFR indicates Category G3a (45 - 59 mL/min/1.73 m2) Lab Interpretation (test code = 68197-7) Abnormal [facility]2024-[facility]-17 09:01:17* Test Item Value Reference Range Interpretation Comme nts MAGNESIUM (test code = 0992775235) 2.8 mg/dL 1.7-2.4 H Lab Interpretation (test cod e = 15917-2) Abnormal [facility]2024-06-17 09:01:17* Test Item Value Reference Range Interpretation Comme nts PHOSPHORUS (test code = 3337651820) 3.6 mg/dL 2.5-5.0 Lab Interpretation (test cod e = 79582-3) Normal [facility] (NA, K, CL, CO2, GLUCOSE, BUN, CREATININE, CA)2023-12-20 09:01:17* Test Item Value Reference Range Interpretation Comme nts NA (test code = 5782588329) 135 mmol/L 135-145 K (test code = 0678219555) 3.9 mmol/L 3.5-5.0 CL (test code = 9344676421) 105 mmol/L 98-108 CO2 TOTAL (test code = 4232263985) 26 mmol/L 23-31 AGAP (test code = 2303561994) 4 2-16 BUN (test code = 0063259902) 26 mg/dL 7-23 H GLUCOSE (test code = 9470997865) 88 mg/dL 70-110 CREATININE (test code = 2160-0) 1.12 mg/dL 0.50-1.04 H CALCIUM (test code = 6268227598) 8.2 mg/dL 8.6-10.6 L eGFR (test code = 91911-8) 48.6 mL/min/1.73m2 CKD-EPI eGFR (2020). Assuming creatinine has been stable day-to-day for at least three months, the eGFR indicates Category G3a (45 - 59 mL/min/1.73 m2) Lab Interpretation (test code = 26799-1) Abnormal [facility]2024-06-17 09:01:17* Test Item Value Reference Range Interpretation Comme nts MAGNESIUM (test code = 2077034107) 2.8 mg/dL 1.7-2.4 H Lab Interpretation (test cod e = 78393-7) Abnormal [facility]2024-06-17 09:01:17* Test Item Value Reference Range Interpretation Comme nts PHOSPHORUS (test code = 8748110760) 3.6 mg/dL 2.5-5.0 Lab Interpretation (test cod e = 15566-0) Normal [facility] without [id number] 08:40:18* Test Item Value Reference Range Interpretation [...] 777-3) 278 166-358 MPV (test code = 80433-4) 10.0 fL 9.5-12.9 RDW-CV (test code = 788-0) 13.7 % 12.0-15.5 RDW-SD (test code = 74622-9) 46.4 fL 39.0-49.9 NRBC x10^3 (test code = 5772288985) See_Comment [Automated hdtMEDIAa ge] The system which generated this result transmitted reference range: 10*3/?L. The reference range was not used to interpret this result as normal/abnormal. NRBC/100 WBC (test code = 4871100155) 0.0 0.0-10.0 IPF % (test code = 1898580206) Lab Interpretation (test code = 17837-0) Abnormal [facility] without Ffjj9715-03-08 08:40:18* Test Item Value Reference Range Interpretation [...] 777-3) 278 166-358 MPV (test code = 69469-3) 10.0 fL 9.5-12.9 RDW-CV (test code = 788-0) 13.7 % 12.0-15.5 RDW-SD (test code = 36606-5) 46.4 fL 39.0-49.9 NRBC x10^3 (test code = 9112359510) See_Comment [Automated messa ge] The system which generated this result transmitted reference range: 10*3/?L. The reference range was not used to interpret this result as normal/abnormal. NRBC/100 WBC (test code = 5713588316) 0.0 0.0-10.0 IPF % (test code = 1349158383) Lab Interpretation (test code = 77248-7) Abnormal [facility]2024-06-16 16:20:59* Test Item Value Reference Range Interpretation Comme nts PHOSPHORUS (test code = 7986695012) 4.0 mg/dL 2.5-5.0 Lab Interpretation (test cod e = 95384-2) Normal [facility]2024-06-16 16:20:59* Test Item Value Reference Range Interpretation Comme nts MAGNESIUM (test code = 8672165441) 1.9 mg/dL 1.7-2.4 Lab Interpretation (test cod e = 45744-6) Normal [facility] Metabolic Panel (NA, K, CL, CO2, GLUCOSE, BUN, CREATININE, CA)2023-12-19 16:20:59* Test Item Value Reference Range Interpretation Comme nts NA (test code = 1818199991) 135 mmol/L 135-145 K (test code = 8519054244) 4.0 mmol/L 3.5-5.0 CL (test code = 8184056603) 107 mmol/L 98-108 CO2 TOTAL (test code = 9910273982) 25 mmol/L 23-31 AGAP (test code = 4957168338) 3 2-16 BUN (test code = 0485925605) 25 mg/dL 7-23 H GLUCOSE (test code = 4157128768) 109 mg/dL 70-110 CREATININE (test code = 2160-0) 1.23 mg/dL 0.50-1.04 H CALCIUM (test code = 8103630750) 8.0 mg/dL 8.6-10.6 L eGFR (test code = 13202-5) 43.4 mL/min/1.73m2 CKD-EPI eGFR (2020). Assuming creatinine has been stable day-to-day for at least three months, the eGFR indicates Category G3b (30 - 44 mL/min/1.73 m2) Lab Interpretation (test code = 98102-8) Abnormal [facility]2024-06-16 16:20:59* Test Item Value Reference Range Interpretation Comme nts PHOSPHORUS (test code = 0177324280) 4.0 mg/dL 2.5-5.0 Lab Interpretation (test cod e = 16628-7) Normal [facility]2024-06-16 16:20:59* Test Item Value Reference Range Interpretation Comme nts MAGNESIUM (test code = 0455097895) 1.9 mg/dL 1.7-2.4 Lab Interpretation (test cod e = 27075-5) Normal [facility] Metabolic Panel (NA, K, CL, CO2, GLUCOSE, BUN, CREATININE, CA)2023-12-19 16:20:59* Test Item Value Reference Range Interpretation Comme nts NA (test code = 3058271962) 135 mmol/L 135-145 K (test code = 0128166616) 4.0 mmol/L 3.5-5.0 CL (test code = 4917532091) 107 mmol/L 98-108 CO2 TOTAL (test code = 0493426830) 25 mmol/L 23-31 AGAP (test code = 5531669876) 3 2-16 BUN (test code = 9499828657) 25 mg/dL 7-23 H GLUCOSE (test code = 9021287644) 109 mg/dL 70-110 CREATININE (test code = 2160-0) 1.23 mg/dL 0.50-1.04 H CALCIUM (test code = 4171808612) 8.0 mg/dL 8.6-10.6 L eGFR (test code = 11848-8) 43.4 mL/min/1.73m2 CKD-EPI eGFR (2020). Assuming creatinine has been stable day-to-day for at least three months, the eGFR indicates Category G3b (30 - 44 mL/min/1.73 m2) Lab Interpretation (test code = 69096-5) Abnormal [facility] without [id number] 16:03:54* Test Item Value Reference Range Interpretation [...] 777-3) 335 166-358 MPV (test code = 47753-8) 9.4 fL 9.5-12.9 L RDW-CV (test code = 788-0) 13.5 % 12.0-15.5 RDW-SD (test code = 50640-1) 46.4 fL 39.0-49.9 NRBC x10^3 (test code = 8011937978) See_Comment [Automated hdtMEDIAa ge] The system which generated this result transmitted reference range: 10*3/?L. The reference range was not used to interpret this result as normal/abnormal. NRBC/100 WBC (test code = 1835755885) 0.0 0.0-10.0 IPF % (test code = 7741066886) Lab Interpretation (test code = 70329-6) Abnormal [facility] without Qxhb2964-71-04 16:03:54* Test Item Value Reference Range Interpretation [...] 777-3) 335 166-358 MPV (test code = 94387-0) 9.4 fL 9.5-12.9 L RDW-CV (test code = 788-0) 13.5 % 12.0-15.5 RDW-SD (test code = 13702-1) 46.4 fL 39.0-49.9 NRBC x10^3 (test code = 7430487365) See_Comment [Automated hdtMEDIAa ge] The system which generated this result transmitted reference range: 10*3/?L. The reference range was not used to interpret this result as normal/abnormal. NRBC/100 WBC (test code = 5986558234) 0.0 0.0-10.0 IPF % (test code = 0572976492) Lab Interpretation (test code = 93876-1) Abnormal [facility]ter[facility] Veuy2177-66-96 13:08:00Christopher Wong MD ? ? 12/19/2023 ?8:09 AM Arterial Line Date/Time: 12/19/2023 8:08 AM Performed by: Christopher Wong MDArterial Line Placement: ?Ultrasound- Guided: ultrasound guided ? ?Patient Location: ?OR ?Indication: continuous blood pressure monitoring and blood sampling needed ?Staff: ?Supervising Anesthesiologist: ?Hugh Tovar MD ?Resident: ?Christ[facility]: ?Catheter Size: ?20 gauge [...] infiltration with Lidocaine, STF, smooth and atraumatic. [facility]2024-[facility] 12:48:00Christopher Wong MD ? ? 12/19/2023 ?8:09 AMIntubationDate/Time: 12/19/2023 7:48 AMUrgency: elective Airway not difficult General Information and Staff Patient location during procedure: ORPerformed: resident/CLIENT SUCCESS SPECIALIST Performed by: Christopher Wong MDAuthorized by: Hugh Tovar MD ? Indications [...] CommentsSmooth, atraumatic, dentition and lips unchanged from pre-op.[facility] with [id number] 12:42:06* Test Item Value Reference Range Interpretation [...] 34.1 g/dL 31.6-35.1 RDW-SD (test code = 11641-2) 45.6 fL 39.0-49.9 RDW-CV (test code = 788-0) 13.6 % 12.0-15.5 PLT (test code = 777-3) 333 166-358 MPV (test code = 24981-6) 9.8 fL 9.5-12.9 NRBC/100 WBC (test code = 6489542601) 0.0 0.0-10.0 NRBC x10^3 (test code = 0823755335) See_Comment [Automated hdtMEDIAa ge] The system which generated this result transmitted reference range: 10*3/?L. The reference range was not used to interpret this result as normal/abnormal. GRAN MAT (NEUT) % (test code = 770-8) 77.4 % IMM GRAN % (test code = 2132528534) 0.40 % LYMPH % (test code = 736-9) 13.4 % MONO % (test code = 5905-5) 8.2 % EOS % (test code = 713-8) 0.1 % BASO % (test code = 706-2) 0.5 % GRAN MAT x10^3(ANC) (test code = 3548961797) 9.45 10*3/uL 1.88-7.09 H IMM GRAN x10^3 (test code = 2210070925) 0.05 10*3/uL 0.00-0.06 LYMPH x10^3 (test code = 731-0) 1.63 10*3/uL 1.32-3.29 MONO x10^3 (test code = 742-7) 1.00 10*3/uL 0.33-0.92 H EOS x10^3 (test code = 711-2) 0.03-0.39 L BASO x10^3 (test code = 704-7) 0.06 10*3/uL 0.01-0.07 Lab Interpretation (test code = 36331-1) Abnormal [facility] with Gitf5570-62-10 12:42:06* Test Item Value Reference Range Interpretation [...] 34.1 g/dL 31.6-35.1 RDW-SD (test code = 02516-1) 45.6 fL 39.0-49.9 RDW-CV (test code = 788-0) 13.6 % 12.0-15.5 PLT (test code = 777-3) 333 166-358 MPV (test code = 16057-4) 9.8 fL 9.5-12.9 NRBC/100 WBC (test code = 7171591959) 0.0 0.0-10.0 NRBC x10^3 (test code = 0192603579) See_Comment [Automated messa ge] The system which generated this result transmitted reference range: 10*3/?L. The reference range was not used to interpret this result as normal/abnormal. GRAN MAT (NEUT) % (test code = 770-8) 77.4 % IMM GRAN % (test code = 2889280122) 0.40 % LYMPH % (test code = 736-9) 13.4 % MONO % (test code = 5905-5) 8.2 % EOS % (test code = 713-8) 0.1 % BASO % (test code = 706-2) 0.5 % GRAN MAT x10^3(ANC) (test code = 9282875007) 9.45 10*3/uL 1.88-7.09 H IMM GRAN x10^3 (test code = 4162855117) 0.05 10*3/uL 0.00-0.06 LYMPH x10^3 (test code = 731-0) 1.63 10*3/uL 1.32-3.29 MONO x10^3 (test code = 742-7) 1.00 10*3/uL 0.33-0.92 H EOS x10^3 (test code = 711-2) 0.03-0.39 L BASO x10^3 (test code = 704-7) 0.06 10*3/uL 0.01-0.07 Lab Interpretation (test code = 42988-7) Abnormal [facility] Houston[facility] Time / [id number] 03:22:20* Test Item Value Reference Range Interpretation Comme nts PROTIME PATIENT (test code = 5964-2) 9.9 10.1-12.6 L INR (test code = 6301-6) 0.9 Normal INR <1.1; Warfarin Therapeutic range 2.0 to 3.0 or 2.5 to 3.5, depending upon the indications. Lab Interpretation (test code = 76231-8) Abnormal [facility] Houston[facility]throm[facility] Time / [id number] 03:22:20* Test Item Value Reference Range Interpretation Comme nts PROTIME PATIENT (test code = 5964-2) 9.9 10.1-12.6 L INR (test code = 6301-6) 0.9 Normal INR <1.1; Warfarin Therapeutic range 2.0 to 3.0 or 2.5 to 3.5, depending upon the indications. Lab Interpretation (test code = 91219-3) Abnormal [facility] HoustonActivated Partial Thrmplas [id number] 03:21:35* Test Item Value Reference Range Interpretation Comme nts APTT Patient (test code = 3173-2) Lab Interpretation (test cod e = 81718-8) Normal [facility] HoustonAct[facility] Partial Thrmplas [id number] 03:21:35* Test Item Value Reference Range Interpretation Comme nts APTT Patient (test code = 3173-2) Lab Interpretation (test cod e = 69796-6) Normal [facility] HoustonABORH Confirmation (Lab Only)2023-12-19 03:13:00* Test Item Value Reference Range Interpretation Comme nts ABO & RH (test code = 20) O Positive [facility] HoustonAB[facility]H Confirmation (Lab Only)2023-12-19 03:13:00* Test Item Value Reference Range Interpretation Comme nts ABO & RH (test code = 20) O Positive [facility] HoustonXR HIPS 2 VW [id number] 13:38:27EXAM: XR HIPS 2 VW RIGHT, XR [...] spine.Opacities over the pelvis could suggest calcified fibroids.[facility] HoustonXR FEMUR 2 VW [id number] 13:38:27EXAM: XR HIPS 2 VW RIGHT, XR [...] spine.Opacities over the pelvis could suggest calcified fibroids.[facility] HoustonXR HIPS 2 VW [id number] 13:38:27EXAM: XR HIPS 2 VW RIGHT, XR [...] spine.Opacities over the pelvis could suggest calcified fibroids.[facility] HoustonXR FEMUR 2 VW [id number] 13:38:27EXAM: XR HIPS 2 VW RIGHT, XR [...] spine.Opacities over the pelvis could suggest calcified fibroids.[facility] HoustonCB WITH [id number] 21:55:26* Test Item Value Reference Range Interpretation [...] g/dL 31.6-35.1 L RDW-SD (test code = 52935-3) 45.6 fL 39.0-49.9 RDW-CV (test code = 788-0) 12.7 % 12.0-15.5 PLT (test code = 777-3) 352 166-358 MPV (test code = 96918-8) 10.7 fL 9.5-12.9 NRBC/100 WBC (test code = 4953749334) 0.0 0.0-10.0 NRBC x10^3 (test code = 5839602802) See_Comment [Automated messa ge] The system which generated this result transmitted reference range: 10*3/?L. The reference range was not used to interpret this result as normal/abnormal. GRAN MAT (NEUT) % (test code = 770-8) 70.4 % IMM GRAN % (test code = 7260031080) 0.40 % LYMPH % (test code = 736-9) 22.6 % MONO % (test code = 5905-5) 4.8 % EOS % (test code = 713-8) 0.9 % BASO % (test code = 706-2) 0.9 % GRAN MAT x10^3(ANC) (test code = 2128401700) 7.08 10*3/uL 1.88-7.09 IMM GRAN x10^3 (test code = 8053732790) 0.04 10*3/uL 0.00-0.06 LYMPH x10^3 (test code = 731-0) 2.27 10*3/uL 1.32-3.29 MONO x10^3 (test code = 742-7) 0.48 10*3/uL 0.33-0.92 EOS x10^3 (test code = 711-2) 0.09 10*3/uL 0.03-0.39 BASO x10^3 (test code = 704-7) 0.09 10*3/uL 0.01-0.07 H Lab Interpretation (test code = 48568-3) Abnormal [facility] WITH [id number] 21:55:26* Test Item Value Reference Range Interpretation [...] g/dL 31.6-35.1 L RDW-SD (test code = 34253-4) 45.6 fL 39.0-49.9 RDW-CV (test code = 788-0) 12.7 % 12.0-15.5 PLT (test code = 777-3) 352 166-358 MPV (test code = 99532-7) 10.7 fL 9.5-12.9 NRBC/100 WBC (test code = 7492948720) 0.0 0.0-10.0 NRBC x10^3 (test code = 7988027741) See_Comment [Automated messa ge] The system which generated this result transmitted reference range: 10*3/?L. The reference range was not used to interpret this result as normal/abnormal. GRAN MAT (NEUT) % (test code = 770-8) 70.4 % IMM GRAN % (test code = 7242434235) 0.40 % LYMPH % (test code = 736-9) 22.6 % MONO % (test code = 5905-5) 4.8 % EOS % (test code = 713-8) 0.9 % BASO % (test code = 706-2) 0.9 % GRAN MAT x10^3(ANC) (test code = 3407667027) 7.08 10*3/uL 1.88-7.09 IMM GRAN x10^3 (test code = 4939481201) 0.04 10*3/uL 0.00-0.06 LYMPH x10^3 (test code = 731-0) 2.27 10*3/uL 1.32-3.29 MONO x10^3 (test code = 742-7) 0.48 10*3/uL 0.33-0.92 EOS x10^3 (test code = 711-2) 0.09 10*3/uL 0.03-0.39 BASO x10^3 (test code = 704-7) 0.09 10*3/uL 0.01-0.07 H Lab Interpretation (test code = 83926-9) Abnormal [facility] Consult Notes Date/Time Note Provider Source 2023-12-23 13:39:04 Associated Order(s): CONSULT COLLECTIVE BARGAINING SPECIALIST-ADULT CARE MANAGEMENT PROGRESS NOTE Please see SFA entered on 12/20/2023 ANTON Prince, ACM-RN Retail Service Specialist [facility] Management [email or web address] Office: [phone] Elaine Gambino RN [facility] 2023-12-21 14:13:12 Associated Order(s): CONSULT ADULT PHYSICAL THERAPY Duplicate consult. Please see PT eval dated 12/20/23 Thanks Mirza Lay PT, DPT [facility] Physical Therapy Rehabilitation Services [facility] 2023-12-20 14:04:42 Associated Order(s): CONSULT ADULT PHYSICAL THERAPY Duplicate consult. Please see PT eval 12/20/23 for details. Thanks Mirza Lay PT, DPT [facility] Physical Therapy Rehabilitation Services T [facility] 2023-12-20 10:05:00 Associated Order(s): CONSULT ADULT PHYSICAL THERAPY Patient agreeable to working with physical therapy. Patient met supine. Patient seen in collaboration with Occupational Therapy due to complexity of her case. Seen with Pura Arias, JUSTINE, OTD. Patient will be billed for PT portion [...] shake 'no': dependent Sitting, eyes closed: dependent group sales representative object from behind: dependent Forward reach: dependent Lateral reach: dependent group sales representative object from floor: dependent Posterior scooting: dependent [...] Right 10/23/2015 Surgeon: Ángel Bennett MD; Location: [facility] OR Location PHACOEMULSIFICATION OF CATARACT WITH INTRAOCULAR LENS IMPLANT Left 01/22/2016 Surgeon: Ángel Bennett MD; Location: [facility] OR Location REMOVAL OF OVARY/TUBE(S) Prior [...] due to cognitive issues COMMUNICATION Primary Language: Tristanian Able to Verbalize needs: Yes Vision:glasses Hearing:good; [...] Treatment Time in Minutes: 30 min Mirza Lay, PT, DPT [facility] Physical Therapy Rehabilitation Services A physical [...] clinical presentation with unstable and unpredictable characteristics [facility] 2023-12-20 10:05:00 Associated Order(s): CONSULT ADULT OCCUPATIONAL THERAPY OT GENERAL EVALUATION Consult received via MONOCO, EMR reviewed and evaluation completed 12/20/23. Patient [...] (Low Function): 28.95 Grooming: Maximum Assistance, pt track superintendent washcloth while semireclining in bed with [...] Right 10/23/2015 Surgeon: Ángel Bennett MD; Location: [facility] OR Location PHACOEMULSIFICATION OF CATARACT WITH INTRAOCULAR LENS IMPLANT Left 01/22/2016 Surgeon: Ángel Bennett MD; Location: [facility] OR Location REMOVAL OF OVARY/TUBE(S) PAIN: [...] to enter. Bathroom access: Yes Bathroom setup: Levelo Occupation(s): Retired Function prior to admission: Household [...] Individual verbalizes understanding of teaching provided. Pura Arias OTR, OTD Total Timed Treatment Codes: 24 [...] to enable patient to complete evaluation component. [facility] 2023-12-19 10:33:00 Associated Order(s): CONSULT ADULT OCCUPATIONAL THERAPY 12/20/2023 OCCUPATIONAL THERAPY NOTE: Duplicate consult. Pura Arias, OTR, OTD [facility] 2023-12-18 16:06:17 SICU ADMIT NOTE Date of [...] Right 10/23/2015 Surgeon: Ángel Bennett MD; Location: [facility] OR [facility]ly [facility] PHACOEMULSIFICATION OF CATARACT WITH INTRAOCULAR LENS IMPLANT Left 01/22/2016 Surgeon: nÁgel Bennett MD; Location: [facility] OR [facility]ly [facility] REMOVAL OF OVARY/TUBE(S) Social History Socioeconomic [...] min Stress: No Stress Concern Present (11/10/2023) Vietnamese [place] [facility] Occupational Health - Occupational Stress Questionnaire [...] OR for R hip bertrand. Airway: - [place] airway Neurology: - pain controlled with fentanyl [...] CDT Agree with plan, discussed with resident. [facility] 2023-12-18 11:58:57 Associated Order(s): CONSULT GERIATRIC MEDICINE [...] Right 10/23/2015 Surgeon: Ángel Bennett MD; Location: [facility] OR [facility]ly [facility] PHACOEMULSIFICATION OF CATARACT WITH INTRAOCULAR LENS IMPLANT Left 01/22/2016 Surgeon: Ángel Bennett MD; Location: [facility] OR [facility]ly [facility] REMOVAL OF OVARY/TUBE(S) Family History Problem [...] with resident's note as written. IM-GERIATRIC MEDICINE [facility] Health History and Physical Notes Date/Time [...] as it pertains to ADLs Lives in [address] [place] [address] PAST HISTORIES Past Medical History: Diagnosis Date Cataract Hyperlipidemia Hyperlipidemia 06/13/2015 Hypertension TIA (transient ischemic attack) Past Surgical History: Procedure Laterality Date APPENDECTOMY LAPAROSCOPIC TUBAL LIGATION PHACOEMULSIFICATION OF CATARACT WITH INTRAOCULAR LENS IMPLANT Right 10/23/2015 Surgeon: Ángel Bennett MD; Location: [facility] OR [facility]ly [facility] PHACOEMULSIFICATION OF CATARACT WITH INTRAOCULAR LENS IMPLANT Left 01/22/2016 Surgeon: Ángel Bennett MD; Location: [facility] OR [facility] REMOVAL OF OVARY/TUBE(S) Family History Problem [...] expressed or implied other than due diligence. T [facility] Procedure Notes Date/Time Note Provider Source 2023-12-19 08:09:16 Associated Order(s): Intubation Intubation Date/Time: 12/19/2023 7:48 AM Urgency: elective Airway not difficult General Information and Staff Patient location during procedure: OR Performed: resident/CLIENT SUCCESS SPECIALIST Performed by: Christopher Wong MD Authorized by: [...] atraumatic, dentition and lips unchanged from pre-op. AN-ANESTHESIOLOGY [facility] 2023-12-19 08:08:56 Associated Order(s): Arterial Line Arterial [...] infiltration with Lidocaine, STF, smooth and atraumatic. [facility] [employer] Notes Date/Time Note Provider Source 2024-10-26 13:59:[address] Denny Goldman to complete HRA telephonically with patient prior to scheduled Medicare annual wellness visit on 11/02/24 at 1 pm. At the time of call there was no answer and [facility] left voicemail for call back. [facility] will also send message via [employer] Month to patient. Elli Christianson MA [facility] 2023-12-22 22:11:03 Problem: Discharge Planning Goal: Adequate [...] Outcome: Progressing as expected Talisha Guthrie RN [facility] 2023-12-22 19:22:38 Problem: Discharge Planning Goal: Adequate [...] fluid volume Outcome: Not progressing as expected Counts include 234 beds at the [facility] 2023-12-22 16:30:53 O2 Saturation at REST on Room Air = 98% EXERTION TEST O2 Saturation at Rest on Room Air = 98% O2 Saturation being Exerted on Room Air = 83% Once pt sat back down after one min. O2 sat went back up to 98%. O@ sat was noticed during orthovitals check. Ramila Lema RN [facility] 2023-12-22 15:45:48 Summary: Ortho vitals Orthostatic vitals completed. Supine: BP 144/70 MAP 95 P 86 O2 97% Sitting: BP 128/73 MAP 91 P 88 O2 97% Standing: BP 93/47 MAP 62 P 100 O2 88% T [facility] 2023-12-21 19:59:47 Patient is resting. Nirmala Crane RN [facility] 2023-12-20 23:17:54 PATIENT WAS TRANSFERRED FROM SICU VIA BED ASSISTED BY SICU RNS, REPORT RECEIVED FROM ESTELA FLOWER RN. NOTED SCABS ON RIGHT ELBOW, RIGHT KNEE IMMOBILIZER IN PLACE. PATIENT IS NOT ALERT AND ORIENTED, CONFUSED. [facility] 2023-12-20 09:24:53 Problem: Discharge Planning Goal: Adequate [...] Outcome: Progressing as expected Guerline Maxwell RN [facility] 2023-12-19 21:28:03 Problem: Discharge Planning Goal: Adequate [...] Outcome: Progressing as expected Estela Flower RN [facility] 2023-12-19 13:38:01 Problem: Discharge Planning Goal: Adequate [...] of physical injury Outcome: Progressing as expected [facility] 2023-12-19 12:23:43 Patient: Denny Goldman Procedure Summary Date: 12/19/23 Room / Location: [address] Anesthesia Start: 739 Anesthesia Stop: 1056 Procedure: [...] status: acceptable Hydration status: acceptable AN-ANESTHESIOLOGY ANESTHESIOLOGIST [facility] 2023-12-19 08:40:00 OPERATIVE NOTE Procedure: right hip hemiarthroplasty [ CPT 25009 ] Date of procedure: 12/19/2023 Faculty Surgeon(s): [...] Implant Name Type Inv. Item Serial No. Telecommunications Administrator Lot No. LRB No. Used Action STEM FMRL 155MM 13 HIGH OFFSET TAP PRIM DISTAL BULLET TIP #[id number] - SNA Joint Prosthesis STEM FMRL 155MM 13 HIGH OFFSET TAP PRIM DISTAL BULLET TIP #[id number] [employer] [id number] Right 1 Implanted UNIPOLAR HEAD [employer] 44MM #[id number] - SNA Joint Prosthesis UNIPOLAR HEAD [employer]W 44MM #[id number] [employer] [id number] Right 1 Implanted SLEEVE [employer] UNIPOLAR 12/14 TAPER/ 0 #[id number] - SNA Joint Prosthesis SLEEVE [employer] UNIPOLAR 12/14 TAPER/ 0 #[id number] [employer] [id number] Right 1 Implanted Indications: Denny Goldman is [...] adverse reaction to implants and/or medicines; DVT/PE; MD; stroke; GI bleed; organ failure; and any [...] Albert Espinoza M.D. 10:37 AM 12/19/2023 PGY-4, [facility] Department of Orthopaedic Surgery and Rehabilitation [facility] - Health 2023-12-18 19:17:05 Name/ MRN / Age / Gender: Denny Goldman, [id number] 83 year old female BMI: Estimated body [...] (physical exam) Anesthesia Preop: Chart Review and Fvex-kp-Luul [facility] Communication: 83F with PMH of HTN, HLD, [...] Endo/Other ROS Comments: No results found for: "[id number]" Other SENIOR REPORT DEVELOPER SENIOR REPORT DEVELOPER N/A Pediatric Pediatric N/A N/A Preoperative Medication Instructions Continue taking all prescribed medications except: HAILEE inhibitors, ARBs, diuretics, all oral diabetes medications Anticoagulant Therapy: Defer to surgeons Insulin: Take 1/2 dose the night prior to surgery. Hold on DOS. Phentermine: Alert [facility] anesthesiologist SGLT2 Inhibitors: "gliflozins" to be held [...] Right 10/23/2015 Surgeon: Ángel Bennett MD; Location: [facility] OR [facility] PHACOEMULSIFICATION OF CATARACT WITH INTRAOCULAR LENS IMPLANT Left 01/22/2016 Surgeon: Ángel Bennett MD; Location: [facility] REMOVAL OF OVARY/TUBE(S) Anesthesia Physical Exam [...] plan discussed with: patient or sales representative raw fibers Post-Operative Analgesia: routine analgesia & antiemetics Recovery Plan: PACU Additional comments: AN-ANESTHESIOLOGY ANESTHESIOLOGIST [facility] 2023-12-18 17:45:28 Problem: Discharge Planning Goal: Adequate [...] of physical injury Outcome: Progressing as expected [facility] 2023-12-18 12:35:49 Report called to RICKY Cunha on 1235 @ this time. TOOL AND DIE MAKER APPRENTICE to place transportation request via [employer] system. Updated patient / family on progress of transfer. Awaiting transportation. Jackson Pino RN [facility] 2023-12-18 11:32:03 Asked MD for order for IV pain and BP medication. Anitra Quesada RN [facility] 2023-12-18 11:20:42 Ortho at bedside. MD Tayo updated family on patient status. T [facility] 2023-12-18 08:17:30 Patient cleaned, placed on purewick, linens changed, provided warm blankets for comfort. Patient now Aaox3. Patient appropriately states her name, , aware she's at the hospital and that she had a fall, unable to answer the year states "I dont know." Patient endorses right hip pain. T [facility] 2023-12-18 07:25:00 Patient to radiology. T [facility] 2023-12-18 07:03:49 Ortho at bedside. T [facility] 2023-12-18 07:00:00 Received report from RICKY Campos. Patient laying in bed, Aaox2, Hx of dementia, patient complaining of pain, RR e/u on RA. T [facility] 2023-12-18 06:40:49 Denny Goldman is a 83 [...] and advised of pt's arrival to ED. T Hallie Duvall RN [facility] 2023-12-18 06:36:00 [facility] Emergency Department Note Patient Name: Denny Goldman Date of : 1940 83 year old female Treatment Room: 120/120 Primary Care Physician: Bonnie Langford Patient Escorted by: Self [9] Mode of Arrival: EMS - Other [35] ([facility]) EMS Treatment Prior to ED Arrival: FORMULA CLERK treatment: None Travel and Exposure Screening: Symptoms [...] Illness: Pt here for fall Transferred from [place], pt fell two days ago, pt seen [...] Right 10/23/2015 Surgeon: Ángel Bennett MD; Location: [facility] PHACOEMULSIFICATION OF CATARACT WITH INTRAOCULAR LENS IMPLANT Left 01/22/2016 Surgeon: Ángel Bennett MD; Location: [facility] REMOVAL OF OVARY/TUBE(S) Review of Systems: [...] Making Pt here for fall Transferred from [place], pt fell two days ago, pt seen [...] signed by: Vianney Fournier MD 12/18/23848 T [facility] [employer] 2023-11-10 15:30:00 Images from the original note [...] processed according to instructions and sent to [facility] laboratories per lab order on today: LT BLUE SST 2 RED LAV 2 PPT DK GREEN (LiHep) DK GREEN (SodH) AMATO DK BLUE (K2) DK BLUE (S) ACD Blood Culture NIPT/NTD ] S [facility] [email or web address] 2023-11-10 15:30:00 Images from the original note were not included. Patient has been identified by and name and was provided with cup, antiseptic towelette, and clean catch instructions. 2 urine specimen(s) sent. Unpreserved 1 Urine Culture 1 Aptima tube Other urine Counts include 234 beds at the [facility] 2023-11-10 14:40:00 Labs is relatively normal, continue with plan of care as discussed [facility] [employer] 2023-03-11 10:19:15 Last OV:12/10/[address] Langford Last Refill:12/[address] Langford Last Labs Pertaining to Med:N/A Future Appt:03/23/[address] Langford Refill request for mirtazapine and donepezil refilled per ambulatory refill guidelines. [facility] [email or web address]
[2024-11-08] MEDS ORDERED: NA CHLORIDE 0.9% 1,000 ML ONE ×2 (12:49→15:44)
[2024-11-08 13:01] LABS: Absolute Basophils 0.1 K/uL (0-0.5); Absolute Eosinophils 0.2 K/uL (0-0.5); Absolute Lymphocytes (CBC) 2.3 K/uL (0.7-4.9); Absolute Monocytes 0.5 K/uL (0.1-1.3); Absolute Neutrophil 4.5 K/uL (1.8-8.0); Basophils % 1.5 % (0-1.3); Eosinophils % 2.1 % (0-4.4); Hematocrit 35.8 % (36.0-45.0); Hemoglobin 12.4 g/dL (12.0-15.0); Lymphocytes % 30.1 % (15.3-44.8); MCH 31.2 pg (27.0-35.0); MCHC 34.7 g/dL (32.0-36.0); MCV 89.8 fL (80-100); MPV 7.8 fL (7.6-11.3); Monocytes % 6.9 % (3.3-12.3); Neutrophils % 59.4 % (41.7-73.7); Nucleated Red Blood Cells % 0.1 % (0-0); Platelets 367 thou/uL (152-406); RBC Red Blood Cell Count 3.99 M/uL (3.86-4.86); Red Cell Distribution Width 14.3 % (12.1-15.2)
[2024-11-08 13:04] LABS: Specific Gravity 1.024 (1.005-1.030); Sqamous Epithelial <5 /HPF (None Seen); Urine Bacteria None Seen /HPF (<20); Urine Bilirubin NEGATIVE (Negative); Urine Blood 1+ (Negative); Urine Clarity Clear (Clear); Urine Color Light-Yellow (Yellow); Urine Glucose NEGATIVE (Negative); Urine Ketones NEGATIVE (Negative); Urine Micro Reflex YN NO BILL MICROSCOPIC; Urine Mucus Slight /HPF (None Seen); Urine Nitrite NEGATIVE (Negative); Urine Protein TRACE (Negative); Urine Urobilinogen Normal (Normal); Urine WBC <5 /HPF (<5)
[2024-11-08 13:20] LABS: AST/SGOT 17 U/L (15-37); Albumin 2.9 g/dL (3.4-5.0); Albumin/Globulin Ratio 0.8 (1.1-1.8); Alkaline Phosphatase 154 U/L (45-117); Anion Gap 8.1 mEq/L (5.0-15.0); BUN Blood Urea Nitrogen 11 mg/dL (7-18); Bicarbonate 30 mEq/L (21-32); Bilirubin Total 0.5 mg/dL (0.2-1.0); Globulin 3.6 g/dL (2.3-3.5); Glomerular Filtration Rate 44 ml/min (=/>90); Glucose Level 96 mg/dL (74-106); Magnesium 1.9 mg/dL (1.6-2.4); Potassium 3.1 mEq/L (3.5-5.1); Protein, Total 6.5 g/dL (6.4-8.2); Sodium Level 140 mEq/L (136-145); Troponin High Sensitivity 13.1 pg/mL (<58.9)
[2024-11-08 13:24] LABS: ALT/SGPT < 14 U/L (13-56); Bilirubin Direct < 0.2 mg/dL (0-0.2); Bilirubin Indirect, Calculated 0.3 mg/dL (0.2-0.8)
--- NOTE | 2024-11-08 13:24 | RAD REPORT ---
EXAM: Chest Single View HISTORY: 84 years Female ams COMPARISON: 11/06/2024 FINDINGS: LUNGS/PLEURA: The lungs are clear. No pleural effusions or pneumothorax. No pulmonary edema. CARDIAC/MEDIASTINUM: The cardiac silhouette is within normal limits. UPPER ABDOMEN: No significant abnormality. BONES: No acute abnormality. LINES/TUBES/OTHER: N/A IMPRESSION: No evidence of acute cardiopulmonary disease. No significant change from prior.
--- NOTE | 2024-11-08 14:00 | RAD REPORT ---
EXAMINATION: Head Brain Wo Cont CLINICAL INDICATION: Female, 84 years old.AMS TECHNIQUE: Axial CT images from the skull base to the vertex without intravenous contrast. Coronal an d sagittal reformatted images were created from the data set. One or more of the following dose reduction techniques were used: Automated exposure control, adjustment of the mA and/or kV according to patient size, and/or iterative reconstruction. Unless otherwise specified, incidental findings do not require dedicated imaging follow-up. [id number]. COMPARISON: 11/06/2024 FINDINGS: INTRACRANIAL: No acute intracranial hemorrhage. No hydrocephalus. No mass effect or midline shift. 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 VASCULATURE: No visualized abnormalities in the arteries or dural venous sinuses. SCALP/SKULL: No calvarial fracture identified. No acute soft tissue abnormality. SINUSES: The visualized paranasal sinuses are mostly clear. Right mastoid effusion which is similar. IMPRESSION: No acute intracranial abnormality. No significant change from prior.
--- NOTE | 2024-11-08 14:05 | RAD REPORT ---
EXAMINATION: Abdomen Pelvis W Contrast CLINICAL INDICATION: Female, 84 years old.diarrhea TECHNIQUE: CT abdomen and pelvis was performed, after the administration of IV contrast, as per [facility] protocol. Axial, sagittal and coronal reconstructions were obtained. One or more of the following dose reduction techniques were used: Automated exposure control, adjustment of the mA and/o r kV according to patient size, and/or iterative reconstruction. Unless otherwise specified, incidental findings do not require dedicated imaging follow-up. [id number]. COMPARISON: 03/30/2022 FINDINGS: LOWER CHEST: No acute process identified.Mild cardiomegaly. Mild coronary artery calcifications. UPPER GI: No significant abnormality. LIVER: Hepatic steatosis, but otherwise unremarkable. GALLBLADDER/BILE DUCTS: Cholecystectomy. Mild extra-hepatic biliary ductal dilatation is likely relat ed to the post-cholecystectomy state. Consider correlating with LFT's.? PANCREAS: No mass, ductal dilation, or [place]-pancreatic fluid. SPLEEN: Unremarkable. ADRENALS: No adrenal masses. KIDNEYS AND URETERS: No hydronephrosis.Low density and/or too small to characterize renal lesions whi ch are statistically benign. ABDOMINAL AORTA AND OTHER VESSELS: Severe atherosclerotic changes. No aortic aneurysm. PERITONEUM: No abnormal free fluid. No free air. LYMPH NODES: No pathologic lymphadenopathy. ABDOMINAL WALL: Unremarkable SMALL BOWEL/COLON: Diffuse colonic wall thickening. URINARY BLADDER: Circumferential bladder wall thickening and hyperenhancement. REPRODUCTIVE ORGANS: Large calcified mass within the uterus is unchanged. This may reflect a degenera ting fibroid. MUSCULOSKELETAL: Right hip arthroplasty. Remote L1 compression fracture. ADDITIONAL FINDINGS: None. IMPRESSION: Mild diffuse colonic wall thickening which could indicate colitis. Correlate clinically. Bladder wall thickening or hyperenhancement concerning for cystitis. Correlate with urinalysis.
[2024-11-08] MEDS ORDERED: KCL 20 MEQ/100 mL IVPB 100 ML IV ONE (15:43)
--- NOTE | 2024-11-08 15:43 | ER ---
Nurse's Notes [facility] Name: Ileana Goldman Age: 84 yrs Sex: Female : 1940 Arrival Date: 11/08/2024 Time: 11:46 Bed 7 Private MD: Diagnosis: Altered mental status;Colitis Presentation: 11/08 11:47 Chief complaint: EMS states: Daughter called EMS for confusion, hx of dementia, seen in ED last week for same complaint and was told that it was likely that pt's dementia is progressing, pt also noted to have diarrhea. Coronavirus screen: Vaccine status: Patient reports being unvaccinated. Ebola Screen: No symptoms or risks identified at this time. Initial Sepsis Screen: Does the patient meet any 2 criteria? No. Patient's initial sepsis screen is negative. Does the patient have a suspected source of infection? No. Patient's initial sepsis screen is negative. Risk Assessment: Do you want to hurt yourself or someone else? Patient reports no desire to harm self or others. Onset of symptoms was November 08, 2024. 11:47 [facility] 11:47 Acuity: OPAL 3 Historical: - Allergies: 12:57 No Known Allergies; ph - PMHx: 12:57 Dementia; - Immunization history:: Adult Immunizations unknown. - Infectious Disease History:: Denies. - Family history:: not pertinent. - Social history:: Smoking status: Patient denies any tobacco usage or history of. Screenin:58 [facility] ED Fall Risk Assessment (Adult) History of falling in the last 3 months, including since admission No falls in past 3 months (0 pts) Confusion or Disorientation Yes (5 pts) Intoxicated or Sedated No (0 pts) Impaired Gait No (0 pts) Mobility Assist Device Used No (0 pt) Altered Elimination Yes (1 pt) Score/Fall Risk Level 3 or more points = High Risk Oriented to surroundings, Maintained a safe environment, Hourly rounding (assess needs \T\ fall precautionary measures) done, Used ambulatory aids as needed (educated on \T\ assisted with). Abuse screen: Denies threats or abuse. Denies injuries from another. 12:59 Nutritional screening: No deficits noted. Tuberculosis screening: No symptoms or risk ph factors identified. Assessment: 12:55 General: Appears in no apparent distress. slender, Behavior is cooperative, quiet. ph Pain: Unable to use pain scale. Patient is disoriented. Does not appear to understand pain scale. Neuro: Level of Consciousness is awake, obeys commands, confused, Oriented to person. Cardiovascular: Capillary refill < 3 seconds in bilateral fingers Patient's skin is warm and dry. Respiratory: Airway is patent Respiratory effort is even, unlabored. GI: Parent/caregiver reports the patient having diarrhea. : No signs and/or symptoms were reported regarding the genitourinary system. Derm: Skin is fragile, is thin, Skin is pink, warm \T\ dry. 14:00 Reassessment: Patient appears in no apparent distress at this time. Patient and/or ph family updated on plan of care and expected duration. Pain level reassessed. Patient is alert, oriented x 3, equal unlabored respirations, skin warm/dry/pink. 15:00 Reassessment: Patient appears in no apparent distress at this time. No changes from ph previously documented assessment. Patient and/or family updated on plan of care and expected duration. Pain level reassessed. 16:00 Reassessment: Patient appears in no apparent distress at this time. No changes from ph previously documented assessment. Patient and/or family updated on plan of care and expected duration. Pain level reassessed. 17:54 Reassessment: Patient appears in no apparent distress at this time. No changes from ph previously documented assessment. Patient and/or family updated on plan of care and expected duration. Pain level reassessed. Vital Signs: 11:47 BP 159 / 67; Pulse 59; Resp 18; Temp 97.3; Pulse Ox 100% on R/A; Weight 58.97 kg; ph 12:59 BP 142 / 89; Pulse 69; Resp 18; Pulse Ox 98% on R/A; ph 14:00 BP 154 / 78; Pulse 72; Resp 17; Pulse Ox 98% on R/A; ph 15:00 BP 168 / 97; Pulse 72; Resp 18; Pulse Ox 99% on R/A; ph 16:00 BP 159 / 99; Pulse 72; Resp 16; Pulse Ox 100% on R/A; ph 16:51 BP 161 / 73; Pulse 74; Resp 18; Pulse Ox 98% on R/A; ph ED Course: 11:46 Patient arrived in ED. ph 11:47 Ian Wise MD is Attending Physician. rt 11:49 Triage completed. ph 12:25 Leydi Eddy, RN is Primary Nurse. ph 12:54 Initial lab(s) drawn, by me, sent to lab. Urine collected: straight cath specimen, ph clear. Inserted saline lock: 22 gauge in right antecubital area, using aseptic technique. Blood collected. Flushed with 10 mL NS. 12:55 Straight cath inserted, using sterile technique, 16 Fr. Specimen obtained. Returned ph clear yellow urine. Patient tolerated well. 12:59 Patient has correct armband on for positive identification. Bed in low position. Call ph light in reach. Side rails up X 1. Pulse ox on. NIBP on. 12:59 Arm band placed on Patient placed in an exam room. ph 12:59 Cleaned of incontinence. ph 13:15 XRAY Chest (1 view) In Process Unspecified. EDMS 13:53 CT Head Brain wo Cont In Process Unspecified. EDMS 13:54 CT Abd/Pelvis - IV Contrast Only In Process Unspecified. EDMS 15:34 Inserted saline lock: 22 gauge in left antecubital area, using aseptic technique. ph Flushed with 10 mL NS. 15:42 Gina Ramírez MD is Hospitalizing Provider. rt 17:56 No provider procedures requiring assistance completed. Patient admitted, IV remains in ph place. Administered Medications: 12:53 Drug: NS 0.9% IV 1000 ml IV at 1000 ml once; to be given as a bolus over 60 minutes [id number] Route: IV; Rate: 1000 ml; Site: right antecubital; 14:00 Follow up: Response: No adverse reaction; IV Status: Completed infusion; IV Intake: ph 1000ml 15:59 Drug: Ciprofloxacin IVPB 400 mg 200 ml IVPB once over 60 mins Volume: 200 ml; Route: ph IVPB; Infused Over: 60 mins; Site: left antecubital; 16:51 Follow up: Response: No adverse reaction; IV Status: Completed infusion ph 15:59 Drug: Potassium Chloride IV 20 mEq IV at calculated rate once; administer over 1-2 ph hours Route: IV; Rate: calculated rate; Site: left antecubital; 18:00 Follow up: Response: No adverse reaction; IV Status: Completed infusion ph 16:55 Drug: metroNIDAZOLE IVPB 500 mg 100 ml IVPB at 200 ml/hr once over 30 mins Volume: 100 ph ml; Route: IVPB; Rate: 200 ml/hr; Infused Over: 30 mins; Site: left antecubital; 17:30 Follow up: Response: No adverse reaction; IV Status: Completed infusion ph Medication: 12:58 VIS not applicable for this client. ph Intake: 14:00 IV: 1000ml; Total: 1000ml. ph Outcome: 15:43 Decision to Hospitalize by Provider. rt 19:21 Admitted to Med/surg accompanied by tech, via stretcher, ph 19:21 Condition: stable 19:35 Patient left the ED. kd3 Signatures: Dispatcher [employer] EDLeydi Ayala RN RN ph Estella Lopez RN RN [id number] Kim Bennett RN RN [id number] Ina Wise MD MD rt
--- NOTE | 2024-11-08 15:43 | EDPHYS ---
Physician Documentation [facility] Name: Ileana Goldman Age: 84 yrs Sex: Female : 1940 Arrival Date: 11/08/2024 Time: 11:46 Bed 7 Private MD: ED Physician Ian Wise HPI: 11/08 16:48 This 84 yrs old Female presents to ER via EMS with complaints of Altered Mental Status. rt 16:48 Patient with history of dementia presents to the ED with worsening of her mental rt status, seen a few days ago for an altered mental status, patient was offered at that time but the daughter declined. The daughter states that the patient since developed diarrhea, nonbloody with worsening of her mental status. Denies other acute complaints at this time, symptoms are moderate severity, no other aggravating alleviating factors.. Historical: - Allergies: 12:57 No Known Allergies; ph - PMHx: 12:57 Dementia; ph - Immunization history:: Adult Immunizations unknown. - Infectious Disease History:: Denies. - Family history:: not pertinent. - Social history:: Smoking status: Patient denies any tobacco usage or history of. ROS: 16:48 Neuro: rt 16:48 Unable to obtain ROS due to altered mental status, Exam: 16:48 Constitutional: This is a well developed, well nourished patient who is awake, alert, rt and in no acute distress. Head/Face: Normocephalic, atraumatic. Chest/axilla: Normal chest wall appearance and motion. Nontender with no deformity. No lesions are appreciated. Cardiovascular: Regular rate and rhythm with a normal S1 and S2. No gallops, murmurs, or rubs. Normal PMI, no JVD. No pulse deficits. Respiratory: Lungs have equal breath sounds bilaterally, clear to auscultation and percussion. No rales, rhonchi or wheezes noted. No increased work of breathing, no retractions or nasal flaring. Abdomen/GI: Soft, non-tender, with normal bowel sounds. No distension or tympany. No guarding or rebound. No evidence of tenderness throughout. Skin: Warm, dry with normal turgor. Normal color with no rashes, no lesions, and no evidence of cellulitis. MS/ Extremity: Pulses equal, no cyanosis. Neurovascular intact. Full, normal range of motion. 16:48 ECG was reviewed by the Attending Physician. 16:48 Neuro: Withdrawn, confused, not speaking, moves all 4 extremities equally, Vital Signs: 11:47 BP 159 / 67; Pulse 59; Resp 18; Temp 97.3; Pulse Ox 100% on R/A; Weight 58.97 kg; ph 12:59 BP 142 / 89; Pulse 69; Resp 18; Pulse Ox 98% on R/A; ph 14:00 BP 154 / 78; Pulse 72; Resp 17; Pulse Ox 98% on R/A; ph 15:00 BP 168 / 97; Pulse 72; Resp 18; Pulse Ox 99% on R/A; ph 16:00 BP 159 / 99; Pulse 72; Resp 16; Pulse Ox 100% on R/A; ph 16:51 BP 161 / 73; Pulse 74; Resp 18; Pulse Ox 98% on R/A; ph MDM: 11:51 Medical Screening Exam initiated rt 16:48 Differential Diagnosis: CVA, cranial hemorrhage, colitis, metabolic disturbance. Data rt reviewed: vital signs, nurses notes, lab test result(s), EKG, radiologic studies. Consideration of Admission/Observation Patient was admitted/placed on observation. Management of patient was discussed with the following: Hospitalist: Agrees to admit. I considered the following discharge prescriptions or medication management in the emergency department Medications were administered in the Emergency Department. See MAR. Independent interpretation of the following test(s) in the Emergency Department CT Scan: My interpretation is No intracranial hemorrhage seen on interpretation of CT scan images. Test considered but Not performed: CT: Patient with recent CT angiograms of the head, neck, do not believe that repeat of these are indicated. Counseling: I had a detailed discussion with the patient and/or guardian regarding the historical points, exam findings, and any diagnostic results supporting the discharge/admit diagnosis, lab results, radiology results, the need for further work-up and treatment in the hospital. Response to treatment: There is no appreciated change of the patient's symptoms at this time. 11/08 12:06 Order name: Basic Metabolic Panel; Complete Time: 13:26 rt 11/08 12:06 Order name: CBC with Diff; Complete Time: 13:26 rt 11/08 12:06 Order name: LFT's; Complete Time: 13:26 rt 11/08 12:06 Order name: Magnesium; Complete Time: 13:26 rt 11/08 12:06 Order name: Troponin HS; Complete Time: 13:26 rt 11/08 12:06 Order name: UA W/ Microscopic; Complete Time: 13:26 rt 11/08 16:31 Order name: Basic Metabolic Panel EDMS 11/08 16:31 Order name: Basic Metabolic Panel EDMS 11/08 16:31 Order name: CBC with Automated Diff EDMS 11/08 16:31 Order name: CBC with Automated Diff EDMS 11/08 16:31 Order name: Fecal Leukocyte Stain EDMS 11/08 16:31 Order name: Ova and Parasites EDMS 11/08 16:31 Order name: Stool Culture EDMS 11/08 12:06 Order name: XRAY Chest (1 view); Complete Time: 13:26 rt 11/08 12:06 Order name: CT Head Brain wo Cont; Complete Time: 14:39 rt 11/08 12:06 Order name: CT Abd/Pelvis - IV Contrast Only; Complete Time: 14:39 rt 11/08 12:06 Order name: EKG; Complete Time: 12:07 rt 11/08 12:06 Order name: Cardiac monitoring; Complete Time: 15:21 rt 11/08 12:06 Order name: EKG - Nurse/Tech; Complete Time: 15:21 rt 11/08 12:06 Order name: IV Saline Lock; Complete Time: 12:54 rt 11/08 12:06 Order name: Labs collected and sent; Complete Time: 12:54 rt 11/08 12:06 Order name: O2 Per Protocol; Complete Time: 12:54 rt 11/08 12:06 Order name: O2 Sat Monitoring; Complete Time: 12:54 rt 11/08 12:06 Order name: Straight Cath; Complete Time: 12:49 rt EC:48 Rate is 66 beats/min. Rhythm is regular, Normal Sinus Rhythm with No ectopy. QRS [place] rt is Normal. MN interval is normal. QRS interval is normal. QT interval is normal. No Q waves. Clinical impression: NSR w/ Non-specific ST/T Changes. Administered Medications: 12:53 Drug: NS 0.9% IV 1000 ml IV at 1000 ml once; to be given as a bolus over 60 minutes [id number] Route: IV; Rate: 1000 ml; Site: right antecubital; 14:00 Follow up: Response: No adverse reaction; IV Status: Completed infusion; IV Intake: ph 1000ml 15:59 Drug: Ciprofloxacin IVPB 400 mg 200 ml IVPB once over 60 mins Volume: 200 ml; Route: ph IVPB; Infused Over: 60 mins; Site: left antecubital; 16:51 Follow up: Response: No adverse reaction; IV Status: Completed infusion ph 15:59 Drug: Potassium Chloride IV 20 mEq IV at calculated rate once; administer over 1-2 ph hours Route: IV; Rate: calculated rate; Site: left antecubital; 18:00 Follow up: Response: No adverse reaction; IV Status: Completed infusion ph 16:55 Drug: metroNIDAZOLE IVPB 500 mg 100 ml IVPB at 200 ml/hr once over 30 mins Volume: 100 ph ml; Route: IVPB; Rate: 200 ml/hr; Infused Over: 30 mins; Site: left antecubital; 17:30 Follow up: Response: No adverse reaction; IV Status: Completed infusion ph Disposition Summary: 11/08/24 15:43 Hospitalization Ordered Notes: Hospitalization Status: Inpatient Admission rt Provider: Gina Ramírez rt Location: Telemetry/[facility] (Inpatient) rt Condition: Stable rt Problem: new rt Symptoms: are unchanged rt Bed/Room Type: Standard rt Room Assignment: 428(11/08/24 18:06) ss Diagnosis - Altered mental status rt - Colitis rt Forms: - Medication Reconciliation Form rt - SBAR form rt - Leadership Thank You Letter rt Signatures: Dispatcher [employer] Angelica Cantrell RN RN ss Hall, Patricia, RN RN ph Johnson, Juwairiyah, RN RN jj7 Ian Wise MD MD rt Corrections: (The following items were deleted from the chart) 18: 15:43 rt ss
[2024-11-08] MEDS ORDERED: METRONIDAZOLE 500mg IVPB 500 MG/100 ML BAG IV ONE (15:44)
[2024-11-08] MEDS ORDERED: CIPROFLOXACIN 400mg IV 400 MG/200 ML BAG IV ONE (15:44)
[2024-11-08] MEDS ORDERED: ONDANSETRON 4 MG/2 ML VIAL IV PRN (16:27)
[2024-11-08] MEDS ORDERED: SODIUM CHLORIDE 0.9% 10ML INJ IV PRN (16:30)
[2024-11-08] MEDS ORDERED: HYDROCODONE/APAP 5/325 MG TAB PO PRN (16:34)
--- NOTE | 2024-11-08 16:36 | P.HP ---
Patient History Date of Service: 11/08/24 History of Present Illness: 84-year-old female with a past medical history of Alzheimer's dementia, hypertension, and hyperlipidemia presenting with diarrhea for the last several days. She is confused at the moment and unable to answer questions appropriately. Her daughter is at bedside. Her daughter states she has been more lethargic and confused as of lately. She is unable to recognize any of her family members including her beloved grand daughter. She wears diapers and is unable to control her bowels. In addition she has been having loose stools for the last few days. They deny any recent exposure to sick contacts. She was diagnosed with Alzheimer's about a year ago. Allergies No Known Allergies Allergy (Verified 02/05/12 03:07) Home Medications: Atorvastatin Calcium [Lipitor] 20 mg PO BEDTIME #0 tablet 02/09/12 Clopidogrel Bisulfate [Plavix*] 75 mg PO DAILY #0 tablet 02/09/12 Ciprofloxacin HCl [Cipro*] 500 mg PO BID 10 Days tab 08/06/13 Hydrocodone 5/APAP 325 [[place] 5/325*] 1 tab PO TIDP PRN #15 tab 08/06/13 Naproxen [Naprosyn] 500 mg PO BID #14 tablet 08/06/13 metroNIDAZOLE [Flagyl*] 500 mg PO Q8H 10 Days tablet 08/06/13 ramipriL [Alt[place]*] 5 mg PO DAILY 08/06/13 - Past Medical/Surgical History Diabetic: No -: HTN -: TIA -: Elevated Cholesterol -: Cholecystectomy -: Appendectomy - Social History Alcohol use: Yes CD- Drugs: No Caffeine use: Yes Review of Systems is unable to be obtained Physical Examination - Physical Exam General: In no apparent distress, Cachectic, Confused HEENT: Normocephalic, Other (Temporal wasting) Neck: Supple, 2+ carotid pulse no bruit Respiratory: Clear to auscultation bilaterally Cardiovascular: No edema Capillary refill: <2 Seconds Gastrointestinal: Soft and benign, Hyperactive Musculoskeletal: No clubbing Integumentary: No rashes Neurological: Normal strength at 5/5 x4 extr - Studies Laboratory Data (last 24 hrs) 11/08/24 11/08/24 12:50 12:50 WBC 7.60 Hgb 12.4 Hct 35.8 L Plt Count 367 Sodium 140 Potassium 3.1 L BUN 11 Creatinine 1.20 H Glucose 96 Magnesium 1.9 Total Bilirubin 0.5 AST 17 ALT < 14 Alkaline Phosphatase 154 H Assessment and Plan - Plan Colitis Hypokalemia Acute kidney injury Hypertension Hyperlipidemia Admit to floor Start IV hydration and PPI Replace potassium Obtain stool cultures Continue supportive care with [place] as needed Obtain procalcitonin and CRP Zofran as needed Continue ramipril Continue Plavix DVT prophylaxis with SCDs - Advance Directives Does patient have a Living Will: No Does patient have a Durable POA for Healthcare: No
[2024-11-08] MEDS ORDERED: NA CHLORIDE 0.9% 1,000 ML IV SCH (17:00)
[2024-11-08] MEDS: ATORVASTATIN 20 MG TAB PO SCH (21:23)
[2024-11-08] MEDS: MORPHINE 2 MG/ML SYR IV PRN (21:23)
[2024-11-08] MEDS: D5 0.45 NS 1,000 ML IV SCH (23:10)
[2024-11-09 04:35] LABS: Absolute Basophils 0.1 K/uL (0-0.5); Absolute Eosinophils 0.1 K/uL (0-0.5); Absolute Lymphocytes (CBC) 2.3 K/uL (0.7-4.9); Absolute Monocytes 0.8 K/uL (0.1-1.3); Basophils % 1.4 % (0-1.3); Eosinophils % 2.1 % (0-4.4); Hemoglobin 10.5 g/dL (12.0-15.0); MCH 30.8 pg (27.0-35.0); MCHC 34.8 g/dL (32.0-36.0); MCV 88.4 fL (80-100); MPV 7.4 fL (7.6-11.3); Monocytes % 10.9 % (3.3-12.3); Neutrophils % 54.6 % (41.7-73.7); Nucleated Red Blood Cells % 0.1 % (0-0); Platelets 321 thou/uL (152-406); Red Cell Distribution Width 14.1 % (12.1-15.2)
[2024-11-09 04:57] LABS: Anion Gap 6.8 mEq/L (5.0-15.0); Potassium 2.8 mEq/L (3.5-5.1)
[2024-11-09] MEDS: ramipriL 5 MG CAP PO SCH (09:00)
[2024-11-09] MEDS: CLOPIDOGREL 75 MG TABLET PO SCH (09:00)
[2024-11-09] MEDS: CALCIUM CARBONATE 500 MG TAB PO SCH (09:00)
[2024-11-09] MEDS: PANTOPRAZOLE 40 MG INJ IVP SCH (10:04)
[2024-11-09] MEDS: KCL 20 MEQ/100 mL IVPB 20 MEQ/100 ML BAG IV SCH (10:07)
[2024-11-09] MEDS: HYDRALAZINE HCL 20 MG/ML VIAL IV PRN (10:16)
[2024-11-09] MEDS ORDERED: PNEUMOCOCCAL VACCINE 0.5 ML IMVAC ONE (11:00)
--- NOTE | 2024-11-09 11:42 | EKG ---
Test Date: 2024-11-08 Test Time: 14:55:44 Physicist [place]: PH MEASUREMENT RESULTS: Intervals: Rate: 66 DE: QRSD: 90 QT: 406 QTc: 425 [place]: P: DE: QRS: 0 T: 67 INTERPRETIVE STATEMENTS: Accelerated Junctional rhythm Nonspecific ST and T wave abnormality Abnormal ECG Compared to ECG 11/06/2024 13:20:15 ST (T wave) deviation now present Ventricular premature complex(es) no longer present Myocardial infarct finding no longer present Electronically Signed On 11-09-24 11:39:40 CDT by Chang Corea
[2024-11-09] MEDS: LORazepam 2 MG/ML VIAL IV ONE (15:26)
--- NOTE | 2024-11-09 16:15 | P.PN ---
Date of Service: 11/09/24 Subjective: Family members at bedside. She is staring off into space. They state this is not normal. We discussed trying to keep her still enough for an MRI. No fevers or chills Review of Systems is unable to be obtained Physical Examination - Physical Exam General: In no apparent distress, Cachectic, Confused HEENT: Normocephalic, Other (Temporal wasting) Neck: Supple, 2+ carotid pulse no bruit Respiratory: Clear to auscultation bilaterally Cardiovascular: No edema Capillary refill: <2 Seconds Gastrointestinal: Soft and benign, Hyperactive Musculoskeletal: No clubbing Integumentary: No rashes Neurological: Normal strength at 5/5 x4 extr - Studies Laboratory Data (last 24 hrs) 11/08/24 11/08/24 12:50 12:50 WBC 7.60 Hgb 12.4 Hct 35.8 L Plt Count 367 Sodium 140 Potassium 3.1 L BUN 11 Creatinine 1.20 H Glucose 96 Magnesium 1.9 Total Bilirubin 0.5 AST 17 ALT < 14 Alkaline Phosphatase 154 H Assessment and Plan - Plan Colitis Acute metabolic encephalopathy Hypokalemia Acute kidney injury Hypertension Hyperlipidemia MRI today, Ativan for agitation Continue IV hydration and PPI Continue potassium replacement protocol Check magnesium Obtain stool cultures Continue supportive care with [place] as needed Obtain procalcitonin and CRP Zofran as needed Continue ramipril Continue Plavix Acute kidney injury resolved DVT prophylaxis with SCDs - Advance Directives Does patient have a Living Will: No Does patient have a Durable POA for Healthcare: No
[2024-11-09] MEDS: Ringers Lactate 1,000 ML IV SCH (18:51)
[2024-11-09 23:02] VITALS: BMI 20.9
[2024-11-10 05:19] LABS: Absolute Basophils 0.1 K/uL (0-0.5); Absolute Eosinophils 0.3 K/uL (0-0.5); Absolute Lymphocytes (CBC) 2.3 K/uL (0.7-4.9); Absolute Monocytes 0.6 K/uL (0.1-1.3); Absolute Neutrophil 3.6 K/uL (1.8-8.0); Basophils % 1.3 % (0-1.3); Eosinophils % 4.3 % (0-4.4); Hematocrit 29.8 % (36.0-45.0); Hemoglobin 10.2 g/dL (12.0-15.0); MCH 30.6 pg (27.0-35.0); MCHC 34.3 g/dL (32.0-36.0); MCV 89.3 fL (80-100); MPV 8.2 fL (7.6-11.3); Monocytes % 9.2 % (3.3-12.3); Neutrophils % 52.2 % (41.7-73.7); Nucleated Red Blood Cells % 0.2 % (0-0); Platelets 281 thou/uL (152-406); RBC Red Blood Cell Count 3.33 M/uL (3.86-4.86); Red Cell Distribution Width 13.9 % (12.1-15.2)
[2024-11-10 05:28] LABS: Anion Gap 9.6 mEq/L (5.0-15.0); Potassium 3.6 mEq/L (3.5-5.1)
[2024-11-10] MEDS: KCL 20 MEQ/100 mL IVPB 20 MEQ/100 ML BAG IV SCH (06:49)
[2024-11-10] MEDS: Magnesium Sulfate 2gm IVPB 2 G/50 ML BAG IV ONE (08:02)
[2024-11-10 10:56] VITALS: O2SAT 98
--- NOTE | 2024-11-10 17:13 | P.PN ---
Date of Service: 11/10/24 Subjective: Had long discussion with family today. Family is electing to choose hospice. Patient remains in bed and very weak. Review of Systems is unable to be obtained Physical Examination - Physical Exam General: In no apparent distress, Cachectic, Confused HEENT: Normocephalic, Other (Temporal wasting) Neck: Supple, 2+ carotid pulse no bruit Respiratory: Clear to auscultation bilaterally Cardiovascular: No edema Capillary refill: <2 Seconds Gastrointestinal: Soft and benign, Hyperactive Musculoskeletal: No clubbing Integumentary: No rashes Neurological: Normal strength at 5/5 x4 extr - Studies Laboratory Data (last 24 hrs) 11/08/24 11/08/24 12:50 12:50 WBC 7.60 Hgb 12.4 Hct 35.8 L Plt Count 367 Sodium 140 Potassium 3.1 L BUN 11 Creatinine 1.20 H Glucose 96 Magnesium 1.9 Total Bilirubin 0.5 AST 17 ALT < 14 Alkaline Phosphatase 154 H Assessment and Plan - Plan Colitis Acute metabolic encephalopathy Hypertension Hyperlipidemia Unable to complete MRI Continue IV hydration and PPI Continue potassium replacement protocol Magnesium level within normal limit Obtain stool cultures Continue supportive care with [place] as needed Obtain procalcitonin and CRP Zofran as needed Continue ramipril Continue Plavix Acute kidney injury resolved Hypokalemia resolved DVT prophylaxis with SCDs - Advance Directives Does patient have a Living Will: No Does patient have a Durable POA for Healthcare: No
[2024-11-11] MEDS: D5LR 1,000 ML IV SCH (00:29)
[2024-11-11 07:14] LABS: Anion Gap 9.4 mEq/L (5.0-15.0); Magnesium 2.1 mg/dL (1.6-2.4); Potassium 3.4 mEq/L (3.5-5.1)
[2024-11-11] MEDS: KCL 20 MEQ/100 mL IVPB 20 MEQ/100 ML BAG IV SCH (08:56)
[2024-11-11 12:18] VITALS: BP 147/76; TEMP 97.9
--- NOTE | 2024-11-11 13:54 | P.PN ---
Date of Service: 11/11/24 Subjective: Sleeping. No family at bedside. Arousable but falls back asleep. Discussed with nursing. Review of Systems is unable to be obtained Physical Examination - Physical Exam General: In no apparent distress, Cachectic, Confused HEENT: Normocephalic, Other (Temporal wasting) Neck: Supple, 2+ carotid pulse no bruit Respiratory: Clear to auscultation bilaterally Cardiovascular: No edema Capillary refill: <2 Seconds Gastrointestinal: Soft and benign, Hyperactive Musculoskeletal: No clubbing Integumentary: No rashes Neurological: Normal strength at 5/5 x4 extr - Studies Laboratory Data (last 24 hrs) 11/08/24 11/08/24 12:50 12:50 WBC 7.60 Hgb 12.4 Hct 35.8 L Plt Count 367 Sodium 140 Potassium 3.1 L BUN 11 Creatinine 1.20 H Glucose 96 Magnesium 1.9 Total Bilirubin 0.5 AST 17 ALT < 14 Alkaline Phosphatase 154 H Assessment and Plan - Plan Colitis Acute metabolic encephalopathy Generalized weakness Hypertension Hyperlipidemia Unable to complete MRI Had a long discussion with and would like to pursue with hospice Continue IV hydration and PPI Continue potassium replacement protocol Magnesium level within normal limit Obtain stool cultures Continue supportive care with [place] as needed Obtain procalcitonin and CRP Zofran as needed Continue ramipril Continue Plavix Acute kidney injury resolved Hypokalemia resolved DVT prophylaxis with SCDs - Advance Directives Does patient have a Living Will: No Does patient have a Durable POA for Healthcare: No Disposition: Family is electing hospice care.
--- NOTE | 2024-11-11 14:44 | P.DS ---
Admission Date: 11/08/24 Discharge Date: 11/11/24 Disposition: HOSPICE-HOME Discharge Condition: FAIR Brief History of Present Illness: 84-year-old female with a past medical history of Alzheimer's dementia, hypertension, and hyperlipidemia presenting with diarrhea for the last several days. She is confused at the moment and unable to answer questions appropriately. Her daughter is at bedside. Her daughter states she has been more lethargic and confused as of lately. She is unable to recognize any of her family members including her beloved grand daughter. She wears diapers and is unable to control her bowels. In addition she has been having loose stools for the last few days. They deny any recent exposure to sick contacts. She was diagnosed with Alzheimer's about a year ago. Hospital Course: 84-year-old female presented with diarrhea and abdominal pain found to have colitis alongside acute kidney injury with superimposed electrolyte abnormalities. Upon admission she was started on IV fluid, proton pump inhibi tor, and her electrolytes were replaced. Her clinical condition improved over the course of her stay however she was not able to regain her strength. Due to her advanced age, generalized weakness, lack of oral intake, her family has decided to elect hospice care at this time. The remainder of her medical problems are chronic and stable. She is medically optimized to discharge home with hospice Vital Signs/Physical Exam: Temp Pulse Resp BP Pulse Ox 97.9 F 62 16 147/76 H 99 11/11/24 12:00 11/11/24 12:00 11/11/24 12:00 11/11/24 12:00 11/11/24 12:00 General: In no apparent distress HEENT: Normocephalic Neck: Supple Respiratory: Normal air movement Cardiovascular: No edema Capillary refill: <2 Seconds Gastrointestinal: Normal bowel sounds Musculoskeletal: No clubbing Integumentary: No rashes Neurological: Normal gait, Normal strength at 5/5 x4 extr External genitalia: No edema Laboratory Data at Discharge: WBC 6.80 thou/uL (4.3-10.9) 11/10/24 04:09 Hgb 10.2 g/dL (12.0-15.0) L 11/10/24 04:09 Hct 29.8 % (36.0-45.0) L 11/10/24 04:09 Plt Count 281 thou/uL (152-406) 11/10/24 04:09 Sodium 138 mEq/L (136-145) 11/11/24 06:49 Potassium 3.4 mEq/L (3.5-5.1) L 11/11/24 06:49 BUN 7 mg/dL (7-18) 11/11/24 06:49 Creatinine 0.98 mg/dL (0.55-1.02) 11/11/24 06:49 Glucose 90 mg/dL (74-106) 11/11/24 06:49 Magnesium 2.1 mg/dL (1.6-2.4) 11/11/24 06:49 Total Bilirubin 0.5 mg/dL (0.2-1.0) 11/08/24 12:50 AST 17 U/L (15-37) 11/08/24 12:50 ALT < 14 U/L (13-56) 11/08/24 12:50 Alkaline Phosphatase 154 U/L (45-117) H 11/08/24 12:50 Home Medications: Donepezil [Aricept*] 5 mg PO BEDTIME 11/07/24 Amlodipine [Norvasc*] 5 mg PO DAILY 11/09/24 Lisinopril [Zestril] 20 mg pe PO DAILY 11/09/24 Clopidogrel Bisulfate [Plavix*] 75 mg PO DAILY 30 Days #30 tab 11/11/24 New Medications: Clopidogrel Bisulfate [Plavix*] 75 mg PO DAILY 30 Days #30 tab Followup: Jacob Madison MD [Primary Care Provider] -
== END 2024-11-11 15:30 | disposition hospice, home (50) | DRG 391 ==
LOC: ER 11:46 → ERHOLD 16:26 → 4TH 18:29
PROVIDERS: ADMIT Family Medicine; ATTEND Family Medicine
DX: K52.9 Noninfective gastroenteritis and colitis, unspecified (principal); G93.41 Metabolic encephalopathy; R64 Cachexia; Z68.1 Body mass index [BMI] 19.9 or less, adult; N17.9 Acute kidney failure, unspecified; E87.6 Hypokalemia; E78.5 Hyperlipidemia, unspecified; I10 Essential (primary) hypertension; G30.9 Alzheimer's disease, unspecified; F02.80 Dementia in other diseases classified elsewhere, unspecified severity, without behavioral disturbance, psychotic disturbance, mood disturbance, and anxiety; Z79.02 Long term (current) use of antithrombotics/antiplatelets; Z90.49 Acquired absence of other specified parts of digestive tract; Z86.73 Personal history of transient ischemic attack (TIA), and cerebral infarction without residual deficits; Z79.899 Other long term (current) drug therapy
CPT/HCPCS: 36415; 51702; 70450; 71045; 74177; 80048; 80076; 81001; 82306; 82947; 83735; 84132; 84145; 84484; 85025; 86140; 93005; 96361; 96365; 96367; 96368; 99285; J0360; J0744; J2270; J2470; J3475; J3480; J7030; J7120; J7121; J7799; Q9967